=== PATIENT | female | born 1950 ===

== ENCOUNTER 2017-12-16 12:15 | Emergency (ER) | payer MEDICARE ==
[~2017-12-16] VITALS: Ht 160 cm; Wt 136.1 kg
[~2017-12-16 12:15] MED LIST: "\\\"WATER PILL\\\""; ACET325 PO; ALBU90OI INH; AMOCLA500 PO; AMOX500 PO; ASPI81CH PO; ATOR80 PO; AZIT250 PO; BECL40OI INH; BENTYL20 MG PO; BYDUREON P2 MG/0.65 SQ; CEPH500; CHOLESTEROL MED; CIPHYDOTSU OT; CIPR500 PO; CLAR500 PO; CLON.5 PO; CRUTCH3 USE; DIAZ5 PO; DICY20 PO; DOC250 PO; DOXY100 PO; FEXO180 PO; FLUC100; FLUC100 PO; FLUC150A PO; FLUT.05NI; FLUV20; FLUV40; FLUV80CR; FURO20 PO; FURO40 PO; Flurbiprofen100 MG PO; GABA600 PO; Gabapentin600 MG PO; HUMALOG INSULIN; HUMALOG MIX SUBQ; HYDACE5 PO; HYDMOR2 PO; Humalog100 UNIT/1 SC; IBUP600 PO; INS50/50I SC; INS70/30I; INSLI100I; INSLI100I SC; INSLIS75I SC; INSULANI; INSULANI SC; INSULANI SUBQ; INSULANPEN SC; INSULISPEN SC; Keflex500 MG PO; LACT10SY PO; LEVFLO500 PO; LIRA0.6P SC; LISI20 PO; LISI5 PO; LORA.5 PO; LORA1; LORA1 PO; LORA2 PO; MAGCIT300 PO; METF500; METF500 PO; METO25 PO; METPRE4DP PO; METR250 PO; Macrobid 100 M100 MG PO; Micro-K10 MEQ PO; NITR.4SL SL; NITR100CA PO; OMEP20ER; OMEP20ER PO; OMEPRAZOLE MAGN20 MG PO; OXYACE5T PO; OXYB5; OXYB5ER PO; PARO10 PO; PARO20; PARO20 PO; PARO30; PARO30 PO; PIOG15; PIOG15 PO; POTA10T PO; POTCHL20ER; POTCHL20ER PO; PRED10; PROBIOTIC; PROM25 PO; Percocet 5-3251 EACH PO; Prednisone20 MG PO; Pyridium100 MG PO; RANI150 PO; RXANTBENOT AU; RXHYDMOR2 PO; RXOXYACE PO; RXPROM25 PO; RXTRAM50 PO; SIMV5 PO; SITA25T2 PO; SOLI5 PO; SULTRIDS PO; Simvastatin40 MG PO; TOLT4 PO; TRAM50; TRAM50 PO; TRAZ50; TRAZ50 PO; Victoza SC; WALKER USE; WATER PILL; ZOLP10 PO; [UNRECOGNIZED DRUG - OTHER]; [UNRECOGNIZED DRUG - OTHER]; [UNRECOGNIZED DRUG - OTHER] PO; [UNRECOGNIZED DRUG - REMARK]
[2017-12-16 14:53] LABS: Alanine Aminotransfer (ALT/SGP 31 U/L (12-78); Albumin, Blood 3.5 g/dL (3.4-5.0); Albumin/Globulin Ratio 0.8 (0.8-1.8); Alk Phos 174 U/L (50-136); Anion Gap 8 mmol/L (6-16); Aspartate Aminotrans (AST/SGOT 38 U/L (12-37); Blood Urea Nitrogen 16 mg/dL (8-24); Bun/Creatinine Ratio 23.3 (12.0-20.0); CO2, Blood 25 mmol/L (21-32); Calcium, Blood 9.4 mg/dL (8.5-10.1); Chloride, Blood 104 mmol/L (98-108); Creatinine, Blood 0.69 mg/dL (0.40-1.00); Globulin, Blood 4.4 g/dL (2.2-4.0); Glomerular Filtration Rate >60 (60-); Glucose, Blood 236 mg/dL (70-99); Potassium, Blood 4.8 mmol/L (3.5-5.5); Sodium, Blood 137 mmol/L (136-145); Total Protein, Blood 7.9 g/dL (6.4-8.2)
[2017-12-16 15:13] LABS: BASOPHILS ABSOLUTE AUTO 0.05 K/mm3 (0.00-0.23); BASOPHILS PERCENT AUTO 1 % (0-2); EOSINOPHILS ABSOLUTE AUTO 0.17 K/mm3 (0.00-0.68); EOSINOPHILS PERCENT AUTO 3 % (0-6); Hematocrit 39.5 % (33.0-51.0); Hemoglobin 12.6 g/dL (11.5-16.0); IMMATURE GRAN ABSOLUTE AUTO 0.05 K/mm3 (0.00-0.10); IMMATURE GRAN PERCENT AUTO 1 % (0-1); LYMPHOCYTES ABSOLUTE AUTO 1.91 K/mm3 (0.84-5.20); LYMPHOCYTES PERCENT AUTO 28 % (21-46); MONOCYTES ABSOLUTE AUTO 0.49 K/mm3 (0.16-1.47); MONOCYTES PERCENT AUTO 7 % (4-13); Mean Corpuscular HGB 29.5 pg (26.0-34.0); Mean Corpuscular HGB Conc 31.9 g/dL (31.5-36.5); Mean Corpuscular Volume 93 fL (80-100); Mean Platelet Volume 9.5 fL (9.1-12.4); NEUTROPHILS ABSOLUTE AUTO 4.17 K/mm3 (1.96-9.15); NEUTROPHILS PERCENT AUTO 61 % (41-73); Platelet Count 264 K/mm3 (150-400); RDW Coefficient Variation 12.4 % (11.7-14.2); RDW Standard Deviation 42.5 fL (35.1-46.3); Red Blood Cell Count 4.27 M/mm3 (3.80-5.20); White Blood Cell Count 6.84 K/mm3 (4.00-11.30)
[2017-12-16 15:38] LABS: Source, Urine Clean Catch
[2017-12-16 15:43] LABS: Bilirubin, Urine Neg (Neg); Blood, Urine 1+ (Neg); Glucose Qualitative, Urine 2+ (Neg); Ketones, Urine Neg (Neg); Leukocyte Esterase, Urine 3+ (Neg); Nitrite, Urine Pos (Neg); Protein, Urine 1+ (Neg); Specific Gravity, Urine 1.025 (1.003-1.022); Urobilinogen, Urine NORM (Normal)
[2017-12-16 15:52] LABS: Appearance, Urine Hazy (Clear); Bacteria Many /hpf; Color, Urine Yellow (P-Yellow); Red Blood Cells, Urine 0-2 /hpf (0-2); Squamous Epithelial Cells Few /hpf (Few)
[2017-12-16] MEDS ORDERED: CEPH500 PO (15:59)
[2017-12-16] MEDS ORDERED: Zofran Odt4 MG PO (15:59)
[2017-12-16] MEDS ORDERED: Omeprazole20 M1 PO (16:03)
[2017-12-16] MEDS ORDERED: Lantus100 UNIT/1 SC (16:03)
[2017-12-16] MEDS ORDERED: CLON.5 PO (16:28)
[2017-12-16] MEDS ORDERED: GABA300 PO (16:28)
[2017-12-16] MEDS ORDERED: ALBU3IS INH (16:28)
[2017-12-16] MEDS ORDERED: OXYC1TAB11 (16:28)
== END 2017-12-16 17:24 | disposition home or self-care (01) ==
LOC: ER 12:15
PROVIDERS: Emergency Medicine
DX: N39.0 Urinary tract infection, site not specified (principal); R19.7 Diarrhea, unspecified; E11.9 Type 2 diabetes mellitus without complications; E66.01 Morbid (severe) obesity due to excess calories; Z68.43 Body mass index [BMI] 50.0-59.9, adult; Z88.5 Allergy status to narcotic agent; Z79.4 Long term (current) use of insulin; Z79.2 Long term (current) use of antibiotics
CPT/HCPCS: 36415; 80053; 81001; 83690; 85025; 99283

== ENCOUNTER 2017-12-28 13:30 | Emergency (ER) | payer MEDICARE ==
[~2017-12-28] VITALS: Ht 162.6 cm; Wt 136.1 kg
[~2017-12-28 13:30] MED LIST changes: +ALBU3IS INH; +CEPH500 PO; +GABA300 PO; +Lantus100 UNIT/1 SC; +OXYC1TAB11; +Omeprazole20 M1 PO; +Zofran Odt4 MG PO
[2017-12-28 14:37] LABS: BASOPHILS ABSOLUTE AUTO 0.04 K/mm3 (0.00-0.23); BASOPHILS PERCENT AUTO 1 % (0-2); EOSINOPHILS ABSOLUTE AUTO 0.14 K/mm3 (0.00-0.68); EOSINOPHILS PERCENT AUTO 2 % (0-6); Hemoglobin 12.5 g/dL (11.5-16.0); IMMATURE GRAN ABSOLUTE AUTO 0.05 K/mm3 (0.00-0.10); IMMATURE GRAN PERCENT AUTO 1 % (0-1); LYMPHOCYTES PERCENT AUTO 25 % (21-46); MONOCYTES ABSOLUTE AUTO 0.55 K/mm3 (0.16-1.47); MONOCYTES PERCENT AUTO 7 % (4-13); Mean Corpuscular HGB 29.3 pg (26.0-34.0); Mean Corpuscular HGB Conc 32.1 g/dL (31.5-36.5); Mean Corpuscular Volume 91 fL (80-100); Mean Platelet Volume 9.4 fL (9.1-12.4); NEUTROPHILS PERCENT AUTO 65 % (41-73); Platelet Count 289 K/mm3 (150-400); RDW Coefficient Variation 12.6 % (11.7-14.2); RDW Standard Deviation 41.3 fL (35.1-46.3); Red Blood Cell Count 4.27 M/mm3 (3.80-5.20); White Blood Cell Count 7.58 K/mm3 (4.00-11.30)
[2017-12-28 14:42] LABS: Alanine Aminotransfer (ALT/SGP 28 U/L (12-78); Albumin, Blood 3.2 g/dL (3.4-5.0); Albumin/Globulin Ratio 0.8 (0.8-1.8); Alk Phos 187 U/L (50-136); Anion Gap 10 mmol/L (6-16); Aspartate Aminotrans (AST/SGOT 18 U/L (12-37); Bilirubin, Total 0.7 mg/dL (0.1-1.0); Blood Urea Nitrogen 16 mg/dL (8-24); Bun/Creatinine Ratio 22.9 (12.0-20.0); CO2, Blood 23 mmol/L (21-32); Calcium, Blood 9.2 mg/dL (8.5-10.1); Chloride, Blood 105 mmol/L (98-108); Globulin, Blood 3.9 g/dL (2.2-4.0); Glomerular Filtration Rate >60 (60-); Glucose, Blood 162 mg/dL (70-99); Potassium, Blood 4.3 mmol/L (3.5-5.5); Sodium, Blood 138 mmol/L (136-145); Total Protein, Blood 7.1 g/dL (6.4-8.2)
[2017-12-28] MEDS ORDERED: Kristalose20 GM PO (15:30)
[2017-12-28] MEDS ORDERED: MIRALAX17 GM PO (15:30)
[2017-12-28] MEDS ORDERED: OMEPRAZOLE MAGN20 MG PO (15:31)
[2017-12-28] MEDS ORDERED: PROM25 PO (15:42)
== END 2017-12-28 16:42 | disposition home or self-care (01) ==
LOC: ER 13:30
PROVIDERS: Emergency Medicine
DX: R10.12 Left upper quadrant pain (principal); Z88.5 Allergy status to narcotic agent; Z79.4 Long term (current) use of insulin; Z79.899 Other long term (current) drug therapy; Z79.82 Long term (current) use of aspirin; E11.9 Type 2 diabetes mellitus without complications; E66.9 Obesity, unspecified
CPT/HCPCS: 36415; 74022; 80053; 83690; 85025; 96361; 96374; 99284; J2405; J7030

== ENCOUNTER 2018-02-24 17:20 | Observation (INO) | payer MEDICARE ==
[~2018-02-24] VITALS: Ht 160 cm; Wt 142.7 kg
[~2018-02-24 17:20] MED LIST changes: +Kristalose20 GM PO; +MIRALAX17 GM PO
[2018-02-24 18:47] LABS: BASOPHILS ABSOLUTE AUTO 0.05 K/mm3 (0.00-0.23); BASOPHILS PERCENT AUTO 0 % (0-2); EOSINOPHILS ABSOLUTE AUTO 0.11 K/mm3 (0.00-0.68); EOSINOPHILS PERCENT AUTO 1 % (0-6); Hematocrit 38.7 % (33.0-51.0); Hemoglobin 12.7 g/dL (11.5-16.0); IMMATURE GRAN ABSOLUTE AUTO 0.07 K/mm3 (0.00-0.10); IMMATURE GRAN PERCENT AUTO 1 % (0-1); LYMPHOCYTES ABSOLUTE AUTO 1.62 K/mm3 (0.84-5.20); LYMPHOCYTES PERCENT AUTO 13 % (21-46); MONOCYTES ABSOLUTE AUTO 0.67 K/mm3 (0.16-1.47); MONOCYTES PERCENT AUTO 5 % (4-13); Mean Corpuscular HGB 29.3 pg (26.0-34.0); Mean Corpuscular HGB Conc 32.8 g/dL (31.5-36.5); Mean Corpuscular Volume 89 fL (80-100); Mean Platelet Volume 9.3 fL (9.1-12.4); NEUTROPHILS ABSOLUTE AUTO 10.46 K/mm3 (1.96-9.15); NEUTROPHILS PERCENT AUTO 81 % (41-73); Platelet Count 291 K/mm3 (150-400); RDW Coefficient Variation 13.1 % (11.7-14.2); RDW Standard Deviation 42.7 fL (35.1-46.3); Red Blood Cell Count 4.34 M/mm3 (3.80-5.20); White Blood Cell Count 12.98 K/mm3 (4.00-11.30)
[2018-02-24] MEDS ORDERED: GABA300 PO (19:00)
[2018-02-24] MEDS ORDERED: BUME2 PO (19:02)
[2018-02-24] MEDS ORDERED: POTCHL20ER PO (19:03)
[2018-02-24 19:07] LABS: Alanine Aminotransfer (ALT/SGP 29 U/L (12-78); Albumin, Blood 3.5 g/dL (3.4-5.0); Albumin/Globulin Ratio 0.9 (0.8-1.8); Alk Phos 199 U/L (50-136); Anion Gap 7 mmol/L (6-16); Aspartate Aminotrans (AST/SGOT 18 U/L (12-37); Bilirubin, Total 0.6 mg/dL (0.1-1.0); Blood Urea Nitrogen 13 mg/dL (8-24); Bun/Creatinine Ratio 19.1 (12.0-20.0); CO2, Blood 25 mmol/L (21-32); Calcium, Blood 8.9 mg/dL (8.5-10.1); Chloride, Blood 106 mmol/L (98-108); Creatinine, Blood 0.68 mg/dL (0.40-1.00); Ethanol (Alcohol), Blood, Med <3 mg/dL; Globulin, Blood 3.8 g/dL (2.2-4.0); Glomerular Filtration Rate >60 (60-); Glucose, Blood 264 mg/dL (70-99); Salicylate <1.7 mg/dL (2.8-20.0); Sodium, Blood 138 mmol/L (136-145); Thyroxine (T4) 9.5 ug/dL (4.8-13.9); Total Protein, Blood 7.3 g/dL (6.4-8.2)
[2018-02-24 19:14] LABS: Acetaminophen, Random < 2.0 ug/mL (10.0-30.0)
[2018-02-24 20:27] LABS: Source, Urine Clean Catch
[2018-02-24 20:35] LABS: Bilirubin, Urine Neg (Neg); Blood, Urine 1+ (Neg); Glucose Qualitative, Urine 2+ (Neg); Ketones, Urine Neg (Neg); Leukocyte Esterase, Urine 3+ (Neg); Nitrite, Urine Pos (Neg); Protein, Urine 2+ (Neg); Specific Gravity, Urine 1.015 (1.003-1.022); Urobilinogen, Urine NORM (Normal)
[2018-02-24 20:40] LABS: Appearance, Urine Cloudy (Clear); Color, Urine Yellow (P-Yellow)
[2018-02-24 20:42] LABS: White Blood Cells, Urine 50-100 /hpf (0-5)
[2018-02-24 20:43] LABS: Bacteria Many /hpf; Squamous Epithelial Cells Mod /hpf (Few)
[2018-02-26 14:06] LABS: BASOPHILS ABSOLUTE AUTO 0.04 K/mm3 (0.00-0.23); BASOPHILS PERCENT AUTO 1 % (0-2); EOSINOPHILS ABSOLUTE AUTO 0.21 K/mm3 (0.00-0.68); EOSINOPHILS PERCENT AUTO 3 % (0-6); Hematocrit 37.5 % (33.0-51.0); Hemoglobin 12.2 g/dL (11.5-16.0); IMMATURE GRAN ABSOLUTE AUTO 0.06 K/mm3 (0.00-0.10); IMMATURE GRAN PERCENT AUTO 1 % (0-1); LYMPHOCYTES ABSOLUTE AUTO 1.35 K/mm3 (0.84-5.20); LYMPHOCYTES PERCENT AUTO 17 % (21-46); MONOCYTES ABSOLUTE AUTO 0.49 K/mm3 (0.16-1.47); MONOCYTES PERCENT AUTO 6 % (4-13); Mean Corpuscular HGB 29.5 pg (26.0-34.0); Mean Corpuscular HGB Conc 32.5 g/dL (31.5-36.5); Mean Corpuscular Volume 91 fL (80-100); Mean Platelet Volume 9.3 fL (9.1-12.4); NEUTROPHILS ABSOLUTE AUTO 5.98 K/mm3 (1.96-9.15); NEUTROPHILS PERCENT AUTO 74 % (41-73); Platelet Count 242 K/mm3 (150-400); RDW Coefficient Variation 12.9 % (11.7-14.2); RDW Standard Deviation 42.1 fL (35.1-46.3); Red Blood Cell Count 4.14 M/mm3 (3.80-5.20); White Blood Cell Count 8.13 K/mm3 (4.00-11.30)
[2018-02-26 14:24] LABS: Alanine Aminotransfer (ALT/SGP 32 U/L (12-78); Albumin, Blood 3.1 g/dL (3.4-5.0); Albumin/Globulin Ratio 0.8 (0.8-1.8); Alk Phos 160 U/L (50-136); Anion Gap 4 mmol/L (6-16); Aspartate Aminotrans (AST/SGOT 25 U/L (12-37); Bilirubin, Total 0.6 mg/dL (0.1-1.0); Blood Urea Nitrogen 16 mg/dL (8-24); Bun/Creatinine Ratio 23.2 (12.0-20.0); CO2, Blood 30 mmol/L (21-32); Calcium, Blood 8.8 mg/dL (8.5-10.1); Chloride, Blood 104 mmol/L (98-108); Creatinine, Blood 0.69 mg/dL (0.40-1.00); Globulin, Blood 3.8 g/dL (2.2-4.0); Glomerular Filtration Rate >60 (60-); Glucose, Blood 235 mg/dL (70-99); Potassium, Blood 4.4 mmol/L (3.5-5.5); Sodium, Blood 138 mmol/L (136-145); Total Protein, Blood 6.9 g/dL (6.4-8.2)
[2018-03-01 07:15] LABS: Dopamine, Plasma <30 pg/mL (0-48); Epinephrine, Plasma <15 pg/mL (0-62); Norepinephrine, Plasma 249 pg/mL (0-874)
== END 2018-02-28 12:05 | disposition home or self-care (01) ==
LOC: ER 17:20 → EOR 17:21 → MEDS 17:21
PROVIDERS: Emergency Medicine; Internal Medicine
DX: F41.8 Other specified anxiety disorders (principal); F41.0 Panic disorder [episodic paroxysmal anxiety]; F43.10 Post-traumatic stress disorder, unspecified; M81.0 Age-related osteoporosis without current pathological fracture; E66.01 Morbid (severe) obesity due to excess calories; G47.33 Obstructive sleep apnea (adult) (pediatric); E11.42 Type 2 diabetes mellitus with diabetic polyneuropathy; G89.29 Other chronic pain; M54.9 Dorsalgia, unspecified; I25.10 Atherosclerotic heart disease of native coronary artery without angina pectoris; I10 Essential (primary) hypertension; R60.0 Localized edema; N39.0 Urinary tract infection, site not specified; R45.851 Suicidal ideations; M17.0 Bilateral primary osteoarthritis of knee; S86.812A Strain of other muscle(s) and tendon(s) at lower leg level, left leg, initial encounter; S86.811A Strain of other muscle(s) and tendon(s) at lower leg level, right leg, initial encounter; S82.142D Displaced bicondylar fracture of left tibia, subsequent encounter for closed fracture with routine healing; Z99.89 Dependence on other enabling machines and devices; Z95.1 Presence of aortocoronary bypass graft; Z79.82 Long term (current) use of aspirin; Z79.899 Other long term (current) drug therapy; Z88.5 Allergy status to narcotic agent; Z82.49 Family history of ischemic heart disease and other diseases of the circulatory system; Z83.3 Family history of diabetes mellitus; Z79.4 Long term (current) use of insulin; Z68.43 Body mass index [BMI] 50.0-59.9, adult
CPT/HCPCS: 36415; 73562-LT; 80053; 81001; 82384; 82947; 84436; 84443; 85025; 87077; 87086; 87186; 94762; 96372; 97110; 97162; 97530; 99285; G0378; G0480; G8978; G8979; J1650; J1815; J1817

== ENCOUNTER 2018-03-07 14:05 | Inpatient (IN) | payer MEDICARE ==
[~2018-03-07] VITALS: Ht 160 cm; Wt 132.6 kg
[~2018-03-07 14:05] MED LIST changes: +BUME2 PO
[2018-03-07] MEDS ORDERED: LISI20 PO (14:31)
[2018-03-07] MEDS ORDERED: PARO20 PO (14:32)
[2018-03-07] MEDS ORDERED: PRAZ1 PO (14:33)
[2018-03-07] MEDS ORDERED: TRAZ50 PO (14:33)
[2018-03-07] MEDS ORDERED: METF500C PO (14:35)
[2018-03-07] MEDS ORDERED: INSDET100 SC (14:37)
[2018-03-07 15:03] LABS: Source, Urine Voided
[2018-03-07 15:06] LABS: BASOPHILS ABSOLUTE AUTO 0.03 K/mm3 (0.00-0.23); BASOPHILS PERCENT AUTO 0 % (0-2); EOSINOPHILS ABSOLUTE AUTO 0.18 K/mm3 (0.00-0.68); EOSINOPHILS PERCENT AUTO 2 % (0-6); Hematocrit 37.9 % (33.0-51.0); IMMATURE GRAN ABSOLUTE AUTO 0.03 K/mm3 (0.00-0.10); IMMATURE GRAN PERCENT AUTO 0 % (0-1); LYMPHOCYTES ABSOLUTE AUTO 1.86 K/mm3 (0.84-5.20); LYMPHOCYTES PERCENT AUTO 23 % (21-46); MONOCYTES ABSOLUTE AUTO 0.55 K/mm3 (0.16-1.47); MONOCYTES PERCENT AUTO 7 % (4-13); Mean Corpuscular HGB 29.5 pg (26.0-34.0); Mean Corpuscular HGB Conc 31.7 g/dL (31.5-36.5); Mean Corpuscular Volume 93 fL (80-100); Mean Platelet Volume 9.7 fL (9.1-12.4); NEUTROPHILS ABSOLUTE AUTO 5.62 K/mm3 (1.96-9.15); NEUTROPHILS PERCENT AUTO 68 % (41-73); Platelet Count 259 K/mm3 (150-400); RDW Coefficient Variation 13.2 % (11.7-14.2); RDW Standard Deviation 45.1 fL (35.1-46.3); Red Blood Cell Count 4.07 M/mm3 (3.80-5.20); White Blood Cell Count 8.27 K/mm3 (4.00-11.30)
[2018-03-07 15:10] LABS: Appearance, Urine Clear (Clear); Bilirubin, Urine Neg (Neg); Blood, Urine Neg (Neg); Color, Urine Yellow (P-Yellow); Glucose Qualitative, Urine Neg (Neg); Ketones, Urine Neg (Neg); Leukocyte Esterase, Urine 2+ (Neg); Nitrite, Urine Neg (Neg); Protein, Urine Neg (Neg); Urobilinogen, Urine NORM (Normal)
[2018-03-07 15:18] LABS: Bacteria Few /hpf; Red Blood Cells, Urine 0-2 /hpf (0-2); Squamous Epithelial Cells Few /hpf (Few)
[2018-03-07 15:36] LABS: Albumin, Blood 3.4 g/dL (3.4-5.0); Albumin/Globulin Ratio 0.9 (0.8-1.8); Bilirubin, Total 0.4 mg/dL (0.1-1.0); Bun/Creatinine Ratio 27.3 (12.0-20.0); Calcium, Blood 8.7 mg/dL (8.5-10.1); Creatinine, Blood 2.42 mg/dL (0.40-1.00); Globulin, Blood 3.7 g/dL (2.2-4.0); Potassium, Blood 6.3 mmol/L (3.5-5.5); Total Protein, Blood 7.1 g/dL (6.4-8.2)
[2018-03-07 15:55] LABS: Calcium, Ionized (POC) 1.02 mmol/L (1.10-1.46); Chloride (POC) 105 mmol/L (98-108); Creatinine (POC) 2.1 mg/dL (0.6-1.0); Glucose (ISTAT POC) 139 mg/dL (70-99); Hemoglobin (POC) 10.2 g/dL (12.0-16.0); Potassium (POC) 5.1 mmol/L (3.5-5.5); Sodium (POC) 140 mmol/L (135-148); Total CO2 (POC) 23 mmol/L (21-32)
[2018-03-07 21:34] LABS: Bun/Creatinine Ratio 31.3 (12.0-20.0); Calcium, Blood 8.9 mg/dL (8.5-10.1); Creatinine, Blood 1.98 mg/dL (0.40-1.00); Potassium, Blood 5.7 mmol/L (3.5-5.5)
[2018-03-08 03:31] LABS: BASOPHILS ABSOLUTE AUTO 0.04 K/mm3 (0.00-0.23); BASOPHILS PERCENT AUTO 1 % (0-2); EOSINOPHILS ABSOLUTE AUTO 0.19 K/mm3 (0.00-0.68); EOSINOPHILS PERCENT AUTO 2 % (0-6); Hemoglobin 12.2 g/dL (11.5-16.0); IMMATURE GRAN ABSOLUTE AUTO 0.01 K/mm3 (0.00-0.10); IMMATURE GRAN PERCENT AUTO 0 % (0-1); LYMPHOCYTES ABSOLUTE AUTO 1.81 K/mm3 (0.84-5.20); LYMPHOCYTES PERCENT AUTO 21 % (21-46); MONOCYTES ABSOLUTE AUTO 0.67 K/mm3 (0.16-1.47); MONOCYTES PERCENT AUTO 8 % (4-13); Mean Corpuscular HGB 29.6 pg (26.0-34.0); Mean Corpuscular HGB Conc 32.1 g/dL (31.5-36.5); Mean Corpuscular Volume 92 fL (80-100); Mean Platelet Volume 9.6 fL (9.1-12.4); NEUTROPHILS ABSOLUTE AUTO 5.78 K/mm3 (1.96-9.15); NEUTROPHILS PERCENT AUTO 68 % (41-73); Platelet Count 272 K/mm3 (150-400); RDW Coefficient Variation 13.4 % (11.7-14.2); RDW Standard Deviation 45.9 fL (35.1-46.3); Red Blood Cell Count 4.12 M/mm3 (3.80-5.20)
[2018-03-08 03:47] LABS: Bun/Creatinine Ratio 28.8 (12.0-20.0); Calcium, Blood 8.6 mg/dL (8.5-10.1); Creatinine, Blood 2.15 mg/dL (0.40-1.00); Potassium, Blood 5.9 mmol/L (3.5-5.5)
[2018-03-08 10:53] LABS: Bun/Creatinine Ratio 30.3 (12.0-20.0); Calcium, Blood 8.8 mg/dL (8.5-10.1); Creatinine, Blood 1.95 mg/dL (0.40-1.00); Potassium, Blood 6.2 mmol/L (3.5-5.5)
[2018-03-09 05:56] LABS: Hematocrit 37.8 % (33.0-51.0); Hemoglobin 12.1 g/dL (11.5-16.0)
[2018-03-09 06:11] LABS: Albumin, Blood 3.3 g/dL (3.4-5.0); Anion Gap 8 mmol/L (6-16); Blood Urea Nitrogen 46 mg/dL (8-24); Bun/Creatinine Ratio 31.5 (12.0-20.0); CO2, Blood 27 mmol/L (21-32); Calcium, Blood 8.8 mg/dL (8.5-10.1); Chloride, Blood 103 mmol/L (98-108); Creatinine, Blood 1.46 mg/dL (0.40-1.00); Glomerular Filtration Rate 38 (60-); Glucose, Blood 138 mg/dL (70-99); Magnesium, Blood 2.5 mg/dL (1.6-2.4); Phosphorus, Blood 4.6 mg/dL (2.5-4.9); Potassium, Blood 5.7 mmol/L (3.5-5.5); Sodium, Blood 138 mmol/L (136-145)
[2018-03-09 10:02] LABS: Uric Acid, Blood 7.3 mg/dL (2.6-6.0)
[2018-03-09 15:41] LABS: Bun/Creatinine Ratio 31.4 (12.0-20.0); Calcium, Blood 8.6 mg/dL (8.5-10.1); Creatinine, Blood 1.37 mg/dL (0.40-1.00); Potassium, Blood 5.3 mmol/L (3.5-5.5)
[2018-03-10 04:33] LABS: Hematocrit 34.5 % (33.0-51.0); Hemoglobin 11.2 g/dL (11.5-16.0)
[2018-03-10 04:51] LABS: Anion Gap 6 mmol/L (6-16); Blood Urea Nitrogen 41 mg/dL (8-24); Bun/Creatinine Ratio 32.5 (12.0-20.0); CO2, Blood 29 mmol/L (21-32); Calcium, Blood 8.4 mg/dL (8.5-10.1); Chloride, Blood 103 mmol/L (98-108); Creatinine, Blood 1.26 mg/dL (0.40-1.00); Glomerular Filtration Rate 45 (60-); Glucose, Blood 199 mg/dL (70-99); Magnesium, Blood 2.3 mg/dL (1.6-2.4); Phosphorus, Blood 4.1 mg/dL (2.5-4.9); Potassium, Blood 5.3 mmol/L (3.5-5.5); Sodium, Blood 138 mmol/L (136-145)
[2018-03-10] MEDS ORDERED: CEFD300 PO (14:34)
== END 2018-03-10 17:43 | disposition home or self-care (01) | DRG 683 ==
LOC: ER 14:05 → MEDS 14:06 → ER 17:30 → MEDS 17:30 → ENPENDDIS 03-10 14:58 → MEDS 03-10 17:43
PROVIDERS: Internal Medicine; Internal Medicine Nephrology; Physician Assistant; Student in an Organized Health Care Education/Training Program
DX: N17.9 Acute kidney failure, unspecified (principal); N39.0 Urinary tract infection, site not specified; Z68.43 Body mass index [BMI] 50.0-59.9, adult; E87.5 Hyperkalemia; I12.9 Hypertensive chronic kidney disease with stage 1 through stage 4 chronic kidney disease, or unspecified chronic kidney disease; E11.22 Type 2 diabetes mellitus with diabetic chronic kidney disease; N18.3 Chronic kidney disease, stage 3 (moderate); Z79.4 Long term (current) use of insulin; B96.4 Proteus (mirabilis) (morganii) as the cause of diseases classified elsewhere; E66.01 Morbid (severe) obesity due to excess calories; E11.40 Type 2 diabetes mellitus with diabetic neuropathy, unspecified; E78.5 Hyperlipidemia, unspecified; G47.33 Obstructive sleep apnea (adult) (pediatric); I25.10 Atherosclerotic heart disease of native coronary artery without angina pectoris
CPT/HCPCS: 36415; 73564; 76770; 80047; 80048; 80053; 80069; 81001; 82550; 82947; 83735; 84132; 84484; 84550; 85014; 85018; 85025; 86038; 87077; 87086; 87186; 93005; 93010; 93975; 94640; 94762; 96361; 96372; 96374; 97110; 97116; 97162; 97530; 99285; G0378; G8978; G8979; J1650; J1815; J1817; J7030

== ENCOUNTER 2018-06-13 17:51 | Inpatient (IN) | payer MEDICARE ==
[~2018-06-13] VITALS: Ht 160 cm; Wt 132.8 kg
[~2018-06-13 17:51] MED LIST changes: +CEFD300 PO; +INSDET100 SC; +METF500C PO; +PRAZ1 PO
[2018-06-13 19:06] LABS: BASOPHILS ABSOLUTE AUTO 0.07 K/mm3 (0.00-0.23); BASOPHILS PERCENT AUTO 1 % (0-2); EOSINOPHILS PERCENT AUTO 15 % (0-6); Hematocrit 34.8 % (33.0-51.0); Hemoglobin 11.1 g/dL (11.5-16.0); IMMATURE GRAN ABSOLUTE AUTO 0.06 K/mm3 (0.00-0.10); IMMATURE GRAN PERCENT AUTO 1 % (0-1); LYMPHOCYTES ABSOLUTE AUTO 1.43 K/mm3 (0.84-5.20); LYMPHOCYTES PERCENT AUTO 15 % (21-46); MONOCYTES ABSOLUTE AUTO 0.59 K/mm3 (0.16-1.47); MONOCYTES PERCENT AUTO 6 % (4-13); Mean Corpuscular HGB 28.3 pg (26.0-34.0); Mean Corpuscular HGB Conc 31.9 g/dL (31.5-36.5); Mean Corpuscular Volume 89 fL (80-100); NEUTROPHILS ABSOLUTE AUTO 6.23 K/mm3 (1.96-9.15); NEUTROPHILS PERCENT AUTO 63 % (41-73); Platelet Count 323 K/mm3 (150-400); RDW Coefficient Variation 13.3 % (11.7-14.2); RDW Standard Deviation 43.1 fL (35.1-46.3); Red Blood Cell Count 3.92 M/mm3 (3.80-5.20); White Blood Cell Count 9.88 K/mm3 (4.00-11.30)
[2018-06-13 19:28] LABS: Alanine Aminotransfer (ALT/SGP 18 U/L (12-78); Albumin, Blood 3.1 g/dL (3.4-5.0); Albumin/Globulin Ratio 0.8 (0.8-1.8); Alk Phos 139 U/L (50-136); Anion Gap 9 mmol/L (6-16); Aspartate Aminotrans (AST/SGOT 14 U/L (12-37); Bilirubin, Total 0.4 mg/dL (0.1-1.0); Blood Urea Nitrogen 22 mg/dL (8-24); Bun/Creatinine Ratio 24.5 (12.0-20.0); CO2, Blood 23 mmol/L (21-32); Calcium, Blood 8.9 mg/dL (8.5-10.1); Chloride, Blood 109 mmol/L (98-108); Globulin, Blood 4.1 g/dL (2.2-4.0); Glomerular Filtration Rate >60 (60-); Glucose, Blood 196 mg/dL (70-99); Potassium, Blood 4.5 mmol/L (3.5-5.5); Sodium, Blood 141 mmol/L (136-145); Total Protein, Blood 7.2 g/dL (6.4-8.2); Troponin I <0.015 ng/mL (0.000-0.040)
[2018-06-13] MEDS ORDERED: SERT50 PO (19:46)
[2018-06-14 01:13] LABS: Source, Urine Clean Catch
[2018-06-14 01:42] LABS: Bilirubin, Urine Neg (Neg); Blood, Urine 2+ (Neg); Color, Urine Yellow (P-Yellow); Glucose Qualitative, Urine Neg (Neg); Ketones, Urine Neg (Neg); Leukocyte Esterase, Urine 3+ (Neg); Nitrite, Urine Neg (Neg); Protein, Urine Neg (Neg); Specific Gravity, Urine 1.015 (1.003-1.022); Urobilinogen, Urine NORM (Normal)
[2018-06-14 02:02] LABS: Appearance, Urine Hazy (Clear)
[2018-06-14 02:20] LABS: White Blood Cells, Urine 25-50 /hpf (0-5)
[2018-06-14 02:21] LABS: Bacteria Mod /hpf; Squamous Epithelial Cells Few /hpf (Few)
[2018-06-14] MEDS ORDERED: FURO20 PO (02:28)
[2018-06-14 03:19] LABS: Hematocrit 36.3 % (33.0-51.0); Hemoglobin 11.8 g/dL (11.5-16.0); Mean Corpuscular HGB 28.2 pg (26.0-34.0); Mean Corpuscular HGB Conc 32.5 g/dL (31.5-36.5); Mean Corpuscular Volume 87 fL (80-100); Platelet Count 315 K/mm3 (150-400); RDW Coefficient Variation 13.2 % (11.7-14.2); RDW Standard Deviation 41.3 fL (35.1-46.3); Red Blood Cell Count 4.19 M/mm3 (3.80-5.20); White Blood Cell Count 10.11 K/mm3 (4.00-11.30)
[2018-06-14 03:49] LABS: Alanine Aminotransfer (ALT/SGP 16 U/L (12-78); Albumin, Blood 3.3 g/dL (3.4-5.0); Albumin/Globulin Ratio 0.7 (0.8-1.8); Alk Phos 152 U/L (50-136); Anion Gap 9 mmol/L (6-16); Aspartate Aminotrans (AST/SGOT 17 U/L (12-37); Bilirubin, Total 0.5 mg/dL (0.1-1.0); Blood Urea Nitrogen 23 mg/dL (8-24); Bun/Creatinine Ratio 28.8 (12.0-20.0); CO2, Blood 23 mmol/L (21-32); Calcium, Blood 8.7 mg/dL (8.5-10.1); Chloride, Blood 106 mmol/L (98-108); Globulin, Blood 4.5 g/dL (2.2-4.0); Glomerular Filtration Rate >60 (60-); Glucose, Blood 289 mg/dL (70-99); Sodium, Blood 138 mmol/L (136-145); Total Protein, Blood 7.8 g/dL (6.4-8.2)
[2018-06-14 03:51] LABS: CPK Creatine Kinase 63 U/L (26-193); Troponin I <0.015 ng/mL (0.000-0.040)
[2018-06-14 11:25] LABS: CPK Creatine Kinase 67 U/L (26-193); Troponin I <0.015 ng/mL (0.000-0.040)
[2018-06-14 18:31] LABS: Adenovirus Not Detected (NOT DETECT); Bordetella pertussis Not Detected (NOT DETECT); Chlamydophila pneumoniae Not Detected (NOT DETECT); Coronavirus 229E Not Detected (NOT DETECT); Coronavirus HKU1 Not Detected (NOT DETECT); Coronavirus NL63 Not Detected (NOT DETECT); Coronavirus OC43 Not Detected (NOT DETECT); Human Metapneumovirus Not Detected (NOT DETECT); Human Rhinovirus/Enterovirus Not Detected (NOT DETECT); Influenza A/2009-H1 Not Detected (NOT DETECT); Influenza A/H1 Not Detected (NOT DETECT); Influenza A/H3 Not Detected (NOT DETECT); Influenza B Not Detected (NOT DETECT); Mycoplasma pneumoniae Not Detected (NOT DETECT); Parainfluenza Virus 1 Not Detected (NOT DETECT); Parainfluenza Virus 2 Not Detected (NOT DETECT); Parainfluenza Virus 3 Not Detected (NOT DETECT); Parainfluenza Virus 4 Not Detected (NOT DETECT); Respiratory Syncytial Virus Not Detected (NOT DETECT)
[2018-06-14 20:51] LABS: Influenza A Not Detected (NOT DETECT)
[2018-06-15 05:21] LABS: BASOPHILS ABSOLUTE AUTO 0.01 K/mm3 (0.00-0.23); BASOPHILS PERCENT AUTO 0 % (0-2); EOSINOPHILS ABSOLUTE AUTO 0.04 K/mm3 (0.00-0.68); EOSINOPHILS PERCENT AUTO 0 % (0-6); Hematocrit 35.4 % (33.0-51.0); Hemoglobin 11.3 g/dL (11.5-16.0); IMMATURE GRAN ABSOLUTE AUTO 0.17 K/mm3 (0.00-0.10); IMMATURE GRAN PERCENT AUTO 1 % (0-1); LYMPHOCYTES PERCENT AUTO 11 % (21-46); MONOCYTES ABSOLUTE AUTO 1.09 K/mm3 (0.16-1.47); MONOCYTES PERCENT AUTO 9 % (4-13); Mean Corpuscular HGB 27.6 pg (26.0-34.0); Mean Corpuscular HGB Conc 31.9 g/dL (31.5-36.5); Mean Corpuscular Volume 86 fL (80-100); Mean Platelet Volume 9.3 fL (9.1-12.4); NEUTROPHILS ABSOLUTE AUTO 9.56 K/mm3 (1.96-9.15); NEUTROPHILS PERCENT AUTO 79 % (41-73); Platelet Count 385 K/mm3 (150-400); RDW Coefficient Variation 13.2 % (11.7-14.2); RDW Standard Deviation 41.5 fL (35.1-46.3); White Blood Cell Count 12.17 K/mm3 (4.00-11.30)
[2018-06-15] MEDS ORDERED: FURO40 PO (15:33)
[2018-06-15] MEDS ORDERED: ROBITUSSIN COU237 ML PO (15:38)
[2018-06-15] MEDS ORDERED: LEVFLO500 PO (15:39)
[2018-06-15] MEDS ORDERED: PRED10 PO (15:40)
== END 2018-06-15 16:27 | disposition home or self-care (01) | DRG 196 ==
LOC: ER 17:51 → PCU 17:52 → ER 23:13 → PCU 06-14 00:50 → MEDS 06-14 18:18 → PCU 06-14 18:18 → MEDS 06-15 05:09 → ENPENDDIS 06-15 14:12 → EDPENDDIS 06-15 14:12 → MEDS 06-15 16:27
PROVIDERS: Emergency Medicine; Internal Medicine; Internal Medicine Critical Care Medicine
PROC: 5A09357 Assistance with Respiratory Ventilation, Less than 24 Consecutive Hours, Continuous Positive Airway Pressure (ICD-10-PCS; principal; 2018-06-13)
DX: J82 Pulmonary eosinophilia, not elsewhere classified (principal); J18.9 Pneumonia, unspecified organism; I50.33 Acute on chronic diastolic (congestive) heart failure; Z68.43 Body mass index [BMI] 50.0-59.9, adult; E66.2 Morbid (severe) obesity with alveolar hypoventilation; I11.0 Hypertensive heart disease with heart failure; E11.65 Type 2 diabetes mellitus with hyperglycemia; T38.0X5A Adverse effect of glucocorticoids and synthetic analogues, initial encounter; E78.5 Hyperlipidemia, unspecified; I25.10 Atherosclerotic heart disease of native coronary artery without angina pectoris; Z95.1 Presence of aortocoronary bypass graft; K21.9 Gastro-esophageal reflux disease without esophagitis; I25.2 Old myocardial infarction
CPT/HCPCS: 36415; 71046; 71260; 80053; 81001; 82550; 82947; 83605; 83880; 84145; 84484; 85025; 85027; 87086; 87486; 87581; 87633; 87798; 93005; 93010; 93306; 94640; 94762; 96365; 96375; 97161; 97530; 99285-25; G8978; G8979; J0456; J0696; J1100; J1650; J1940; J1956; J2930; J7030; J7050; Q9967

== ENCOUNTER → 2019-07-05 | Outpatient (CLI) | payer MEDICARE ==
[~2019-07-05] MED LIST changes: +Loperamide2 MG PO; +PRED10 PO; +ROBITUSSIN COU237 ML PO; +SERT50 PO
== END | disposition home or self-care (01) ==
LOC: LAB EV 15:55 → LAB SHORT 15:55
DX: R30.0 Dysuria (principal)
CPT/HCPCS: 87077; 87086; 87186

== ENCOUNTER 2019-07-15 10:14 | Emergency (ER) | payer MEDICARE ==
[~2019-07-15] VITALS: Ht 154.9 cm; Wt 129.7 kg
[~2019-07-15 10:14] MED LIST changes: -Loperamide2 MG PO
[2019-07-15 10:58] LABS: BASOPHILS ABSOLUTE AUTO 0.04 K/mm3 (0.00-0.23); BASOPHILS PERCENT AUTO 1 % (0-2); EOSINOPHILS PERCENT AUTO 4 % (0-6); Hematocrit 40.8 % (33.0-51.0); Hemoglobin 13.2 g/dL (11.5-16.0); IMMATURE GRAN ABSOLUTE AUTO 0.03 K/mm3 (0.00-0.10); IMMATURE GRAN PERCENT AUTO 0 % (0-1); LYMPHOCYTES ABSOLUTE AUTO 1.65 K/mm3 (0.84-5.20); LYMPHOCYTES PERCENT AUTO 20 % (21-46); MONOCYTES ABSOLUTE AUTO 0.48 K/mm3 (0.16-1.47); MONOCYTES PERCENT AUTO 6 % (4-13); Mean Corpuscular HGB Conc 32.4 g/dL (31.5-36.5); Mean Corpuscular Volume 90 fL (80-100); Mean Platelet Volume 9.7 fL (9.1-12.4); NEUTROPHILS ABSOLUTE AUTO 5.96 K/mm3 (1.96-9.15); NEUTROPHILS PERCENT AUTO 70 % (41-73); Platelet Count 247 K/mm3 (150-400); RDW Standard Deviation 42.5 fL (35.1-46.3); Red Blood Cell Count 4.55 M/mm3 (3.80-5.20); White Blood Cell Count 8.46 K/mm3 (4.00-11.30)
[2019-07-15 11:11] LABS: Source, Urine Catheter
[2019-07-15 11:14] LABS: Bilirubin, Urine Neg (Neg); Blood, Urine Neg (Neg); Glucose Qualitative, Urine Neg (Neg); Ketones, Urine Neg (Neg); Leukocyte Esterase, Urine 1+ (Neg); Nitrite, Urine Neg (Neg); Protein, Urine Neg (Neg); Specific Gravity, Urine 1.015 (1.003-1.022); Urobilinogen, Urine NORM (Normal)
[2019-07-15 11:20] LABS: Albumin, Blood 3.5 g/dL (3.4-5.0); Albumin/Globulin Ratio 0.9 (0.8-1.8); Bilirubin, Total 0.5 mg/dL (0.1-1.0); Bun/Creatinine Ratio 22.1 (12.0-20.0); Creatinine, Blood 1.13 mg/dL (0.40-1.00); Potassium, Blood 3.5 mmol/L (3.5-5.5); Total Protein, Blood 7.5 g/dL (6.4-8.2)
[2019-07-15 11:28] LABS: Appearance, Urine Cloudy (Clear); Color, Urine Yellow (P-Yellow)
[2019-07-15 11:30] LABS: Bacteria Few /hpf; Red Blood Cells, Urine Rare /hpf (0-2); Squamous Epithelial Cells Mod /hpf (Few)
[2019-07-15 14:21] LABS: Adenovirus F 40/41 Not Detected (NOT DETECT); Astrovirus Not Detected (NOT DETECT); Campylobacter Sp Not Detected (NOT DETECT); Cryptosporidium Not Detected (NOT DETECT); Cyclospora Cayetanensis Not Detected (NOT DETECT); E. Coli O157 Not Detected (NOT DETECT); Entamoeba Histolytica Not Detected (NOT DETECT); Enteroaggregative E. coli-EAEC Not Detected (NOT DETECT); Enteropathogenic E. coli-EPEC Not Detected (NOT DETECT); Enterotoxigenic E. coli-ETEC Not Detected (NOT DETECT); Giardia Lamblia Not Detected (NOT DETECT); Norovirus GI/GII Not Detected (NOT DETECT); Plesiomonas Shigelloides Not Detected (NOT DETECT); Rotavirus A Not Detected (NOT DETECT); Salmonella Sp Not Detected (NOT DETECT); Sapovirus Not Detected (NOT DETECT); Shiga Toxin-prod E. coli-STEC Not Detected (NOT DETECT); Shigella/Enteroin E. coli-EIEC Not Detected (NOT DETECT); Vibrio Cholerae Not Detected (NOT DETECT); Vibrio Sp Not Detected (NOT DETECT); Yersinia Enterocolitica Not Detected (NOT DETECT)
== END 2019-07-15 14:49 | disposition home or self-care (01) ==
LOC: ER 10:14
PROVIDERS: Emergency Medicine
DX: R10.31 Right lower quadrant pain (principal); E11.9 Type 2 diabetes mellitus without complications; J44.9 Chronic obstructive pulmonary disease, unspecified; E66.9 Obesity, unspecified; Z88.5 Allergy status to narcotic agent; Z79.4 Long term (current) use of insulin; Z79.82 Long term (current) use of aspirin; Z79.899 Other long term (current) drug therapy
CPT/HCPCS: 0097U; 74177; 80053; 81001; 83690; 85025; 87086; 96361; 96374-59; 96375; 96376; 99284-25; J1170; J2405; J7120; P9612; Q9967

== ENCOUNTER 2019-07-18 23:22 | Emergency (ER) | payer MEDICARE ==
[~2019-07-18] VITALS: Ht 160 cm; Wt 130.6 kg
[2019-07-18 23:40] LABS: BASOPHILS ABSOLUTE AUTO 0.05 K/mm3 (0.00-0.23); BASOPHILS PERCENT AUTO 1 % (0-2); EOSINOPHILS ABSOLUTE AUTO 0.35 K/mm3 (0.00-0.68); EOSINOPHILS PERCENT AUTO 4 % (0-6); Hematocrit 39.9 % (33.0-51.0); IMMATURE GRAN ABSOLUTE AUTO 0.02 K/mm3 (0.00-0.10); IMMATURE GRAN PERCENT AUTO 0 % (0-1); LYMPHOCYTES ABSOLUTE AUTO 2.34 K/mm3 (0.84-5.20); LYMPHOCYTES PERCENT AUTO 29 % (21-46); MONOCYTES ABSOLUTE AUTO 0.58 K/mm3 (0.16-1.47); MONOCYTES PERCENT AUTO 7 % (4-13); Mean Corpuscular HGB 29.1 pg (26.0-34.0); Mean Corpuscular HGB Conc 32.6 g/dL (31.5-36.5); Mean Corpuscular Volume 90 fL (80-100); Mean Platelet Volume 9.5 fL (9.1-12.4); NEUTROPHILS ABSOLUTE AUTO 4.75 K/mm3 (1.96-9.15); NEUTROPHILS PERCENT AUTO 59 % (41-73); Platelet Count 264 K/mm3 (150-400); RDW Coefficient Variation 13.1 % (11.7-14.2); RDW Standard Deviation 42.7 fL (35.1-46.3); Red Blood Cell Count 4.46 M/mm3 (3.80-5.20); White Blood Cell Count 8.09 K/mm3 (4.00-11.30)
[2019-07-18 23:57] LABS: Albumin, Blood 3.5 g/dL (3.4-5.0); Albumin/Globulin Ratio 0.9 (0.8-1.8); Bilirubin, Total 0.5 mg/dL (0.1-1.0); Bun/Creatinine Ratio 13.2 (12.0-20.0); Calcium, Blood 8.8 mg/dL (8.5-10.1); Creatinine, Blood 1.36 mg/dL (0.40-1.00); Globulin, Blood 3.9 g/dL (2.2-4.0); Potassium, Blood 3.9 mmol/L (3.5-5.5); Total Protein, Blood 7.4 g/dL (6.4-8.2)
[2019-07-19] MEDS ORDERED: Loperamide2 MG PO (00:09)
== END 2019-07-19 01:50 | disposition home or self-care (01) ==
LOC: ER 23:22
PROVIDERS: Emergency Medicine
DX: R10.33 Periumbilical pain (principal); R10.30 Lower abdominal pain, unspecified; R19.7 Diarrhea, unspecified; Z88.5 Allergy status to narcotic agent; Z79.4 Long term (current) use of insulin; Z79.899 Other long term (current) drug therapy; Z79.82 Long term (current) use of aspirin; Z79.52 Long term (current) use of systemic steroids; E11.9 Type 2 diabetes mellitus without complications; E66.9 Obesity, unspecified; J44.9 Chronic obstructive pulmonary disease, unspecified
CPT/HCPCS: 36415; 80053; 83690; 85025; 99284

== ENCOUNTER 2019-09-27 13:09 | Emergency (ER) | payer MEDICARE ==
[~2019-09-27] VITALS: Ht 160 cm; Wt 124.3 kg
[~2019-09-27 13:09] MED LIST changes: +Loperamide2 MG PO
[2019-09-27] MEDS ORDERED: Ultram50 MG PO (14:26)
== END 2019-09-27 14:39 | disposition home or self-care (01) ==
LOC: ER 13:09
DX: R07.89 Other chest pain (principal); E11.9 Type 2 diabetes mellitus without complications; I10 Essential (primary) hypertension; K21.9 Gastro-esophageal reflux disease without esophagitis; J44.9 Chronic obstructive pulmonary disease, unspecified; Z79.899 Other long term (current) drug therapy; Z88.5 Allergy status to narcotic agent; Z79.4 Long term (current) use of insulin; W01.0XXA Fall on same level from slipping, tripping and stumbling without subsequent striking against object, initial encounter
CPT/HCPCS: 71046; 99283-25

== ENCOUNTER 2019-10-19 16:47 | Inpatient (IN) | payer MEDICARE, OTHER ==
[~2019-10-19] VITALS: Ht 157.5 cm; Wt 124.1 kg
[~2019-10-19 16:47] MED LIST changes: -GABA300 PO; -Humalog100 UNIT/1 SC; -Omeprazole20 M1 PO; -SERT50 PO; +Ultram50 MG PO
[2019-10-19 18:52] LABS: Alanine Aminotransfer (ALT/SGP 17 U/L (12-78); Albumin, Blood 2.5 g/dL (3.4-5.0); Albumin/Globulin Ratio 0.6 (0.8-1.8); Alk Phos 120 U/L (50-136); Anion Gap 8 mmol/L (6-16); Aspartate Aminotrans (AST/SGOT 20 U/L (12-37); Bilirubin, Total 0.5 mg/dL (0.1-1.0); Blood Urea Nitrogen 15 mg/dL (8-24); Bun/Creatinine Ratio 16.7 (12.0-20.0); CO2, Blood 21 mmol/L (21-32); Calcium, Blood 8.3 mg/dL (8.5-10.1); Chloride, Blood 111 mmol/L (98-108); Globulin, Blood 4.3 g/dL (2.2-4.0); Glomerular Filtration Rate >60 (60-); Glucose, Blood 152 mg/dL (70-99); Potassium, Blood 4.1 mmol/L (3.5-5.5); Sodium, Blood 140 mmol/L (136-145); Total Protein, Blood 6.8 g/dL (6.4-8.2); Troponin I 0.231 ng/mL (0.000-0.040)
[2019-10-19 19:17] LABS: Influenza A Negative (NEGATIVE); Influenza B Negative (NEGATIVE)
[2019-10-19 19:40] LABS: BASOPHILS ABSOLUTE AUTO 0.07 K/mm3 (0.00-0.23); BASOPHILS PERCENT AUTO 0 % (0-2); EOSINOPHILS ABSOLUTE AUTO 0.78 K/mm3 (0.00-0.68); EOSINOPHILS PERCENT AUTO 5 % (0-6); Hemoglobin 10.5 g/dL (11.5-16.0); IMMATURE GRAN ABSOLUTE AUTO 0.14 K/mm3 (0.00-0.10); IMMATURE GRAN PERCENT AUTO 1 % (0-1); LYMPHOCYTES ABSOLUTE AUTO 1.21 K/mm3 (0.84-5.20); LYMPHOCYTES PERCENT AUTO 8 % (21-46); MONOCYTES ABSOLUTE AUTO 0.71 K/mm3 (0.16-1.47); MONOCYTES PERCENT AUTO 4 % (4-13); Mean Corpuscular HGB 28.5 pg (26.0-34.0); Mean Corpuscular HGB Conc 29.2 g/dL (31.5-36.5); Mean Corpuscular Volume 98 fL (80-100); Mean Platelet Volume 8.8 fL (9.1-12.4); NEUTROPHILS ABSOLUTE AUTO 13.26 K/mm3 (1.96-9.15); NEUTROPHILS PERCENT AUTO 82 % (41-73); Platelet Count 374 K/mm3 (150-400); RDW Coefficient Variation 13.7 % (11.7-14.2); RDW Standard Deviation 49.7 fL (35.1-46.3); Red Blood Cell Count 3.68 M/mm3 (3.80-5.20); White Blood Cell Count 16.17 K/mm3 (4.00-11.30)
[2019-10-19] MEDS ORDERED: SERT100 PO (19:41)
[2019-10-19] MEDS ORDERED: POTA10T PO (19:41)
[2019-10-19] MEDS ORDERED: FURO20 PO (19:42)
[2019-10-19] MEDS ORDERED: Omeprazole20 M1 PO (19:43)
[2019-10-19] MEDS ORDERED: Humalog100 UNIT/1 SC (19:44)
[2019-10-19] MEDS ORDERED: INSULANPEN SC (19:45)
[2019-10-19] MEDS ORDERED: PANCREAZE PO (19:46)
[2019-10-19] MEDS ORDERED: TRULICITY1.5 MG/0.5 SC (19:46)
[2019-10-19] MEDS ORDERED: ATOR80 PO (19:47)
[2019-10-19] MEDS ORDERED: GABA300 PO ×2 (19:48)
[2019-10-19] MEDS ORDERED: METO25 PO (19:48)
[2019-10-19] MEDS ORDERED: TRAZ50 PO (19:49)
[2019-10-19] MEDS ORDERED: Aspir 8181 MG PO (19:50)
--- NOTE | 2019-10-19 21:25 | NUR ---
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 Reportedly morbidly obese and diabetic. Reported to be on 5 l NC to keep sats greater than 90%. Await admission.
[2019-10-19 23:43] LABS: Adenovirus Not Detected (NOT DETECT); Bordetella pertussis Not Detected (NOT DETECT); Chlamydophila pneumoniae Not Detected (NOT DETECT); Coronavirus 229E Not Detected (NOT DETECT); Coronavirus HKU1 Not Detected (NOT DETECT); Coronavirus NL63 Not Detected (NOT DETECT); Coronavirus OC43 Not Detected (NOT DETECT); Human Metapneumovirus Not Detected (NOT DETECT); Human Rhinovirus/Enterovirus Not Detected (NOT DETECT); Influenza A Not Detected (NOT DETECT); Influenza A/2009-H1 Not Detected (NOT DETECT); Influenza A/H1 Not Detected (NOT DETECT); Influenza A/H3 Not Detected (NOT DETECT); Influenza B Not Detected (NOT DETECT); Mycoplasma pneumoniae Not Detected (NOT DETECT); Parainfluenza Virus 1 Not Detected (NOT DETECT); Parainfluenza Virus 2 Not Detected (NOT DETECT); Parainfluenza Virus 3 Not Detected (NOT DETECT); Parainfluenza Virus 4 Not Detected (NOT DETECT); Respiratory Syncytial Virus Not Detected (NOT DETECT)
[2019-10-20 00:56] LABS: Source, Urine Clean Catch
[2019-10-20 01:01] LABS: Bilirubin, Urine Neg (Neg); Blood, Urine 1+ (Neg); Glucose Qualitative, Urine Neg (Neg); Ketones, Urine Neg (Neg); Leukocyte Esterase, Urine 3+ (Neg); Nitrite, Urine Pos (Neg); Protein, Urine 2+ (Neg); Specific Gravity, Urine 1.015 (1.003-1.022); Urobilinogen, Urine 1+ (Normal)
[2019-10-20 01:08] LABS: Appearance, Urine Hazy (Clear); Color, Urine Yellow (P-Yellow)
[2019-10-20 01:09] LABS: Amorphous Light (0-Heavy); Bacteria Mod /hpf; Mucus Light (0-Heavy); Red Blood Cells, Urine 0-2 /hpf (0-2); Squamous Epithelial Cells Few /hpf (Few); White Blood Cells, Urine 25-50 /hpf (0-5)
--- NOTE | 2019-10-20 02:07 | NUR ---
ER started second IV LT upper arm prior to PT coming to floor and not documented. Flushed Saline lock with 5 ml NS
[2019-10-20 05:01] LABS: BASOPHILS ABSOLUTE AUTO 0.04 K/mm3 (0.00-0.23); BASOPHILS PERCENT AUTO 0 % (0-2); EOSINOPHILS ABSOLUTE AUTO 0.09 K/mm3 (0.00-0.68); EOSINOPHILS PERCENT AUTO 1 % (0-6); Hematocrit 32.1 % (33.0-51.0); Hemoglobin 9.8 g/dL (11.5-16.0); IMMATURE GRAN ABSOLUTE AUTO 0.12 K/mm3 (0.00-0.10); IMMATURE GRAN PERCENT AUTO 1 % (0-1); LYMPHOCYTES ABSOLUTE AUTO 0.54 K/mm3 (0.84-5.20); LYMPHOCYTES PERCENT AUTO 4 % (21-46); MONOCYTES ABSOLUTE AUTO 0.29 K/mm3 (0.16-1.47); MONOCYTES PERCENT AUTO 2 % (4-13); Mean Corpuscular HGB 28.6 pg (26.0-34.0); Mean Corpuscular HGB Conc 30.5 g/dL (31.5-36.5); Mean Platelet Volume 9.2 fL (9.1-12.4); NEUTROPHILS ABSOLUTE AUTO 11.65 K/mm3 (1.96-9.15); NEUTROPHILS PERCENT AUTO 92 % (41-73); Platelet Count 325 K/mm3 (150-400); RDW Coefficient Variation 13.7 % (11.7-14.2); RDW Standard Deviation 47.1 fL (35.1-46.3); Red Blood Cell Count 3.43 M/mm3 (3.80-5.20); White Blood Cell Count 12.73 K/mm3 (4.00-11.30)
[2019-10-20 05:04] LABS: Mean Corpuscular Volume 94 fL (80-100)
[2019-10-20 05:56] LABS: Bun/Creatinine Ratio 17.9 (12.0-20.0); Calcium, Blood 8.2 mg/dL (8.5-10.1); Creatinine, Blood 1.06 mg/dL (0.40-1.00); Potassium, Blood 4.3 mmol/L (3.5-5.5)
--- NOTE | 2019-10-20 15:53 | NUR ---
CHANGE IN RESPIRATORY STATUS- PT REQUESTED TO GET UP TO THE BEDSIDE COMODE, PT HAD DONE THIS EARLIER IN THE SHIFT DEANDRA A LITTLE TIME FOR RECOVERY AFTER THE EVENT. ONCE PT WAS ON THE COMODE SHE BEGAN TO COUGH AND WAS HAVING DIFFICULTY CATCHING HER BREATH. CALLED RT DOC WHO CAME TO THE BEDSIDE, CALLED UNBUNDLER TO THE BEDSIDE. PT SATS 78-81 IF THEY CAME UP ANY HIGHER SHE WOULD START TO COUGH AND SATS WOULD DROP, PLACED ON A NRB AT 15L NO CHANGE, TRANSFERED PT BACK TO BED, RT ROACH SET UP NEW CPAP MASK AND PLACED PT ON CPAP. PT CURRENTLY AT 6L ON CPAP SATS 92%.
[2019-10-20 17:54] LABS: Source, Urine Catheter
[2019-10-20 17:59] LABS: Bilirubin, Urine Neg (Neg); Blood, Urine Neg (Neg); Glucose Qualitative, Urine 2+ (Neg); Ketones, Urine Neg (Neg); Leukocyte Esterase, Urine 1+ (Neg); Nitrite, Urine Neg (Neg); Protein, Urine Neg (Neg); Urobilinogen, Urine NORM (Normal)
[2019-10-20 18:04] LABS: Appearance, Urine Clear (Clear); Color, Urine Pale Yellow (P-Yellow)
[2019-10-20 18:07] LABS: Amorphous Light (0-Heavy); Bacteria Mod /hpf; Mucus Light (0-Heavy); Red Blood Cells, Urine Not Seen /hpf (0-2); Squamous Epithelial Cells Rare /hpf (Few)
--- NOTE | 2019-10-20 18:44 | NUR ---
UPDATE ASSUMED CARE FROM MEDICAL FLOOR RN SARAH. PT ON 6L NC WITH SATS ABOVE 90%. LS CRACKLES IN THE BASES. BP STABLE. HR SINUS RHYTHM TO SB. PT ALERT AND ORIENTED. PT ORIENTED TO UNIT. PER REPORT SATURATION DECREASES TO LOW 80'S WITH MINIMAL EXERTION. ROMANO PLACED PRIOR TO ARRIVAL IS PATENT AND DRAINING. PT SITTING UP EATING DINNER. WILL CONTINUE TO MONITOR AND REPORT TO ONCOMING RN. CALL LIGHT IN REACH.
--- NOTE | 2019-10-20 19:56 | NUR ---
TRANSFER NOTE- 1715- PT NEEDED TO PEE. GIVEN THE PREVIOUS EPISODE WHEN PT GOT UP TO THE BSC, A EDPAN WAS USED AND PT REMAINED ON CPAP WITH 6L BLEED IN FOR THIS, WHEN THE PT ROLLED TO THE LEFT SHE BEGAN TO COUGH, SAT HER UP HIGH ON THE BEDPAN AND SHE CONTINUED TO HAVE A SMALL SHALLOW NON PRODUCTIVE COUGH. SATS DROPPED TO 84% AND WERE NOT IMPROVING O2 BLEED IN FOR CPAP WAS TURNED UP TO 10L RT DOC WAS CALLED FOR A TREATMENT AND HE CAME TO THE BEDSIDE. PT WAS OFF OF THE BEDPAN HOB AT [address] WITH 10L BLEED IN, SATS RECOVERED TO 95-97% O2 REDUCED TO 6L. SATS MAINTAINING AT 92-94%. CALLED DR FRIEND AND REQUESTED ORDER FOR ROMANO TO PREVENT FURTHER EPISODES OF RESPIRATORY DISTRESS. ROMANO WAS PLACED JUST AFTER THE ORDER WAS OBTAINED. SPOKE TO RT DOC, PT SHOULD BE TRANSFERED TO PCU WHERE BIPAP CAN BE AVAILABLE. CALLED DR FRIEND AND RECIEVED ORDER FOR PT TRANSFER TO PCU. PT WAS TRANSFERED TO PCU 12 AND BEDSIDE REPORT WAS GIVEN TO DAY SHIFT BEEF GRADER AT AROUND 1800. PT WAS PLACED ON NC AT 6L FOR TRANSPORT AD BIOX WAS ON DURING THE TRANSPORT PT SATS MAINTAINED BETWEEN 90%-92% DURING THIS TIME. PT DINNER TRAY WAS TAKEN DOWN WITH HER SO SHE COULD TRY TO EAT. NO FURTHER QUESTIONS AT THE TIME OF TRANSFER.
--- NOTE | 2019-10-20 22:40 | NUR ---
PROVIDER CONTACTED PT WITH EPISODE OF INCREASING DYSPNEA WITH DESATURATIONS TO THE MID 80s. PT REPORTS THAT SHE "HAS STUFF IN HER LUNGS THAT SHE CAN'T GET UP". O2 INCREASED TO 9L VIA HFNC AT THIS TIME WITH O2 SATS INCREASING TO 92%. NO CHANGES TO LUNG SOUNDS, PT REPOSITIONED IN BED TO MAXIMIZE BREATHING CAPACITY. RT CALLED AND BREATHING TX GIVEN. DR RESENDIZ CONTACTED AND ORDERS RECEIVED FOR HUMABID, CEPACOL, AND SPUTUM CULTURE. WILL INPUT ORDERS AND ADMINISTER.
--- NOTE | 2019-10-20 23:06 | NUR ---
PT UPDATE PT GIVEN HUMABID AND PLACED ON HOME CPAP WITH 7L O2 BLEED IN AT THIS TIME. PT REPORTS DYSPNEA IS DISSIPATING FROM EARLIER EPISODE. O2 SATS OF 93% CURRENTLY AND PATIENT APPEARS TO BE RESTING MUCH MORE COMFORTABLY. WILL CONTINUE TO MONITOR.
[2019-10-20] MEDS ORDERED: Cinnamon500 MG PO (23:51)
[2019-10-20] MEDS ORDERED: CRANBERRY PLUS1 EAC1 PO (23:52)
[2019-10-20] MEDS ORDERED: PANCREAZE PO (23:52)
[2019-10-20] MEDS ORDERED: Loperamide2 MG PO (23:53)
[2019-10-21 04:38] LABS: Albumin, Blood 2.4 g/dL (3.4-5.0); Anion Gap 6 mmol/L (6-16); Blood Urea Nitrogen 31 mg/dL (8-24); Bun/Creatinine Ratio 27.9 (12.0-20.0); CO2, Blood 24 mmol/L (21-32); Calcium, Blood 8.5 mg/dL (8.5-10.1); Chloride, Blood 109 mmol/L (98-108); Creatinine, Blood 1.11 mg/dL (0.40-1.00); Glomerular Filtration Rate 51 (60-); Glucose, Blood 357 mg/dL (70-99); Phosphorus, Blood 2.9 mg/dL (2.5-4.9); Sodium, Blood 139 mmol/L (136-145)
--- NOTE | 2019-10-21 05:50 | NUR ---
SHIFT SUMMARY PT HAS REMAINED AOX4 THROUGHOUT SHIFT. VSS. PLEASANT AND COOPERATIVE WITH CARE.PT HAS REMAINED ON BEDREST THROUGHOUT THE NIGHT, ASSISTING WITH TURNING TOLERATED. O2 SATS HAVE REMAINED >90% ON HOME CPAP WITH 7L O2 BLEED IN. PT WITH NO FURTHER DYSPNEIC EPISODES SINCE PREVIOUS EPISODE. PT HAS RESTED THROUGHOUT REMAINDER OF THE NIGHT, WAKING EASILY FOR CARE. ROMANO REMAINS PATENT AND DRAINING TO GRAVITY. NO OTHER CHANGES NOTED FROM INITIAL ASSESSMENT.WILL CONTINUE TO MONITOR AND REPORT TO ONCOMING SHIFT RN. BED IN LOW POSITION, CALL LIGHT IN REACH. BED ALARM SET FOR SAFETY.
--- NOTE | 2019-10-21 17:31 | NUR ---
SHIFT SUMMARY PT ALERT AND ORIENTED. VS STABLE. 02 SATS HAVE REMAINED ABOVE 90% ON 9L HIGH FLOW NC. PT USED HER CPAP ON AND OFF WITH 8L BLEED IN. BP STABLE. HR NSR TO SB. PT COMPLAINED OF PAIN IN HER LEGS THAT WAS RELIEVED WITH MEDICATION ADMINISTRATION. PT REPOSITIONED NEEDED. ROMANO PATENT AND DRAINING. WILL CONTINUE TO MONITOR CLOSELY AND REPORT TO ONCOMING RN.
[2019-10-22 04:19] LABS: Albumin, Blood 2.3 g/dL (3.4-5.0); Anion Gap 6 mmol/L (6-16); Blood Urea Nitrogen 39 mg/dL (8-24); CO2, Blood 25 mmol/L (21-32); Calcium, Blood 8.4 mg/dL (8.5-10.1); Chloride, Blood 112 mmol/L (98-108); Creatinine, Blood 0.91 mg/dL (0.40-1.00); Glomerular Filtration Rate >60 (60-); Glucose, Blood 198 mg/dL (70-99); Phosphorus, Blood 2.8 mg/dL (2.5-4.9); Potassium, Blood 4.2 mmol/L (3.5-5.5); Sodium, Blood 143 mmol/L (136-145)
--- NOTE | 2019-10-22 06:33 | NUR ---
SHIFT SUMMARY PT HAS REMAINED AOX4 THROUGHOUT SHIFT. VSS. PLEASANT AND COOPERATIVE WITH CARE. PT HAS RESTED THROUGHOUT THE NIGHT, BUT REPORTS THAT SHE DID NOT SLEEP WELL DUE TO EPISODES OF COUGHING. O2 SATS HAVE REMAINED >90% ON HOME CPAP WITH 5-6L O2 BLEED IN. PT WITH ONE EPISODE OF O2 DESATURATIONS TO THE MID 80s WHILE SLEEPING, THAT INCREASED WITHIN 1 MINUTE OF WAKING RAISING HOB, AND TEMPORARILY INCREASING O2 BLEED IN TO 9L. ROMANO REMAINS PATENT AND DRAINING TO GRAVITY. NO OTHER CHANGES NOTED FROM INITIAL ASSESSMENT. WILL CONTINUE TO MONITOR AND REPORT TO ONCOMING SHIFT RN. BED IN LOW POSITION, CALL LIGHT IN REACH.
--- NOTE | 2019-10-22 15:04 | NUR ---
SHIFT SUMMARY PT A&OX4, VSS, TELE SR 1 DEGREE BBB @ 60 BPM, BIOX ON >94% 5LNC, CPAP WITH 5L BLEED AT BEDSIDE AVAILABLE FOR NAPPING/NOC. SOB W/EXERTION, DESATS WITH COUGHING, TCDB AND FLUTTER VALVE EDU & ENC Q1H. ROMANO PATENT & DRAINING YELLOW URINE, STAT LOCK ON, OFF FLOOR. ALL PO ADA DIET, DENIES N&V. DENIES CHEST PAIN. CBGS AC REQ COVERAGE. PLEASANT, COOPERATIVE AND CALLS APPROPRIATELY. WILL REPORT TO ONCOMING RN.
--- NOTE | 2019-10-23 01:39 | NUR ---
PROVIDER CONTACTED PT WITH INCREASING OXYGEN DEMAND TO MAINTAIN O2 SATS >90%. O2 BLEED IN INCREASED TO 9L AND SATS HOLDING AT 89%. PT REPORTS THAT SHE IS HAVING SOME INCREASED DYSPNEA THROUGHOUT THE EVENING AND INCREASED COUGHING THAT LEAVES HER FEELING LIKE SHE IS STRUGGLING TO CATCH HER BREATH. PT NOTED TO HAVE SHALLOW RESPIRATIONS AND POSSIBLE PERIODS OF APNEA WHILE ASLEEP. RTPORSHA, TO ROOM FOR BIPAP SETUP PER BIPAP PROTOCOL. PT PLACED ON V60 BIPAP WITH SETTINGS OF 16/10, 50% FIO2. PT APPEARS TO BE BREATHING MORE EASILY AND SATS MAINTAINING >90% ON CURRENT SETTINGS. DR VILLARREAL CONTACTED AND UPDATED ON PATIENT STATUS. PROVIDER REQUESTING ABG TO BE DONE AND ABNORMAL RESULTS TO BE MONITORED. RT CONTACTED TO DRAW ABG LAB.
[2019-10-23 02:05] LABS: PCO2 Arterial 41.8 mmHg (35-45); pH Blood Arterial 7.39 (7.35-7.45)
[2019-10-23 04:05] LABS: BASOPHILS ABSOLUTE AUTO 0.01 K/mm3 (0.00-0.23); BASOPHILS PERCENT AUTO 0 % (0-2); EOSINOPHILS PERCENT AUTO 0 % (0-6); Hematocrit 31.4 % (33.0-51.0); Hemoglobin 9.6 g/dL (11.5-16.0); IMMATURE GRAN ABSOLUTE AUTO 0.27 K/mm3 (0.00-0.10); IMMATURE GRAN PERCENT AUTO 2 % (0-1); LYMPHOCYTES ABSOLUTE AUTO 0.72 K/mm3 (0.84-5.20); LYMPHOCYTES PERCENT AUTO 5 % (21-46); MONOCYTES ABSOLUTE AUTO 0.69 K/mm3 (0.16-1.47); MONOCYTES PERCENT AUTO 5 % (4-13); Mean Corpuscular HGB 27.5 pg (26.0-34.0); Mean Corpuscular HGB Conc 30.6 g/dL (31.5-36.5); Mean Platelet Volume 9.2 fL (9.1-12.4); NEUTROPHILS ABSOLUTE AUTO 12.53 K/mm3 (1.96-9.15); NEUTROPHILS PERCENT AUTO 88 % (41-73); Platelet Count 375 K/mm3 (150-400); RDW Coefficient Variation 13.4 % (11.7-14.2); RDW Standard Deviation 44.3 fL (35.1-46.3); Red Blood Cell Count 3.49 M/mm3 (3.80-5.20); White Blood Cell Count 14.22 K/mm3 (4.00-11.30)
[2019-10-23 04:06] LABS: Mean Corpuscular Volume 90 fL (80-100)
[2019-10-23 04:30] LABS: Albumin, Blood 2.3 g/dL (3.4-5.0); Anion Gap 7 mmol/L (6-16); Blood Urea Nitrogen 33 mg/dL (8-24); Bun/Creatinine Ratio 39.6 (12.0-20.0); CO2, Blood 24 mmol/L (21-32); Calcium, Blood 8.6 mg/dL (8.5-10.1); Chloride, Blood 113 mmol/L (98-108); Creatinine, Blood 0.83 mg/dL (0.40-1.00); Glomerular Filtration Rate >60 (60-); Glucose, Blood 169 mg/dL (70-99); Phosphorus, Blood 2.7 mg/dL (2.5-4.9); Potassium, Blood 4.2 mmol/L (3.5-5.5); Sodium, Blood 144 mmol/L (136-145)
--- NOTE | 2019-10-23 07:00 | NUR ---
SHIFT SUMMARY PT HAS REMAINED AOX4 THROUGHOUT SHIFT. VSS. PLEASANT AND COOPERATIVE WITH CARE. PT REMAINS ON BEDREST THROUGHOUT THE NIGHT, ASSISTING WITH TURNS TOLERATED. PT TOLERATED V60 BIPAP WELL AND APPEARED TO HAVE DECREASED WORK OF BREATHING WITH IT IN PLACE. O2 SATS HAVE REMAINED >90% ON BIPAP WITH SETTING OF 16/10 50% FIO2. PT ENCOURAGED TO USE FLUTTER VALVE Q1 TOLERATED. THIS AM AFTER REMOVAL OF BIPAP, PT ASPIRATED ON SIP OF WATER. O2 SATS DECREASED TO MID 80s WITH RECOVERY LASTING LONGER THAN TWO MINUTES WHILE PATIENT COUGHED UP WATER THAT WAS SUCTIONED OUT OF HER MOUTH. HIGH FLOW NASAL CANNULA IN PLACE AT THIS TIME ON 7L. PT RECOVERED FROM EPISODE WITHIN 3 MINUTES AND O2 SATS INCREASED BACK UP TO >90% ON 7L VIA HFNC. PT EDUCATED ON UTILIZING CUP WITHOUT STRAW AND TAKING SLOW SIPS ESPECIALLY AFTER REMOVAL OF CPAP OR BIPAP. PT PLACED BACK ON BIPAP AFTER EPISODE AND O2 SATS QUICKLY INCREASED TO 94-95%. NO OTHER CHANGES NOTED FROM INITIAL ASSESSMENT. WILL CONTINUE TO MONITOR AND REPORT TO ONCOMING SHIFT RN. BED IN LOW POSITION, CALL LIGHT IN REACH.
--- NOTE | 2019-10-23 07:58 | NUR ---
Bedside report received from Moni Devries RN. Pt was wearing oxygen at 6 l/min at time of report, and appeared to have regular, unlabored respirations at rest. Spo2 noted to be 88-91% at the time, during conversation. bipap placed on pt at 0700 for an hour to promote rest until breakfast time.
--- NOTE | 2019-10-23 19:54 | NUR ---
SHIFT SUMMARY ASSUMED CARE OF PT AT 0700, PATIENT AWAKE AND ALERT IN BED ON 7L VIA NC, O2 SATURATION AT 92%. PATIENT MEDICATED AND TREATED PER UNIT PROTOCOL AND MD ORDER, PT DENIES PAIN. INFREQUENT EPISODES OF DYSPNEA WERE MET TO PATIENT'S SATISFACTION WITH RESP THERAPY TREATMENTS. PATIENT WAS ASSISTED BY TWO STAFF AND MINIMAL ASSISTANCE TO TRANSFER TO RECLINER JUST BEFORE BREAKFAST, IN WHICH SHE CHOSE TO STAY, WITH FREQUENT SLIGHT AND MAJOR REPOSITIONING, FOR THE REST OF THE SHIFT. PATIENT ATE WELL, WAS VISITED BY FRIEND AND CAREGIVER, AND DISPLAYED INTEREST AND MOTIVATION IN EDUCATION CONCERNING NATURAL HEALTH AND NUTRITION. PATIENT ENCOURAGED TO USE MODERN TECHNOLOGY TO BEGIN EDUCATING HERSELF. O2 SATS WERE MAINTAINED ABOVE 88% FOR THE MAJORITY OF THE SHIFT, PATIENT RESPONDING IMMEDIATELY TO MONITOR ALARM WITH DEEP BREATHING AND SELF-CALMING TECHNIQUES. CARE AND REPORT GIVEN TO ONCOMING SHIFT AT 1900, PATIENT ALERT IN HER RECLINER, CALL LIGHT W/IN REACH.
[2019-10-24 05:27] LABS: BASOPHILS ABSOLUTE AUTO 0.01 K/mm3 (0.00-0.23); BASOPHILS PERCENT AUTO 0 % (0-2); EOSINOPHILS PERCENT AUTO 0 % (0-6); Hematocrit 32.9 % (33.0-51.0); Hemoglobin 10.2 g/dL (11.5-16.0); IMMATURE GRAN ABSOLUTE AUTO 0.29 K/mm3 (0.00-0.10); IMMATURE GRAN PERCENT AUTO 2 % (0-1); LYMPHOCYTES ABSOLUTE AUTO 0.85 K/mm3 (0.84-5.20); LYMPHOCYTES PERCENT AUTO 6 % (21-46); MONOCYTES ABSOLUTE AUTO 0.71 K/mm3 (0.16-1.47); MONOCYTES PERCENT AUTO 5 % (4-13); Mean Corpuscular HGB 28.1 pg (26.0-34.0); Mean Corpuscular Volume 91 fL (80-100); Mean Platelet Volume 9.2 fL (9.1-12.4); NEUTROPHILS ABSOLUTE AUTO 13.41 K/mm3 (1.96-9.15); NEUTROPHILS PERCENT AUTO 88 % (41-73); Platelet Count 407 K/mm3 (150-400); RDW Coefficient Variation 13.4 % (11.7-14.2); RDW Standard Deviation 44.5 fL (35.1-46.3); Red Blood Cell Count 3.63 M/mm3 (3.80-5.20); White Blood Cell Count 15.27 K/mm3 (4.00-11.30)
[2019-10-24 05:40] LABS: Albumin, Blood 2.3 g/dL (3.4-5.0); Anion Gap 5 mmol/L (6-16); Blood Urea Nitrogen 31 mg/dL (8-24); Bun/Creatinine Ratio 40.4 (12.0-20.0); CO2, Blood 26 mmol/L (21-32); Calcium, Blood 8.7 mg/dL (8.5-10.1); Chloride, Blood 114 mmol/L (98-108); Creatinine, Blood 0.77 mg/dL (0.40-1.00); Glomerular Filtration Rate >60 (60-); Glucose, Blood 75 mg/dL (70-99); Potassium, Blood 4.1 mmol/L (3.5-5.5); Sodium, Blood 145 mmol/L (136-145)
--- NOTE | 2019-10-24 06:28 | NUR ---
a+o, states she slept well when wakened for am medication, bipap working well o2 above 90 for whole time on machine, states she is feeling better, no cough noted this am, call light in reach, will continue to monitor and treat until share bsr with day shift, denies pain, saline locked, took medication whole with water, cooperative with care
--- NOTE | 2019-10-24 13:42 | NUR ---
Met pt in a chair p[t. reports to be doing much better offfered prayers .
--- NOTE | 2019-10-24 19:40 | NUR ---
SHIFT SUMMARY ASSUMED CARE OF PT AT 0700, PT AWAKE LYING IN BED WEARING BIPAP, O2 SATS AT 92%. PT ATE BREAKFAST IN BED, SWITCHING TO NC AT 10L. TRANSFERRED TO RECLINER SOON AFTER, AND WAS HELPED TO SHOWER BETWEEN BREAKFAST AND LUNCH, PATIENT'S ROMANO CATH WAS DC'D AT THIS TIME. PATIENT EXHIBITED DYSPNEA AND SOB WITH EXERTION AND TRANSFERRING, BUT WAS ABLE TO MAINTAIN 02 SATURATION ABOVE 88% FOR THE MAJORITY OF THE SHIFT. PATIENT WAS MONITORED AND TREATED PER UNIT PROTOCOL AND MD ORDER, ASKING FOR PAIN MED FOR HEADACHE ONE TIME, REPORTING FULL RELIEF WITH PRN TYLENOL. CARE AND REPORT GIVEN TO ONCOMING ANN-MARIE PENNY AT 1900, PATIENT ALERT IN RECLINER RECEIVING RT BREATHING TREATMENT.
[2019-10-25 03:55] LABS: BASOPHILS ABSOLUTE AUTO 0.02 K/mm3 (0.00-0.23); BASOPHILS PERCENT AUTO 0 % (0-2); EOSINOPHILS PERCENT AUTO 0 % (0-6); Hematocrit 32.5 % (33.0-51.0); Hemoglobin 10.1 g/dL (11.5-16.0); IMMATURE GRAN ABSOLUTE AUTO 0.26 K/mm3 (0.00-0.10); IMMATURE GRAN PERCENT AUTO 2 % (0-1); LYMPHOCYTES PERCENT AUTO 3 % (21-46); MONOCYTES ABSOLUTE AUTO 0.43 K/mm3 (0.16-1.47); MONOCYTES PERCENT AUTO 3 % (4-13); Mean Corpuscular HGB 28.4 pg (26.0-34.0); Mean Corpuscular HGB Conc 31.1 g/dL (31.5-36.5); Mean Corpuscular Volume 91 fL (80-100); Mean Platelet Volume 9.2 fL (9.1-12.4); NEUTROPHILS ABSOLUTE AUTO 12.22 K/mm3 (1.96-9.15); NEUTROPHILS PERCENT AUTO 92 % (41-73); Platelet Count 368 K/mm3 (150-400); RDW Coefficient Variation 13.6 % (11.7-14.2); RDW Standard Deviation 45.6 fL (35.1-46.3); Red Blood Cell Count 3.56 M/mm3 (3.80-5.20); White Blood Cell Count 13.33 K/mm3 (4.00-11.30)
[2019-10-25 04:11] LABS: Anion Gap 8 mmol/L (6-16); Blood Urea Nitrogen 32 mg/dL (8-24); Bun/Creatinine Ratio 37.1 (12.0-20.0); CO2, Blood 25 mmol/L (21-32); Calcium, Blood 8.3 mg/dL (8.5-10.1); Chloride, Blood 112 mmol/L (98-108); Creatinine, Blood 0.86 mg/dL (0.40-1.00); Glomerular Filtration Rate >60 (60-); Glucose, Blood 114 mg/dL (70-99); Potassium, Blood 4.1 mmol/L (3.5-5.5); Sodium, Blood 145 mmol/L (136-145)
--- NOTE | 2019-10-25 07:26 | NUR ---
a+o able to make needs known, bipap utilized during majority of shift, able to remove for medication and using bsc, call light in reach, bsr shared with pt and returning day shift, no alarms sounded during night on oximiter
--- NOTE | 2019-10-25 07:38 | NUR ---
The pt is requesting a breathing treatment; Respiratory therapist Saniya Muñiz contacted. states she is on her way.
--- NOTE | 2019-10-25 09:23 | NUR ---
The pt states that the breathing treatment did not really help this morning. She is stating that she is not feeling well and after using the BSC the CLINICAL RN MANAGER reports that the pt was very short of breath, and spo2 dropped significantly and was unable to increase the spo2 until the pt was put on the V-60 Bipap, which she is wearing at this time. Settings are 18/14, 35% fiO2, respiratory rate of 22, and spo2 is now 92% and she states that it is helping to be on the bipap. She is sitting up in the recliner chair. LUng sounds are without crackles and wheezing.
[2019-10-25 09:52] LABS: PCO2 Arterial 39.1 mmHg (35-45); PO2 Arterial 72.2 mmHg (80-100); pH Blood Arterial 7.39 (7.35-7.45)
--- NOTE | 2019-10-25 11:56 | NUR ---
Pt. is lying in bed and have breathing machine on pt reports doing much better , offered prayers.
--- NOTE | 2019-10-25 13:31 | NUR ---
The patient has remained on the bipap for most of the morning. Powerglide was placed as phlebotomists were unsuccessful at drawing blood for stat troponin, and also for access during CT with contrast. Pt has had CT scan at this time, as is off the bipap for a swallow evaluation with Zahira Reina. She appears to be tolerating breaks from the bipap for brief periods, such as eating.
--- NOTE | 2019-10-25 18:20 | NUR ---
C/O of difficulty breathing while wearing the bipap, settings at 18/14 and FiO2 35%. Spo2 86%, and pt states difficulty breathing. FiO2 was increased to 40%, and RT Cricket called, he states he will give the pt her prn breathing treatment. Spo2 improved to 93%. The pt was assisted to have her linens and attends changed as she has been incontinent of urine from coughing. She states that she has not had any productive cough. States that after a meal, but NOT after swallowing, she has discomfort in her epigastric and upper back area. Denies noticing any difficulty swallowing. No coughing with swallowing liquid or food. HOB remains elevated in order to promote ventilation.
--- NOTE | 2019-10-26 07:13 | NUR ---
a+o, no alarms for 02 level while on bipap but did have some for heart rate which remained bradycardic, call light in reach, bsr shared with pt and day staff, lift sheet under pt to help in positioning, declined to get up during noc shift, 2 ivs and on picc line
--- NOTE | 2019-10-26 18:54 | NUR ---
SHIFT NOTE PT HAS REMAINED ON BIPAP T/O THE DAY, HAS TOLERATED O2 VIA NASAL CANNULA LONG ENOUGH TO EAT APPROX 30% OF HER TRAY FOR EACH MEAL. PT DID HAVE AN EPISODE OF HYPOGLYCEMIA THIS AM WHICH RESPONDED WELL WITH 4oz OF JUICE, DECISION WAS MADE TO HOLD MORNING AND AFTERNOON HUMALOG R/T LOW BLOOD SUGAR, EVENING DOSE WAS ADMINSITERED. PT IS ALERT AND ORIENT ABLE TO ANSWER QUESTIONS APPROPRIATELY. PT ROLLS ON AND OFF OF BED ACRPENTER W/O DIFF
--- NOTE | 2019-10-26 19:45 | NUR ---
REPORT REC'D FROM DAY SHIFT RN. PT HAS BEEN TO PCU A NUMBER OF TIMES OVER THE YEARS. HERE FOR BILAT PNA. CURRENTLY ON BIPAP. DISCUSSED PLAN FOR THE NIGHT WITH PT. SHE PREFERS TO USE BEDPAN SHE HAD GOTTEN VERY SOB WHEN UP TO BSC. INCONTINENT OF URINE IN ADDITION. ASSESSMENT NOTED. PT A&O, PLEASANT AND COOPERATIVE. O2 IS SET FOR 9L HIGH FLOW NC. CALL LIGHT IN REACH. BELONGINGS IN REACH.
[2019-10-27 04:26] LABS: BASOPHILS ABSOLUTE AUTO 0.02 K/mm3 (0.00-0.23); BASOPHILS PERCENT AUTO 0 % (0-2); EOSINOPHILS PERCENT AUTO 0 % (0-6); Hematocrit 32.6 % (33.0-51.0); Hemoglobin 10.2 g/dL (11.5-16.0); IMMATURE GRAN ABSOLUTE AUTO 0.24 K/mm3 (0.00-0.10); IMMATURE GRAN PERCENT AUTO 2 % (0-1); LYMPHOCYTES ABSOLUTE AUTO 0.51 K/mm3 (0.84-5.20); LYMPHOCYTES PERCENT AUTO 5 % (21-46); MONOCYTES ABSOLUTE AUTO 0.43 K/mm3 (0.16-1.47); MONOCYTES PERCENT AUTO 4 % (4-13); Mean Corpuscular HGB 28.4 pg (26.0-34.0); Mean Corpuscular HGB Conc 31.3 g/dL (31.5-36.5); Mean Corpuscular Volume 91 fL (80-100); Mean Platelet Volume 9.2 fL (9.1-12.4); NEUTROPHILS ABSOLUTE AUTO 10.09 K/mm3 (1.96-9.15); NEUTROPHILS PERCENT AUTO 89 % (41-73); Platelet Count 366 K/mm3 (150-400); RDW Coefficient Variation 13.9 % (11.7-14.2); RDW Standard Deviation 46.5 fL (35.1-46.3); Red Blood Cell Count 3.59 M/mm3 (3.80-5.20); White Blood Cell Count 11.29 K/mm3 (4.00-11.30)
[2019-10-27 04:45] LABS: Alanine Aminotransfer (ALT/SGP 69 U/L (12-78); Albumin, Blood 2.2 g/dL (3.4-5.0); Albumin/Globulin Ratio 0.6 (0.8-1.8); Alk Phos 116 U/L (50-136); Anion Gap 4 mmol/L (6-16); Aspartate Aminotrans (AST/SGOT 32 U/L (12-37); Bilirubin, Total 0.7 mg/dL (0.1-1.0); Blood Urea Nitrogen 34 mg/dL (8-24); Bun/Creatinine Ratio 41.2 (12.0-20.0); CO2, Blood 30 mmol/L (21-32); Calcium, Blood 8.1 mg/dL (8.5-10.1); Chloride, Blood 108 mmol/L (98-108); Creatinine, Blood 0.83 mg/dL (0.40-1.00); Globulin, Blood 3.6 g/dL (2.2-4.0); Glomerular Filtration Rate >60 (60-); Glucose, Blood 150 mg/dL (70-99); Magnesium, Blood 2.5 mg/dL (1.6-2.4); Potassium, Blood 4.4 mmol/L (3.5-5.5); Sodium, Blood 142 mmol/L (136-145); Total Protein, Blood 5.8 g/dL (6.4-8.2)
[2019-10-27 05:06] LABS: PCO2 Arterial 45.8 mmHg (35-45); PO2 Arterial 67.6 mmHg (80-100); pH Blood Arterial 7.43 (7.35-7.45)
--- NOTE | 2019-10-27 07:39 | NUR ---
SHFT SUMMARY PT LYING IN BED, BIPAP IN PLACE. AM MEDS GIVEN. NO SIG CHANGES THIS SHIFT. BEDSIDE REPORT GIVEN TO JIGNA JACOBSEN. CALL LIGHT IN REACH. NADN AT THIS TIME.
--- NOTE | 2019-10-27 18:51 | NUR ---
SHIFT NOTE PT WAS OFF OF BIPAP CONTINUOUSLY FOR APPROX 3 HOURS THIS EVENING, PT WAS ALSO UP TO CHAIR WHILE OFF OF BIPAP. PT WAS ON AND OFF OF BSC WITHOUT DIFF, NO EXACERBATION OF SOB WHILE UP TO BSC. PT REPORTS GOOD IMPROVEMENT OF SOB AND WORK OF BREATHING TODAY. PT HAS BEEN ABLE TO TOLERATE EATING FOOD TRAYS TODAY, PT WAS NOT ABLE TO EAT ENTIRE MEAL YESTERDAY SHE WAS TOO SOB TO EAT WHILE OFF OF BIPAP.
--- NOTE | 2019-10-27 22:45 | NUR ---
1944 PT ASSISTED BACK TO BED AFTER BECOMING VERY SOB TRANSFERRING FROM CHAIR TO BSC WHILE WEARING O2 AT 9L/M PER NASAL CANNULA; RESPIRATORY THERAPY AT SIDE WITH BIPAP REAPPLIED WITH SATS AT 90%; PT CALM; FAMILY AT SIDE AND SUPPORTIVE.
[2019-10-28 04:01] LABS: BASOPHILS ABSOLUTE AUTO 0.01 K/mm3 (0.00-0.23); BASOPHILS PERCENT AUTO 0 % (0-2); EOSINOPHILS ABSOLUTE AUTO 0.01 K/mm3 (0.00-0.68); EOSINOPHILS PERCENT AUTO 0 % (0-6); Hematocrit 33.1 % (33.0-51.0); Hemoglobin 10.4 g/dL (11.5-16.0); IMMATURE GRAN PERCENT AUTO 2 % (0-1); LYMPHOCYTES ABSOLUTE AUTO 0.76 K/mm3 (0.84-5.20); LYMPHOCYTES PERCENT AUTO 7 % (21-46); MONOCYTES ABSOLUTE AUTO 0.65 K/mm3 (0.16-1.47); MONOCYTES PERCENT AUTO 6 % (4-13); Mean Corpuscular HGB 28.5 pg (26.0-34.0); Mean Corpuscular HGB Conc 31.4 g/dL (31.5-36.5); Mean Corpuscular Volume 91 fL (80-100); NEUTROPHILS ABSOLUTE AUTO 9.88 K/mm3 (1.96-9.15); NEUTROPHILS PERCENT AUTO 86 % (41-73); Platelet Count 357 K/mm3 (150-400); RDW Coefficient Variation 14.5 % (11.7-14.2); RDW Standard Deviation 46.6 fL (35.1-46.3); Red Blood Cell Count 3.65 M/mm3 (3.80-5.20); White Blood Cell Count 11.51 K/mm3 (4.00-11.30)
[2019-10-28 05:31] LABS: Albumin, Blood 2.2 g/dL (3.4-5.0); Anion Gap 5 mmol/L (6-16); Blood Urea Nitrogen 34 mg/dL (8-24); Bun/Creatinine Ratio 43.9 (12.0-20.0); CO2, Blood 31 mmol/L (21-32); Calcium, Blood 8.4 mg/dL (8.5-10.1); Chloride, Blood 107 mmol/L (98-108); Creatinine, Blood 0.77 mg/dL (0.40-1.00); Glomerular Filtration Rate >60 (60-); Glucose, Blood 121 mg/dL (70-99); Magnesium, Blood 2.6 mg/dL (1.6-2.4); Phosphorus, Blood 2.9 mg/dL (2.5-4.9); Potassium, Blood 4.4 mmol/L (3.5-5.5); Sodium, Blood 143 mmol/L (136-145)
--- NOTE | 2019-10-28 06:28 | NUR ---
SHIFT SUMMARY: 69 Y/O MORBID OBESE FEMALE RESTED COMFORTABLY ALL SHIFT WHILE WEARING BIPAP; DENIES PAIN OR NAUSEA; PT HAD ONE EPISODE OF DYSPNEA AFTER TRANSFERRING FROM CHAIR TO BSC TO BED WHICH RESOLVED WITH REST; ALERT AND ORIENTED X 4; FAMILY AT SIDE AND SUPPORTIVE; BED LOW POSITION WITH CALL LIGHT AT SIDE.
--- NOTE | 2019-10-28 18:55 | NUR ---
SHIFT NOTE PT HAS BEEN OFF OF BIPAP SINCE 0730 THIS AM, AND HAS NOT RETURNED TO BIPAP USE. PT HAS BEEN UP TO RECLINER T/O MOST OF THE DAY AND IS TOLERATING IT WELL. FAMILY IS UPDATED ON PT'S STATUS. PT HAS TOLERATED MEALS WELL TODAY EATING ENTIRE TRAYS TODAY. PT A/O X4, ANSWERING QUESTIONS APPROPRIATELY
--- NOTE | 2019-10-29 02:07 | NUR ---
10/28/19 1945 PT RESTING UP CHAIR WATCHING TV WHILE WEARING O2 AT 7L/M PER NASAL CANNULA, DENIES RESPIRATORY DISTRESS; ABLE TO TAKE PILLS WITHOUT ISSUE (2 PILLS AT TIME) THIS EVENING. 2100 ASSISTED BACK TO BED FROM CHAIR; PT ABLE TO STAND, PIVOT WHILE BEARING WEIGHT ON LEGS TO BSC AND THEN INTO BED; PT EXPERIENCED DYSPNEA WITH THIS SLIGHT ACTIVITY WITH O2 SATS DECREASING FROM 91% to 80% LESS THAN 10 SECONDS AND THEN RECOVERING BACK UP 91% AFTER APPROXIMATELY 2 MINUTES. 2300 PTS SPOUSE AND SON AT SIDE AND SUPPORTIVE. 10/29/19 0005 RESTING COMFORTABLY IN BED WHILE WEARING BIPAP.
[2019-10-29 04:34] LABS: BASOPHILS ABSOLUTE AUTO 0.02 K/mm3 (0.00-0.23); BASOPHILS PERCENT AUTO 0 % (0-2); EOSINOPHILS PERCENT AUTO 0 % (0-6); Hematocrit 34.3 % (33.0-51.0); Hemoglobin 10.6 g/dL (11.5-16.0); IMMATURE GRAN ABSOLUTE AUTO 0.25 K/mm3 (0.00-0.10); IMMATURE GRAN PERCENT AUTO 2 % (0-1); LYMPHOCYTES ABSOLUTE AUTO 0.83 K/mm3 (0.84-5.20); LYMPHOCYTES PERCENT AUTO 6 % (21-46); MONOCYTES ABSOLUTE AUTO 0.46 K/mm3 (0.16-1.47); MONOCYTES PERCENT AUTO 3 % (4-13); Mean Corpuscular HGB 27.8 pg (26.0-34.0); Mean Corpuscular HGB Conc 30.9 g/dL (31.5-36.5); Mean Corpuscular Volume 90 fL (80-100); NEUTROPHILS ABSOLUTE AUTO 12.54 K/mm3 (1.96-9.15); NEUTROPHILS PERCENT AUTO 89 % (41-73); Platelet Count 406 K/mm3 (150-400); RDW Coefficient Variation 15.4 % (11.7-14.2); RDW Standard Deviation 47.4 fL (35.1-46.3); Red Blood Cell Count 3.81 M/mm3 (3.80-5.20)
[2019-10-29 05:24] LABS: Alanine Aminotransfer (ALT/SGP 56 U/L (12-78); Albumin, Blood 2.5 g/dL (3.4-5.0); Albumin/Globulin Ratio 0.7 (0.8-1.8); Alk Phos 120 U/L (50-136); Anion Gap 5 mmol/L (6-16); Aspartate Aminotrans (AST/SGOT 20 U/L (12-37); Bilirubin, Total 0.9 mg/dL (0.1-1.0); Blood Urea Nitrogen 36 mg/dL (8-24); Bun/Creatinine Ratio 38.8 (12.0-20.0); CO2, Blood 33 mmol/L (21-32); Calcium, Blood 8.6 mg/dL (8.5-10.1); Chloride, Blood 105 mmol/L (98-108); Creatinine, Blood 0.93 mg/dL (0.40-1.00); Globulin, Blood 3.7 g/dL (2.2-4.0); Glomerular Filtration Rate >60 (60-); Glucose, Blood 65 mg/dL (70-99); Potassium, Blood 4.7 mmol/L (3.5-5.5); Sodium, Blood 143 mmol/L (136-145); Total Protein, Blood 6.2 g/dL (6.4-8.2)
--- NOTE | 2019-10-29 07:27 | NUR ---
ASSUMED CARE: PT RETURNED FROM IMAGIN. 6L NC IN PLACE. DENIES NEEDS OR CONCERNS AT THIS TIME.
--- NOTE | 2019-10-29 19:39 | NUR ---
SHIFT SUMMARY: PT UP IN CHAIR AT THIS TIME. AMBULATES WELL WITH ONE ASSIST BUT NEEDS ENCOURAGEMENT. PLAN IS FOR SLEEP STUDY TONIGHT TO DETERMINE O2 NEEDS AND BIPAP VS CPAP. DC TO SNF IN NEXT FEW DAYS. DENIES NEEDS OR CONCERNS.
--- NOTE | 2019-10-30 06:42 | NUR ---
SHIFT SUMMARY PATIENT PLEASENT AND COOPERATIVE THROUGHOUT THE NIGHT. PATIENT HAD SLEEP STUDY DONE THROUGHOUT THE NIGHT. PATIENT APPEARED TO SLEEP WELL LAST NIGHT WITH NO COMPLAINTS OF PAIN. PATIENT APPEARED TO BE ABLE TO MOVE SELF ABOUT IN THE BED. PATIENT CURRENTLY APPEARS TO BE ASLEEP, CALL LIGHT WITHIN REACH. WILL CONTINUE TO MONITOR PATIENT AND REPORT TO ONCOMING RN.
[2019-10-30 06:46] LABS: BASOPHILS ABSOLUTE AUTO 0.01 K/mm3 (0.00-0.23); BASOPHILS PERCENT AUTO 0 % (0-2); EOSINOPHILS ABSOLUTE AUTO 0.01 K/mm3 (0.00-0.68); EOSINOPHILS PERCENT AUTO 0 % (0-6); Hematocrit 33.4 % (33.0-51.0); Hemoglobin 10.6 g/dL (11.5-16.0); IMMATURE GRAN PERCENT AUTO 1 % (0-1); LYMPHOCYTES ABSOLUTE AUTO 0.94 K/mm3 (0.84-5.20); LYMPHOCYTES PERCENT AUTO 7 % (21-46); MONOCYTES PERCENT AUTO 5 % (4-13); Mean Corpuscular HGB 28.2 pg (26.0-34.0); Mean Corpuscular HGB Conc 31.7 g/dL (31.5-36.5); Mean Corpuscular Volume 89 fL (80-100); Mean Platelet Volume 9.4 fL (9.1-12.4); NEUTROPHILS ABSOLUTE AUTO 12.21 K/mm3 (1.96-9.15); NEUTROPHILS PERCENT AUTO 87 % (41-73); Platelet Count 387 K/mm3 (150-400); RDW Coefficient Variation 13.9 % (11.7-14.2); RDW Standard Deviation 44.3 fL (35.1-46.3); Red Blood Cell Count 3.76 M/mm3 (3.80-5.20); White Blood Cell Count 14.07 K/mm3 (4.00-11.30)
[2019-10-30 07:00] LABS: Alanine Aminotransfer (ALT/SGP 43 U/L (12-78); Albumin, Blood 2.3 g/dL (3.4-5.0); Albumin/Globulin Ratio 0.7 (0.8-1.8); Alk Phos 115 U/L (50-136); Anion Gap 4 mmol/L (6-16); Aspartate Aminotrans (AST/SGOT 12 U/L (12-37); Bilirubin, Total 0.6 mg/dL (0.1-1.0); Blood Urea Nitrogen 39 mg/dL (8-24); CO2, Blood 33 mmol/L (21-32); Calcium, Blood 8.5 mg/dL (8.5-10.1); Chloride, Blood 104 mmol/L (98-108); Creatinine, Blood 0.95 mg/dL (0.40-1.00); Globulin, Blood 3.4 g/dL (2.2-4.0); Glomerular Filtration Rate >60 (60-); Glucose, Blood 139 mg/dL (70-99); Magnesium, Blood 2.5 mg/dL (1.6-2.4); Phosphorus, Blood 3.6 mg/dL (2.5-4.9); Potassium, Blood 4.6 mmol/L (3.5-5.5); Sodium, Blood 141 mmol/L (136-145); Total Protein, Blood 5.7 g/dL (6.4-8.2)
--- NOTE | 2019-10-30 13:25 | NUR ---
Pt. is sitting in a chair relaxed , she reports doing much better , offered some prayes.
--- NOTE | 2019-10-30 19:51 | NUR ---
SHIFT SUMMARY PT A&OX4. CALM AND COOPERATIVE WITH CARE. PT UP IN CHAIR FOR MAJORITY OF DAY, UP WITH 1 PERSON ASSIST, NEEDS ENCOURAGEMENT. PT DENIES PAIN AND NAUSEA T/O SHIFT. SOB WITH EXERTION, DESATS WITH ACTIVITY BUT RECOVERS QUICKLY. SPO2 >90% ON 4L O2 VIA NC AT REST. PT USING FLUTTER VALVE T/O SHIFT. PT RECEIVING IV ANTIBIOTICS AND IV STEROIDS. VSS. NO OTHER ACUTE CHANGES NOTED. REPORT GIVEN TO ONCOMING RN.
[2019-10-31 04:23] LABS: BASOPHILS ABSOLUTE AUTO 0.02 K/mm3 (0.00-0.23); BASOPHILS PERCENT AUTO 0 % (0-2); EOSINOPHILS PERCENT AUTO 0 % (0-6); Hematocrit 34.4 % (33.0-51.0); Hemoglobin 10.8 g/dL (11.5-16.0); IMMATURE GRAN ABSOLUTE AUTO 0.22 K/mm3 (0.00-0.10); IMMATURE GRAN PERCENT AUTO 2 % (0-1); LYMPHOCYTES ABSOLUTE AUTO 0.84 K/mm3 (0.84-5.20); LYMPHOCYTES PERCENT AUTO 6 % (21-46); MONOCYTES ABSOLUTE AUTO 0.46 K/mm3 (0.16-1.47); MONOCYTES PERCENT AUTO 3 % (4-13); Mean Corpuscular HGB 27.7 pg (26.0-34.0); Mean Corpuscular HGB Conc 31.4 g/dL (31.5-36.5); Mean Corpuscular Volume 88 fL (80-100); Mean Platelet Volume 9.4 fL (9.1-12.4); NEUTROPHILS ABSOLUTE AUTO 12.86 K/mm3 (1.96-9.15); NEUTROPHILS PERCENT AUTO 89 % (41-73); Platelet Count 381 K/mm3 (150-400); RDW Coefficient Variation 14.2 % (11.7-14.2); RDW Standard Deviation 45.2 fL (35.1-46.3)
[2019-10-31 04:40] LABS: Bun/Creatinine Ratio 41.6 (12.0-20.0); Calcium, Blood 8.5 mg/dL (8.5-10.1); Creatinine, Blood 0.99 mg/dL (0.40-1.00); Potassium, Blood 4.8 mmol/L (3.5-5.5)
--- NOTE | 2019-10-31 06:23 | NUR ---
SHIFT SUMMARY PT A&O X4. VSS. MONITOR SHOWS SB-SR, HR 50's-60's. SPO2 > 90% ON 4L NC. PT WEARING CPAP WHILE SLEEPING. NO EVENTS/CHANGES OVERNIGHT. WILL CONTINUE TO MONITOR AND PROVIDE CARE UNTIL REPORT OFF TO DAY SHIFT RN.
--- NOTE | 2019-10-31 18:54 | NUR ---
SHIFT SUMMARY PT A&Ox4. CALM AND COOPERATIVE WITH CARE. NEEDING ENCOURAGMENT AT TIMES WITH MOBILITY. PT 1 PERSON ASSIST WITH GB AND WALER. PT UP IN CHAIR FOR MEALS. PT SOB WITH EXERTION, DESATURATES TO LOW 80'S WITH ACTIVITY, INCREASED O2 NEED FOR ACTIVITY, RECOUPERATES QUICKLY. TITRATED FROM 4L O2 VIA NC TO 2L O2 NC, 93-94. DENIES PAIN AND NAUSEA. PT USING FLUTTER VALUE. PT RECEIVING IV STEROIDS AND ANTIBIOTICS. VSS. NO OTHER ACUTE CHANGES NOTED DURING SHIFT.REPORT GIVEN TO ONCOMING RN.
[2019-11-01 04:21] LABS: BASOPHILS ABSOLUTE AUTO 0.02 K/mm3 (0.00-0.23); BASOPHILS PERCENT AUTO 0 % (0-2); EOSINOPHILS PERCENT AUTO 0 % (0-6); Hematocrit 34.7 % (33.0-51.0); IMMATURE GRAN ABSOLUTE AUTO 0.22 K/mm3 (0.00-0.10); IMMATURE GRAN PERCENT AUTO 2 % (0-1); LYMPHOCYTES ABSOLUTE AUTO 0.84 K/mm3 (0.84-5.20); LYMPHOCYTES PERCENT AUTO 7 % (21-46); MONOCYTES ABSOLUTE AUTO 0.59 K/mm3 (0.16-1.47); MONOCYTES PERCENT AUTO 5 % (4-13); Mean Corpuscular HGB 28.1 pg (26.0-34.0); Mean Corpuscular HGB Conc 31.7 g/dL (31.5-36.5); Mean Corpuscular Volume 89 fL (80-100); Mean Platelet Volume 9.1 fL (9.1-12.4); NEUTROPHILS ABSOLUTE AUTO 11.32 K/mm3 (1.96-9.15); NEUTROPHILS PERCENT AUTO 87 % (41-73); Platelet Count 367 K/mm3 (150-400); RDW Coefficient Variation 14.2 % (11.7-14.2); Red Blood Cell Count 3.92 M/mm3 (3.80-5.20); White Blood Cell Count 12.99 K/mm3 (4.00-11.30)
[2019-11-01 04:38] LABS: Bun/Creatinine Ratio 46.1 (12.0-20.0); Calcium, Blood 8.6 mg/dL (8.5-10.1); Creatinine, Blood 1.02 mg/dL (0.40-1.00); Potassium, Blood 4.5 mmol/L (3.5-5.5)
--- NOTE | 2019-11-01 05:46 | NUR ---
PT GONE TO IMAGING FOR X-RAY AT THIS TIME.
--- NOTE | 2019-11-01 06:13 | NUR ---
SHIFT SUMMARY PT A&O X4. VSS. PT TOLERATING 2L NC WELL, SWITCHED TO CPAP FOR SLEEP W/ SPO2 > 92%. MONITOR SHOWS SB-SR, HR 40's-60's. PT SBA OOB, REQUESTING BEDPAN FOR URINATION, BUT ENCOURAGED TO GET OOB TO COMMODE W/ AGREEANCE. NO EVENTS OVERNIGHT. WILL CONTINUE TO MONITOR AND PROVIDE CARE UNTIL REPORT OFF TO DAY SHIFT RN.
--- NOTE | 2019-11-01 07:40 | NUR ---
pt sitting up in recliner chair watching tv. a/ox3, pleasant and cooperative with care, follows commands well, denies pain, or productive cough, lungs are dim t/o, resp even and unlabored, no cough noted, hrr, tele in place running sb per monitor, see strip, no edema noted, ppp+2, cap refill <3sec, vs stable, afebrile, iv sites are clear and patent, power glide to geno and pic to lfa, btx4, abd large soft nontender, voids without diff, skin c/w/d, maew, lawrence, call light in reach.
--- NOTE | 2019-11-01 12:39 | NUR ---
PT WILL BE MOVING TO MEDICAL FLOOR, REPORT WAS GIVEN TO KEYLA JACOBSEN, WILL TRANSFER PT VIA WHEELCHAIR WITH BELL STAFF IN ATTENDENCE WITH ALL HER BELONGINGS.
--- NOTE | 2019-11-01 13:21 | NUR ---
Pt. is sitting in a chair , she reports doing well offered prayers and encouraged her.
--- NOTE | 2019-11-01 14:49 | NUR ---
TRANSFER NOTE TRANSFER FROM [facility], REPORT TAKEN FROM GRACIE BOWMAN RN. PT A&O X4, NO COMPLIANTS OF SHORTNESS OF BREATH. ORIENTED TO ROOM. PT BELONGINGS BROUGHT WITH PT.
[2019-11-01] MEDS ORDERED: Acetaminophen325 M1 PO (17:24)
[2019-11-01] MEDS ORDERED: BISA10S PR (17:25)
[2019-11-01] MEDS ORDERED: ALBU2.5V5 INH (17:25)
[2019-11-01] MEDS ORDERED: FURO40 PO (17:26)
[2019-11-01] MEDS ORDERED: ENOX40I SC (17:26)
[2019-11-01] MEDS ORDERED: FLUC200 PO (17:26)
--- NOTE | 2019-11-01 17:26 | NUR ---
TRANSFER NOTE PT KARIME, A&O X4, REPORT GIVEN TO JOSHUA JACOBSEN. PT IS A MEDICAL TRANSPORT. PT BEING TRANSPORTED WITH POWERGILDE IN PLACE.
[2019-11-01] MEDS ORDERED: GUAI600T33 PO (17:27)
[2019-11-01] MEDS ORDERED: Humalog100 UNIT/1 SC (17:28)
[2019-11-01] MEDS ORDERED: ZOSYN IV (17:31)
[2019-11-01] MEDS ORDERED: Vsl#3 Capsule1 EACH PO (17:31)
[2019-11-01] MEDS ORDERED: SENOKOT17.2 MG PO (17:33)
[2019-11-01] MEDS ORDERED: SERT100 PO (17:33)
[2019-11-01] MEDS ORDERED: Prednisone10 MG PO (17:35)
== END 2019-11-01 17:57 | DRG 871 ==
LOC: ER 16:47 → PCU 20:39 → MEDS 20:39 → PCU 10-20 18:15 → MEDS 11-01 13:08
PROVIDERS: Family Medicine; Hospitalist; Internal Medicine Critical Care Medicine; Internal Medicine Endocrinology, Diabetes & Metabolism; Internal Medicine Gastroenterology; Nurse Practitioner Acute Care; Physician Assistant; ADMIT Internal Medicine
PROC: 5A09557 Assistance with Respiratory Ventilation, Greater than 96 Consecutive Hours, Continuous Positive Airway Pressure (ICD-10-PCS; principal; 2019-10-19)
DX: A41.9 Sepsis, unspecified organism (principal); J18.9 Pneumonia, unspecified organism; J96.01 Acute respiratory failure with hypoxia; J44.1 Chronic obstructive pulmonary disease with (acute) exacerbation; J44.0 Chronic obstructive pulmonary disease with (acute) lower respiratory infection; I50.32 Chronic diastolic (congestive) heart failure; I13.0 Hypertensive heart and chronic kidney disease with heart failure and stage 1 through stage 4 chronic kidney disease, or unspecified chronic kidney disease; Z99.81 Dependence on supplemental oxygen; K21.9 Gastro-esophageal reflux disease without esophagitis; G47.33 Obstructive sleep apnea (adult) (pediatric); I25.10 Atherosclerotic heart disease of native coronary artery without angina pectoris; I25.2 Old myocardial infarction; E66.9 Obesity, unspecified; E78.5 Hyperlipidemia, unspecified; E11.22 Type 2 diabetes mellitus with diabetic chronic kidney disease; N18.3 Chronic kidney disease, stage 3 (moderate); G56.00 Carpal tunnel syndrome, unspecified upper limb; F32.9 Major depressive disorder, single episode, unspecified; F41.1 Generalized anxiety disorder; E11.42 Type 2 diabetes mellitus with diabetic polyneuropathy; E66.01 Morbid (severe) obesity due to excess calories; E11.9 Type 2 diabetes mellitus without complications
CPT/HCPCS: 0099U; 36415; 36600; 71045; 71046; 71260; 80048; 80053; 80069; 81001; 82803; 82947; 83605; 83735; 83880; 84100; 84145; 84484; 85025; 87040; 87070; 87077; 87086; 87102; 87186; 87205; 87804; 92526; 92610; 93005; 93010; 94010; 94640; 94644; 94660; 94664; 94668; 94760; 94762; 96365; 96367; 97110; 97161; 97530; 98960; 99285-25; A9270; C1751; C8929; J0456; J0696; J1644; J1650; J1815; J1940; J2543; J2930; J7030; J7050; Q9957; Q9967

== ENCOUNTER 2019-11-21 23:25 | Inpatient (IN) | payer MEDICARE, OTHER ==
[~2019-11-21] VITALS: Ht 152.4 cm; Wt 123.1 kg
[~2019-11-21 23:25] MED LIST changes: +ALBU2.5V5 INH; +Acetaminophen325 M1 PO; +Aspir 8181 MG PO; +BISA10S PR; +CRANBERRY PLUS1 EAC1 PO; +Cinnamon500 MG PO; +ENOX40I SC; +FLUC200 PO; +GABA300 PO; +GUAI600T33 PO; +Humalog100 UNIT/1 SC; +Omeprazole20 M1 PO; +PANCREAZE PO; +Prednisone10 MG PO; +SENOKOT17.2 MG PO; +SERT100 PO; +TRULICITY1.5 MG/0.5 SC; +Vsl#3 Capsule1 EACH PO; +ZOSYN IV
[2019-11-21 23:44] LABS: PCO2 Arterial 40.4 mmHg (35-45); pH Blood Arterial 7.45 (7.35-7.45)
[2019-11-22] MEDS ORDERED: Aspir 8181 MG PO (00:23)
[2019-11-22 00:33] LABS: BASOPHILS ABSOLUTE AUTO 0.02 K/mm3 (0.00-0.23); BASOPHILS PERCENT AUTO 0 % (0-2); EOSINOPHILS ABSOLUTE AUTO 0.07 K/mm3 (0.00-0.68); EOSINOPHILS PERCENT AUTO 1 % (0-6); Hematocrit 32.3 % (33.0-51.0); Hemoglobin 9.9 g/dL (11.5-16.0); IMMATURE GRAN ABSOLUTE AUTO 0.06 K/mm3 (0.00-0.10); IMMATURE GRAN PERCENT AUTO 1 % (0-1); LYMPHOCYTES ABSOLUTE AUTO 0.78 K/mm3 (0.84-5.20); LYMPHOCYTES PERCENT AUTO 12 % (21-46); MONOCYTES PERCENT AUTO 12 % (4-13); Mean Corpuscular HGB 28.4 pg (26.0-34.0); Mean Corpuscular HGB Conc 30.7 g/dL (31.5-36.5); Mean Corpuscular Volume 93 fL (80-100); Mean Platelet Volume 9.5 fL (9.1-12.4); NEUTROPHILS ABSOLUTE AUTO 4.76 K/mm3 (1.96-9.15); NEUTROPHILS PERCENT AUTO 73 % (41-73); Platelet Count 258 K/mm3 (150-400); RDW Coefficient Variation 16.3 % (11.7-14.2); RDW Standard Deviation 55.6 fL (35.1-46.3); Red Blood Cell Count 3.48 M/mm3 (3.80-5.20); White Blood Cell Count 6.49 K/mm3 (4.00-11.30)
[2019-11-22 00:53] LABS: Albumin, Blood 2.6 g/dL (3.4-5.0); Albumin/Globulin Ratio 0.7 (0.8-1.8); Bilirubin, Total 1.1 mg/dL (0.1-1.0); Bun/Creatinine Ratio 17.1 (12.0-20.0); Calcium, Blood 8.3 mg/dL (8.5-10.1); Creatinine, Blood 1.29 mg/dL (0.40-1.00); Globulin, Blood 3.6 g/dL (2.2-4.0); Potassium, Blood 4.6 mmol/L (3.5-5.5); Total Protein, Blood 6.2 g/dL (6.4-8.2); Troponin I 0.021 ng/mL (0.000-0.040)
[2019-11-22 01:18] LABS: Source, Urine Clean Catch
[2019-11-22 01:21] LABS: Bilirubin, Urine Neg (Neg); Blood, Urine 2+ (Neg); Glucose Qualitative, Urine Neg (Neg); Ketones, Urine Neg (Neg); Leukocyte Esterase, Urine 2+ (Neg); Nitrite, Urine Neg (Neg); Protein, Urine 2+ (Neg); Urobilinogen, Urine NORM (Normal)
[2019-11-22 01:23] LABS: Color, Urine Yellow (P-Yellow)
[2019-11-22 01:24] LABS: Appearance, Urine Clear (Clear)
[2019-11-22 01:29] LABS: Amorphous Light (0-Heavy); Bacteria Few /hpf; Red Blood Cells, Urine 0-2 /hpf (0-2); Squamous Epithelial Cells Mod /hpf (Few)
--- NOTE | 2019-11-22 05:49 | NUR ---
SHIFT SUMMARY PT ARRIVED FROM ER AND TRANSFERED W/ SLIDER SHEET; PT LETHARGIC; ON BIPAP W/ CPAP SETTINGS; FIO2 TITRATED DOWN TO 55% PER RT; O2 SATS >94; TEMP ROMANO IN PLACE DRAINING CLOUDY YELLOW URINE; TYLENOL SUPPOSITORY GIVEN FOR FEVER 102.1 PER EMAR; PT WAS UNABLE TO WAKE ENOUGH TO TAKE PO MEDS; CALL LIGHT IN REACH; BED IN LOWEST POSITION; WILL CONTINUE TO MONITOR CLOSELY UNTIL HAND OFF TO DAY SHIFT RN
[2019-11-22 06:13] LABS: Adenovirus Not Detected (NOT DETECT); Bordetella pertussis Not Detected (NOT DETECT); Chlamydophila pneumoniae Not Detected (NOT DETECT); Coronavirus 229E Not Detected (NOT DETECT); Coronavirus HKU1 Not Detected (NOT DETECT); Coronavirus NL63 Not Detected (NOT DETECT); Coronavirus OC43 Not Detected (NOT DETECT); Human Metapneumovirus Not Detected (NOT DETECT); Human Rhinovirus/Enterovirus Not Detected (NOT DETECT); Influenza A Not Detected (NOT DETECT); Influenza A/2009-H1 Not Detected (NOT DETECT); Influenza A/H1 Not Detected (NOT DETECT); Influenza A/H3 Not Detected (NOT DETECT); Influenza B Not Detected (NOT DETECT); Mycoplasma pneumoniae Not Detected (NOT DETECT); Parainfluenza Virus 1 Not Detected (NOT DETECT); Parainfluenza Virus 2 Not Detected (NOT DETECT); Parainfluenza Virus 3 Not Detected (NOT DETECT); Parainfluenza Virus 4 Not Detected (NOT DETECT); Respiratory Syncytial Virus Not Detected (NOT DETECT)
--- NOTE | 2019-11-22 07:30 | NUR ---
ASSUMED CARE: PT RESTING QUIETLY IN BED AT THIS TIME. BIPAP IN PLACE SETTINGS ON CPAP 16 WITH 55% FIO2. PT IS SOMNOLENT AND ONLY MOANS AND GROANS WITH ACTIVITY AT THIS TIME.
[2019-11-22 09:11] LABS: Bun/Creatinine Ratio 18.9 (12.0-20.0); Creatinine, Blood 1.48 mg/dL (0.40-1.00); Potassium, Blood 4.1 mmol/L (3.5-5.5)
--- NOTE | 2019-11-22 10:10 | NUR ---
DR FRIEND CAME TO SEE PT. AWARE OF SOMNOLENCE BUT UPON HIS ARRIVAL, PT WAS VERY AWAKE AND ORIENTED. DR AWARE THAT SOME MEDS ORDERED ARE MEDS WE DO NOT CARRY HERE. WILL CALL [facility] TO SEE IF SOMEONE CAN BRING. PT REQUESTED BREAK FROM CPAP. TOLERATED BREAK FOR MEDS. WANTED TO MAKE A PHONE CALL, NC AT 3L. AFTER ABOUT 10 MINUTES SHE STARTED TO COUGH AND WAS DYSPNEIC WHEN SPEAKING. BIPAP REPLACED. DID NOT GIVE AM LANTUS DOSE DUE TO BLOOD SUGAR OF 98 AND WAS UNABLE TO TOLERATE BEING OFF BIPAP FOR SNACK. SAT 94% ON CPAP 16 WITH 45% FIO2 AT THIS TIME.
--- NOTE | 2019-11-22 10:44 | NUR ---
CALL TO [facility], [facility] REGARDING PT'S HOME MEDS OF CRANBERRY, CINNAMON, AND PANCREAZE. NURSE AT FACILITY SAYS THEY DO NOT HAVE ANYONE THAT COULD BRING MEDS. CALL TO OUR PHARMACY TO FIND OUT FORMULARIES AVAILABLE FOR PANCREAZE. CALL TO DR FRIEND. NO NEW ORDERS AT THIS TIME. STATES HE WILL LOOK INTO IT FURTHER.
--- NOTE | 2019-11-22 12:09 | NUR ---
PT TOLERATED BREAK FOR 10 MINUTES. TOOK A FEW BITES OF LUNCH THEN BEGAN TO DESATURATE. CPAP REPLACED. COUGHING ENSUED. SATS UP TO LOW 90S AT THIS TIME.
--- NOTE | 2019-11-22 18:11 | NUR ---
SHIFT SUMMARY: PT CONTINUES TO ONLY TOLERATE SHORT BREAKS FROM CPAP. REMAINS ON 16 WITH 35% FIO2. FAMILY CAME BY TO CHECK IN THIS SHIFT AND WERE GIVEN UPDATE. TEMP OF 101.5 NOTED. ONLY SHEET ON AND FAN IN PLACE AT THIS TIME.
--- NOTE | 2019-11-23 06:12 | NUR ---
SHIFT SUMMARY PT A&O; LETHARGIC AT TIMES; HOWEVER VERY ALERT THIS AM; PT ON BIPAP/ CPAP SETTINGS; TITRATED PER RT; O2 SATS >90 W/ FIO2 35%; TITRATED FOR POSITION AND LINEN CHANGE; PT TOLERATED PO MEDS ON NC FOR 2-5 MINUTES; WHEN BIPAP MASK PLACED FIO2 INCREASED FOR RECOVERY; PT HAD BM THIS AM; ATTENDS IN PLACE; PT HAD TEMP OF >102 START OF SHIFT; TYLENOL ADMINISTERED PER EMAR; COOL WASHCLOTH ON FACE AND FAN ON PT; CURRENT TEMP 98.8; PT STATES MOUTH VERY DRY FROM MASK AND APPRECIATED PO FLUIDS W/ AM MED; CALL LIGHT IN REACH; BED IN LOWEST POSITION; WILL CONTINUE TO MONITOR CLOSELY UNTIL HAND OFF TO DAY SHIFT RN.
--- NOTE | 2019-11-23 07:50 | NUR ---
ASSUMED CARE OF PT. RESTING IN BED COMFORTABLY AT THIS TIME, IN NO ACUTE DISTRESS. CALL LIGHT AND POSSESSIONS IN REACH, BED DOWN, SIDERAILS IN PLACE. WILL CONTINUE TO MONITOR.
--- NOTE | 2019-11-23 11:27 | NUR ---
PT HAS HAD 3 DIARRHEA STOOL THIS AM THAT COVERED THE LINENS. CALL TO DR ADRIAN WITH ORDERS FOR GI PANEL. RECTAL TUBE PLACED. DR ADRIAN ALSO AWARE THAT PT HAD POSITIVE MRSA IN URINE. PLAN TO CHANGE ABX
[2019-11-23 12:44] LABS: Adenovirus F 40/41 Not Detected (NOT DETECT); Astrovirus Not Detected (NOT DETECT); Campylobacter Sp Not Detected (NOT DETECT); Cryptosporidium Not Detected (NOT DETECT); Cyclospora Cayetanensis Not Detected (NOT DETECT); E. Coli O157 Not Detected (NOT DETECT); Entamoeba Histolytica Not Detected (NOT DETECT); Enteroaggregative E. coli-EAEC Not Detected (NOT DETECT); Enteropathogenic E. coli-EPEC Not Detected (NOT DETECT); Enterotoxigenic E. coli-ETEC Not Detected (NOT DETECT); Giardia Lamblia Not Detected (NOT DETECT); Norovirus GI/GII Not Detected (NOT DETECT); Plesiomonas Shigelloides Not Detected (NOT DETECT); Rotavirus A Not Detected (NOT DETECT); Salmonella Sp Not Detected (NOT DETECT); Sapovirus Not Detected (NOT DETECT); Shiga Toxin-prod E. coli-STEC Not Detected (NOT DETECT); Shigella/Enteroin E. coli-EIEC Not Detected (NOT DETECT); Vibrio Cholerae Not Detected (NOT DETECT); Vibrio Sp Not Detected (NOT DETECT); Yersinia Enterocolitica Not Detected (NOT DETECT)
--- NOTE | 2019-11-23 19:38 | NUR ---
LATE ENTRY- PT RESTING COMFORTABLY IN NO ACUTE DISTRESS. DENIES ANY PAIN OR NEEDS AT THIS TIME, CALL LIGHT AND POSSESSIONS IN REACH, BED IN LOW POSITION.
--- NOTE | 2019-11-24 02:29 | NUR ---
PT A&O; FAMILY AT BEDSIDE APPROXIMATELY 2029; UPDATED ON PT CONDITION; PT C/O HEADACHE AND MEDICATED PER EMAR; AFEBRILE; FIO2 AT 30%; PT CURRENTLY SLEEPING; CALL LIGHT IN REACH; BED IN LOWEST POSITION
[2019-11-24 03:52] LABS: BASOPHILS PERCENT AUTO 0 % (0-2); EOSINOPHILS PERCENT AUTO 0 % (0-6); Hematocrit 27.2 % (33.0-51.0); Hemoglobin 8.1 g/dL (11.5-16.0); IMMATURE GRAN ABSOLUTE AUTO 0.04 K/mm3 (0.00-0.10); IMMATURE GRAN PERCENT AUTO 1 % (0-1); LYMPHOCYTES ABSOLUTE AUTO 0.26 K/mm3 (0.84-5.20); LYMPHOCYTES PERCENT AUTO 5 % (21-46); MONOCYTES ABSOLUTE AUTO 0.36 K/mm3 (0.16-1.47); MONOCYTES PERCENT AUTO 7 % (4-13); Mean Corpuscular HGB 27.5 pg (26.0-34.0); Mean Corpuscular HGB Conc 29.8 g/dL (31.5-36.5); Mean Corpuscular Volume 92 fL (80-100); Mean Platelet Volume 9.6 fL (9.1-12.4); NEUTROPHILS ABSOLUTE AUTO 4.76 K/mm3 (1.96-9.15); NEUTROPHILS PERCENT AUTO 88 % (41-73); Platelet Count 350 K/mm3 (150-400); RDW Coefficient Variation 15.6 % (11.7-14.2); RDW Standard Deviation 53.1 fL (35.1-46.3); Red Blood Cell Count 2.95 M/mm3 (3.80-5.20); White Blood Cell Count 5.42 K/mm3 (4.00-11.30)
[2019-11-24 04:10] LABS: Bun/Creatinine Ratio 31.6 (12.0-20.0); Calcium, Blood 8.3 mg/dL (8.5-10.1); Creatinine, Blood 1.33 mg/dL (0.40-1.00); Potassium, Blood 4.1 mmol/L (3.5-5.5)
--- NOTE | 2019-11-24 07:45 | NUR ---
ASSUMED CARE OF PT. RESTING IN BED COMFORTABLY AT THIS TIME, IN NO ACUTE DISTRESS. CALL LIGHT AND POSSESSIONS IN REACH, WILL CONTINUE TO MONITOR.
--- NOTE | 2019-11-24 12:00 | NUR ---
DR. ADRIAN CALLED REGARDING PT'S CONTINUED ELEVATED GLUCOSE READINGS. ORDERS RECEIVED.
--- NOTE | 2019-11-24 18:28 | NUR ---
PT SITTING UP IN BED COMFORTABLY, IN NO ACUTE DISTRESS. TOLERATING O2 PER NASAL CANNULA WELL, 02 SATS 90-94%. ENCOURAGED PT TO USE HOME CPAP AT BEDTIME. DENIES PAIN, OR ANY NEEDS AT THIS TIME. CALL LIGHT AND POSSESSIONS IN REACH, TALKING ON THE PHONE WITH FAMILY AT THIS TIME, REPOSITIONED FOR COMFORT THROUGHOUT THE SHIFT.
[2019-11-25 04:05] LABS: BASOPHILS PERCENT AUTO 0 % (0-2); EOSINOPHILS ABSOLUTE AUTO 0.01 K/mm3 (0.00-0.68); EOSINOPHILS PERCENT AUTO 0 % (0-6); Hematocrit 27.3 % (33.0-51.0); Hemoglobin 8.5 g/dL (11.5-16.0); IMMATURE GRAN ABSOLUTE AUTO 0.07 K/mm3 (0.00-0.10); IMMATURE GRAN PERCENT AUTO 1 % (0-1); LYMPHOCYTES ABSOLUTE AUTO 0.61 K/mm3 (0.84-5.20); LYMPHOCYTES PERCENT AUTO 7 % (21-46); MONOCYTES ABSOLUTE AUTO 0.82 K/mm3 (0.16-1.47); MONOCYTES PERCENT AUTO 10 % (4-13); Mean Corpuscular HGB 28.5 pg (26.0-34.0); Mean Corpuscular HGB Conc 31.1 g/dL (31.5-36.5); Mean Corpuscular Volume 92 fL (80-100); Mean Platelet Volume 9.9 fL (9.1-12.4); NEUTROPHILS ABSOLUTE AUTO 6.78 K/mm3 (1.96-9.15); NEUTROPHILS PERCENT AUTO 82 % (41-73); Platelet Count 376 K/mm3 (150-400); RDW Coefficient Variation 15.6 % (11.7-14.2); RDW Standard Deviation 52.1 fL (35.1-46.3); Red Blood Cell Count 2.98 M/mm3 (3.80-5.20); White Blood Cell Count 8.29 K/mm3 (4.00-11.30)
[2019-11-25 04:26] LABS: Bun/Creatinine Ratio 38.2 (12.0-20.0); Calcium, Blood 8.5 mg/dL (8.5-10.1); Creatinine, Blood 1.1 mg/dL (0.40-1.00); Potassium, Blood 4.2 mmol/L (3.5-5.5)
--- NOTE | 2019-11-25 04:41 | NUR ---
PATIENT HAS SLEPT WITH HER CPAP ALL NIGHT WITH 6L O2 BLEED IN. SHE SPENT A TOTAL OF 45 MINS OFF CPAP, DURING THIS TIME SHE HAD 6 L NC O2. HER SATURATIONS ON CPAP WERE 96% AND ON NC 88-92%. SHE WAS TURNED EVER 2 HOURS WITH THE ASSISTANCE OF THE OVERHEAD LIFE AND 2 PEOPLE. HER PULSE MAINTAINED ABOVE 46BPM, AND AVERAGED IN THE 60'S. NO ACUTE CHANGES THIS SHIFT.
[2019-11-25 13:44] LABS: Vancomycin, Trough 16.3 ug/mL (5.0-10.0)
--- NOTE | 2019-11-25 17:46 | NUR ---
EVENING NOTE PT ALERT AND ORIENTED. SR. VSS. PT UP IN CHAIR AT BEDSIDE. PT TOLERATED USING THE CEILING LIFT TO TRANSFER. PT DESATS WQITH TURNING INT OT HE 70'S. SHE RECOVERS QUICKLY. CPAP 7L BLEED INTERMITTANT THROUGH THE DAY. 7-10L HIGH FLOW N/C. FLOW DEPENDENT ON ACTIVITY. DRY, HACKING COUGH. DENIED PAIN OR DISCOMFORT. CONTINUE POT.
[2019-11-25 21:13] LABS: PCO2 Arterial 48.7 mmHg (35-45); PO2 Arterial 86.2 mmHg (80-100); pH Blood Arterial 7.41 (7.35-7.45)
--- NOTE | 2019-11-25 22:12 | NUR ---
RESPIRATORY DISTRESS EVENT Upon initial assessment, pt slouched in recliner with high flow NC at LPM in moderate respiratory distress and RR at 35 and oxygen saturations at 68%. Immediately, CPAP at bedside placed on PT with 15L bleed in and pt assisted to tripod position. Pt with accessory muscle use, labored breathing, grunting. Pt with harsh, non productive cough. Oxygen saturations improve to 72% on CPAP, RR remains 30-35. RT called and arrive at bedside with breathing tx. Pt oxygen saturations improve to 88%. Lungs with crackles in bases, wheezing in L middle lobe, and diminished throughout. Pt desaturating on CPAP at 15L bleed-in to 80% o2 and BIPAP placed at 100% Fio2. O2 improving to 90-95% and Fio2 decreased to 80% Fio2. Provider, VICTOR M Byrd called and updated and at bedside for evaluation. CXR ordered and obtained; xanex ordered and given per orders, one time 40mg IV lasix ordered and given per orders, Tesslon ordered and given per orders, Morphine 2 mg IV ordered and given per orders. Pt relaxing and able to breathe easier after administration of medications. ABG and BNP ordered and obtained. Family arrives to visit pt at approx 2100; This RN updated pt's family on change in respiratory status.
--- NOTE | 2019-11-25 22:30 | NUR ---
BIPAP taken off for pt to take PO medications (approx 15 seconds); pt desaturates to 70% with out BIPAP. BIPAP replaced and oxygen saturations improved.
--- NOTE | 2019-11-25 23:10 | NUR ---
REPORT FROM PCU REPORT RECEIVED FROM ANN-MARIE MAJANO. SHE STATES PT WAS FOUND TO HAVE DIFFICULTY BREATHING WHILE SITTING UP IN RECLINER, STARTED ON BIPAP @ 100%FIO2, CHANGED TO 50% FIO2, LUNGS CRACKLES IN BASES AND WHEEZES. ALLERGIES, FULL CODE, DISEASE HX, DIET, AND MEDICATIONS DISCUSSED. RN STATES PT IS IN NSR, MRSA IN URINE, LASIX AND XANAX GIVEN, BMP ELEVATED, DX LLL PNEUMONIA & EXAC COPD.
[2019-11-25 23:29] LABS: Bun/Creatinine Ratio 38.7 (12.0-20.0); Calcium, Blood 8.7 mg/dL (8.5-10.1); Creatinine, Blood 1.06 mg/dL (0.40-1.00); Magnesium, Blood 2.2 mg/dL (1.6-2.4); Phosphorus, Blood 2.4 mg/dL (2.5-4.9)
--- NOTE | 2019-11-25 23:40 | NUR ---
PT TO ICU 4 PT TRANSFERRED FROM PCU TO ICU RM 4 VIA RECLINER. PT ON BIPAP AND MULTIPLE STAFF MEMBERS PRESENT. PT TRANSFERED TO BED WITH CEILING LIFT AND ASSIST X6. PT POSITIONED IN BED FOR COMFORT, ORIENTED TO ICU RM 4, VS OBTAINED, ASSESSMENT COMPLETED, ID BAND TO RT WRIST, TEMP ROMANO TO DD, NS @ TKO AND ZOSYN STARTED VIA RT FA POWERGLIDE. BED LOW, TABLE & CALL LIGHT IN REACH. WILL CONTINUE TO MONITOR PT THIS SHIFT. PT INFORMED DR GALLEGOS WILL BE HERE TO EVALUATE HER AND WILL NOTIFY PT OF ANY CHANGES/NEW ORDERS.
--- NOTE | 2019-11-25 23:49 | NUR ---
TRANSFER TO ICU 4 Orders recieved for pt tranfer to ICU. Pt with minimal improvement since BIPAP placement. Report given to Rochelle, RN and Drake RN who assume care in ICU. Pt transported with BIPAP, all belongings with pt at time of transfer. Pt transferred with RT, three RN and one PCT.
[2019-11-26 03:36] LABS: BASOPHILS ABSOLUTE AUTO 0.03 K/mm3 (0.00-0.23); BASOPHILS PERCENT AUTO 0 % (0-2); EOSINOPHILS ABSOLUTE AUTO 0.03 K/mm3 (0.00-0.68); EOSINOPHILS PERCENT AUTO 0 % (0-6); Hemoglobin 9.5 g/dL (11.5-16.0); IMMATURE GRAN ABSOLUTE AUTO 0.16 K/mm3 (0.00-0.10); IMMATURE GRAN PERCENT AUTO 2 % (0-1); LYMPHOCYTES ABSOLUTE AUTO 1.06 K/mm3 (0.84-5.20); LYMPHOCYTES PERCENT AUTO 11 % (21-46); MONOCYTES ABSOLUTE AUTO 0.92 K/mm3 (0.16-1.47); MONOCYTES PERCENT AUTO 10 % (4-13); Mean Corpuscular HGB 27.9 pg (26.0-34.0); Mean Corpuscular HGB Conc 30.6 g/dL (31.5-36.5); Mean Corpuscular Volume 91 fL (80-100); Mean Platelet Volume 9.5 fL (9.1-12.4); NEUTROPHILS ABSOLUTE AUTO 7.15 K/mm3 (1.96-9.15); NEUTROPHILS PERCENT AUTO 77 % (41-73); Platelet Count 423 K/mm3 (150-400); RDW Coefficient Variation 15.7 % (11.7-14.2); RDW Standard Deviation 52.4 fL (35.1-46.3); White Blood Cell Count 9.35 K/mm3 (4.00-11.30)
[2019-11-26 03:51] LABS: Bun/Creatinine Ratio 41.3 (12.0-20.0); Calcium, Blood 8.9 mg/dL (8.5-10.1); Creatinine, Blood 1.09 mg/dL (0.40-1.00); Potassium, Blood 3.9 mmol/L (3.5-5.5)
[2019-11-26 05:11] LABS: PCO2 Arterial 52.5 mmHg (35-45); PO2 Arterial 84.1 mmHg (80-100); pH Blood Arterial 7.41 (7.35-7.45)
--- NOTE | 2019-11-26 06:00 | NUR ---
SHIFT SUMMARY PT TRANSFERED FROM PCU R/T RESPIRATORY DISTRESS. PT TO ICU RM4 VIA RECLINER WITH RNs AND RT. PT TO BED VIA CEILING LIST WITH ASSIST X6. PT POSITIONED IN BED FOR COMFORT. PT REMAINS A&O X3, DENIES PAIN, SOB WITH ACTIVITY. PT ON BIPAP; SETTINGS / & FIO2 50% THEN DECREASED TO 40% THIS AM. HEART RATE 50-60s, REGULAR. LUNGS DIMINISHED THROUGHOUT, FREQ. NON-PRODUCTIVE COUGH AT TIMES, DESATS WHEN BIPAP MASK REMOVED. BOWEL SOUNDS PRESENT, BRUISES TO ABDOMEN, ABDOMEN OBESE & NON-TENDER. SKIN REMAINS WNL EXCEPT ABDOMEN. ROMANO CONTINUES TO DRAIN TO CLEAR YELLOW URINE WITH GOOD OUTPUT FROM LASIX. PT REORIENTED TO RM4, BED LOW, TABLE & CALL LIGHT IN REACH. WILL CONTINUE TO MONITOR PT THIS SHIFT.
--- NOTE | 2019-11-26 07:15 | NUR ---
AM ASSESSMENT: REC'D BEDSIDE REPORT FROM LIA/ANN-MARIE BATRES AND AM NOW ASSUMING CARE OF THIS PT. PT AWAKENS TO VERBAL STIMUI. ORIENTED TO PERSON/PLACE/SITUATION. ABLE TO FOLLOW COMMANDS/ANSWER QUESTIONS APPROPRIATELY. PT DENIES ANY PAIN. WARM BLANKETS GIVEN FOR COMFORT. PT NEEDS ASSIST WITH TURNS IN THE BED. PUPILS PERRLA-3MM, SLUGGISH. LUNGS ARE OVERALL DIMINISHED, HOWEVER, VERY DIMINISHED IN THE LLL WITH LITTLE AIR MOVEMENT HEARD. SATS >90% ON BIPAP /FI02-40%. HR REGULAR SB/SR 50-60'S RANGE. POWERGLIDE IN THE RT FA WITH NS @ TKO. VERY FAINT PERIPHERAL PULSES IN LE'S. ABD LARGE/ROUND/NON-TENDER TO PALPATION. BT'S ACTIVE X4. LBM NOTED 11/24. PT REMAINS NPO R/T NEED FOR CONTINUOUS BIPAP AT THIS POINT. CBG'S Q6H-[id number] DM. ROMANO TEMP PROBE DRAINING TO GRAVITY. PT AFEBRILE AT THIS TIME.
--- NOTE | 2019-11-26 08:50 | NUR ---
SHORT BREAK OFF BIPAP: PT TAKEN OFF BIPAP AND PLACED ON 6L 02 VIA N/C. PT ABLE TO MAINTAIN SATS FOR APPROX 5 MINUTES, DURING ORAL CARE AND WASHING FACE, HOWEVER, ONCE PT HAD SPASMOTIC COUGHING EPISODE SATS IMMEDIATELY DECREASED TO 76% RANGE. PT PLACED BACK ON BIPAP AND TOOK SEVERAL MINUTES FOR O2 SATS TO RETURN TO >90%.
--- NOTE | 2019-11-26 18:43 | NUR ---
SHIFT SUMMARY: PT SAT UP IN THE CHAIR T/O SHIFT AND TOLERATED WELL. PT PLACED ON 6L 02 VIA N/C SINCE COMING OFF BIPAP EARLIER THIS SHIFT. PT HAS DONE WELL ON THE 6L, EXCEPT EXTENDED CONVERSATION/COUGHING EPISODES PT WILL CONTINUE TO DESAT TO 76-86% RANGE. PT ALERT AND ORIENTED AND ABLE TO USE CALL LIGHT APPROPRIATELY. LUNGS REMAIN DIMINISHED IN THE BILATERAL BASES, HOWEVER, MORE AIRFLOW HEARD SINCE PT HAS BEEN OOB. PT TO CONTINUE TO WEAR BIPAP AT NIGHT, SHE HAS SLEEP APNEA AND WEARS CPAP AT HOME. HR REMAINS SR 60-70'S RANGE. ROMANO CATH DRAINING TO GRAVITY WITH GOOD DIURESIS AFTER LASIX IV.
--- NOTE | 2019-11-26 20:00 | NUR ---
ASSUMED CARE: ASSUMED CARE AT 1900, RECEIVED REPORT FROM NICK JACOBSEN. PT ALERT AND ORIENTEDX4. PT ON 6L OF O2 VIA NC, SPO2 ABOVE 92%. PT IN SINUS SHARLENE WITH HR RANGING BETWEEN 55-60 BPM. PT DENIES ANY SOB/PAIN AT THIS TIME. PT ROMANO PATNET AND DRAINING CLEAR YELLOW URINE. TKO RUNNING @ 10MLS/HR INTO POWERGLIDE ON RFA. WILL CONTINUE TO MONITOR PT T/O SHIFT.
--- NOTE | 2019-11-26 23:13 | NUR ---
UPDATE: 2100: PT PLACED BACK INTO BED USING LIFT. WHILE TRANSERFING PT FROM CHAIR TO BED, PT O2 STATURATION DECREASED INTO THE LOW 80'S. PT PLACED ON BIPAP WITH BIPAP @ 22/18/40%. HOWEVER, SPO2 DID NOT IMPROVE, PT C/O BEING SOB. BIPAP FiO2 SLOWLY INCREASED TO 65%, RT NOTIFIED, WILL TIRTATE DOWN SPO2 IMPROVES. 2200: FIO2 DECREASED TO 50%, PT DENIES ANY SOB, SPO2 ABOVE 94%. FAMILY AT BEDSIDE AND UPDATED ON PT CONDITION.
[2019-11-27 03:33] LABS: Bicarbonate Venous 33.6 mmol/L (24.0-30.0); PCO2 Venous 47.9 mmHg (38-42); PO2 Venous 153 mmHg (38-42); pH Blood Venous 7.47 (7.34-7.37)
[2019-11-27 03:47] LABS: BASOPHILS ABSOLUTE AUTO 0.02 K/mm3 (0.00-0.23); BASOPHILS PERCENT AUTO 0 % (0-2); EOSINOPHILS ABSOLUTE AUTO 0.09 K/mm3 (0.00-0.68); EOSINOPHILS PERCENT AUTO 1 % (0-6); Hematocrit 29.6 % (33.0-51.0); Hemoglobin 9.1 g/dL (11.5-16.0); IMMATURE GRAN ABSOLUTE AUTO 0.35 K/mm3 (0.00-0.10); IMMATURE GRAN PERCENT AUTO 4 % (0-1); LYMPHOCYTES ABSOLUTE AUTO 1.33 K/mm3 (0.84-5.20); LYMPHOCYTES PERCENT AUTO 14 % (21-46); MONOCYTES ABSOLUTE AUTO 0.75 K/mm3 (0.16-1.47); MONOCYTES PERCENT AUTO 8 % (4-13); Mean Corpuscular HGB 27.9 pg (26.0-34.0); Mean Corpuscular HGB Conc 30.7 g/dL (31.5-36.5); Mean Corpuscular Volume 91 fL (80-100); Mean Platelet Volume 9.5 fL (9.1-12.4); NEUTROPHILS PERCENT AUTO 74 % (41-73); Platelet Count 457 K/mm3 (150-400); RDW Coefficient Variation 15.7 % (11.7-14.2); RDW Standard Deviation 52.4 fL (35.1-46.3); Red Blood Cell Count 3.26 M/mm3 (3.80-5.20); White Blood Cell Count 9.64 K/mm3 (4.00-11.30)
[2019-11-27 04:08] LABS: Bun/Creatinine Ratio 41.8 (12.0-20.0); Calcium, Blood 8.6 mg/dL (8.5-10.1); Creatinine, Blood 1.1 mg/dL (0.40-1.00); Magnesium, Blood 2.2 mg/dL (1.6-2.4); Phosphorus, Blood 3.5 mg/dL (2.5-4.9); Potassium, Blood 3.9 mmol/L (3.5-5.5)
--- NOTE | 2019-11-27 05:50 | NUR ---
SHIFT SUMMARY: PT HAS BEEN WEARING BIPAP FOR THE MAJORITY OF THE SHIFT WITH SETTINGS @ 22/18, FiO2 DECREASED TO 35%. WHEN PT BEGINS TO COUGH, HER SPO2 DECREASES AND FiO2 IS INCREASED. PT HAS TAKEN PRN COUGHING MEDS PER EMAR, PT STATES THEY SEEM TO HELP. PT CONTINUES TO BE IN NSR WITH HR BETWEEN 50-60 BPM. PT DENIES PAIN/SOB AT THIS TIME. PT HAS REMAINED AFEBRILE. PT WAS ABLE TO TAKE SHORT BREAKS OFF BIPAP, BY PLACING 6L OF O2 VIA NC. ROMANO PATENT AND DRAINING CLEAR YELLOW URINE. PT IS CURRENTLY SITTING IN RECLINER. WILL CONTINUE TO MONITOR PT UNTIL REPORT IS GIVEN TO ONCOMING SHIFT.
--- NOTE | 2019-11-27 07:30 | NUR ---
ASSUMED CARE PT. ALERT AND ORIENTED THIS AM. ON BIPAP OVERNIGHT, SWITCHED TO 6LNC THIS AM. PT. HAS OCCASIONAL NON PRODUCTIVE COUGH. NO SOB, DENIES CHEST PAIN/ PRESSURE. PT. VSS THIS AM. UP IN BEDSIDE CHAIR VIA LIFT FOR BREAKFAST. PT. ABLE TO ASSIST WITH SHIFTING WEIGHT IN CHAIR. PT. HAS ROMANO IN PLACE DRAINING TO GRAVITY. NS TKO. CALL LIGHT IN REACH.
--- NOTE | 2019-11-27 09:46 | NUR ---
DR. EATON AT BEDSIDE BIPAP CHANGED TO CPAP 18, 45%. PLANS FOR STATUS CHANGE TO PCU.
--- NOTE | 2019-11-27 14:16 | NUR ---
Pt. sitting up in a chair resting, she reports doing wll offered prayer and anointed pt.
[2019-11-27 15:01] LABS: Vancomycin, Trough 19.7 ug/mL (5.0-10.0)
--- NOTE | 2019-11-27 21:45 | NUR ---
PLACED ON CPAP PER PT REQUEST, STATED SHE WAS READY TO GO TO BED. SAFETY MEASURES IN PLACE. WILL CONTINUE TO MONITOR.
[2019-11-28 03:13] LABS: BASOPHILS ABSOLUTE AUTO 0.03 K/mm3 (0.00-0.23); BASOPHILS PERCENT AUTO 0 % (0-2); EOSINOPHILS ABSOLUTE AUTO 0.13 K/mm3 (0.00-0.68); EOSINOPHILS PERCENT AUTO 1 % (0-6); Hematocrit 29.6 % (33.0-51.0); Hemoglobin 9.1 g/dL (11.5-16.0); IMMATURE GRAN ABSOLUTE AUTO 0.57 K/mm3 (0.00-0.10); IMMATURE GRAN PERCENT AUTO 6 % (0-1); LYMPHOCYTES ABSOLUTE AUTO 1.54 K/mm3 (0.84-5.20); LYMPHOCYTES PERCENT AUTO 15 % (21-46); MONOCYTES ABSOLUTE AUTO 0.78 K/mm3 (0.16-1.47); MONOCYTES PERCENT AUTO 8 % (4-13); Mean Corpuscular HGB 28.3 pg (26.0-34.0); Mean Corpuscular HGB Conc 30.7 g/dL (31.5-36.5); Mean Corpuscular Volume 92 fL (80-100); Mean Platelet Volume 9.4 fL (9.1-12.4); NEUTROPHILS ABSOLUTE AUTO 6.92 K/mm3 (1.96-9.15); NEUTROPHILS PERCENT AUTO 70 % (41-73); Platelet Count 439 K/mm3 (150-400); RDW Coefficient Variation 15.7 % (11.7-14.2); RDW Standard Deviation 52.2 fL (35.1-46.3); Red Blood Cell Count 3.22 M/mm3 (3.80-5.20); White Blood Cell Count 9.97 K/mm3 (4.00-11.30)
[2019-11-28 03:14] LABS: Base Excess Venous 11.6 mmol/L; PCO2 Venous 52.6 mmHg (38-42); PO2 Venous 153 mmHg (38-42); pH Blood Venous 7.44 (7.34-7.37)
[2019-11-28 03:27] LABS: Calcium, Blood 8.7 mg/dL (8.5-10.1); Potassium, Blood 3.6 mmol/L (3.5-5.5)
[2019-11-28 03:37] LABS: BAND PERCENT MAN 2 % (0-8); BASOPHILS PERCENT MAN 0 % (0-2); EOSINOPHILS ABSOLUTE MAN 0.29 K/mm3 (0.00-0.68); EOSINOPHILS PERCENT MAN 3 % (0-6); LYMPHOCYTES ABSOLUTE MAN 1.39 K/mm3 (0.84-5.20); LYMPHOCYTES PERCENT MAN 14 % (21-46); METAMYELOCYTE ABSOLUTE MAN 0.09 K/mm3 (0.00-0.00); METAMYELOCYTE PERCENT MAN 1 % (0-0); MONOCYTES ABSOLUTE MAN 0.39 K/mm3 (0.16-1.47); MONOCYTES PERCENT MAN 4 % (4-13); MYELOCYTE ABSOLUTE MAN 0.19 K/mm3 (0.00-0.00); MYELOCYTE PERCENT MAN 2 % (0-0); NEUTROPHILS ABSOLUTE MAN 7.47 K/mm3 (1.96-9.15); PROMYELOCYTE ABSOLUTE MAN 0.09 K/mm3 (0.00-0.00); PROMYELOCYTE PERCENT MAN 1 % (0-0); SEG NEUTROPHILS PERCENT MAN 73 % (41-73); TOTAL CELLS COUNTED 100
--- NOTE | 2019-11-28 06:17 | NUR ---
SHIFT SUMMARY HAD A GOOD VISIT WITH HER SOUSE AND ADULT SON. HAS RESTED WELL THIS SHIFT. WAS MEDICATED X1 FOR C/O HEEL PAIN, TOLERATED WELL. WAS REDUCED TO 35% FIO2 VIA CPAP. DENIES PAIN, DISCOMFORT, OR FURTHER NEEDS AT THIS TIME. SAFETY MEASURES IN PLACE. WILL GIVE HAND OFF TO ONCOMING SHIFT USING SBAR DURING BEDSIDE REPORT.
--- NOTE | 2019-11-28 07:20 | NUR ---
START OF SHIFT NOTE: RECEIVED REPORT FROM ANN-MARIE SHEN, ASSUMED CARE, PATIENT IS ON BIPAP, D/T PATIENT'S FACIAL SHAPE BIPAP DOES NOT HAVE A SEALED FIT AND ALARMS OCCASIONALLY, SETTINGS ARE 12/5/FiO2 35 %, PATIENT IS ALERT AND ORIENTED, AFEBRILE, DENIES PAIN, LUNG SOUNDS ARE DIMINISHED, PATIENT IS SINUS BRADYCARDIC WITH HR IN 50'S, SBP'S IN LOW 100'S, BOWEL TONES PRESENT, ROMANO CATHETER IN PLACE DRAINING CLEAR YELLOW URINE, PEDAL PULSES PALPABLE, CALL LIGHT IN REACH, WILL CONTINUE TO MONITOR.
--- NOTE | 2019-11-28 10:05 | NUR ---
DR. FREEDMAN IN TO SEE PATIENT, NO NEW ORDERS RECEIVED.
--- NOTE | 2019-11-28 10:19 | NUR ---
OT IN TO WORK WITH PATIENT, UP TO CHAIR, PATIENT OS SATURATION DOWN TO 70'S, PATIENT IS COUGHING, NEEDS TO BE BACK ON BIPAP.
--- NOTE | 2019-11-28 10:29 | NUR ---
OT GOT PATIENT UP TO CHAIR, HAD SOME BRIEF DESTURATION INTO 70'S, BUT NOW BACK INTO MID 90'S, WATCHING TV, RESTING COMFORTABILY, CALL LIGHT IN REACH, WILL CONTINUE TO MONITOR.
--- NOTE | 2019-11-28 11:20 | NUR ---
DR. EATON IN TO SEE PATIENT, NO NEW ORDERS RECEIVED.
--- NOTE | 2019-11-28 13:12 | NUR ---
REPORT CALLED TO PCU JOEL HEARN RN, PATIENT WILL BE TRANSFERRED VIA RECLINER/WHEELCHAIR TO ROOM PCU 1.
--- NOTE | 2019-11-28 13:45 | NUR ---
ARRIVES TO PCU: PT ARIVES IN RECLINER TO PCU 1 AT THIS TIME. NO ACUTE DISTRESS NOTED PT BREATHING APPEARS TO BE EVEN AND UNLABORED. NO C/O PAIN AT THIS TIME. PT STATES SHE IS COMFORTABLE. CALL LIGHT PROVIDED AND LOCKS PLACED ON THE CHAIR. WILL CONTINUE TO MONITOR AND ASSESS FURTHER.
--- NOTE | 2019-11-28 14:10 | NUR ---
Pt. is ritika much better sitting up in a chair and playing awithn her syed phone
--- NOTE | 2019-11-28 18:42 | NUR ---
SHIFT SUMMARY: NO ACUTE CHANGES NOTED SINCE PT ARIVED TO THE UNIT. PT HAS REMAINED IN HER RECLINER AND DENIES ANY PAIN OR DISCOMFORT. PT O2 SATS REMAIN >92% ON 7L O2 VIA NC. VSS. CALL LIGHT WITHING REACH.
--- NOTE | 2019-11-28 22:57 | NUR ---
ASSUMED CARE OF PT AT 1900, PATIENT AWAKE AND ALERT IN BEDSIDE CHAIR, ABSENT OF SIGNS OF DISTRESS. PATIENT WAS AIDED IN TRANSFER BY TWO STAFF BACK TO BED AT HER REQUEST, SKIN CLEANED AND DRIED AT THIS TIME. ASSESSMENT OCCURRED WHILE PATIENT LYING IN BED. LUNGS MOSTLY CLEAR, NO WHEEZES, SLIGHTLY COARSE AND DIMINISHED IN BASES BILATERALLY. O2 SATURATION 92% ON 4l VIA NC, NO DYSPNEA NOTED. WILL TREAT PER MD ORDER AND UNIT PROTOCOL, AND CONTINUE TO MONITOR
--- NOTE | 2019-11-28 23:02 | NUR ---
PATIENT ON BIPAP. PATIENT MOVED TO BREATHING THROUGH HER BIPAP AT AROUND 2230, SETTINGS ARE 22/18 WITH 40% O2. NO ISSUES
--- NOTE | 2019-11-29 05:12 | NUR ---
SHIFT SUMMARY AT AROUND 0505 PATIENT C/O COUGHING AND ASKED FOR A BREATHING TREATMENT. OTHERWISE NO CHANGES DURING THIS SHIFT; PATIENT WAS WITHOUT BREATHING DISTRESS THROUGHOUT, AND TOLERATED ROUTINE REPOSITIONING WELL AND WITH APPRECIATION. PATIENT REMAINED WITH BIPAP AT SETTINGS NOTED, AND HER O2 SATURATION REMAINED ABOVE 90% FOR REMAINDER OF SHIFT. WILL CONTINUE TO MONITOR AND PROVIDE CARE UNTIL PASSING CARE AND REPORT TO ONCOMING SHIFT AT 0700. BED IS LOCKED AND LOW, CALL LIGHT W/IN REACH.
--- NOTE | 2019-11-29 10:06 | NUR ---
PT LAYING IN BED AWAKE A/OX3, PLEASANT AND COOPERATIVE WITH CARE, FOLLOWS COMMANDS WELL, DENIES PAIN, LUNGS ARE CLEAR IN UPPER LOPEZ, DIM IN BASES, RESP EVEN AND UNLABORED, NO COUGH NOTED, TELE IN PLACE RUNNING SR PER MONITOR, SEE STRIP, TRACE EDEMA NOTED TO B/L LE, PPP+1, CAP REFILL <3SEC, VS STABLE, AFEBRILE, IV SITE IS POWER GLIDE TO RFA, SITE IS CLEAR AND PATENT, INFUSING NS TKO, BTX4, ABD LARGE SOFT NONTENDER, VOIDS VIA ROMANO CATH DRAINING CLEAR YELLOW URINE, SKIN C/W/D, ZACKARY, MEAGAN, CALL LIGHT IN REACH.
--- NOTE | 2019-11-29 12:26 | NUR ---
pt up to chair, with PT. denies any complaints. call light in reach.
--- NOTE | 2019-11-29 13:55 | NUR ---
Pt. doing well her therapist is attending to her needs
--- NOTE | 2019-11-29 18:52 | NUR ---
pt had an uneventful day, is back in bed, no complaints or needs, is very compliant with fluid restriction. call light in reach.
--- NOTE | 2019-11-29 19:35 | NUR ---
ASSUMED CARE ASSUMED CARE OF PT AT 1900, PATIENT AWAKE AND ALERT LYING IN BED IN NO APPARENT DISTRESS. PT DENIES PAIN, DENIES SOB, O2 SATURATION AT 90% WITH 4L FLOWING VIA NC. ALL VSS AND WNL, LUNG SOUNDS CLEAR AND DIMINISHED IN LOWER LOBES. PATIENT PLEASANTLY CONVERSIVE. PATIENT LOOKING FORWARD TO A SCHEDULED SLEEP STUDY PER RT THIS NIGHT. WILL CONTINUE TO MONITOR
--- NOTE | 2019-11-29 22:15 | NUR ---
SLEEP STUDY BEGINNING, MANAGED BY [facility] THERAPY. PATIENT IS AWARE THAT SHE WILL NOT BE DISTURBED WHILE STUDY IS GOING ON, NO VITALS TAKEN AT MIDNIGHT.
--- NOTE | 2019-11-30 06:39 | NUR ---
SHIFT SUMMARY NO NEW CHANGES FROM PREVIOUS NOTE AND ASSESSMENT. PATIENT REMAINED MOSTLY UNDISTURBED DURING SLEEP STUDY PER [facility] THERAPIST'S INSTRUCTIONS. VITAL SIGNS AROUND 0600 WERE ALL WNL WERE THOSE AT SHIFT'S BEGINNING, EXCEPTING A RESP RATE OF 22 OR GREATER. WILL CONTINUE TO MONITOR AND WILL PASS CARE AND REPORT TO ONCOMING SHIFT AT 0700. PATIENT SLEEPING IN BED WITH HER OWN CPAP IN PLACE, BED IS LOCKED AND LOW, CALL LIGHT W/IN REACH.
--- NOTE | 2019-11-30 08:00 | NUR ---
PT LAYING IN BED AWAKE A/OX3, PLEASANT AND COOPERATIVE WITH CARE, FOLLOWS COMMANDS WELL, DENIES COMPLAINTS, STATES SHE SLEPT WELL. LUNGS ARE CLEAR DIM IN BASES, RESP EVEN AND UNLABORE, NO COUGH NOTED, HRR, TELE IN PLACE RUNNING SR PER MONITOR, SEE STRIP, NO EDEMA NOTED, PPP+1, CAP REFILL <3SEC, VS LOW IN THE 80'S, CALL TO DR. POLANCO. WILL HOLD LASIX AND METOPROLOL FOR NOW. PT IS NOT SYMPTOMATIC, IV IS POWER GLIDE TO RFA SITE IS CLEAR AND PATENT, BTX4, ABD LARGE SOFT NONTENDER, VOIDS VIA ROMANO, SKIN C/W/D, ZACKARY, MEAGAN, CALL LIGHT IN REACH.
[2019-11-30 10:01] LABS: Hematocrit 32.4 % (33.0-51.0); Hemoglobin 9.9 g/dL (11.5-16.0); Mean Corpuscular HGB 28.2 pg (26.0-34.0); Mean Corpuscular HGB Conc 30.6 g/dL (31.5-36.5); Mean Corpuscular Volume 92 fL (80-100); Mean Platelet Volume 9.3 fL (9.1-12.4); Platelet Count 463 K/mm3 (150-400); RDW Coefficient Variation 15.9 % (11.7-14.2); RDW Standard Deviation 53.7 fL (35.1-46.3); Red Blood Cell Count 3.51 M/mm3 (3.80-5.20); White Blood Cell Count 8.82 K/mm3 (4.00-11.30)
[2019-11-30 10:16] LABS: Albumin, Blood 2.4 g/dL (3.4-5.0); Anion Gap 7 mmol/L (6-16); Blood Urea Nitrogen 43 mg/dL (8-24); CO2, Blood 33 mmol/L (21-32); Calcium, Blood 8.9 mg/dL (8.5-10.1); Chloride, Blood 100 mmol/L (98-108); Glomerular Filtration Rate 58 (60-); Glucose, Blood 212 mg/dL (70-99); Phosphorus, Blood 3.3 mg/dL (2.5-4.9); Potassium, Blood 3.6 mmol/L (3.5-5.5); Sodium, Blood 140 mmol/L (136-145)
[2019-11-30 11:05] LABS: BAND PERCENT MAN 3 % (0-8); BASOPHILS PERCENT MAN 0 % (0-2); EOSINOPHILS PERCENT MAN 0 % (0-6); LYMPHOCYTES ABSOLUTE MAN 1.41 K/mm3 (0.84-5.20); LYMPHOCYTES PERCENT MAN 16 % (21-46); METAMYELOCYTE ABSOLUTE MAN 0.17 K/mm3 (0.00-0.00); METAMYELOCYTE PERCENT MAN 2 % (0-0); MONOCYTES ABSOLUTE MAN 0.26 K/mm3 (0.16-1.47); MONOCYTES PERCENT MAN 3 % (4-13); MYELOCYTE ABSOLUTE MAN 0.08 K/mm3 (0.00-0.00); MYELOCYTE PERCENT MAN 1 % (0-0); NEUTROPHILS ABSOLUTE MAN 6.87 K/mm3 (1.96-9.15); SEG NEUTROPHILS PERCENT MAN 75 % (41-73); TOTAL CELLS COUNTED 100
--- NOTE | 2019-11-30 14:00 | NUR ---
PT GOT UP TO CHAIR WITH OT. DOING WELL NO COMPLAINTS. CALL LIGHT IN REACH.
--- NOTE | 2019-11-30 18:42 | NUR ---
B/P HAVE BEEN GOOD AFTER FIRST ONE THIS AM, DR. POLANCO STOPPED THE METOPROLOL AND LASIX. OTHERWISE AN UNEVENTFUL DAY. IS STILL IN CHAIR, FAMILY IN ROOM VISITING. CALL LIGHT IN REACH.
[2019-12-01 04:23] LABS: Hematocrit 31.5 % (33.0-51.0); Hemoglobin 9.7 g/dL (11.5-16.0); Mean Corpuscular HGB Conc 30.8 g/dL (31.5-36.5); Mean Corpuscular Volume 91 fL (80-100); Mean Platelet Volume 9.4 fL (9.1-12.4); Platelet Count 483 K/mm3 (150-400); RDW Coefficient Variation 15.8 % (11.7-14.2); Red Blood Cell Count 3.46 M/mm3 (3.80-5.20); White Blood Cell Count 11.22 K/mm3 (4.00-11.30)
[2019-12-01 04:38] LABS: Albumin, Blood 2.5 g/dL (3.4-5.0); Anion Gap 5 mmol/L (6-16); Blood Urea Nitrogen 42 mg/dL (8-24); Bun/Creatinine Ratio 39.3 (12.0-20.0); CO2, Blood 34 mmol/L (21-32); Calcium, Blood 9.1 mg/dL (8.5-10.1); Chloride, Blood 103 mmol/L (98-108); Creatinine, Blood 1.07 mg/dL (0.40-1.00); Glomerular Filtration Rate 54 (60-); Glucose, Blood 78 mg/dL (70-99); Magnesium, Blood 2.4 mg/dL (1.6-2.4); Phosphorus, Blood 3.8 mg/dL (2.5-4.9); Potassium, Blood 3.9 mmol/L (3.5-5.5); Sodium, Blood 142 mmol/L (136-145)
[2019-12-01 04:41] LABS: BAND PERCENT MAN 3 % (0-8); BASOPHILS PERCENT MAN 0 % (0-2); EOSINOPHILS PERCENT MAN 0 % (0-6); LYMPHOCYTES ABSOLUTE MAN 1.79 K/mm3 (0.84-5.20); LYMPHOCYTES PERCENT MAN 16 % (21-46); METAMYELOCYTE ABSOLUTE MAN 0.33 K/mm3 (0.00-0.00); METAMYELOCYTE PERCENT MAN 3 % (0-0); MONOCYTES ABSOLUTE MAN 0.67 K/mm3 (0.16-1.47); MONOCYTES PERCENT MAN 6 % (4-13); MYELOCYTE ABSOLUTE MAN 0.44 K/mm3 (0.00-0.00); MYELOCYTE PERCENT MAN 4 % (0-0); NEUTROPHILS ABSOLUTE MAN 7.96 K/mm3 (1.96-9.15); SEG NEUTROPHILS PERCENT MAN 68 % (41-73); TOTAL CELLS COUNTED 100
--- NOTE | 2019-12-01 05:06 | NUR ---
SHIFT SUMMARY PT SLEEPING INN ROOM COMFORTABLY AT THIS TIME. NO ACUTE CHANGES IN STATUS OVERNIGHT. PT SLEPT WELL AND WORE CPAP T/O NIGHT. DENIED NEEDS. DENIED ANY CP. PT HAD ONE EPISODE OF DYSPNEA W/ EXERTION MOVING FROM CHAIR TO BED. PT RECOVERED WELL. RESP EVEN UNLABORED AT THIS TIME ON CPAP W/ SATS >92%. DENIES OTHER NEEDS AT THIS TIME. ROMANO CATH REMAINS IN PLACE D/T PT REQUEST TO LEAVE IN UNTIL MORNING. CALL LIGHT IS IN REACH. WILL GIVE BEDSIDE REPORT TO ONCOMIING ANN-MARIE.
--- NOTE | 2019-12-01 09:31 | NUR ---
ROSALINA Quiles/Kurt BY ENRIQUE RUEDA
--- NOTE | 2019-12-01 17:27 | NUR ---
shift note PT HAS REMAINED ON 6L O2 T/O SHIFT. PT WITH GOOD OXYGENATION T/O SHIFT BUT SPO2 NOTED TO DROP WHEN PT TALKS FOR EXTENDED TIME, COUGHS, OR AMBULATES. PT TALKING IN FULL SENTENCES W/O DIFF. SKIN PWD AND INTACT. PT IS IN GOOD SPIRITS. VSS T/O SHIFT NO HYPOTNESION NOTED, BP MEDS WERE HELP FOR THE HYPOTENSION EXPERIENCED LAST NOC, WHICH BP HAS SEEMED TO HAVE RECOVERED FROM LAST NIGHTS EPISODE OF HYPOTENSION. PT HAS BEEN UP TO BEDSIDE CHAIR T/O MOST OF DAY.
--- NOTE | 2019-12-02 05:06 | NUR ---
SHIFT SUMMARY PT SLEEPING IN ROOM COMFORTABLY AT THSI TIME. NO ACUTE CHANGES IN STATUS T/O NIGHT. PT SLEPT WELL, DENIED ANY CP. PT DID HAVE SOME DYSPNEA W/ EXERTION UPON MOVING FROM CHAIR TO BED. PT HAD BM DURING NIGHT AND ATTENDS AND LINEN WERE CHANGED. RESP EVEN UNLABORED ON CPAP W/ SATS >95%. DENIES OTHER NEEDS. CALL LIGHT IN REACH. WILL GIVE REPORT ON TO ONCOMING RN, PT REQUESTS NO BEDSIDE REPORT BUT TO LET HER SLEEP.
--- NOTE | 2019-12-02 18:03 | NUR ---
SHIFT SUMMARY PT ALERT AND ORIENTED. VS STABLE. O2 SATS HAVE REMAINED ABOVE 90% ON 4L NC. PT TITRATED FROM 6L AT BEGINNING OF SHIFT TO 4L THIS EVENING. HR NSR. PT DENIES ANY PAIN. PT HAVING OCCAISIONAL STRESS INCONTINENCE. PT ABLE TO AMBULATE TO BSC AND CHAIR IN ROOM NEEDED WITH 1 ASSIST AND WALKER. PLAN FOR PT TO DISCHARGE TO SNF TOMORROW PER DR. POLANCO. WILL CONTINUE TO MONITOR CLOSELY AND REPORT TO ONCOMING RN. CALL LIGHT IN REACH.
[2019-12-03 03:58] LABS: BASOPHILS ABSOLUTE AUTO 0.05 K/mm3 (0.00-0.23); BASOPHILS PERCENT AUTO 1 % (0-2); EOSINOPHILS ABSOLUTE AUTO 0.24 K/mm3 (0.00-0.68); EOSINOPHILS PERCENT AUTO 2 % (0-6); Hematocrit 31.3 % (33.0-51.0); Hemoglobin 9.5 g/dL (11.5-16.0); IMMATURE GRAN ABSOLUTE AUTO 0.65 K/mm3 (0.00-0.10); IMMATURE GRAN PERCENT AUTO 6 % (0-1); LYMPHOCYTES ABSOLUTE AUTO 1.39 K/mm3 (0.84-5.20); LYMPHOCYTES PERCENT AUTO 14 % (21-46); MONOCYTES ABSOLUTE AUTO 0.83 K/mm3 (0.16-1.47); MONOCYTES PERCENT AUTO 8 % (4-13); Mean Corpuscular HGB 28.2 pg (26.0-34.0); Mean Corpuscular HGB Conc 30.4 g/dL (31.5-36.5); Mean Corpuscular Volume 93 fL (80-100); Mean Platelet Volume 9.5 fL (9.1-12.4); NEUTROPHILS ABSOLUTE AUTO 7.08 K/mm3 (1.96-9.15); NEUTROPHILS PERCENT AUTO 69 % (41-73); Platelet Count 380 K/mm3 (150-400); RDW Coefficient Variation 16.1 % (11.7-14.2); Red Blood Cell Count 3.37 M/mm3 (3.80-5.20); White Blood Cell Count 10.24 K/mm3 (4.00-11.30)
[2019-12-03 04:18] LABS: Albumin, Blood 2.5 g/dL (3.4-5.0); Anion Gap 5 mmol/L (6-16); Blood Urea Nitrogen 32 mg/dL (8-24); Bun/Creatinine Ratio 33.4 (12.0-20.0); CO2, Blood 31 mmol/L (21-32); Calcium, Blood 8.8 mg/dL (8.5-10.1); Chloride, Blood 106 mmol/L (98-108); Creatinine, Blood 0.96 mg/dL (0.40-1.00); Glomerular Filtration Rate >60 (60-); Glucose, Blood 158 mg/dL (70-99); Phosphorus, Blood 3.6 mg/dL (2.5-4.9); Potassium, Blood 4.5 mmol/L (3.5-5.5); Sodium, Blood 142 mmol/L (136-145)
[2019-12-03 04:20] LABS: BAND PERCENT MAN 1 % (0-8); BASOPHILS PERCENT MAN 0 % (0-2); EOSINOPHILS PERCENT MAN 0 % (0-6); LYMPHOCYTES ABSOLUTE MAN 1.43 K/mm3 (0.84-5.20); LYMPHOCYTES PERCENT MAN 14 % (21-46); MONOCYTES ABSOLUTE MAN 1.02 K/mm3 (0.16-1.47); MONOCYTES PERCENT MAN 10 % (4-13); MYELOCYTE PERCENT MAN 3 % (0-0); NEUTROPHILS ABSOLUTE MAN 7.37 K/mm3 (1.96-9.15); PROMYELOCYTE PERCENT MAN 1 % (0-0); SEG NEUTROPHILS PERCENT MAN 71 % (41-73); TOTAL CELLS COUNTED 100
--- NOTE | 2019-12-03 06:00 | NUR ---
SHIFT SUMMARY. OOB TO BSC X 2 AND VOIDING 200ML . EXCORIATED MAGI ANAL AREA. EXTREME WEAKNESS AND VERY UNSTEADY GAIT USING WALKER. ASSISTS IN SOME CARE. ENC TO DO MORE FOR SELF. HS SNACK AND TOLERATED WELL. SR. SLEEPING VERY WELL ON CPAP 4L BLEED IN AND NC 4L WNL SAT . HELD LOPRESSOR. W/ LOWER BP BLOOD SUGAR WNL . SKIN W/ UNGT MAGI ANAL AREA CONSTANTLY WHEN NEEDED
--- NOTE | 2019-12-03 12:12 | NUR ---
UPDATE PT ALERT AND ORIENTED. VS STABLE. O2 SATS REMAIN ABOVE 90% ON 4L NC. LS CRACKLES IN THE BASES. HR NSR. BP STABLE. DR. CELAYA IN THE ROOM THIS AM. DR. TATUM IN AND PLANS TO KEEP PATIENT FOR A COUPLE MORE DAYS. CHEST XRAY COMPLETED. NEW ORDERS FOR IV LASIX. PT TO BE TRANSFERRED UP TO MEDICAL FLOOR. REPORT GIVEN TO ARTURO JACOBSEN. PT TO BE TAKEN UP BY BED.
--- NOTE | 2019-12-03 19:27 | NUR ---
SHIFT SUMMARY ANDREW ARRIVED FROM PCU THIS AFTERNOON. DENIES PAIN. VERY SOB ON EXERTION, DESATS TO UPPER 60S/LOW 70S WITH WALKING TO BR. DR CELAYA INFORMED OF THE EXERTIONAL HYPOXIA. ON 3L OXYGEN AT REST WITH SATS IN LOW 90S. TELE SHOWING NSR IN 60S. 2L FLUID RESTRICTION IN PLACE. CBGS WNL, BUT RECEIVED SCHEDULED INSULIN. INCONTINENT OF URINE/CONTINENT, HEAVEY WETTER. TOOK MEDS PRESCRIBED. CALL LIGHT IN REACH, TM
--- NOTE | 2019-12-04 05:04 | NUR ---
SHIFT SUMMARY- PT. A&O, PLEASANT AND COOPERATIVE WITH CARE. APPEARED TO BE SLEEPING COMFORTABLY T/O THE NIGHT WITH CPAP AND CONT PULSE OX IN PLACE, NO APPARENT DISTRESS NOTED. NO ACUTE CHANGES TO CONDITION. CALL LIGHT WITHIN REACH AND SIDE RAILS UP X2. WILL CONT TO MONITOR.
[2019-12-04 05:38] LABS: BASOPHILS ABSOLUTE AUTO 0.02 K/mm3 (0.00-0.23); BASOPHILS PERCENT AUTO 0 % (0-2); EOSINOPHILS ABSOLUTE AUTO 0.28 K/mm3 (0.00-0.68); EOSINOPHILS PERCENT AUTO 3 % (0-6); Hematocrit 31.1 % (33.0-51.0); Hemoglobin 9.5 g/dL (11.5-16.0); IMMATURE GRAN ABSOLUTE AUTO 0.43 K/mm3 (0.00-0.10); IMMATURE GRAN PERCENT AUTO 4 % (0-1); LYMPHOCYTES ABSOLUTE AUTO 1.49 K/mm3 (0.84-5.20); LYMPHOCYTES PERCENT AUTO 15 % (21-46); MONOCYTES ABSOLUTE AUTO 0.83 K/mm3 (0.16-1.47); MONOCYTES PERCENT AUTO 8 % (4-13); Mean Corpuscular HGB 28.3 pg (26.0-34.0); Mean Corpuscular HGB Conc 30.5 g/dL (31.5-36.5); Mean Corpuscular Volume 93 fL (80-100); NEUTROPHILS ABSOLUTE AUTO 6.88 K/mm3 (1.96-9.15); NEUTROPHILS PERCENT AUTO 69 % (41-73); Platelet Count 330 K/mm3 (150-400); RDW Coefficient Variation 16.3 % (11.7-14.2); RDW Standard Deviation 54.9 fL (35.1-46.3); Red Blood Cell Count 3.36 M/mm3 (3.80-5.20); White Blood Cell Count 9.93 K/mm3 (4.00-11.30)
[2019-12-04 05:56] LABS: Bun/Creatinine Ratio 29.6 (12.0-20.0); Calcium, Blood 8.7 mg/dL (8.5-10.1); Creatinine, Blood 1.15 mg/dL (0.40-1.00); Potassium, Blood 4.4 mmol/L (3.5-5.5)
--- NOTE | 2019-12-04 12:59 | NUR ---
Pt. is in bed resting and she is doing much better offered prayers
--- NOTE | 2019-12-04 16:52 | NUR ---
SHIFT SUMMARY- PT A/OX4, 1 ASSIST UP TO BSC. LS DIMINISHED WITH SLIGHT CRACKLES, IV LASIX X1 GIVEN. PT ON 2L N/C, SOB WITH EXERTION AND DESATS. CPAP AT HS AND PRN. PT SLEEPING ON AND OFF T/O THE DAY, PT REPORTS SHE IS UNSURE OF WHY SHE IS SO SLEEPY TODAY BUT HAS BEEN WEARING HER CPAP. PT DOES AWAKE TO VERBAKL STIMULI AND ANSWERS APROPRIATELY. TELE NSR AT 82. TRACE BLE EDEMA NOTED. POSS D/C TOP [facility]. TOMORROW. NO OTHER ACUTE CHANGES THIS SHIFT.
--- NOTE | 2019-12-05 06:22 | NUR ---
SHIFT SUMMARY- PT. HAD RESTFUL NIGHT. NO ACUTE CHANGES TO CONDITION. SLEPT COMFORTABLY DURING THE NIGHT WITH CPAP ON. NO APPARENT DISTRESS NOTED. PT. CONTS TO DESAT TO THE 80'S WHEN UP OOB. ON 2L NC WHEN AWAKE. DENIED ANY PAIN OR DISCOMFORT T/O THE SHIFT. PT. ANTICIPATING D/C TO SNF TODAY. CALL LIGHT WITHIN REACH AND SIDE RAILS UP X2. WILL CONT TO MONITOR.
[2019-12-05 09:26] LABS: Bun/Creatinine Ratio 27.1 (12.0-20.0); Calcium, Blood 8.9 mg/dL (8.5-10.1); Creatinine, Blood 1.07 mg/dL (0.40-1.00); Magnesium, Blood 2.4 mg/dL (1.6-2.4); Potassium, Blood 4.6 mmol/L (3.5-5.5)
--- NOTE | 2019-12-05 13:33 | NUR ---
Pt. is doing well pastoral visit taken care of.
[2019-12-05] MEDS ORDERED: Duoneb 2.5-0.5 M3 ML INH (14:02)
--- NOTE | 2019-12-05 16:18 | NUR ---
REPORT CALLED TO GARRETT AT [facility]. PT AWAITING TRANSPORT. PT CALLED AND NOTIFIED FAMILY MEMBERS.
--- NOTE | 2019-12-05 17:00 | NUR ---
PT DC'D TO [facility]IA [facility] AT 1700.
== END 2019-12-05 16:58 | DRG 871 ==
LOC: ER 23:25 → ICUE 11-22 02:38 → MEDS 11-22 02:38 → PCU 11-22 02:38 → ICUE 11-25 23:23 → PCU 11-28 13:39 → MEDS 12-03 12:29
PROVIDERS: Emergency Medicine; Internal Medicine Critical Care Medicine; Internal Medicine Gastroenterology; Internal Medicine Pulmonary Disease; Nurse Practitioner Acute Care; Student in an Organized Health Care Education/Training Program; ADMIT Internal Medicine
PROC: 5A09357 Assistance with Respiratory Ventilation, Less than 24 Consecutive Hours, Continuous Positive Airway Pressure (ICD-10-PCS; principal; 2019-11-22)
DX: A41.9 Sepsis, unspecified organism (principal); J96.21 Acute and chronic respiratory failure with hypoxia; J96.22 Acute and chronic respiratory failure with hypercapnia; J18.9 Pneumonia, unspecified organism; Z68.43 Body mass index [BMI] 50.0-59.9, adult; E87.3 Alkalosis; E66.2 Morbid (severe) obesity with alveolar hypoventilation; I50.32 Chronic diastolic (congestive) heart failure; F41.1 Generalized anxiety disorder; K21.9 Gastro-esophageal reflux disease without esophagitis; M19.90 Unspecified osteoarthritis, unspecified site; M81.0 Age-related osteoporosis without current pathological fracture; I27.20 Pulmonary hypertension, unspecified; Z95.1 Presence of aortocoronary bypass graft; N18.3 Chronic kidney disease, stage 3 (moderate); I12.9 Hypertensive chronic kidney disease with stage 1 through stage 4 chronic kidney disease, or unspecified chronic kidney disease; E11.42 Type 2 diabetes mellitus with diabetic polyneuropathy; I25.10 Atherosclerotic heart disease of native coronary artery without angina pectoris; I25.2 Old myocardial infarction; F41.8 Other specified anxiety disorders; Z79.4 Long term (current) use of insulin; R65.20 Severe sepsis without septic shock; Z22.322 Carrier or suspected carrier of Methicillin resistant Staphylococcus aureus
CPT/HCPCS: 0097U; 0099U; 36415; 36600; 51702; 71045; 80048; 80053; 80069; 80202; 81001; 82803; 82947; 83605; 83735; 83880; 84100; 84484; 85025; 87040; 87070; 87077; 87086; 87147; 87186; 87205; 93005; 93010; 94640; 94660; 94762; 96365; 96375; 97110; 97162; 97166; 97530; 97535; 99285-25; A9270; C1751; J1650; J1815; J1940; J1956; J2270; J2543; J2920; J3370; J7050; J7060

== ENCOUNTER → 2020-08-28 | Outpatient (CLI) | payer MEDICARE ==
[~2020-08-28] MED LIST changes: +Duoneb 2.5-0.5 M3 ML INH
== END | disposition home or self-care (01) ==
LOC: LAB SHORT 16:30 → LAB EV 16:30
DX: R82.90 Unspecified abnormal findings in urine (principal)
CPT/HCPCS: 87077; 87086; 87186

== ENCOUNTER 2021-06-27 22:19 | Emergency (ER) | payer MEDICARE ==
[~2021-06-27] VITALS: Ht 160 cm; Wt 131.1 kg
[~2021-06-27 22:19] MED LIST changes: -Omeprazole20 M1 PO
[2021-06-27 23:10] LABS: BASOPHILS ABSOLUTE AUTO 0.03 K/mm3 (0.00-0.23); BASOPHILS PERCENT AUTO 0 % (0-2); EOSINOPHILS ABSOLUTE AUTO 0.21 K/mm3 (0.00-0.68); EOSINOPHILS PERCENT AUTO 2 % (0-6); Hematocrit 38.1 % (33.0-51.0); Hemoglobin 12.1 g/dL (11.5-16.0); IMMATURE GRAN ABSOLUTE AUTO 0.03 K/mm3 (0.00-0.10); IMMATURE GRAN PERCENT AUTO 0 % (0-1); LYMPHOCYTES ABSOLUTE AUTO 1.35 K/mm3 (0.84-5.20); LYMPHOCYTES PERCENT AUTO 15 % (21-46); MONOCYTES ABSOLUTE AUTO 0.67 K/mm3 (0.16-1.47); MONOCYTES PERCENT AUTO 8 % (4-13); Mean Corpuscular HGB 27.9 pg (26.0-34.0); Mean Corpuscular HGB Conc 31.8 g/dL (31.5-36.5); Mean Corpuscular Volume 88 fL (80-100); Mean Platelet Volume 9.6 fL (9.1-12.4); NEUTROPHILS PERCENT AUTO 74 % (41-73); Platelet Count 229 K/mm3 (150-400); RDW Coefficient Variation 14.1 % (11.7-14.2); RDW Standard Deviation 45.4 fL (35.1-46.3); Red Blood Cell Count 4.34 M/mm3 (3.80-5.20); White Blood Cell Count 8.79 K/mm3 (4.00-11.30)
[2021-06-27 23:32] LABS: Alanine Aminotransfer (ALT/SGP 21 U/L (12-78); Albumin, Blood 3.3 g/dL (3.4-5.0); Albumin/Globulin Ratio 0.9 (0.8-1.8); Alk Phos 112 U/L (50-136); Anion Gap 7 mmol/L (6-16); Aspartate Aminotrans (AST/SGOT 14 U/L (12-37); Bilirubin, Total 0.6 mg/dL (0.1-1.0); Blood Urea Nitrogen 24 mg/dL (8-24); Bun/Creatinine Ratio 17.6 (12.0-20.0); CO2, Blood 26 mmol/L (21-32); Calcium, Blood 7.8 mg/dL (8.5-10.1); Chloride, Blood 107 mmol/L (98-108); Creatinine, Blood 1.36 mg/dL (0.40-1.00); Globulin, Blood 3.6 g/dL (2.2-4.0); Glomerular Filtration Rate 38 (60-); Glucose, Blood 155 mg/dL (70-99); Potassium, Blood 3.9 mmol/L (3.5-5.5); Sodium, Blood 140 mmol/L (136-145); Total Protein, Blood 6.9 g/dL (6.4-8.2); Troponin I <0.015 ng/mL (0.000-0.040)
== END 2021-06-28 08:21 | disposition home or self-care (01) ==
LOC: ER 22:19
PROVIDERS: Emergency Medicine
DX: U07.1 COVID-19 (principal); E11.9 Type 2 diabetes mellitus without complications; E66.9 Obesity, unspecified; J44.9 Chronic obstructive pulmonary disease, unspecified; Z88.5 Allergy status to narcotic agent; Z79.82 Long term (current) use of aspirin; Z79.4 Long term (current) use of insulin; Z79.899 Other long term (current) drug therapy
CPT/HCPCS: 71046; 80053; 84484; 85025; 93005; 93010; 99284-25

== ENCOUNTER 2021-07-08 21:31 | Emergency (ER) | payer MEDICARE ==
[~2021-07-08] VITALS: Ht 160 cm; Wt 127.0 kg
== END 2021-07-08 21:59 | disposition home or self-care (01) ==
LOC: ER 21:31
DX: U07.1 COVID-19 (principal); E11.9 Type 2 diabetes mellitus without complications; J44.9 Chronic obstructive pulmonary disease, unspecified; E66.9 Obesity, unspecified; Z68.42 Body mass index [BMI] 45.0-49.9, adult; Z88.5 Allergy status to narcotic agent; Z79.899 Other long term (current) drug therapy; Z79.4 Long term (current) use of insulin; Z79.82 Long term (current) use of aspirin; Z95.1 Presence of aortocoronary bypass graft
CPT/HCPCS: 99282

== ENCOUNTER 2021-07-10 17:22 | Inpatient (IN) | payer MEDICARE ==
[~2021-07-10] VITALS: Ht 160 cm; Wt 130.6 kg
[2021-07-10 18:34] LABS: BASOPHILS ABSOLUTE AUTO 0.03 K/mm3 (0.00-0.23); BASOPHILS PERCENT AUTO 0 % (0-2); EOSINOPHILS ABSOLUTE AUTO 0.27 K/mm3 (0.00-0.68); EOSINOPHILS PERCENT AUTO 3 % (0-6); Hematocrit 35.1 % (33.0-51.0); IMMATURE GRAN ABSOLUTE AUTO 0.04 K/mm3 (0.00-0.10); IMMATURE GRAN PERCENT AUTO 1 % (0-1); LYMPHOCYTES ABSOLUTE AUTO 0.69 K/mm3 (0.84-5.20); LYMPHOCYTES PERCENT AUTO 9 % (21-46); MONOCYTES ABSOLUTE AUTO 0.51 K/mm3 (0.16-1.47); MONOCYTES PERCENT AUTO 6 % (4-13); Mean Corpuscular HGB Conc 31.3 g/dL (31.5-36.5); Mean Corpuscular Volume 89 fL (80-100); Mean Platelet Volume 9.5 fL (9.1-12.4); NEUTROPHILS ABSOLUTE AUTO 6.48 K/mm3 (1.96-9.15); NEUTROPHILS PERCENT AUTO 81 % (41-73); Platelet Count 252 K/mm3 (150-400); RDW Coefficient Variation 14.2 % (11.7-14.2); RDW Standard Deviation 46.4 fL (35.1-46.3); Red Blood Cell Count 3.93 M/mm3 (3.80-5.20); White Blood Cell Count 8.02 K/mm3 (4.00-11.30)
[2021-07-10 18:46] LABS: Alanine Aminotransfer (ALT/SGP 16 U/L (12-78); Albumin, Blood 2.8 g/dL (3.4-5.0); Albumin/Globulin Ratio 0.7 (0.8-1.8); Alk Phos 87 U/L (50-136); Anion Gap 5 mmol/L (6-16); Aspartate Aminotrans (AST/SGOT 19 U/L (12-37); Bilirubin, Total 0.6 mg/dL (0.1-1.0); Blood Urea Nitrogen 20 mg/dL (8-24); Bun/Creatinine Ratio 15.5 (12.0-20.0); CO2, Blood 26 mmol/L (21-32); Calcium, Blood 8.2 mg/dL (8.5-10.1); Chloride, Blood 111 mmol/L (98-108); Creatinine, Blood 1.29 mg/dL (0.40-1.00); Globulin, Blood 3.9 g/dL (2.2-4.0); Glomerular Filtration Rate 41 (60-); Glucose, Blood 179 mg/dL (70-99); Potassium, Blood 4.5 mmol/L (3.5-5.5); Sodium, Blood 142 mmol/L (136-145); Total Protein, Blood 6.7 g/dL (6.4-8.2)
[2021-07-10] MEDS ORDERED: NEURONTIN300 MG PO (19:06)
[2021-07-10] MEDS ORDERED: HUMALOG100 UNIT/1 SC (19:06)
[2021-07-10] MEDS ORDERED: INSULANI SC (19:06)
[2021-07-10] MEDS ORDERED: KLONOPIN0.5 M3 PO (19:08)
[2021-07-10] MEDS ORDERED: SERT100 PO (19:08)
[2021-07-10] MEDS ORDERED: KLOR-CON 1010 ME3 PO (19:08)
[2021-07-10] MEDS ORDERED: BUMETANIDE2 M4 PO (19:08)
[2021-07-10] MEDS ORDERED: METOPROLOL TART25 MG PO (19:09)
[2021-07-10] MEDS ORDERED: SERT25 PO (19:09)
[2021-07-10] MEDS ORDERED: TRAZ50 PO (19:09)
[2021-07-10] MEDS ORDERED: OMEP20ER PO (19:09)
--- NOTE | 2021-07-11 01:26 | NUR ---
ASSUMED CARE. PATIENT WAS ADMITTED SHORTLY AFTER MIDNIGHT. AOX3, COOPERATIVE. INCREASE IN SOB AT HOME, COVID POSITIVE. DENIES PAIN. STATES IT FEELS LIKE A BAND AROUND HER CHEST. ON 2 LITERS OF O2. COUGH PRODUCTIVE WITH GREENISH THICK SPUTUM, COUGH IS VERY HARSH AND CAUSES BRONCHIAL SPASMS. DISCUSSED PRONING, SHE IS NOT SURE SHE CAN, ENCOURAGED IT. ROMANO CATH PATENT DRAINING CLEAR YELLOW. USES HOME CPAP BUT DID NOT BRING ONE IN. CALLED RT HE WILL LOOK TO SEE IF THEY HAVE ONE. CONTINUOUS BIOX UNAVAILABLE AT THIS TIME. WILL CONTINUE TO MONITOR. CALL LIGHT IN REACH.
[2021-07-11 04:37] LABS: BASOPHILS ABSOLUTE AUTO 0.02 K/mm3 (0.00-0.23); BASOPHILS PERCENT AUTO 0 % (0-2); EOSINOPHILS ABSOLUTE AUTO 0.01 K/mm3 (0.00-0.68); EOSINOPHILS PERCENT AUTO 0 % (0-6); Hemoglobin 11.4 g/dL (11.5-16.0); IMMATURE GRAN ABSOLUTE AUTO 0.06 K/mm3 (0.00-0.10); IMMATURE GRAN PERCENT AUTO 1 % (0-1); LYMPHOCYTES ABSOLUTE AUTO 0.81 K/mm3 (0.84-5.20); LYMPHOCYTES PERCENT AUTO 10 % (21-46); MONOCYTES ABSOLUTE AUTO 0.53 K/mm3 (0.16-1.47); MONOCYTES PERCENT AUTO 6 % (4-13); Mean Corpuscular HGB 27.9 pg (26.0-34.0); Mean Corpuscular HGB Conc 31.7 g/dL (31.5-36.5); Mean Corpuscular Volume 88 fL (80-100); Mean Platelet Volume 9.5 fL (9.1-12.4); NEUTROPHILS ABSOLUTE AUTO 6.89 K/mm3 (1.96-9.15); NEUTROPHILS PERCENT AUTO 83 % (41-73); Platelet Count 270 K/mm3 (150-400); RDW Coefficient Variation 14.2 % (11.7-14.2); RDW Standard Deviation 45.7 fL (35.1-46.3); Red Blood Cell Count 4.09 M/mm3 (3.80-5.20); White Blood Cell Count 8.32 K/mm3 (4.00-11.30)
[2021-07-11 05:01] LABS: Albumin, Blood 2.8 g/dL (3.4-5.0); Albumin/Globulin Ratio 0.6 (0.8-1.8); Bilirubin, Total 0.8 mg/dL (0.1-1.0); Bun/Creatinine Ratio 18.5 (12.0-20.0); Calcium, Blood 8.1 mg/dL (8.5-10.1); Creatinine, Blood 1.19 mg/dL (0.40-1.00); Globulin, Blood 4.5 g/dL (2.2-4.0); Potassium, Blood 4.3 mmol/L (3.5-5.5); Total Protein, Blood 7.3 g/dL (6.4-8.2)
--- NOTE | 2021-07-11 06:27 | NUR ---
SHIFT SUMMARY: AOX3, ADMITTED LAST NIGHT FOR COVID-19 WITH WORSENING SYMPTOMS. DIAGNOSED ON THE , HAS HAD BOTH MODERNA VACCINATIONS BACK IN JANUARY. DYPNEA WITH MOVEMENT. BASE LINE IS 2-3 LITERS AT HOME. SHE IS CURRENTLY 2L OXIMIZER AND HOLDING WELL WITH HER SATS. SHE DID HAVE INCREASE IN COUGHING SPELLS T/O THE NIGHT. GAVE HER DOSE OF COUGH SYRUP WHICH IMPROVED HER COUGH, BUT SHE IS STILL AWAKE. NO PAIN, DOES FEEL OCCATIONALLY SHE HAS A BAND AROUND HER CHEST. COUGH IS PRODUCTIVE WITH GREEN THICK SPUTUM. NEEDS TO HAVE FAMILY BRING IN HOME CPAP, AND STILL AWAITING CONTINUOUS PULSE OX. DID NOT SLEEP LAST NIGHT, WILL NEED NAP TODAY. CALL LIGHT IS IN REACH, BED ALARM IS ON.
--- NOTE | 2021-07-11 15:47 | NUR ---
SHIFT SUMMARY PT AAOX4, ABLE TO MAKE NEEDS KNOWN, PLEASANT AND COOPERATIVE TO CARE. NO C/O PAIN OR ANY DISCOMFORT THIS SHIFT. PT REQUIRES 2P MAX ASSIST W/ BED MOBILITY AND WITH TRANSFERS. NO C/O CP, SOB, OR N&V. PT REMAINS ON 2LPM O2. SATS >92%. NO ACUTE CHANGES NOTED TO PT THIS SHIFT. BED AT LOWEST POSITION. CALL LIGHT WITHIN REACH.
--- NOTE | 2021-07-12 04:23 | NUR ---
SHIFT SUMMARY AOX4. VSS. TELE NSR c 1ST DEGREE HB @60. TELE MONITOR INFORMED THIS NURSE PT WAS SINUS SHARLENE FOR A FEW MIN @49, INFORMED CHARGE NURSE. DENIES PAIN, N/V. REPORTS "DRY COUGHING SPELLS," MEDICATED 2X c GUAIFENESIN. LUNGS DIM c CRACKLES IN BASES. SPO2 94-98% ON 3L O2 VIA NC. WEARS CPAP @HS c 3L BLEED IN. HAS +2 EDEMA BLE & GENERALIZED EDEMA T/O BODY. CALL LIGHT IN REACH & ABLE TO MAKE NEEDS KNOWN.
[2021-07-12 05:00] LABS: BASOPHILS ABSOLUTE AUTO 0.02 K/mm3 (0.00-0.23); BASOPHILS PERCENT AUTO 0 % (0-2); EOSINOPHILS PERCENT AUTO 0 % (0-6); Hematocrit 34.4 % (33.0-51.0); Hemoglobin 11.1 g/dL (11.5-16.0); IMMATURE GRAN ABSOLUTE AUTO 0.05 K/mm3 (0.00-0.10); IMMATURE GRAN PERCENT AUTO 1 % (0-1); LYMPHOCYTES ABSOLUTE AUTO 0.62 K/mm3 (0.84-5.20); LYMPHOCYTES PERCENT AUTO 6 % (21-46); MONOCYTES PERCENT AUTO 5 % (4-13); Mean Corpuscular HGB 28.2 pg (26.0-34.0); Mean Corpuscular HGB Conc 32.3 g/dL (31.5-36.5); Mean Corpuscular Volume 87 fL (80-100); Mean Platelet Volume 9.7 fL (9.1-12.4); NEUTROPHILS ABSOLUTE AUTO 9.15 K/mm3 (1.96-9.15); NEUTROPHILS PERCENT AUTO 89 % (41-73); Platelet Count 296 K/mm3 (150-400); RDW Coefficient Variation 13.7 % (11.7-14.2); RDW Standard Deviation 43.8 fL (35.1-46.3); Red Blood Cell Count 3.94 M/mm3 (3.80-5.20); White Blood Cell Count 10.34 K/mm3 (4.00-11.30)
[2021-07-12 05:26] LABS: Bun/Creatinine Ratio 24.8 (12.0-20.0); Calcium, Blood 8.6 mg/dL (8.5-10.1); Creatinine, Blood 1.21 mg/dL (0.40-1.00); Potassium, Blood 4.5 mmol/L (3.5-5.5)
--- NOTE | 2021-07-12 19:01 | NUR ---
PT ALERT AND ORIENTED, ABLE TO EXPRESS ANY NEEDS. NO SOB NOTED . CBGS HIGH, MEDICATED PER EMAR. CALL LIGHT WITHIN REACH.
[2021-07-13 05:03] LABS: BASOPHILS ABSOLUTE AUTO 0.01 K/mm3 (0.00-0.23); BASOPHILS PERCENT AUTO 0 % (0-2); EOSINOPHILS PERCENT AUTO 0 % (0-6); Hemoglobin 11.9 g/dL (11.5-16.0); IMMATURE GRAN ABSOLUTE AUTO 0.12 K/mm3 (0.00-0.10); IMMATURE GRAN PERCENT AUTO 1 % (0-1); LYMPHOCYTES PERCENT AUTO 8 % (21-46); MONOCYTES ABSOLUTE AUTO 0.55 K/mm3 (0.16-1.47); MONOCYTES PERCENT AUTO 6 % (4-13); Mean Corpuscular HGB 28.1 pg (26.0-34.0); Mean Corpuscular HGB Conc 33.1 g/dL (31.5-36.5); Mean Corpuscular Volume 85 fL (80-100); NEUTROPHILS ABSOLUTE AUTO 7.71 K/mm3 (1.96-9.15); NEUTROPHILS PERCENT AUTO 85 % (41-73); Platelet Count 314 K/mm3 (150-400); RDW Coefficient Variation 13.3 % (11.7-14.2); RDW Standard Deviation 41.3 fL (35.1-46.3); Red Blood Cell Count 4.24 M/mm3 (3.80-5.20); White Blood Cell Count 9.09 K/mm3 (4.00-11.30)
[2021-07-13 05:22] LABS: Bun/Creatinine Ratio 33.6 (12.0-20.0); Calcium, Blood 8.8 mg/dL (8.5-10.1); Creatinine, Blood 1.25 mg/dL (0.40-1.00); Potassium, Blood 4.7 mmol/L (3.5-5.5)
--- NOTE | 2021-07-13 05:28 | NUR ---
SHIFT SUMMARY AOX4. VSS. TELE SB c 1ST DEGREE AV HB @49. HELD HS METOPROLOL R/T HR SHARLENE. REPORTED PAIN FROM SITTING IN CHAIR TOO LONG, MEDICATED c TYLENOL 1X. DENIES N/V. REPORTS OCC PRODUCTIVE COUGH, MEDICATED c GUIFENESEN COUGH SYRUP 1X. SPO2 >90% ON 3L O2, WEARS CPAP @HS c 3L O2 BLEED IN. LUNGS DIM c CRACKLES IN BASES. HS CBG @407, GAVE 50U SEMGLEE & 6U HUMULIN Christina ROMANO PATENT & DRAINING. TRACE EDEMA TO BLE. CALL LIGHT IN REACH. WCTM.
[2021-07-13 13:25] LABS: Glucose, Blood 514 mg/dL (70-99)
[2021-07-13 18:51] LABS: Glucose, Blood 451 mg/dL (70-99)
--- NOTE | 2021-07-14 04:47 | NUR ---
SHIFT SUMMARY NO ACUTE CHANGES. AOX4. VSS. SPO2 >90% ON 3L O2 & CPAP c 3L O2 BLEED IN. PT DENIES PAIN, N/V OR SOB. LS DIM c FINE CRACKLES IN BASES. ROMANO PATENT & DRAINING CLEAR YELLOW URINE. HS CBG @365, COVERAGE PER ORDERS. CALL LIGHT IN REACH, ABLE TO MAKE NEEDS KNOWN.
[2021-07-14 05:07] LABS: BASOPHILS ABSOLUTE AUTO 0.01 K/mm3 (0.00-0.23); BASOPHILS PERCENT AUTO 0 % (0-2); EOSINOPHILS ABSOLUTE AUTO 0.01 K/mm3 (0.00-0.68); EOSINOPHILS PERCENT AUTO 0 % (0-6); Hematocrit 35.2 % (33.0-51.0); Hemoglobin 11.4 g/dL (11.5-16.0); IMMATURE GRAN ABSOLUTE AUTO 0.08 K/mm3 (0.00-0.10); IMMATURE GRAN PERCENT AUTO 1 % (0-1); LYMPHOCYTES ABSOLUTE AUTO 0.75 K/mm3 (0.84-5.20); LYMPHOCYTES PERCENT AUTO 8 % (21-46); MONOCYTES ABSOLUTE AUTO 0.52 K/mm3 (0.16-1.47); MONOCYTES PERCENT AUTO 6 % (4-13); Mean Corpuscular HGB 27.6 pg (26.0-34.0); Mean Corpuscular HGB Conc 32.4 g/dL (31.5-36.5); Mean Corpuscular Volume 85 fL (80-100); Mean Platelet Volume 9.5 fL (9.1-12.4); NEUTROPHILS ABSOLUTE AUTO 7.51 K/mm3 (1.96-9.15); NEUTROPHILS PERCENT AUTO 85 % (41-73); Platelet Count 346 K/mm3 (150-400); RDW Coefficient Variation 13.2 % (11.7-14.2); RDW Standard Deviation 41.3 fL (35.1-46.3); Red Blood Cell Count 4.13 M/mm3 (3.80-5.20); White Blood Cell Count 8.88 K/mm3 (4.00-11.30)
[2021-07-14 05:39] LABS: Bun/Creatinine Ratio 37.1 (12.0-20.0); Calcium, Blood 9.6 mg/dL (8.5-10.1); Creatinine, Blood 1.51 mg/dL (0.40-1.00); Potassium, Blood 4.8 mmol/L (3.5-5.5)
--- NOTE | 2021-07-14 08:28 | NUR ---
Late Entry Copied From [facility] EMR ADMIT: 07/10/21 DISCHARGE: TBD DX: [id number] PNEUMONIA CC: [facility] Physician: Dr. Patterson UPDATE FROM WEEKEND NOTES AND CHART REVIEW: PER DR. BELLA FREEDMAN, PT. FEELING SOMEWHAT BETTER ON SECOND DAY OF HOSPITALIZATION. POOR GLYCEMIC CONTROL AT THIS TIME, AGGRAVATED BY STEROIDS. NO ANTICIPATED DISCHARGE DATE AT THIS TIME. PT. HAS A STRONG FAMILY SUPPORT SYSTEM. ANTICIPATED DISCHARGE NEEDS HH, POTENTIALLY O2, AND XARELTO/ELIQUIS SAMPLES. WILL CONTINUE TO MONITOR PATIENT'S PROGRESS. PT. LIVES WITH HER AND HAS A FAMILY MEMBER WHO PROVIDES SUPPORT CAREGIVER 3 TIMES A WEEK.
--- NOTE | 2021-07-14 11:14 | NUR ---
HOME O2 EVAL ROOM AIR RESTIN-90% ROOM AIR STANDING STILL - 90% WALKING TO BATHROOM - 83% STRUGGLING TO CATCH BREATH IT TOOK 2L NASAL CANNULA TO GET HER BACK UP TO 98% AND NEEDED TO STAY ON 02 FOR ATLEAST 10 MINUTES TO RECOVER AFTER WALKING. PT STATES SHE NORMALLY DOES NOT GET UP FROM HER WHEELCHAIR AT HOME AND THAT SHE HAS A WALKER, BUT NEVER USES IT. SHE USES 2L AT NIGHT TO KEEP HER O2 LEVELS UP AND STATES THAT SHE COULD USE IT DURING THE DAY WELL IF NEEDED.
--- NOTE | 2021-07-14 14:37 | NUR ---
Pt.is in bed , Covid Pt. prayed for the pt in silence from out side the room
[2021-07-14] MEDS ORDERED: ELIQUIS2.5 MG PO (17:11)
[2021-07-14] MEDS ORDERED: INSULANPEN SC (17:15)
[2021-07-14] MEDS ORDERED: MONT10T PO (17:23)
[2021-07-14] MEDS ORDERED: Prednisone10 MG PO (17:27)
[2021-07-14] MEDS ORDERED: GUAI600T33 PO (17:45)
[2021-07-14] MEDS ORDERED: AZIT250 PO (17:45)
[2021-07-14] MEDS ORDERED: ZINC220 PO (17:47)
[2021-07-14] MEDS ORDERED: ERGO400 PO (17:47)
--- NOTE | 2021-07-14 18:31 | NUR ---
PATIENT D/C'D TO HOME WITH FAMILY. RX MEDICATIONS FAXED TO [facility]. DC INSTRUCTIONS AND EDUCATION DISCUSSED WITH PATIENT AND COPY PROVIDED. PATIENT DENIES ANY FURTHER QUESTIONS OR CONCERNS. IV'S AND ROMANO PULLED PRIOR TO DC. PATIENT TO MAKE FOLLOW UP APPOINTMENTS.
== END 2021-07-14 18:29 | disposition home health service (06) | DRG 177 ==
LOC: ER 17:22 → MEDS 19:56 → ERHOLD 19:56 → MEDS 22:47
PROVIDERS: Family Medicine; Internal Medicine; Student in an Organized Health Care Education/Training Program; ADMIT Internal Medicine
PROC: 8E0ZXY6 Isolation (ICD-10-PCS; principal; 2021-07-10)
PROC: 3E0333Z Introduction of Anti-inflammatory into Peripheral Vein, Percutaneous Approach (ICD-10-PCS; 2021-07-10)
DX: U07.1 COVID-19 (principal); J12.82 Pneumonia due to coronavirus disease 2019; J96.21 Acute and chronic respiratory failure with hypoxia; I50.31 Acute diastolic (congestive) heart failure; J44.0 Chronic obstructive pulmonary disease with (acute) lower respiratory infection; Z68.43 Body mass index [BMI] 50.0-59.9, adult; I13.0 Hypertensive heart and chronic kidney disease with heart failure and stage 1 through stage 4 chronic kidney disease, or unspecified chronic kidney disease; E66.01 Morbid (severe) obesity due to excess calories; K21.9 Gastro-esophageal reflux disease without esophagitis; G47.33 Obstructive sleep apnea (adult) (pediatric); E11.51 Type 2 diabetes mellitus with diabetic peripheral angiopathy without gangrene; I25.10 Atherosclerotic heart disease of native coronary artery without angina pectoris; I87.2 Venous insufficiency (chronic) (peripheral); R32 Unspecified urinary incontinence; E11.22 Type 2 diabetes mellitus with diabetic chronic kidney disease; N18.30 Chronic kidney disease, stage 3 unspecified; E11.65 Type 2 diabetes mellitus with hyperglycemia; T38.0X5A Adverse effect of glucocorticoids and synthetic analogues, initial encounter; M81.0 Age-related osteoporosis without current pathological fracture; Z90.49 Acquired absence of other specified parts of digestive tract; Z95.1 Presence of aortocoronary bypass graft; Z98.42 Cataract extraction status, left eye; Z88.5 Allergy status to narcotic agent; Z88.6 Allergy status to analgesic agent; Z99.81 Dependence on supplemental oxygen; Z98.41 Cataract extraction status, right eye; I25.2 Old myocardial infarction; Z79.899 Other long term (current) drug therapy; Z79.4 Long term (current) use of insulin; Z79.82 Long term (current) use of aspirin
CPT/HCPCS: 36415; 51702; 71045; 71260; 80048; 80053; 82947; 83880; 84145; 85025; 85379; 93005; 93010; 94640; 94762; 96374; 96375; 99285-25; A9270; J0456; J1100; J1650; J1815; J1940; J2930; J7050; Q9967

== ENCOUNTER → 2021-08-14 | Outpatient (CLI) | payer MEDICARE ==
[~2021-08-14] MED LIST changes: +BUMETANIDE2 M4 PO; +ELIQUIS2.5 MG PO; +ERGO400 PO; +HUMALOG100 UNIT/1 SC; +KLONOPIN0.5 M3 PO; +KLOR-CON 1010 ME3 PO; +METOPROLOL TART25 MG PO; +MONT10T PO; +NEURONTIN300 MG PO; +SERT25 PO; +Ventolin5 MG/1 ML INH; +ZINC220 PO
[2021-08-14 16:45] LABS: BASOPHILS ABSOLUTE AUTO 0.03 K/mm3 (0.00-0.23); BASOPHILS PERCENT AUTO 1 % (0-2); EOSINOPHILS ABSOLUTE AUTO 0.18 K/mm3 (0.00-0.68); EOSINOPHILS PERCENT AUTO 4 % (0-6); Hematocrit 37.1 % (33.0-51.0); IMMATURE GRAN ABSOLUTE AUTO 0.03 K/mm3 (0.00-0.10); IMMATURE GRAN PERCENT AUTO 1 % (0-1); LYMPHOCYTES ABSOLUTE AUTO 1.34 K/mm3 (0.84-5.20); LYMPHOCYTES PERCENT AUTO 26 % (21-46); MONOCYTES ABSOLUTE AUTO 0.52 K/mm3 (0.16-1.47); MONOCYTES PERCENT AUTO 10 % (4-13); Mean Corpuscular HGB 28.4 pg (26.0-34.0); Mean Corpuscular HGB Conc 32.3 g/dL (31.5-36.5); Mean Corpuscular Volume 88 fL (80-100); Mean Platelet Volume 9.4 fL (9.1-12.4); NEUTROPHILS ABSOLUTE AUTO 3.02 K/mm3 (1.96-9.15); NEUTROPHILS PERCENT AUTO 59 % (41-73); Platelet Count 221 K/mm3 (150-400); RDW Coefficient Variation 15.8 % (11.7-14.2); RDW Standard Deviation 49.1 fL (35.1-46.3); Red Blood Cell Count 4.23 M/mm3 (3.80-5.20); White Blood Cell Count 5.12 K/mm3 (4.00-11.30)
[2021-08-14 16:58] LABS: Alanine Aminotransfer (ALT/SGP 23 U/L (12-78); Albumin, Blood 3.2 g/dL (3.4-5.0); Albumin/Globulin Ratio 0.9 (0.8-1.8); Alk Phos 100 U/L (40-126); Anion Gap 10 mmol/L (6-16); Aspartate Aminotrans (AST/SGOT 14 U/L (12-37); Bilirubin, Total 0.6 mg/dL (0.1-1.0); Blood Urea Nitrogen 19 mg/dL (8-24); Bun/Creatinine Ratio 14.5 (12.0-20.0); CO2, Blood 30 mmol/L (21-32); Calcium, Blood 9.4 mg/dL (8.5-10.1); Chloride, Blood 107 mmol/L (98-108); Creatinine, Blood 1.31 mg/dL (0.40-1.00); Globulin, Blood 3.7 g/dL (2.2-4.0); Glomerular Filtration Rate 40 (60-); Glucose, Blood 125 mg/dL (70-99); Potassium, Blood 3.9 mmol/L (3.5-5.5); Sodium, Blood 147 mmol/L (136-145); Total Protein, Blood 6.9 g/dL (6.4-8.2); Troponin I <0.017 ng/mL (0.000-0.040)
== END | disposition home or self-care (01) ==
LOC: LAB SHORT 16:39
PROVIDERS: Physician Assistant Surgical
DX: R06.00 Dyspnea, unspecified (principal)
CPT/HCPCS: 80053; 83880; 84484; 85025

== ENCOUNTER 2021-08-19 14:55 | Emergency (ER) | payer MEDICARE ==
[~2021-08-19] VITALS: Ht 160 cm; Wt 124.7 kg
[~2021-08-19 14:55] MED LIST changes: -Ventolin5 MG/1 ML INH
[2021-08-19] MEDS ORDERED: Ventolin5 MG/1 ML INH (15:33)
[2021-08-22] MEDS ORDERED: BENZ100A PO (06:00)
== END 2021-08-19 16:22 | disposition home or self-care (01) ==
LOC: ER 14:55
DX: U07.1 COVID-19 (principal); E11.9 Type 2 diabetes mellitus without complications; J44.9 Chronic obstructive pulmonary disease, unspecified; E66.9 Obesity, unspecified; Z68.42 Body mass index [BMI] 45.0-49.9, adult; Z79.899 Other long term (current) drug therapy; Z79.82 Long term (current) use of aspirin; Z79.4 Long term (current) use of insulin; Z79.01 Long term (current) use of anticoagulants
CPT/HCPCS: 99283

== ENCOUNTER → 2021-08-25 | Outpatient (CLI) | payer MEDICARE ==
[~2021-08-25] MED LIST changes: +BENZ100A PO; +Ventolin5 MG/1 ML INH
[2021-08-25 16:42] LABS: BASOPHILS ABSOLUTE AUTO 0.02 K/mm3 (0.00-0.23); BASOPHILS PERCENT AUTO 0 % (0-2); EOSINOPHILS ABSOLUTE AUTO 0.01 K/mm3 (0.00-0.68); EOSINOPHILS PERCENT AUTO 0 % (0-6); Hematocrit 30.7 % (33.0-51.0); Hemoglobin 9.9 g/dL (11.5-16.0); IMMATURE GRAN ABSOLUTE AUTO 0.14 K/mm3 (0.00-0.10); IMMATURE GRAN PERCENT AUTO 1 % (0-1); LYMPHOCYTES ABSOLUTE AUTO 0.58 K/mm3 (0.84-5.20); LYMPHOCYTES PERCENT AUTO 6 % (21-46); MONOCYTES ABSOLUTE AUTO 0.32 K/mm3 (0.16-1.47); MONOCYTES PERCENT AUTO 3 % (4-13); Mean Corpuscular HGB 28.6 pg (26.0-34.0); Mean Corpuscular HGB Conc 32.2 g/dL (31.5-36.5); Mean Corpuscular Volume 89 fL (80-100); Mean Platelet Volume 9.5 fL (9.1-12.4); NEUTROPHILS ABSOLUTE AUTO 9.54 K/mm3 (1.96-9.15); NEUTROPHILS PERCENT AUTO 90 % (41-73); Platelet Count 421 K/mm3 (150-400); RDW Coefficient Variation 15.5 % (11.7-14.2); RDW Standard Deviation 50.6 fL (35.1-46.3); Red Blood Cell Count 3.46 M/mm3 (3.80-5.20); White Blood Cell Count 10.61 K/mm3 (4.00-11.30)
[2021-08-25 17:01] LABS: Albumin, Blood 2.2 g/dL (3.4-5.0); Albumin/Globulin Ratio 0.6 (0.8-1.8); Bilirubin, Total 0.7 mg/dL (0.1-1.0); Bun/Creatinine Ratio 32.4 (12.0-20.0); Calcium, Blood 7.9 mg/dL (8.5-10.1); Creatinine, Blood 1.39 mg/dL (0.40-1.00); Globulin, Blood 3.9 g/dL (2.2-4.0); Potassium, Blood 4.5 mmol/L (3.5-5.5); Total Protein, Blood 6.1 g/dL (6.4-8.2)
== END | disposition home or self-care (01) ==
LOC: LAB SHORT 15:12
PROVIDERS: Internal Medicine
DX: U07.1 COVID-19 (principal)
CPT/HCPCS: 80053; 85025

== ENCOUNTER → 2021-09-07 | Outpatient (CLI) | payer MEDICARE ==
[~2021-09-07] MED LIST changes: +CEPHALEXIN500 M1 PO; +METOPROLOL TART50 M2 PO
[2021-09-07 17:03] LABS: BASOPHILS ABSOLUTE AUTO 0.02 K/mm3 (0.00-0.23); BASOPHILS PERCENT AUTO 0 % (0-2); EOSINOPHILS PERCENT AUTO 0 % (0-6); Hematocrit 38.1 % (33.0-51.0); Hemoglobin 12.1 g/dL (11.5-16.0); IMMATURE GRAN ABSOLUTE AUTO 0.02 K/mm3 (0.00-0.10); IMMATURE GRAN PERCENT AUTO 0 % (0-1); LYMPHOCYTES ABSOLUTE AUTO 0.81 K/mm3 (0.84-5.20); LYMPHOCYTES PERCENT AUTO 10 % (21-46); MONOCYTES ABSOLUTE AUTO 0.34 K/mm3 (0.16-1.47); MONOCYTES PERCENT AUTO 4 % (4-13); Mean Corpuscular HGB 28.1 pg (26.0-34.0); Mean Corpuscular HGB Conc 31.8 g/dL (31.5-36.5); Mean Corpuscular Volume 89 fL (80-100); Mean Platelet Volume 10.7 fL (9.1-12.4); NEUTROPHILS ABSOLUTE AUTO 6.69 K/mm3 (1.96-9.15); NEUTROPHILS PERCENT AUTO 85 % (41-73); Platelet Count 237 K/mm3 (150-400); RDW Coefficient Variation 14.8 % (11.7-14.2); RDW Standard Deviation 48.2 fL (35.1-46.3); White Blood Cell Count 7.88 K/mm3 (4.00-11.30)
[2021-09-07 17:15] LABS: Albumin, Blood 3.2 g/dL (3.4-5.0); Albumin/Globulin Ratio 0.8 (0.8-1.8); Bilirubin, Total 0.5 mg/dL (0.1-1.0); Bun/Creatinine Ratio 25.5 (12.0-20.0); Calcium, Blood 8.7 mg/dL (8.5-10.1); Creatinine, Blood 1.02 mg/dL (0.40-1.00); Potassium, Blood 4.8 mmol/L (3.5-5.5); Total Protein, Blood 7.2 g/dL (6.4-8.2)
== END | disposition home or self-care (01) ==
LOC: EDSTATUS 10:37 → LAB RH 15:57
PROVIDERS: Internal Medicine
DX: U07.1 COVID-19 (principal)
CPT/HCPCS: 80053; 85025

== ENCOUNTER 2021-10-31 11:47 | Inpatient (IN) | payer MEDICARE ==
[~2021-10-31] VITALS: Ht 160 cm; Wt 122.3 kg
[~2021-10-31 11:47] MED LIST changes: -METOPROLOL TART50 M2 PO
[2021-10-31] MEDS ORDERED: NITR.4SL SL (12:15)
[2021-10-31] MEDS ORDERED: BENZ100A PO (12:15)
[2021-10-31 12:19] LABS: BASOPHILS ABSOLUTE AUTO 0.04 K/mm3 (0.00-0.23); BASOPHILS PERCENT AUTO 0 % (0-2); EOSINOPHILS ABSOLUTE AUTO 0.39 K/mm3 (0.00-0.68); EOSINOPHILS PERCENT AUTO 4 % (0-6); Hematocrit 33.9 % (33.0-51.0); Hemoglobin 10.5 g/dL (11.5-16.0); IMMATURE GRAN ABSOLUTE AUTO 0.04 K/mm3 (0.00-0.10); IMMATURE GRAN PERCENT AUTO 0 % (0-1); LYMPHOCYTES ABSOLUTE AUTO 1.34 K/mm3 (0.84-5.20); LYMPHOCYTES PERCENT AUTO 14 % (21-46); MONOCYTES ABSOLUTE AUTO 0.54 K/mm3 (0.16-1.47); MONOCYTES PERCENT AUTO 6 % (4-13); Mean Corpuscular HGB 27.6 pg (26.0-34.0); Mean Corpuscular Volume 89 fL (80-100); NEUTROPHILS ABSOLUTE AUTO 7.43 K/mm3 (1.96-9.15); NEUTROPHILS PERCENT AUTO 76 % (41-73); Platelet Count 284 K/mm3 (150-400); RDW Coefficient Variation 14.8 % (11.7-14.2); RDW Standard Deviation 48.2 fL (35.1-46.3); White Blood Cell Count 9.78 K/mm3 (4.00-11.30)
[2021-10-31 12:50] LABS: Albumin, Blood 2.5 g/dL (3.4-5.0); Albumin/Globulin Ratio 0.8 (0.8-1.8); Bilirubin, Total 0.7 mg/dL (0.1-1.0); Bun/Creatinine Ratio 24.2 (12.0-20.0); Calcium, Blood 8.3 mg/dL (8.5-10.1); Creatinine, Blood 1.53 mg/dL (0.40-1.00); Globulin, Blood 3.1 g/dL (2.2-4.0); Potassium, Blood 4.1 mmol/L (3.5-5.5); Total Protein, Blood 5.6 g/dL (6.4-8.2); Troponin I 0.076 ng/mL (0.000-0.040)
[2021-10-31 13:33] LABS: Influenza A, PCR NEGATIVE (NEGATIVE); Influenza B, PCR NEGATIVE (NEGATIVE); Resp Syncytial Virus, PCR NEGATIVE (NEGATIVE); SARS-Cov-2 (COVID-19) PCR, MMC NEGATIVE (NEGATIVE)
--- NOTE | 2021-11-01 05:49 | NUR ---
SHIFT SUMMARY PATIENT ARRIVED TO ROOM 356 VIA STRETCHER AT 2008. SHE IS ALERT AND ORIENTED WITH GENERALIZED WEAKNESS, REPORTS USING A WALKER OR WHEELCHAIR AT BASELINE. SHE GETS SHORT OF BREATH UPON EXERTION. RT INCREASED HER O2 TO 4 LITERS VIA NC DUE TO HER NOT HAVING HER HOME CPAP LAST NIGHT. NO ACUTE ISSUES NOTED. BED IN LOWEST POSITION WITH WHEELS LOCKED. CALL LIGHT WITHIN REACH. REPORT GIVEN TO ONCOMING RN.
[2021-11-01 05:51] LABS: Bun/Creatinine Ratio 27.7 (12.0-20.0); Calcium, Blood 8.1 mg/dL (8.5-10.1); Creatinine, Blood 1.19 mg/dL (0.40-1.00); Potassium, Blood 3.9 mmol/L (3.5-5.5)
--- NOTE | 2021-11-01 16:23 | NUR ---
SHIFT SUMMARY PT AWAKE DURING SHIFT REPORT, UNABLE TO SLEEP AFTER ADMISSION D/T NOT HAVING HOME CPAP. ABLE TO EAT BREAKFAST AND THEN TAKEN FOR CXR. SON LATER BROUGHT IN CPAP. DR FRIEND HERE TO SEE PT, ORDERS PLACED TO USE CPAP AND RT TO SET UP. ECHO DONE IN . PT INCONTINENT OF BOWEL AND BLADDER. MULTIPLE BM'S TODAY. PT REPORTS NOT BEING ABLE TO GET UP AND AMBULATE FOR PAST [address] FRIEND, PT BEING TX'D FOR PNM. ADMITTED FOR CHF; LASIX GIVEN PER EMAR. LUNG'S CTA. NO C/O PAIN. PLEASANT AND CO-OP WITH CARE. ABLE TO MAKE NEEDS KNOWN. CALL LT IN REACH.
[2021-11-02 05:36] LABS: Bun/Creatinine Ratio 28.7 (12.0-20.0); Calcium, Blood 8.5 mg/dL (8.5-10.1); Creatinine, Blood 1.22 mg/dL (0.40-1.00); Potassium, Blood 4.2 mmol/L (3.5-5.5)
--- NOTE | 2021-11-02 05:41 | NUR ---
SHIFT SUMMARY PATIENT ALERT AND ORIENTED. MEDICATED PER EMAR FOR COUGH. HAD NO COMPLAINTS OF PAIN OR SHORTNESS OF BREATH. NO ACUTE ISSUES NOTED OVERNIGHT. CALL LIGHT WITHIN REACH. REPORT GIVEN TO ONCOMING RN.
--- NOTE | 2021-11-02 16:01 | NUR ---
I went to visit Ketty in her [facility] room 356 this morning. She was alert and pleasant. She states that she lives in a single story swelling with her family that includes her Spouse, DA, KIT, two neices, and a nephew. They help with her ADLS. She states her is currently also an [facility] inpatient in room 330. She has had home health services before and prefers [facility]. Pt no longer drives and depends on her family members to help transport and hop picker prescriptions. Patient has a walker and a wheelchair for her daily use, she also uses oxygen and CPAP. She has [facility] as her preference for SNF recommendation.
--- NOTE | 2021-11-02 17:38 | NUR ---
SHIFT SUMMARY NO ACUTE CHANGES THIS SHIFT. PT HAS BEENIN BED ALL DAY. STILL ON 2 L OF 02. SHE WAS ABLE TO HAVE HER SON VISIT TODAY AND SHOWS SOME ANXIETY OVER THE HOSPITALIZATION OF HER . SHE DID REQUEST COUGH MEDICINE ONCE TODAY FOR A HARSH DRY COUGH. WILL CONTINUE TO MONITOR.
--- NOTE | 2021-11-03 04:16 | NUR ---
SUMMARY PT HAD NO NEW ISSUES NOTED. PT SLEPT WELL W/ CPAP. PT CURRENTLY SLEEPING IN NO DISTRESS. CALL LIGHT IN REACH.
[2021-11-03 04:53] LABS: BASOPHILS ABSOLUTE AUTO 0.03 K/mm3 (0.00-0.23); BASOPHILS PERCENT AUTO 0 % (0-2); EOSINOPHILS ABSOLUTE AUTO 0.43 K/mm3 (0.00-0.68); EOSINOPHILS PERCENT AUTO 6 % (0-6); Hematocrit 29.3 % (33.0-51.0); Hemoglobin 9.3 g/dL (11.5-16.0); IMMATURE GRAN ABSOLUTE AUTO 0.03 K/mm3 (0.00-0.10); IMMATURE GRAN PERCENT AUTO 0 % (0-1); LYMPHOCYTES ABSOLUTE AUTO 1.05 K/mm3 (0.84-5.20); LYMPHOCYTES PERCENT AUTO 15 % (21-46); MONOCYTES PERCENT AUTO 7 % (4-13); Mean Corpuscular HGB 27.5 pg (26.0-34.0); Mean Corpuscular HGB Conc 31.7 g/dL (31.5-36.5); Mean Corpuscular Volume 87 fL (80-100); Mean Platelet Volume 8.9 fL (9.1-12.4); NEUTROPHILS ABSOLUTE AUTO 4.77 K/mm3 (1.96-9.15); NEUTROPHILS PERCENT AUTO 70 % (41-73); Platelet Count 305 K/mm3 (150-400); RDW Coefficient Variation 14.9 % (11.7-14.2); RDW Standard Deviation 47.7 fL (35.1-46.3); Red Blood Cell Count 3.38 M/mm3 (3.80-5.20); White Blood Cell Count 6.81 K/mm3 (4.00-11.30)
[2021-11-03 05:57] LABS: Albumin, Blood 2.5 g/dL (3.4-5.0); Albumin/Globulin Ratio 0.8 (0.8-1.8); Bilirubin, Total 0.4 mg/dL (0.1-1.0); Bun/Creatinine Ratio 26.3 (12.0-20.0); Creatinine, Blood 1.37 mg/dL (0.40-1.00); Globulin, Blood 3.3 g/dL (2.2-4.0); Potassium, Blood 4.6 mmol/L (3.5-5.5); Total Protein, Blood 5.8 g/dL (6.4-8.2)
--- NOTE | 2021-11-03 18:41 | NUR ---
SHIFT SUMMARY PATIENT AAOX4. SITTING UP IN CHAIR AT BEDSIDE AFTER PT ASSISTED AND EATING DINNER WITH . O2 AT 2L BNC AND SATING 95%. NO C/O SOB, N/V, PAIN OR DISCOMFORT VOICED. HER BLOOD SUGAR WAS 95 AND I WAS GOING TO HOLD BUT SHE STATES THAT SHE TAKES AT HOME STILL BECAUSE SUGAR WILL INCREAS AT BEDTIME. ALLOWED HER TO EAT 1ST THEN ADMINISTER DOSE. 1 SMALL BM ON TODAY. VSS. NAD NOTED. WILL CONTINUE TO MONITOR IN CARE
--- NOTE | 2021-11-04 05:31 | NUR ---
SHIFT SUMMARY ASSUMED CARE AT 1900. PT REMAINS ON SUPPLEMENTAL OXYGEN, 2L O2 VIA NC BUT CURRENTLY ON CPAP WITH 2L O2 SINCE SHE WENT BACK TO SLEEP. REMAINS ON CONTINUOUS PULSE OXIMETRY, SATURATIONS IN THE 95-98%. PT WITH A NON-PRODUCTIVE COUGH, MEDICATED PER EMAR. IV LEFT HAND, SITE BENIGN. CBG 169MG/DL. VITAL SIGNS STABLE. BED REMAINS IN LOW POSITION WITH THE CALL LIGHT WITHIN EASY REACH. WILL CONTINUE TO MONITOR.
[2021-11-04 06:06] LABS: BASOPHILS ABSOLUTE AUTO 0.05 K/mm3 (0.00-0.23); BASOPHILS PERCENT AUTO 1 % (0-2); EOSINOPHILS ABSOLUTE AUTO 0.52 K/mm3 (0.00-0.68); EOSINOPHILS PERCENT AUTO 6 % (0-6); Hematocrit 30.8 % (33.0-51.0); Hemoglobin 9.6 g/dL (11.5-16.0); IMMATURE GRAN ABSOLUTE AUTO 0.06 K/mm3 (0.00-0.10); IMMATURE GRAN PERCENT AUTO 1 % (0-1); LYMPHOCYTES ABSOLUTE AUTO 1.29 K/mm3 (0.84-5.20); LYMPHOCYTES PERCENT AUTO 16 % (21-46); MONOCYTES ABSOLUTE AUTO 0.56 K/mm3 (0.16-1.47); MONOCYTES PERCENT AUTO 7 % (4-13); Mean Corpuscular HGB Conc 31.2 g/dL (31.5-36.5); Mean Corpuscular Volume 87 fL (80-100); Mean Platelet Volume 9.4 fL (9.1-12.4); NEUTROPHILS ABSOLUTE AUTO 5.67 K/mm3 (1.96-9.15); NEUTROPHILS PERCENT AUTO 70 % (41-73); Platelet Count 324 K/mm3 (150-400); RDW Coefficient Variation 14.8 % (11.7-14.2); RDW Standard Deviation 47.2 fL (35.1-46.3); Red Blood Cell Count 3.55 M/mm3 (3.80-5.20); White Blood Cell Count 8.15 K/mm3 (4.00-11.30)
[2021-11-04 07:56] LABS: Albumin, Blood 2.5 g/dL (3.4-5.0); Albumin/Globulin Ratio 0.6 (0.8-1.8); Bilirubin, Total 0.4 mg/dL (0.1-1.0); Bun/Creatinine Ratio 33.1 (12.0-20.0); Calcium, Blood 9.1 mg/dL (8.5-10.1); Creatinine, Blood 1.21 mg/dL (0.40-1.00); Globulin, Blood 3.9 g/dL (2.2-4.0); Total Protein, Blood 6.4 g/dL (6.4-8.2)
--- NOTE | 2021-11-04 13:14 | NUR ---
Per chart review with Dr. Patterson, patient is appropriate for discharge with home health services through [facility]. I have contacted Summer with [facility] to initiate home health services for the patient. I have contacted her son to let him know she is discharging. He will not be able to pick her up until after 8pm due to work. Patient's nurse and Dr. Patterson are both aware of this. I have also scheduled a hospital follow-up appointment with Trung Claire on Wednesday, November 10, 2021 @ 420PM. Patient is aware of this and states she will be able to attend the appointment. Instructed to call and reschedule if she needs to. Patient denies barriers to discharge and feels safe to discharge home.
[2021-11-04] MEDS ORDERED: METOPROLOL TART50 M2 PO (15:12)
[2021-11-04] MEDS ORDERED: CEPH500 PO (15:15)
--- NOTE | 2021-11-04 18:11 | NUR ---
SHIFT SUMMARY PATIENT AAOX4. SITTING UP AT BEDSIDE ABOUT TO EAT DINNER NOW. LAST BLOOD SUGAR WAS [address] WAS AT BEDSIDE. INSTRUCTED TO GIVE JUICE AND WILL RECHECK. PATIENT WAS ASYMPTOMACTIC. NO C/O PAIN, SOB, N/V, OR DISCOMFORT VOICED. VSS. NAD NOTED. NO SCHEDULED INSULIN WAS GIVEN AND EVENING MEDS WERE ADMINISTERED. AWAITING SON TO ARRIVE AND TAKE HOME FOR DISCHARGE. DISCUSSED HOME MEDS AND DIET FOR HOME. WILL CONTINUE TO MONITOR IN CARE.
--- NOTE | 2021-11-04 20:43 | NUR ---
SHIFT SUMMARY PT RECEIVED AAOX4 ,RESTING COMFORTABLY ON BED.PT IS AWAITING FOR SON TO PICK HER UP. VS REVIEWED.MEDS GIVEN PER EMAR. PT WAS EDUCATED OF HER NIGHT MEDS. PT IS LEAVING VIA WEELCHAIR WITH ALL BELONGINGS . NO SIGN OF DISTRESS NOTED.
== END 2021-11-04 12:00 | disposition home or self-care (01) | DRG 193 ==
LOC: ER 11:47 → MEDS 15:34 → ERHOLD 15:34 → MEDS 20:09
PROVIDERS: Emergency Medicine; Family Medicine; ADMIT Internal Medicine Endocrinology, Diabetes & Metabolism
DX: J15.9 Unspecified bacterial pneumonia (principal); J96.21 Acute and chronic respiratory failure with hypoxia; I50.33 Acute on chronic diastolic (congestive) heart failure; Z68.42 Body mass index [BMI] 45.0-49.9, adult; J44.0 Chronic obstructive pulmonary disease with (acute) lower respiratory infection; I24.8 Other forms of acute ischemic heart disease; I13.0 Hypertensive heart and chronic kidney disease with heart failure and stage 1 through stage 4 chronic kidney disease, or unspecified chronic kidney disease; Z66 Do not resuscitate; M81.0 Age-related osteoporosis without current pathological fracture; Z20.822 Contact with and (suspected) exposure to COVID-19; E66.01 Morbid (severe) obesity due to excess calories; J44.9 Chronic obstructive pulmonary disease, unspecified; N18.30 Chronic kidney disease, stage 3 unspecified; E11.22 Type 2 diabetes mellitus with diabetic chronic kidney disease; K21.9 Gastro-esophageal reflux disease without esophagitis; G47.33 Obstructive sleep apnea (adult) (pediatric); Z86.16 Personal history of COVID-19; Z95.1 Presence of aortocoronary bypass graft; Z90.49 Acquired absence of other specified parts of digestive tract; Z98.41 Cataract extraction status, right eye; Z98.42 Cataract extraction status, left eye; Z98.890 Other specified postprocedural states; Z98.891 History of uterine scar from previous surgery; Z79.4 Long term (current) use of insulin; Z79.899 Other long term (current) drug therapy
CPT/HCPCS: 0241U; 36415; 71045; 71046; 80048; 80053; 82947; 83605; 83880; 84145; 84484; 85025; 87040; 93005; 93010; 93306; 94640; 94760; 94762; 96365; 96367; 96375; 96376; 97110; 97110-CQ; 97162; 97530-CQ; 99285-25; A9270; J0456; J0696; J1650; J1815; J7050

== ENCOUNTER 2022-01-17 20:05 | Emergency (ER) | payer MEDICARE ==
[~2022-01-17] VITALS: Ht 160 cm; Wt 118.4 kg
[~2022-01-17 20:05] MED LIST changes: +METOPROLOL TART50 M2 PO
[2022-01-17] MEDS ORDERED: Robaxin750 MG PO (22:31)
[2022-01-17] MEDS ORDERED: METSALMENC TOP (22:33)
== END 2022-01-17 23:50 | disposition home or self-care (01) ==
LOC: ER 20:05
DX: S39.012A Strain of muscle, fascia and tendon of lower back, initial encounter (principal); S50.312A Abrasion of left elbow, initial encounter; S80.02XA Contusion of left knee, initial encounter; Z79.82 Long term (current) use of aspirin; Z79.899 Other long term (current) drug therapy; W05.2XXA Fall from non-moving motorized mobility scooter, initial encounter
CPT/HCPCS: 36415; 74177; 99284-25; A9270; Q9967

== ENCOUNTER 2022-01-30 11:28 | Inpatient (IN) | payer MEDICARE ==
[~2022-01-30] VITALS: Ht 160 cm; Wt 118.9 kg
[~2022-01-30 11:28] MED LIST changes: +METSALMENC TOP; +Robaxin750 MG PO
[2022-01-30 11:58] LABS: BASOPHILS ABSOLUTE AUTO 0.03 K/mm3 (0.00-0.23); BASOPHILS PERCENT AUTO 0 % (0-2); EOSINOPHILS ABSOLUTE AUTO 0.26 K/mm3 (0.00-0.68); EOSINOPHILS PERCENT AUTO 3 % (0-6); Hematocrit 33.5 % (33.0-51.0); Hemoglobin 10.8 g/dL (11.5-16.0); IMMATURE GRAN ABSOLUTE AUTO 0.04 K/mm3 (0.00-0.10); IMMATURE GRAN PERCENT AUTO 0 % (0-1); LYMPHOCYTES ABSOLUTE AUTO 0.75 K/mm3 (0.84-5.20); LYMPHOCYTES PERCENT AUTO 8 % (21-46); MONOCYTES ABSOLUTE AUTO 0.69 K/mm3 (0.16-1.47); MONOCYTES PERCENT AUTO 7 % (4-13); Mean Corpuscular HGB 27.3 pg (26.0-34.0); Mean Corpuscular HGB Conc 32.2 g/dL (31.5-36.5); Mean Corpuscular Volume 85 fL (80-100); NEUTROPHILS ABSOLUTE AUTO 7.66 K/mm3 (1.96-9.15); NEUTROPHILS PERCENT AUTO 81 % (41-73); Platelet Count 226 K/mm3 (150-400); RDW Coefficient Variation 15.4 % (11.7-14.2); RDW Standard Deviation 47.7 fL (35.1-46.3); Red Blood Cell Count 3.95 M/mm3 (3.80-5.20); White Blood Cell Count 9.43 K/mm3 (4.00-11.30)
[2022-01-30 12:36] LABS: Albumin, Blood 2.6 g/dL (3.4-5.0); Albumin/Globulin Ratio 0.7 (0.8-1.8); Bilirubin, Total 0.8 mg/dL (0.1-1.0); Bun/Creatinine Ratio 20.2 (12.0-20.0); Calcium, Blood 8.4 mg/dL (8.5-10.1); Creatinine, Blood 1.24 mg/dL (0.40-1.00); Globulin, Blood 3.7 g/dL (2.2-4.0); Potassium, Blood 4.2 mmol/L (3.5-5.5); Total Protein, Blood 6.3 g/dL (6.4-8.2)
[2022-01-30 13:58] LABS: Influenza A, PCR NEGATIVE (NEGATIVE); Influenza B, PCR NEGATIVE (NEGATIVE); Resp Syncytial Virus, PCR NEGATIVE (NEGATIVE); SARS-Cov-2 (COVID-19) PCR, MMC NEGATIVE (NEGATIVE)
--- NOTE | 2022-01-30 18:33 | NUR ---
SHIFT SUMMARY PT WAS BROUGHT TO THE FLOOR [place] 1530. CURRENTLY WAITING ON A MRSA SWAB TO COME BACK TO DETERMINE WHETHER SHE NEEDS TO BE PLACED IN ISO. CURRENTLY SATTING 93% ON 2L. WILL NEED TO BE IN CPAP FOR MANAGER DATABASE. WILL CONTINUE TO MONITOR.
--- NOTE | 2022-01-31 03:17 | NUR ---
SHIFT SUMMARY 71 YR F ADMITTED ON 01/30/22 FOR PNEUMONIA. FULL CODE. PT IS SOB AT BASELINE AND IS NOW ON 2 L O2 BY NC. SHE IS ON CONTINUOUS PULSE OX AND DESATS W/ EXERTION. SHE HAD A COUPLE OF LARGE URINE INCONTINENT EPISODES, BUT OTHERWISE WILL USE A BEDPAN. HX OF COPD, COVID, MRSA, AND DIABETES. NO ACTIVE INFECTIONS AT THIS TIME.
[2022-01-31 05:07] LABS: BASOPHILS PERCENT AUTO 0 % (0-2); EOSINOPHILS PERCENT AUTO 0 % (0-6); Hematocrit 33.8 % (33.0-51.0); Hemoglobin 10.6 g/dL (11.5-16.0); IMMATURE GRAN ABSOLUTE AUTO 0.03 K/mm3 (0.00-0.10); IMMATURE GRAN PERCENT AUTO 0 % (0-1); LYMPHOCYTES ABSOLUTE AUTO 0.39 K/mm3 (0.84-5.20); LYMPHOCYTES PERCENT AUTO 6 % (21-46); MONOCYTES ABSOLUTE AUTO 0.33 K/mm3 (0.16-1.47); MONOCYTES PERCENT AUTO 5 % (4-13); Mean Corpuscular HGB Conc 31.4 g/dL (31.5-36.5); Mean Corpuscular Volume 86 fL (80-100); NEUTROPHILS ABSOLUTE AUTO 6.18 K/mm3 (1.96-9.15); NEUTROPHILS PERCENT AUTO 89 % (41-73); Platelet Count 219 K/mm3 (150-400); RDW Coefficient Variation 15.3 % (11.7-14.2); RDW Standard Deviation 48.5 fL (35.1-46.3); Red Blood Cell Count 3.93 M/mm3 (3.80-5.20); White Blood Cell Count 6.93 K/mm3 (4.00-11.30)
[2022-01-31 05:42] LABS: Albumin, Blood 2.7 g/dL (3.4-5.0); Anion Gap 9 mmol/L (6-16); Blood Urea Nitrogen 33 mg/dL (8-24); Bun/Creatinine Ratio 25.8 (12.0-20.0); CO2, Blood 25 mmol/L (21-32); Calcium, Blood 8.3 mg/dL (8.5-10.1); Chloride, Blood 101 mmol/L (98-108); Creatinine, Blood 1.28 mg/dL (0.40-1.00); Glomerular Filtration Rate 41 (60-); Glucose, Blood 523 mg/dL (70-99); Magnesium, Blood 2.3 mg/dL (1.6-2.4); Phosphorus, Blood 3.2 mg/dL (2.5-4.9); Potassium, Blood 4.1 mmol/L (3.5-5.5); Sodium, Blood 135 mmol/L (136-145)
--- NOTE | 2022-01-31 07:57 | NUR ---
RN recvd handoff of patient care from ANN-MARIE Lee Patient was in bed alert and awake and did not appear to be in any distress
--- NOTE | 2022-01-31 15:08 | NUR ---
Patient was alert and orient, she was in good spirits today. She worked with PT and sat in the chair afterwards. She continued to wear oxygen as she is usually SOB at baseline. She also used a CPAP at night time due to sleep apnea. Patient appetite was fair and her glucose levels were checked AC/HS. Patient continued on antibiotics and the plan will be to possibly discharge tomorrow.
[2022-01-31 16:17] LABS: Source, Urine Straight Cath
[2022-01-31 16:23] LABS: Appearance, Urine Clear (Clear); Bilirubin, Urine Neg (Neg); Blood, Urine Neg (Neg); Color, Urine Yellow (P-Yellow); Glucose Qualitative, Urine 4+ (Neg); Ketones, Urine Neg (Neg); Leukocyte Esterase, Urine Neg (Neg); Nitrite, Urine Neg (Neg); Protein, Urine Neg (Neg); Specific Gravity, Urine 1.015 (1.003-1.022); Urobilinogen, Urine NORM (Normal)
[2022-01-31 20:40] LABS: Glucose, Blood 594 mg/dL (70-99)
[2022-01-31 22:57] LABS: Glucose, Blood 625 mg/dL (70-99)
[2022-02-01 03:13] LABS: BASOPHILS ABSOLUTE AUTO 0.01 K/mm3 (0.00-0.23); BASOPHILS PERCENT AUTO 0 % (0-2); EOSINOPHILS PERCENT AUTO 0 % (0-6); Hematocrit 32.7 % (33.0-51.0); Hemoglobin 10.5 g/dL (11.5-16.0); IMMATURE GRAN ABSOLUTE AUTO 0.07 K/mm3 (0.00-0.10); IMMATURE GRAN PERCENT AUTO 1 % (0-1); LYMPHOCYTES ABSOLUTE AUTO 0.57 K/mm3 (0.84-5.20); LYMPHOCYTES PERCENT AUTO 4 % (21-46); MONOCYTES ABSOLUTE AUTO 0.96 K/mm3 (0.16-1.47); MONOCYTES PERCENT AUTO 7 % (4-13); Mean Corpuscular HGB 27.1 pg (26.0-34.0); Mean Corpuscular HGB Conc 32.1 g/dL (31.5-36.5); Mean Corpuscular Volume 84 fL (80-100); Mean Platelet Volume 9.8 fL (9.1-12.4); NEUTROPHILS ABSOLUTE AUTO 11.34 K/mm3 (1.96-9.15); NEUTROPHILS PERCENT AUTO 88 % (41-73); Platelet Count 274 K/mm3 (150-400); RDW Coefficient Variation 15.1 % (11.7-14.2); Red Blood Cell Count 3.88 M/mm3 (3.80-5.20); White Blood Cell Count 12.95 K/mm3 (4.00-11.30)
[2022-02-01 03:28] LABS: Albumin, Blood 2.8 g/dL (3.4-5.0); Anion Gap 10 mmol/L (6-16); Blood Urea Nitrogen 40 mg/dL (8-24); Bun/Creatinine Ratio 31.5 (12.0-20.0); CO2, Blood 26 mmol/L (21-32); Calcium, Blood 8.6 mg/dL (8.5-10.1); Chloride, Blood 98 mmol/L (98-108); Creatinine, Blood 1.27 mg/dL (0.40-1.00); Glomerular Filtration Rate 41 (60-); Glucose, Blood 481 mg/dL (70-99); Magnesium, Blood 2.1 mg/dL (1.6-2.4); Potassium, Blood 4.1 mmol/L (3.5-5.5); Sodium, Blood 134 mmol/L (136-145)
--- NOTE | 2022-02-01 05:45 | NUR ---
SHIFT SUMMARY 71 YR F ADMITTED ON 01/30/22 FOR PNEUMONIA. FULL CODE. PT IS ON 2L 02 BUT IS HAVING SOB W/ EXERTION. SHE HAS BEEN UP TO THE BATHROOM SEVERAL TIMES THIS SHIFT AND DESATS AND IS EXHAUSTED WHEN SHE GETS BACK TO BED. BLOOD SUGARS HAVE BEEN IN THE HIG 400'S-LOW 600'S FOR THE PAST 24 HOURS. HOSPITALIST WAS CONSULTED AND PT WAS GIVE AN EXTRA 15 UNITS OF GLARGINE WELL THE ADDITIONAL DOSE AND HER SLIDINF SCALE HUMALOG. LANTIS ORDER WAS CHANGED FROM 40 TO 50 UNITS BID. MOST RECENT BLOOD GLUCOSE RESULT WAS 481. PT IS NERVOUS AND ANXIOUS SHE STATES HER BLOOD SUGARS NEVER RUN THAT HIGH.
--- NOTE | 2022-02-01 18:18 | NUR ---
Patient was alert and orient, she spent time in bed and did sit into the chair this morning. Her family did come and visit. Patient had a shower, and was continent of bowel and bladder. Her blood glucose levels were checked at meal time and she recvd sliding scale coverage accordingly. Patient was compliant with taking medications and had no complaints of pain. She did recv prn Tessalon pearls for cough. She was very pleasant and in good spirits. The plan is for her to discharge tomorrow.
--- NOTE | 2022-02-02 04:23 | NUR ---
SHIFT SUMMARY AOX3. VSS. DENIES PAIN, N/V OR DYSPNEA. WORE CPAP T/O NIGHT, HAD DIFFICULTY MAINTAINING SPO2 >90%, ROUGHLY 70-84% SPO2, HAD RT CHECK HOME CPAP & THEY REPORTED HER MASK WASNT FITTING PROPERLY, SPO2 >90% ON 2L c CPAP SINCE CHANGING TO NEW MASK. HS CBG @307, PROVIDED INSULIN COVERAGE. CALL LIGHT IN REACH. WILL MONITOR.
[2022-02-02 05:04] LABS: BASOPHILS ABSOLUTE AUTO 0.02 K/mm3 (0.00-0.23); BASOPHILS PERCENT AUTO 0 % (0-2); EOSINOPHILS ABSOLUTE AUTO 0.14 K/mm3 (0.00-0.68); EOSINOPHILS PERCENT AUTO 1 % (0-6); Hematocrit 33.2 % (33.0-51.0); Hemoglobin 10.6 g/dL (11.5-16.0); IMMATURE GRAN ABSOLUTE AUTO 0.08 K/mm3 (0.00-0.10); IMMATURE GRAN PERCENT AUTO 1 % (0-1); LYMPHOCYTES PERCENT AUTO 11 % (21-46); MONOCYTES ABSOLUTE AUTO 1.03 K/mm3 (0.16-1.47); MONOCYTES PERCENT AUTO 9 % (4-13); Mean Corpuscular HGB 26.6 pg (26.0-34.0); Mean Corpuscular HGB Conc 31.9 g/dL (31.5-36.5); Mean Corpuscular Volume 83 fL (80-100); Mean Platelet Volume 9.3 fL (9.1-12.4); NEUTROPHILS ABSOLUTE AUTO 8.82 K/mm3 (1.96-9.15); NEUTROPHILS PERCENT AUTO 78 % (41-73); Platelet Count 275 K/mm3 (150-400); RDW Coefficient Variation 15.3 % (11.7-14.2); RDW Standard Deviation 46.7 fL (35.1-46.3); Red Blood Cell Count 3.98 M/mm3 (3.80-5.20); White Blood Cell Count 11.29 K/mm3 (4.00-11.30)
[2022-02-02 05:28] LABS: Albumin, Blood 2.7 g/dL (3.4-5.0); Anion Gap 6 mmol/L (6-16); Blood Urea Nitrogen 40 mg/dL (8-24); Bun/Creatinine Ratio 29.9 (12.0-20.0); CO2, Blood 32 mmol/L (21-32); Calcium, Blood 8.9 mg/dL (8.5-10.1); Chloride, Blood 100 mmol/L (98-108); Creatinine, Blood 1.34 mg/dL (0.40-1.00); Glomerular Filtration Rate 39 (60-); Glucose, Blood 175 mg/dL (70-99); Magnesium, Blood 1.9 mg/dL (1.6-2.4); Phosphorus, Blood 2.6 mg/dL (2.5-4.9); Potassium, Blood 3.7 mmol/L (3.5-5.5); Sodium, Blood 138 mmol/L (136-145)
[2022-02-02 13:32] LABS: PCO2 Arterial 48.4 mmHg (35-45); PO2 Arterial 141 mmHg (80-100); pH Blood Arterial 7.41 (7.35-7.45)
[2022-02-02 14:01] LABS: Albumin, Blood 2.5 g/dL (3.4-5.0); Albumin/Globulin Ratio 0.7 (0.8-1.8); Bilirubin, Total 0.7 mg/dL (0.1-1.0); Bun/Creatinine Ratio 27.6 (12.0-20.0); Calcium, Blood 8.7 mg/dL (8.5-10.1); Creatinine, Blood 1.52 mg/dL (0.40-1.00); Globulin, Blood 3.8 g/dL (2.2-4.0); Magnesium, Blood 2.2 mg/dL (1.6-2.4); Potassium, Blood 4.4 mmol/L (3.5-5.5); Total Protein, Blood 6.3 g/dL (6.4-8.2)
--- NOTE | 2022-02-02 14:57 | NUR ---
Patient was alert but not completely oriented. Patient was still asleep this morning and appeared to look extremely tired and fatigued. She was not awake to eat her breakfast and so it was held in the pantry. Patient did awake and sat up in bed to eat her breakfast. She was also given her insulin and medications. Patient is usally up in the chair accounting associate waiting for breaksfast. She usually uses the bathroom and then sit in the chair. Today she was extremely wet, incontinent of urine and did not use the call light that she was wet. Provider came to see her and wanted to watch her closely before possibly discharging today. After breakfast, patient went back to sleep with the CPAP in hand. Her 02 sats could not get above 82% for PT to work with her so RT was called to switch from nasal canula to HIFLO nasal canula. She could not sit at the edge of the bed without appearing very tired and sleepy. Patient was assited to BSC and then back to bed. Patient 02sats continued to stay around 83-86%. Provider did order 1view CXR, ABG, and EKG stat. SHe was transferred to [facility]
--- NOTE | 2022-02-02 15:04 | NUR ---
RN called and talked to ANN-MARIE Blackburn to give a brief report on patient and reason for her transfer. RN also talked to patient's daughter Kalee to give an update.
[2022-02-02 19:02] LABS: Source, Urine Foley catheter
[2022-02-02 19:09] LABS: Bilirubin, Urine Neg (Neg); Blood, Urine Neg (Neg); Glucose Qualitative, Urine Neg (Neg); Ketones, Urine Neg (Neg); Leukocyte Esterase, Urine Neg (Neg); Nitrite, Urine Neg (Neg); Protein, Urine 1+ (Neg); Specific Gravity, Urine 1.015 (1.003-1.022); Urobilinogen, Urine NORM (Normal)
[2022-02-02 19:19] LABS: Appearance, Urine Clear (Clear); Color, Urine Pale Yellow (P-Yellow)
[2022-02-03 04:21] LABS: BASOPHILS ABSOLUTE AUTO 0.01 K/mm3 (0.00-0.23); BASOPHILS PERCENT AUTO 0 % (0-2); EOSINOPHILS ABSOLUTE AUTO 0.06 K/mm3 (0.00-0.68); EOSINOPHILS PERCENT AUTO 1 % (0-6); Hematocrit 29.6 % (33.0-51.0); Hemoglobin 9.4 g/dL (11.5-16.0); IMMATURE GRAN ABSOLUTE AUTO 0.09 K/mm3 (0.00-0.10); IMMATURE GRAN PERCENT AUTO 1 % (0-1); LYMPHOCYTES PERCENT AUTO 9 % (21-46); MONOCYTES ABSOLUTE AUTO 0.64 K/mm3 (0.16-1.47); MONOCYTES PERCENT AUTO 8 % (4-13); Mean Corpuscular HGB 26.8 pg (26.0-34.0); Mean Corpuscular HGB Conc 31.8 g/dL (31.5-36.5); Mean Corpuscular Volume 84 fL (80-100); Mean Platelet Volume 9.5 fL (9.1-12.4); NEUTROPHILS ABSOLUTE AUTO 6.59 K/mm3 (1.96-9.15); NEUTROPHILS PERCENT AUTO 82 % (41-73); Platelet Count 245 K/mm3 (150-400); RDW Coefficient Variation 15.4 % (11.7-14.2); RDW Standard Deviation 47.1 fL (35.1-46.3); Red Blood Cell Count 3.51 M/mm3 (3.80-5.20); White Blood Cell Count 8.09 K/mm3 (4.00-11.30)
[2022-02-03 04:47] LABS: Albumin, Blood 2.4 g/dL (3.4-5.0); Anion Gap 6 mmol/L (6-16); Blood Urea Nitrogen 50 mg/dL (8-24); Bun/Creatinine Ratio 35.5 (12.0-20.0); CO2, Blood 32 mmol/L (21-32); Calcium, Blood 8.5 mg/dL (8.5-10.1); Chloride, Blood 100 mmol/L (98-108); Creatinine, Blood 1.41 mg/dL (0.40-1.00); Glomerular Filtration Rate 37 (60-); Glucose, Blood 295 mg/dL (70-99); Magnesium, Blood 2.2 mg/dL (1.6-2.4); Phosphorus, Blood 3.7 mg/dL (2.5-4.9); Potassium, Blood 3.9 mmol/L (3.5-5.5); Sodium, Blood 138 mmol/L (136-145)
--- NOTE | 2022-02-03 05:33 | NUR ---
SHIFT SUMMARY PT ALERT AND ORIENTED X 4 AT BEGINNING OF SHIFT. CONFUSED ON DATE AT TIMES. PT WORE CPAP DURING SHIFT WITH BLEED IN OF 7 L. OXYGEN SATURATION MAINTAINED ABOVE 92%. PT ABLE TO TAKE BREAKS FROM CPAP AT TIMES FOR FOOD/DRINK AND WEAR HIGH FLOW NC AT 10 L AND MAINTAIN OXYGEN SATURATION ABOVE 92%. PT ABLE TO TURN SELF IN BED NEEDED. ROMANO TO GRAVITY DRAIN. PT REPORTS PAIN IN LEGS FROM NEUROPATHY. PHYSICIAN NOTIFIED AND TYLENOL ORDERED, SEE EMAR. BP SOFT, MAP REMAINED 65 AND ABOVE. HR STABLE. BRADYCARDIC IN 50'S WHILE SLEEPING. 2100 METOPROLOL HELD. WILL CONT TO MONITOR UNTIL REPORT GIVEN TO WENDY JACOBSEN.
--- NOTE | 2022-02-03 11:47 | NUR ---
Patient is sitting on a chair and alert. Because therapeutic alignment is already established. Patient tells me about her medical issues, her 's medical issues and her family unit complications. She talks about her personal struggles. I listen empathicllay, and provide gentle clinical counselor and prayer. Patient responds well and shows signs of being encouraged to continue moving toward health and reconciliation.
[2022-02-03] MEDS ORDERED: ELIQUIS5 M2 PO (13:37)
[2022-02-03] MEDS ORDERED: DEXA2 PO (13:39)
[2022-02-03] MEDS ORDERED: ANTIFUNGAL POWD71 GM TOP (13:42)
[2022-02-03] MEDS ORDERED: AMOCLA875 PO (13:44)
[2022-02-03] MEDS ORDERED: TRULICITY1.5 MG/0.1 SC (13:47)
--- NOTE | 2022-02-03 17:18 | NUR ---
PT TO DISCHARGE TO HOME, NO AVAILABLE RIDE TIL 8P, SON TO SERVICE UNIT OPERATOR OIL WELL THE PT. PT ALERT AND ORIENTED X3, ABLE TO MAKE NEEDS KNOWN, COOPERATIVE WITH CARES. VITALS HRR SB/SR 50-60'S BP SYSTOLIC 90-100'S LOPRESSOR ON HOLD PER DR NATH AND MORNING DOSE OF BUMEX. PT COMPLAINT WITH THE USE OF IS WILL HAVE COUGHING SPITS AND WILL DESAT TO 85'S O2 SUPPLEMENT RANGING 2-6L, PT SATS ABOVE 94% ON 2L AT REST REQUIRES ATLEAST 6L WITH EXERTION. SBA FOR TRANSFERS VIA GAIT BELT AND A WALKER. PT TO GO HOME WITH HOME HEALTH. PRESCRIPTION SENT TO [facility] [place]. PT WITH NO COMPLAINTS AT THIS TIME IN BED RESTING WITH CALL LIGHTS IN REACH WILL MONITOR UNTIL END OF SHIFT
--- NOTE | 2022-02-03 22:37 | NUR ---
PT DISCHARGE PT PROVIDED WITH DISCHARGE INSTRUCTIONS PER PHYSICIAN WITH SON AT BEDSIDE. PT INFORMED OF MEDICATION CHANGES, NEW MEDICATIONS, LAST TIME MEDICATIONS WERE GIVEN AND PLAN FOR FOLLOW UP APT. PT EDUCATED ON IMPORTANCE OF ATTENDING FOLLOW UP APT TOMORROW. PT PLANS TO CALL FAMILY TO ASSIST IN RIDE TO APT. PT STATED UNDERSTANDING OF ALL DISHCARGE INSTRUCTIONS. THIS RN ASSISTED PT OUT TO [employer] VEHICLE BY WHEELCHAIR WITH ALL BELONGINGS AND OXYGEN AT 4 L VIA NC. PT CONNECTED TO [employer] O2 TANK ONCE TO PRIVATE VEHICLE WITH SON. DRAW FURNACE TENDER VERIFIED TANK WORKING AT THIS TIME AND EDUCATED PT ON TYPE OF O2 TANK. PT LEFT WITH SON TO HOME. PLAN FOR FOLLOW UP APT WITH PCP IN AM.
== END 2022-02-03 21:49 | disposition home or self-care (01) | DRG 193 ==
LOC: ER 11:28 → MEDS 15:02 → PCU 02-02 14:11
PROVIDERS: Emergency Medicine; ADMIT Family Medicine
DX: J18.9 Pneumonia, unspecified organism (principal); J96.21 Acute and chronic respiratory failure with hypoxia; J96.22 Acute and chronic respiratory failure with hypercapnia; R04.2 Hemoptysis; I50.32 Chronic diastolic (congestive) heart failure; I13.0 Hypertensive heart and chronic kidney disease with heart failure and stage 1 through stage 4 chronic kidney disease, or unspecified chronic kidney disease; J44.0 Chronic obstructive pulmonary disease with (acute) lower respiratory infection; Z68.41 Body mass index [BMI] 40.0-44.9, adult; E66.2 Morbid (severe) obesity with alveolar hypoventilation; J44.1 Chronic obstructive pulmonary disease with (acute) exacerbation; N17.9 Acute kidney failure, unspecified; M81.0 Age-related osteoporosis without current pathological fracture; K21.9 Gastro-esophageal reflux disease without esophagitis; Z20.822 Contact with and (suspected) exposure to COVID-19; J18.0 Bronchopneumonia, unspecified organism; D63.1 Anemia in chronic kidney disease; E11.65 Type 2 diabetes mellitus with hyperglycemia; E11.42 Type 2 diabetes mellitus with diabetic polyneuropathy; F32.A Depression, unspecified; F41.9 Anxiety disorder, unspecified; I25.10 Atherosclerotic heart disease of native coronary artery without angina pectoris; E11.22 Type 2 diabetes mellitus with diabetic chronic kidney disease; N18.30 Chronic kidney disease, stage 3 unspecified; I25.2 Old myocardial infarction; Z95.1 Presence of aortocoronary bypass graft; Z90.49 Acquired absence of other specified parts of digestive tract; Z98.890 Other specified postprocedural states; Z90.6 Acquired absence of other parts of urinary tract; Z98.42 Cataract extraction status, left eye; Z98.41 Cataract extraction status, right eye; Z99.3 Dependence on wheelchair; Z86.16 Personal history of COVID-19; Z99.81 Dependence on supplemental oxygen; Z79.82 Long term (current) use of aspirin; Z79.4 Long term (current) use of insulin; Z79.899 Other long term (current) drug therapy
CPT/HCPCS: 0241U; 36415; 36600; 71045; 80053; 80069; 81003; 82803; 82947; 83036; 83735; 83880; 84145; 84484; 85025; 87070; 87205; 93005; 93010; 94640; 94660; 94664; 94762; 96365; 96375; 97110; 97116; 97162; 97530; 99285-25; A9270; C8929; J0456; J0696; J1815; J2930; J7050; Q9957

== ENCOUNTER 2022-02-26 12:05 | Emergency (ER) | payer MEDICARE ==
[~2022-02-26] VITALS: Ht 160 cm; Wt 113.4 kg
[~2022-02-26 12:05] MED LIST changes: +AMOCLA875 PO; +ANTIFUNGAL POWD71 GM TOP; +DEXA2 PO; +ELIQUIS5 M2 PO; +TRULICITY1.5 MG/0.1 SC
[2022-02-26 12:25] LABS: Source, Urine Clean Catch
[2022-02-26 12:42] LABS: Appearance, Urine Clear (Clear); Bilirubin, Urine Neg (Neg); Blood, Urine Neg (Neg); Color, Urine Yellow (P-Yellow); Glucose Qualitative, Urine Neg (Neg); Ketones, Urine Neg (Neg); Leukocyte Esterase, Urine 1+ (Neg); Nitrite, Urine Neg (Neg); Protein, Urine Neg (Neg); Specific Gravity, Urine 1.005 (1.003-1.022); Urobilinogen, Urine NORM (Normal)
[2022-02-26 12:55] LABS: Bacteria Few /hpf; Red Blood Cells, Urine 0-2 /hpf (0-2); Squamous Epithelial Cells Few /hpf (Few)
[2022-02-26 12:56] LABS: Yeast/Fungi Urine Mod /hpf
[2022-02-26 13:34] LABS: BASOPHILS ABSOLUTE AUTO 0.03 K/mm3 (0.00-0.23); BASOPHILS PERCENT AUTO 0 % (0-2); EOSINOPHILS ABSOLUTE AUTO 0.36 K/mm3 (0.00-0.68); EOSINOPHILS PERCENT AUTO 5 % (0-6); Hematocrit 43.4 % (33.0-51.0); Hemoglobin 13.6 g/dL (11.5-16.0); IMMATURE GRAN ABSOLUTE AUTO 0.04 K/mm3 (0.00-0.10); IMMATURE GRAN PERCENT AUTO 1 % (0-1); LYMPHOCYTES ABSOLUTE AUTO 1.45 K/mm3 (0.84-5.20); LYMPHOCYTES PERCENT AUTO 21 % (21-46); MONOCYTES ABSOLUTE AUTO 0.51 K/mm3 (0.16-1.47); MONOCYTES PERCENT AUTO 7 % (4-13); Mean Corpuscular HGB 26.8 pg (26.0-34.0); Mean Corpuscular HGB Conc 31.3 g/dL (31.5-36.5); Mean Corpuscular Volume 85 fL (80-100); Mean Platelet Volume 9.6 fL (9.1-12.4); NEUTROPHILS ABSOLUTE AUTO 4.69 K/mm3 (1.96-9.15); NEUTROPHILS PERCENT AUTO 66 % (41-73); Platelet Count 243 K/mm3 (150-400); RDW Coefficient Variation 15.8 % (11.7-14.2); RDW Standard Deviation 49.4 fL (35.1-46.3); Red Blood Cell Count 5.08 M/mm3 (3.80-5.20); White Blood Cell Count 7.08 K/mm3 (4.00-11.30)
[2022-02-26 13:49] LABS: Albumin, Blood 3.6 g/dL (3.4-5.0); Albumin/Globulin Ratio 0.9 (0.8-1.8); Bilirubin, Total 0.5 mg/dL (0.1-1.0); Bun/Creatinine Ratio 17.2 (12.0-20.0); Creatinine, Blood 1.22 mg/dL (0.40-1.00); Potassium, Blood 3.9 mmol/L (3.5-5.5); Total Protein, Blood 7.6 g/dL (6.4-8.2)
[2022-02-26] MEDS ORDERED: DICY20 PO (17:47)
== END 2022-02-26 18:00 | disposition home or self-care (01) ==
LOC: ER 12:05
PROVIDERS: Physician Assistant
DX: R10.31 Right lower quadrant pain (principal); R10.32 Left lower quadrant pain; I12.9 Hypertensive chronic kidney disease with stage 1 through stage 4 chronic kidney disease, or unspecified chronic kidney disease; E11.22 Type 2 diabetes mellitus with diabetic chronic kidney disease; N18.30 Chronic kidney disease, stage 3 unspecified; J44.9 Chronic obstructive pulmonary disease, unspecified; I25.10 Atherosclerotic heart disease of native coronary artery without angina pectoris; I25.2 Old myocardial infarction; K21.9 Gastro-esophageal reflux disease without esophagitis; Z79.4 Long term (current) use of insulin; Z79.82 Long term (current) use of aspirin; Z79.899 Other long term (current) drug therapy
CPT/HCPCS: 36415; 71046; 74176; 80053; 81001; 82947; 83690; 85025; 87077; 87086; 87186; 96372; 99284-25; J0500; J2405; J7030

== ENCOUNTER → 2022-07-19 | Outpatient (CLI) | payer MEDICARE ==
[2022-07-19 12:41] LABS: Source, Urine Clean Catch
[2022-07-19 12:44] LABS: Appearance, Urine Cloudy (Clear); Bilirubin, Urine Neg (Neg); Blood, Urine Neg (Neg); Color, Urine Yellow (P-Yellow); Glucose Qualitative, Urine Neg (Normal); Ketones, Urine Neg (Neg); Leukocyte Esterase, Urine 2+ (Neg); Nitrite, Urine Neg (Neg); Protein, Urine Neg (Neg); Urobilinogen, Urine NORM (Normal)
[2022-07-19 12:49] LABS: Red Blood Cells, Urine Not Seen /hpf (0-2); Squamous Epithelial Cells Many /hpf (Few); White Blood Cells, Urine 50-100 /hpf (0-5)
[2022-07-19 12:50] LABS: Bacteria Few /hpf
== END | disposition home or self-care (01) ==
LOC: LAB SHORT 12:39 → LAB 12:39
PROVIDERS: Internal Medicine Endocrinology, Diabetes & Metabolism
DX: R30.9 Painful micturition, unspecified (principal)
CPT/HCPCS: 81001; 87077; 87086; 87186

== ENCOUNTER → 2022-12-06 | Outpatient (CLI) | payer MEDICARE | END | disposition home or self-care (01) | LOC: LAB SHORT 17:45 → LAB 17:45 | DX: N39.0 Urinary tract infection, site not specified (principal) | CPT/HCPCS: 87077; 87086; 87186 ==

== ENCOUNTER → 2023-05-27 | Outpatient (CLI) | payer MEDICARE, OTHER ==
[~2023-05-27] MED LIST changes: +ALBU8HFA2 INH; -BUMETANIDE2 M4 PO; +Bumetanide2 MG PO; +DOCU100 PO; +DUO-NEB NEB; +IRON18 MG PO; -KLONOPIN0.5 M3 PO; +Methocarbamol500 MG PO; +ONDA4ODT MM; +OZEMPIC0.25 MG/0.; +OZEMPIC1 MG/0.72 SC; +SIME80CH PO; +ZINC50 M3 PO
== END | disposition home or self-care (01) ==
LOC: LAB 17:03 → LAB SHORT 17:03
DX: N39.0 Urinary tract infection, site not specified (principal)
CPT/HCPCS: 87077; 87086; 87186

== ENCOUNTER 2023-10-23 17:24 | Emergency (ER) | payer MEDICARE ==
[~2023-10-23] VITALS: Ht 162.6 cm; Wt 100.7 kg
[2023-10-23 18:06] LABS: BASOPHILS ABSOLUTE AUTO 0.03 K/mm3 (0.00-0.23); BASOPHILS PERCENT AUTO 1 % (0-2); EOSINOPHILS ABSOLUTE AUTO 0.06 K/mm3 (0.00-0.68); EOSINOPHILS PERCENT AUTO 1 % (0-6); Hematocrit 36.7 % (33.0-51.0); Hemoglobin 11.6 g/dL (11.5-16.0); IMMATURE GRAN ABSOLUTE AUTO 0.03 K/mm3 (0.00-0.10); IMMATURE GRAN PERCENT AUTO 1 % (0-1); LYMPHOCYTES ABSOLUTE AUTO 1.14 K/mm3 (0.84-5.20); LYMPHOCYTES PERCENT AUTO 17 % (21-46); MONOCYTES ABSOLUTE AUTO 0.33 K/mm3 (0.16-1.47); MONOCYTES PERCENT AUTO 5 % (4-13); Mean Corpuscular HGB 28.4 pg (26.0-34.0); Mean Corpuscular HGB Conc 31.6 g/dL (31.5-36.5); Mean Corpuscular Volume 90 fL (80-100); Mean Platelet Volume 9.4 fL (9.1-12.4); NEUTROPHILS ABSOLUTE AUTO 5.07 K/mm3 (1.96-9.15); NEUTROPHILS PERCENT AUTO 76 % (41-73); Platelet Count 204 K/mm3 (150-400); RDW Coefficient Variation 14.4 % (11.7-14.2); RDW Standard Deviation 46.1 fL (35.1-46.3); Red Blood Cell Count 4.09 M/mm3 (3.80-5.20); White Blood Cell Count 6.66 K/mm3 (4.00-11.30)
[2023-10-23 18:24] LABS: Albumin, Blood 3.5 g/dL (3.4-5.0); Albumin/Globulin Ratio 1.1 (0.8-1.8); Bilirubin, Total 0.7 mg/dL (0.1-1.0); Bun/Creatinine Ratio 17.1 (12.0-20.0); Calcium, Blood 9.4 mg/dL (8.5-10.1); Creatinine, Blood 0.88 mg/dL (0.40-1.00); Globulin, Blood 3.3 g/dL (2.2-4.0); Magnesium, Blood 2.3 mg/dL (1.6-2.4); Potassium, Blood 4.2 mmol/L (3.5-5.5); Total Protein, Blood 6.8 g/dL (6.4-8.2)
[2023-10-23 18:52] LABS: Influenza A, PCR NEGATIVE (NEGATIVE); Influenza B, PCR NEGATIVE (NEGATIVE); Resp Syncytial Virus, PCR NEGATIVE (NEGATIVE); SARS-Cov-2 (COVID-19) PCR, MMC NEGATIVE (NEGATIVE)
[2023-10-23 19:30] VITALS: BP 141/56
== END 2023-10-23 19:32 | disposition home or self-care (01) ==
LOC: ER 17:24
PROVIDERS: Emergency Medicine
DX: J06.9 Acute upper respiratory infection, unspecified (principal); B97.89 Other viral agents as the cause of diseases classified elsewhere; I12.9 Hypertensive chronic kidney disease with stage 1 through stage 4 chronic kidney disease, or unspecified chronic kidney disease; E11.22 Type 2 diabetes mellitus with diabetic chronic kidney disease; N18.30 Chronic kidney disease, stage 3 unspecified; I25.10 Atherosclerotic heart disease of native coronary artery without angina pectoris; I25.2 Old myocardial infarction; J84.9 Interstitial pulmonary disease, unspecified; Z91.148 Patient's other noncompliance with medication regimen for other reason; Z11.52 Encounter for screening for COVID-19; Z88.8 Allergy status to other drugs, medicaments and biological substances; Z79.82 Long term (current) use of aspirin; Z79.4 Long term (current) use of insulin; Z79.51 Long term (current) use of inhaled steroids; Z79.899 Other long term (current) drug therapy
CPT/HCPCS: 0241U; 71045; 80053; 83735; 83880; 84145; 84484; 85025; 93005; 93010; 99285-25

== ENCOUNTER 2023-11-05 14:51 | Emergency (ER) | payer MEDICARE ==
[~2023-11-05] VITALS: Ht 160 cm; Wt 97.5 kg
[2023-11-05 15:23] VITALS: BP 181/85
[2023-11-05 15:59] LABS: BASOPHILS ABSOLUTE AUTO 0.03 K/mm3 (0.00-0.23); BASOPHILS PERCENT AUTO 1 % (0-2); EOSINOPHILS ABSOLUTE AUTO 0.09 K/mm3 (0.00-0.68); EOSINOPHILS PERCENT AUTO 2 % (0-6); Hematocrit 41.2 % (33.0-51.0); Hemoglobin 13.5 g/dL (11.5-16.0); IMMATURE GRAN ABSOLUTE AUTO 0.02 K/mm3 (0.00-0.10); IMMATURE GRAN PERCENT AUTO 0 % (0-1); LYMPHOCYTES PERCENT AUTO 16 % (21-46); MONOCYTES PERCENT AUTO 7 % (4-13); Mean Corpuscular HGB 28.8 pg (26.0-34.0); Mean Corpuscular HGB Conc 32.8 g/dL (31.5-36.5); Mean Corpuscular Volume 88 fL (80-100); Mean Platelet Volume 9.6 fL (9.1-12.4); NEUTROPHILS ABSOLUTE AUTO 4.63 K/mm3 (1.96-9.15); NEUTROPHILS PERCENT AUTO 75 % (41-73); Platelet Count 199 K/mm3 (150-400); RDW Coefficient Variation 14.2 % (11.7-14.2); RDW Standard Deviation 45.1 fL (35.1-46.3); Red Blood Cell Count 4.69 M/mm3 (3.80-5.20); White Blood Cell Count 6.17 K/mm3 (4.00-11.30)
[2023-11-05 16:23] LABS: Albumin, Blood 3.8 g/dL (3.4-5.0); Albumin/Globulin Ratio 1.1 (0.8-1.8); Bilirubin, Total 0.7 mg/dL (0.1-1.0); Bun/Creatinine Ratio 17.2 (12.0-20.0); Calcium, Blood 9.5 mg/dL (8.5-10.1); Creatinine, Blood 0.82 mg/dL (0.40-1.00); Globulin, Blood 3.4 g/dL (2.2-4.0); Potassium, Blood 3.9 mmol/L (3.5-5.5); Total Protein, Blood 7.2 g/dL (6.4-8.2)
[2023-11-05 18:00] LABS: Source, Urine Clean Catch
[2023-11-05 18:02] LABS: Appearance, Urine Cloudy (Clear); Bilirubin, Urine Neg (Neg); Blood, Urine 1+ (Neg); Color, Urine Yellow (P-Yellow); Glucose Qualitative, Urine Neg (Neg); Ketones, Urine 2+ (Neg); Leukocyte Esterase, Urine 3+ (Neg); Nitrite, Urine Neg (Neg); Protein, Urine 1+ (Neg); Specific Gravity, Urine 1.015 (1.003-1.022); Urobilinogen, Urine NORM (Normal); pH, Urine 6.5 (5.0-8.0)
[2023-11-05 18:09] LABS: Bacteria Many /hpf; Squamous Epithelial Cells Few /hpf (Few); White Blood Cells, Urine TNTC /hpf (0-5)
[2023-11-05] MEDS ORDERED: CEPH500 PO (18:30)
[2023-11-06] MEDS ORDERED: Percocet 5-3251 EACH PO (13:11)
== END 2023-11-05 19:19 | disposition home or self-care (01) ==
LOC: ER 14:51
PROVIDERS: Student in an Organized Health Care Education/Training Program
DX: A08.4 Viral intestinal infection, unspecified (principal); N39.0 Urinary tract infection, site not specified; E11.22 Type 2 diabetes mellitus with diabetic chronic kidney disease; I12.9 Hypertensive chronic kidney disease with stage 1 through stage 4 chronic kidney disease, or unspecified chronic kidney disease; N18.30 Chronic kidney disease, stage 3 unspecified; G47.33 Obstructive sleep apnea (adult) (pediatric); J44.9 Chronic obstructive pulmonary disease, unspecified; I25.10 Atherosclerotic heart disease of native coronary artery without angina pectoris; I25.2 Old myocardial infarction; K21.9 Gastro-esophageal reflux disease without esophagitis; J84.9 Interstitial pulmonary disease, unspecified; Z88.8 Allergy status to other drugs, medicaments and biological substances; Z79.899 Other long term (current) drug therapy; Z79.4 Long term (current) use of insulin; Z79.82 Long term (current) use of aspirin; Z95.1 Presence of aortocoronary bypass graft
CPT/HCPCS: 80053; 81001; 83690; 85025; 87077; 87086; 87186; 93005; 93010; 96361; 96374; 99284-25; A9270; J2405; J7030

== ENCOUNTER 2023-11-06 03:51 | Emergency (ER) | payer MEDICARE ==
[~2023-11-06] VITALS: Ht 160 cm; Wt 96.6 kg
[2023-11-06 03:56] VITALS: BP 127/87
[2023-11-06] MEDS ORDERED: Percocet 5-3251 EACH PO (13:11)
== END 2023-11-06 06:48 | disposition home or self-care (01) ==
LOC: ER 03:51
DX: F41.9 Anxiety disorder, unspecified (principal); N64.4 Mastodynia; N39.0 Urinary tract infection, site not specified; J44.9 Chronic obstructive pulmonary disease, unspecified; M81.0 Age-related osteoporosis without current pathological fracture; E66.9 Obesity, unspecified; Z68.35 Body mass index [BMI] 35.0-35.9, adult; Z79.4 Long term (current) use of insulin; Z79.82 Long term (current) use of aspirin; Z79.899 Other long term (current) drug therapy; Z88.8 Allergy status to other drugs, medicaments and biological substances; E11.22 Type 2 diabetes mellitus with diabetic chronic kidney disease; N18.30 Chronic kidney disease, stage 3 unspecified; I25.10 Atherosclerotic heart disease of native coronary artery without angina pectoris; I25.2 Old myocardial infarction; I12.9 Hypertensive chronic kidney disease with stage 1 through stage 4 chronic kidney disease, or unspecified chronic kidney disease; K21.9 Gastro-esophageal reflux disease without esophagitis; Z95.1 Presence of aortocoronary bypass graft
CPT/HCPCS: 71260; 80053; 82947; 85025; 85651; 86140; 96372; 99284-25; A9270; J1885; Q9967

== ENCOUNTER 2023-11-06 08:19 | Emergency (ER) | payer MEDICARE ==
[~2023-11-06] VITALS: Ht 160 cm; Wt 97.1 kg
[2023-11-06 09:24] LABS: BASOPHILS ABSOLUTE AUTO 0.04 K/mm3 (0.00-0.23); BASOPHILS PERCENT AUTO 1 % (0-2); EOSINOPHILS ABSOLUTE AUTO 0.05 K/mm3 (0.00-0.68); EOSINOPHILS PERCENT AUTO 1 % (0-6); Hematocrit 40.4 % (33.0-51.0); Hemoglobin 13.1 g/dL (11.5-16.0); IMMATURE GRAN ABSOLUTE AUTO 0.03 K/mm3 (0.00-0.10); IMMATURE GRAN PERCENT AUTO 0 % (0-1); LYMPHOCYTES PERCENT AUTO 10 % (21-46); MONOCYTES ABSOLUTE AUTO 0.55 K/mm3 (0.16-1.47); MONOCYTES PERCENT AUTO 7 % (4-13); Mean Corpuscular HGB 28.2 pg (26.0-34.0); Mean Corpuscular HGB Conc 32.4 g/dL (31.5-36.5); Mean Corpuscular Volume 87 fL (80-100); Mean Platelet Volume 9.6 fL (9.1-12.4); NEUTROPHILS PERCENT AUTO 82 % (41-73); Platelet Count 196 K/mm3 (150-400); RDW Coefficient Variation 14.2 % (11.7-14.2); RDW Standard Deviation 44.9 fL (35.1-46.3); Red Blood Cell Count 4.64 M/mm3 (3.80-5.20); White Blood Cell Count 8.27 K/mm3 (4.00-11.30)
[2023-11-06 09:51] LABS: Alanine Aminotransfer (ALT/SGP 16 U/L (12-78); Albumin, Blood 3.9 g/dL (3.4-5.0); Albumin/Globulin Ratio 1.2 (0.8-1.8); Alk Phos 84 U/L (50-136); Anion Gap 9 mmol/L (6-16); Aspartate Aminotrans (AST/SGOT 15 U/L (12-37); Bilirubin, Total 0.8 mg/dL (0.1-1.0); Blood Urea Nitrogen 14 mg/dL (8-24); Bun/Creatinine Ratio 16.4 (12.0-20.0); C-REACTIVE PROTEIN, EXT RANGE <0.290 mg/dL (0.000-0.300); CO2, Blood 21 mmol/L (21-32); Calcium, Blood 9.2 mg/dL (8.5-10.1); Chloride, Blood 112 mmol/L (98-108); Creatinine, Blood 0.86 mg/dL (0.40-1.00); Globulin, Blood 3.2 g/dL (2.2-4.0); Glomerular Filtration Rate 70 (60-); Glucose, Blood 175 mg/dL (70-99); Potassium, Blood 3.8 mmol/L (3.5-5.5); Sodium, Blood 142 mmol/L (136-145); Total Protein, Blood 7.1 g/dL (6.4-8.2)
[2023-11-06] MEDS ORDERED: Percocet 5-3251 EACH PO (13:11)
[2023-11-06 13:45] VITALS: BP 121/66
== END 2023-11-06 13:57 | disposition home or self-care (01) ==
LOC: ER 08:19
PROVIDERS: Student in an Organized Health Care Education/Training Program
DX: N64.4 Mastodynia (principal); J44.9 Chronic obstructive pulmonary disease, unspecified; E11.22 Type 2 diabetes mellitus with diabetic chronic kidney disease; N18.30 Chronic kidney disease, stage 3 unspecified; I25.10 Atherosclerotic heart disease of native coronary artery without angina pectoris; I25.2 Old myocardial infarction; I12.9 Hypertensive chronic kidney disease with stage 1 through stage 4 chronic kidney disease, or unspecified chronic kidney disease; K21.9 Gastro-esophageal reflux disease without esophagitis; Z95.1 Presence of aortocoronary bypass graft
CPT/HCPCS: 71260; 80053; 82947; 85025; 85651; 86140; 99284-25; A9270; Q9967

== ENCOUNTER 2023-11-09 06:34 | Emergency (ER) | payer MEDICARE ==
[~2023-11-09] VITALS: Ht 160 cm; Wt 97.5 kg
[2023-11-09 08:16] LABS: BASOPHILS ABSOLUTE AUTO 0.02 K/mm3 (0.00-0.23); BASOPHILS PERCENT AUTO 0 % (0-2); EOSINOPHILS ABSOLUTE AUTO 0.06 K/mm3 (0.00-0.68); EOSINOPHILS PERCENT AUTO 1 % (0-6); Hematocrit 38.1 % (33.0-51.0); Hemoglobin 12.6 g/dL (11.5-16.0); IMMATURE GRAN ABSOLUTE AUTO 0.03 K/mm3 (0.00-0.10); IMMATURE GRAN PERCENT AUTO 1 % (0-1); LYMPHOCYTES ABSOLUTE AUTO 1.17 K/mm3 (0.84-5.20); LYMPHOCYTES PERCENT AUTO 20 % (21-46); MONOCYTES ABSOLUTE AUTO 0.42 K/mm3 (0.16-1.47); MONOCYTES PERCENT AUTO 7 % (4-13); Mean Corpuscular HGB 28.6 pg (26.0-34.0); Mean Corpuscular HGB Conc 33.1 g/dL (31.5-36.5); Mean Corpuscular Volume 86 fL (80-100); Mean Platelet Volume 9.9 fL (9.1-12.4); NEUTROPHILS ABSOLUTE AUTO 4.16 K/mm3 (1.96-9.15); NEUTROPHILS PERCENT AUTO 71 % (41-73); Platelet Count 195 K/mm3 (150-400); RDW Coefficient Variation 13.9 % (11.7-14.2); RDW Standard Deviation 43.9 fL (35.1-46.3); Red Blood Cell Count 4.41 M/mm3 (3.80-5.20); White Blood Cell Count 5.86 K/mm3 (4.00-11.30)
[2023-11-09 08:42] LABS: Albumin, Blood 3.4 g/dL (3.4-5.0); Albumin/Globulin Ratio 1.1 (0.8-1.8); Bilirubin, Total 0.6 mg/dL (0.1-1.0); Bun/Creatinine Ratio 14.3 (12.0-20.0); Creatinine, Blood 0.7 mg/dL (0.40-1.00); Potassium, Blood 3.7 mmol/L (3.5-5.5); Total Protein, Blood 6.4 g/dL (6.4-8.2)
[2023-11-09 09:30] VITALS: BP 163/99
[2023-11-09 11:29] LABS: Source, Urine Voided
[2023-11-09 11:39] LABS: Bilirubin, Urine Neg (Neg); Blood, Urine Neg (Neg); Color, Urine Yellow (P-Yellow); Glucose Qualitative, Urine Neg (Neg); Ketones, Urine 3+ (Neg); Leukocyte Esterase, Urine 1+ (Neg); Nitrite, Urine Pos (Neg); Protein, Urine Neg (Neg); Urobilinogen, Urine NORM (Normal)
[2023-11-09 12:20] LABS: Appearance, Urine Hazy (Clear)
[2023-11-09 12:21] LABS: Bacteria Many /hpf; Squamous Epithelial Cells Mod /hpf (Few)
[2023-11-09 12:26] LABS: Transitional Epithelial Cells Rare /hpf (0-Rare)
[2023-11-09] MEDS ORDERED: LIDO700A20 TOP (12:58)
[2023-11-09] MEDS ORDERED: CEFUROXIME SOD1.5 GM PO (12:58)
== END 2023-11-09 13:23 | disposition home or self-care (01) ==
LOC: ER 06:34
PROVIDERS: Physician Assistant
DX: J18.9 Pneumonia, unspecified organism (principal); N39.0 Urinary tract infection, site not specified; F41.9 Anxiety disorder, unspecified; Z91.148 Patient's other noncompliance with medication regimen for other reason; I13.0 Hypertensive heart and chronic kidney disease with heart failure and stage 1 through stage 4 chronic kidney disease, or unspecified chronic kidney disease; I50.9 Heart failure, unspecified; E11.22 Type 2 diabetes mellitus with diabetic chronic kidney disease; N18.30 Chronic kidney disease, stage 3 unspecified; J84.9 Interstitial pulmonary disease, unspecified; I25.2 Old myocardial infarction; K21.9 Gastro-esophageal reflux disease without esophagitis; G47.33 Obstructive sleep apnea (adult) (pediatric); Z99.89 Dependence on other enabling machines and devices; J44.9 Chronic obstructive pulmonary disease, unspecified; M81.0 Age-related osteoporosis without current pathological fracture; I25.10 Atherosclerotic heart disease of native coronary artery without angina pectoris; Z95.1 Presence of aortocoronary bypass graft; Z79.82 Long term (current) use of aspirin; Z79.4 Long term (current) use of insulin; Z79.899 Other long term (current) drug therapy; Z88.8 Allergy status to other drugs, medicaments and biological substances
CPT/HCPCS: 71045; 80053; 81001; 83880; 84484; 85025; 93005; 93010; 99285-25; A9270

== ENCOUNTER 2024-01-03 16:22 | Emergency (ER) | payer MEDICARE ==
[~2024-01-03] VITALS: Ht 160 cm; Wt 96.6 kg
[~2024-01-03 16:22] MED LIST changes: +CEFUROXIME SOD1.5 GM PO; +LIDO700A20 TOP
[2024-01-03 17:22] LABS: BASOPHILS ABSOLUTE AUTO 0.04 K/mm3 (0.00-0.23); BASOPHILS PERCENT AUTO 1 % (0-2); EOSINOPHILS ABSOLUTE AUTO 0.32 K/mm3 (0.00-0.68); EOSINOPHILS PERCENT AUTO 6 % (0-6); Hematocrit 36.3 % (33.0-51.0); Hemoglobin 11.5 g/dL (11.5-16.0); IMMATURE GRAN ABSOLUTE AUTO 0.03 K/mm3 (0.00-0.10); IMMATURE GRAN PERCENT AUTO 1 % (0-1); LYMPHOCYTES ABSOLUTE AUTO 0.95 K/mm3 (0.84-5.20); LYMPHOCYTES PERCENT AUTO 17 % (21-46); MONOCYTES ABSOLUTE AUTO 0.38 K/mm3 (0.16-1.47); MONOCYTES PERCENT AUTO 7 % (4-13); Mean Corpuscular HGB 28.7 pg (26.0-34.0); Mean Corpuscular HGB Conc 31.7 g/dL (31.5-36.5); Mean Corpuscular Volume 91 fL (80-100); Mean Platelet Volume 9.7 fL (9.1-12.4); NEUTROPHILS ABSOLUTE AUTO 3.97 K/mm3 (1.96-9.15); NEUTROPHILS PERCENT AUTO 70 % (41-73); Platelet Count 225 K/mm3 (150-400); RDW Coefficient Variation 13.7 % (11.7-14.2); RDW Standard Deviation 45.7 fL (35.1-46.3); Red Blood Cell Count 4.01 M/mm3 (3.80-5.20); White Blood Cell Count 5.69 K/mm3 (4.00-11.30)
[2024-01-03 17:44] LABS: Albumin/Globulin Ratio 0.8 (0.8-1.8); Bilirubin, Total 0.6 mg/dL (0.1-1.0); Bun/Creatinine Ratio 20.1 (12.0-20.0); Calcium, Blood 8.7 mg/dL (8.5-10.1); Creatinine, Blood 0.95 mg/dL (0.40-1.00); Globulin, Blood 3.9 g/dL (2.2-4.0); Potassium, Blood 4.3 mmol/L (3.5-5.5); Total Protein, Blood 6.9 g/dL (6.4-8.2)
[2024-01-03 18:42] VITALS: BP 152/92
[2024-01-03] MEDS ORDERED: Cyclobenzaprine HCl 10 MG Tab PO ONE (19:15)
[2024-01-03] MEDS ORDERED: Lidocaine 4% 1 Patch TOP ONE (19:15)
[2024-01-03] MEDS ORDERED: Acetaminophen 500 MG Tab PO ONE (19:15)
[2024-01-03] MEDS ORDERED: Ketorolac Tromethamine 15mg Vial IV ONE (19:15)
== END 2024-01-03 19:47 | disposition home or self-care (01) ==
LOC: ER 16:22
PROVIDERS: Student in an Organized Health Care Education/Training Program
DX: M54.50 Low back pain, unspecified (principal); G89.29 Other chronic pain; E66.9 Obesity, unspecified; Z68.37 Body mass index [BMI] 37.0-37.9, adult; E11.9 Type 2 diabetes mellitus without complications; J44.9 Chronic obstructive pulmonary disease, unspecified; Z91.81 History of falling; Z88.8 Allergy status to other drugs, medicaments and biological substances; Z79.82 Long term (current) use of aspirin; Z79.4 Long term (current) use of insulin; Z79.51 Long term (current) use of inhaled steroids; Z79.899 Other long term (current) drug therapy
CPT/HCPCS: 71046; 72131; 80053; 85025; 93005; 93010; 96374; 99284-25; A9270; J1885

== ENCOUNTER → 2024-01-04 | Outpatient (CLI) | payer MEDICARE | END | disposition home or self-care (01) | LOC: LAB SHORT 16:13 → LAB 16:13 | DX: N39.0 Urinary tract infection, site not specified (principal) | CPT/HCPCS: 87086 ==

== ENCOUNTER → 2024-05-02 | Outpatient (CLI) | payer MEDICARE | END | disposition home or self-care (01) | LOC: LAB 15:07 → LAB SHORT 15:07 | DX: N39.0 Urinary tract infection, site not specified (principal) | CPT/HCPCS: 87077; 87086; 87186 ==

== ENCOUNTER 2024-06-14 13:35 | Emergency (ER) | payer MEDICARE ==
[~2024-06-14] VITALS: Ht 160 cm; Wt 98.4 kg
[2024-06-14] MEDS ORDERED: BENZONATATE100 MG PO (14:12)
[2024-06-14] MEDS ORDERED: OZEMPIC1 MG/0.72 SC (14:12)
[2024-06-14] MEDS ORDERED: ANASTROZOLE1 M7 PO (14:13)
[2024-06-14 14:14] LABS: BASOPHILS ABSOLUTE AUTO 0.02 K/mm3 (0.00-0.23); BASOPHILS PERCENT AUTO 0 % (0-2); EOSINOPHILS PERCENT AUTO 2 % (0-6); Hematocrit 39.5 % (33.0-51.0); Hemoglobin 12.9 g/dL (11.5-16.0); IMMATURE GRAN ABSOLUTE AUTO 0.01 K/mm3 (0.00-0.10); IMMATURE GRAN PERCENT AUTO 0 % (0-1); LYMPHOCYTES ABSOLUTE AUTO 0.97 K/mm3 (0.84-5.20); LYMPHOCYTES PERCENT AUTO 21 % (21-46); MONOCYTES ABSOLUTE AUTO 0.25 K/mm3 (0.16-1.47); MONOCYTES PERCENT AUTO 6 % (4-13); Mean Corpuscular HGB 30.4 pg (26.0-34.0); Mean Corpuscular HGB Conc 32.7 g/dL (31.5-36.5); Mean Corpuscular Volume 93 fL (80-100); NEUTROPHILS ABSOLUTE AUTO 3.19 K/mm3 (1.96-9.15); NEUTROPHILS PERCENT AUTO 70 % (41-73); Platelet Count 167 K/mm3 (150-400); RDW Coefficient Variation 13.1 % (11.7-14.2); RDW Standard Deviation 44.3 fL (35.1-46.3); Red Blood Cell Count 4.25 M/mm3 (3.80-5.20); White Blood Cell Count 4.54 K/mm3 (4.00-11.30)
[2024-06-14 14:35] LABS: Albumin, Blood 3.4 g/dL (3.4-5.0); Albumin/Globulin Ratio 1.1 (0.8-1.8); Bilirubin, Total 0.8 mg/dL (0.1-1.0); Bun/Creatinine Ratio 18.2 (12.0-20.0); Calcium, Blood 9.1 mg/dL (8.5-10.1); Creatinine, Blood 0.88 mg/dL (0.40-1.00); Globulin, Blood 3.1 g/dL (2.2-4.0); Potassium, Blood 4.1 mmol/L (3.5-5.5); Total Protein, Blood 6.5 g/dL (6.4-8.2)
[2024-06-14] MEDS ORDERED: Albuterol 2.5 MG/3 ML VIAL INH ONE (15:00)
[2024-06-14] MEDS ORDERED: NS 1,000 ML IV SCH (15:00)
[2024-06-14 16:26] LABS: Influenza A, PCR NEGATIVE (NEGATIVE); Influenza B, PCR NEGATIVE (NEGATIVE); Resp Syncytial Virus, PCR NEGATIVE (NEGATIVE); SARS-Cov-2 (COVID-19) PCR, MMC NEGATIVE (NEGATIVE)
[2024-06-14] MEDS ORDERED: ONDA4ODT MM (17:26)
[2024-06-14 18:18] LABS: Source, Urine Clean Catch
[2024-06-14 18:24] LABS: Appearance, Urine Hazy (Clear); Bilirubin, Urine Neg (Neg); Blood, Urine 2+ (Neg); Color, Urine Yellow (P-Yellow); Glucose Qualitative, Urine Neg (Neg); Ketones, Urine 1+ (Neg); Leukocyte Esterase, Urine 3+ (Neg); Nitrite, Urine Neg (Neg); Protein, Urine 2+ (Neg); Specific Gravity, Urine 1.015 (1.003-1.022); Urobilinogen, Urine NORM (Normal)
[2024-06-14 18:34] LABS: Amorphous Light (0-Heavy); Bacteria Many /hpf; Mucus Light (0-Heavy); Red Blood Cells, Urine 0-2 /hpf (0-2); Squamous Epithelial Cells Rare /hpf (Few); Transitional Epithelial Cells Rare /hpf (0-Rare); Triple Phosphate Crystals Mod /hpf; White Blood Cells, Urine 25-50 /hpf (0-5)
[2024-06-14] MEDS ORDERED: CEFU500T30 PO (18:53)
[2024-06-14] MEDS ORDERED: CefTRIAXone Sodium 1,000 MG in NS 50 ML IV ONE (18:55)
[2024-06-14] MEDS ORDERED: Cefuroxime Axetil 250 MG Tab PO ONE (19:05)
[2024-06-14 19:34] VITALS: BP 132/75
== END 2024-06-14 19:33 | disposition home or self-care (01) ==
LOC: ER 13:35
PROVIDERS: Emergency Medicine; Student in an Organized Health Care Education/Training Program
DX: R11.2 Nausea with vomiting, unspecified (principal); R19.7 Diarrhea, unspecified; N39.0 Urinary tract infection, site not specified; R05.9 Cough, unspecified; Z88.8 Allergy status to other drugs, medicaments and biological substances; Z79.899 Other long term (current) drug therapy; Z79.82 Long term (current) use of aspirin; Z79.4 Long term (current) use of insulin; E11.22 Type 2 diabetes mellitus with diabetic chronic kidney disease; N18.30 Chronic kidney disease, stage 3 unspecified; J44.9 Chronic obstructive pulmonary disease, unspecified; G47.33 Obstructive sleep apnea (adult) (pediatric); I25.10 Atherosclerotic heart disease of native coronary artery without angina pectoris; K21.9 Gastro-esophageal reflux disease without esophagitis; I13.0 Hypertensive heart and chronic kidney disease with heart failure and stage 1 through stage 4 chronic kidney disease, or unspecified chronic kidney disease; I50.9 Heart failure, unspecified; Z85.3 Personal history of malignant neoplasm of breast
CPT/HCPCS: 0241U; 71046; 80053; 81001; 83690; 83735; 85025; 87077; 87086; 87186; 93005; 93010; 94640; 94664; 96360; 96361; 99285-25; A9270; J7030

== ENCOUNTER → 2024-07-25 | Outpatient (CLI) | payer MEDICARE ==
[~2024-07-25] MED LIST changes: +ANASTROZOLE1 M7 PO; +BENZONATATE100 MG PO; +CEFU500T30 PO
== END ==
LOC: LAB 14:35 → LAB SHORT 14:35
DX: N39.0 Urinary tract infection, site not specified (principal)
CPT/HCPCS: 87077; 87086; 87186

== ENCOUNTER 2024-09-05 08:40 | Observation (INO) | payer MEDICARE, MEDICAID ==
[~2024-09-05] VITALS: Ht 160 cm; Wt 98.5 kg
[~2024-09-05 08:40] MED LIST changes: -KLOR-CON 1010 ME3 PO; +OZEMPIC2 MG/0.75 SC
[2024-09-05 09:19] LABS: BASOPHILS ABSOLUTE AUTO 0.02 K/mm3 (0.00-0.23); BASOPHILS PERCENT AUTO 0 % (0-2); EOSINOPHILS ABSOLUTE AUTO 0.06 K/mm3 (0.00-0.68); EOSINOPHILS PERCENT AUTO 1 % (0-6); Hematocrit 34.8 % (33.0-51.0); Hemoglobin 11.4 g/dL (11.5-16.0); IMMATURE GRAN ABSOLUTE AUTO 0.01 K/mm3 (0.00-0.10); IMMATURE GRAN PERCENT AUTO 0 % (0-1); LYMPHOCYTES ABSOLUTE AUTO 0.46 K/mm3 (0.84-5.20); LYMPHOCYTES PERCENT AUTO 7 % (21-46); MONOCYTES ABSOLUTE AUTO 0.45 K/mm3 (0.16-1.47); MONOCYTES PERCENT AUTO 7 % (4-13); Mean Corpuscular HGB 29.8 pg (26.0-34.0); Mean Corpuscular HGB Conc 32.8 g/dL (31.5-36.5); Mean Corpuscular Volume 91 fL (80-100); Mean Platelet Volume 8.9 fL (9.1-12.4); NEUTROPHILS ABSOLUTE AUTO 5.77 K/mm3 (1.96-9.15); NEUTROPHILS PERCENT AUTO 85 % (41-73); Platelet Count 159 K/mm3 (150-400); RDW Coefficient Variation 12.8 % (11.7-14.2); RDW Standard Deviation 42.2 fL (35.1-46.3); Red Blood Cell Count 3.82 M/mm3 (3.80-5.20); White Blood Cell Count 6.77 K/mm3 (4.00-11.30)
[2024-09-05] MEDS ORDERED: ESCI10 PO (09:39)
[2024-09-05 09:44] LABS: Albumin, Blood 3.3 g/dL (3.4-5.0); Bilirubin, Total 0.7 mg/dL (0.1-1.0); Bun/Creatinine Ratio 17.5 (12.0-20.0); Calcium, Blood 8.5 mg/dL (8.5-10.1); Creatinine, Blood 0.92 mg/dL (0.40-1.00); Globulin, Blood 3.2 g/dL (2.2-4.0); Potassium, Blood 4.3 mmol/L (3.5-5.5); Total Protein, Blood 6.5 g/dL (6.4-8.2)
[2024-09-05] MEDS ORDERED: Aspirin 325 MG Tab PO ONE (11:30)
[2024-09-05] MEDS ORDERED: FLU VACC TS2024-25(6MOS UP)/PF 45 MCG/0.5 ML SYRINGE IM SCH (11:40)
[2024-09-05] MEDS ORDERED: FentaNYL Citrate 50 MCG/ML 2 ML Injection IV PRN (11:40)
[2024-09-05] MEDS ORDERED: Nitroglycerin 0.4 MG SUBL SL PRN (11:40)
[2024-09-05] MEDS ORDERED: Acetaminophen 325 MG TABLET PO PRN (11:40)
[2024-09-05 12:03] LABS: Very Low Density Lipoprot Chol 26 mg/dL (6-32)
[2024-09-05 12:04] LABS: CHOL/HDL RATIO 2.8; Cholesterol 114 mg/dL (50-200); HDL Cholesterol 40 mg/dL (>39); LDL/HDL RATIO 1.2; Low Density Lipoprotein Chol 48 mg/dL (0-110); Triglycerides 131 mg/dL (30-160)
[2024-09-05] MEDS ORDERED: OxyCODONE 5 mg/Acetamin 325 mg TABLET PO PRN (13:25)
[2024-09-05] MEDS ORDERED: Gabapentin 300 MG Cap PO SCH (14:00)
[2024-09-05 14:35] VITALS: BP 144/80
[2024-09-05] MEDS ORDERED: Clonazepam0.5 MG PO (14:42)
[2024-09-05] MEDS ORDERED: BASAGLAR K100 UNIT/3 SC (14:44)
[2024-09-05] MEDS ORDERED: LINZESS72 MCG PO (14:44)
[2024-09-05] MEDS ORDERED: EZETIMIBE10 M1 PO (14:44)
[2024-09-05] MEDS ORDERED: Desyrel150 MG PO (14:45)
[2024-09-05] MEDS ORDERED: Insulin Regular 100 UNIT/ML 10ML Vial SC SCH (16:30)
[2024-09-05] MEDS ORDERED: Potassium Chloride 10 Meq Tablet SA PO SCH (17:00)
[2024-09-05 17:05] VITALS: BP 159/70
--- NOTE | 2024-09-05 17:58 | NUR ---
SHIFT SUMMARY PT A&OX4, VSS, AMB TO THE BSC W/ ASSIST, TOLERATING PO, VOIDING, AND DENIED PAIN. PT HAD PART ONE OF STRESS TEST COMPLETED THIS SHIFT. PT DENIED CHEST PAIN AND OR PRESSURE T/O SHIFT. NO OTHER ACUTE CHANGES. CALL LIGHT WITHIN REACH AND PT ABLE TO MAKE NEEDS KNOWN.
[2024-09-05] MEDS ORDERED: Bumetanide 1 MG Tab PO SCH (18:00)
[2024-09-05 19:36] VITALS: BP 149/53
[2024-09-05] MEDS ORDERED: Atorvastatin 40 MG Tab PO SCH (21:00)
[2024-09-05] MEDS ORDERED: Docusate Sodium 100 MG Cap PO SCH (21:00)
[2024-09-05] MEDS ORDERED: TraZODone HCl 100 MG Tab PO SCH (21:00)
[2024-09-05] MEDS ORDERED: Montelukast Sodium 10 MG Tab PO SCH (21:00)
[2024-09-06 03:50] VITALS: BP 115/52
[2024-09-06 05:33] LABS: BASOPHILS ABSOLUTE AUTO 0.02 K/mm3 (0.00-0.23); BASOPHILS PERCENT AUTO 0 % (0-2); EOSINOPHILS ABSOLUTE AUTO 0.05 K/mm3 (0.00-0.68); EOSINOPHILS PERCENT AUTO 1 % (0-6); Hematocrit 31.8 % (33.0-51.0); Hemoglobin 10.4 g/dL (11.5-16.0); IMMATURE GRAN ABSOLUTE AUTO 0.01 K/mm3 (0.00-0.10); IMMATURE GRAN PERCENT AUTO 0 % (0-1); LYMPHOCYTES PERCENT AUTO 15 % (21-46); MONOCYTES ABSOLUTE AUTO 0.47 K/mm3 (0.16-1.47); MONOCYTES PERCENT AUTO 8 % (4-13); Mean Corpuscular HGB 29.9 pg (26.0-34.0); Mean Corpuscular HGB Conc 32.7 g/dL (31.5-36.5); Mean Corpuscular Volume 91 fL (80-100); Mean Platelet Volume 9.3 fL (9.1-12.4); NEUTROPHILS ABSOLUTE AUTO 4.77 K/mm3 (1.96-9.15); NEUTROPHILS PERCENT AUTO 77 % (41-73); Platelet Count 170 K/mm3 (150-400); RDW Coefficient Variation 12.9 % (11.7-14.2); RDW Standard Deviation 42.7 fL (35.1-46.3); Red Blood Cell Count 3.48 M/mm3 (3.80-5.20); White Blood Cell Count 6.22 K/mm3 (4.00-11.30)
[2024-09-06 05:50] LABS: Bun/Creatinine Ratio 16.7 (12.0-20.0); Calcium, Blood 8.1 mg/dL (8.5-10.1); Creatinine, Blood 1.14 mg/dL (0.40-1.00); Potassium, Blood 3.7 mmol/L (3.5-5.5)
[2024-09-06] MEDS ORDERED: Omeprazole 20 MG CapCR PO SCH (06:00)
[2024-09-06 07:20] VITALS: BP 114/47
[2024-09-06 07:23] VITALS: BP 151/77
[2024-09-06] MEDS ORDERED: Aspirin 81 MG TabEC PO SCH (09:00)
[2024-09-06] MEDS ORDERED: Enoxaparin 40 MG/0.4 ML SYR SC SCH (09:00)
[2024-09-06] MEDS ORDERED: Citalopram Hydrobromide 20 MG Tab PO SCH (09:00)
[2024-09-06] MEDS ORDERED: AmLODIPine Besylate 5 MG Tab PO SCH (09:00)
[2024-09-06] MEDS ORDERED: Anastrozole 1 MG TAB PO SCH (09:00)
[2024-09-06] MEDS ORDERED: Regadenoson 0.4 MG/5 ML SYRINGE ONE (13:36)
[2024-09-06] MEDS ORDERED: Caffeine Citrated 60 MG/3 ML Vial ONE (13:37)
[2024-09-06] MEDS ORDERED: Ondansetron HCl 2 MG / ML 2ML Vial IV PRN (14:00)
[2024-09-06 15:33] VITALS: BP 121/56
--- NOTE | 2024-09-06 16:04 | NUR ---
PT RESTING QUIETLY IN BED, PT HAD THE SECOND PART OF HER STRESS TEST TODAY, PT WITH SEVERAL EPISODES OF DIARRHEA AND NAUSEA, BOTH PRIOR TO AND AFTER THE STRESS TEST, PT REMAINS ON 2L OXYGEN, PT GETTING SOB WHEN UP TO THE COMMODE AND REQUESTED THE O2, ROOM AIR IS BASELINE, NO COMPLAINTS
[2024-09-06] MEDS ORDERED: ESTRADIOL42.5 GM VAG (18:35)
--- NOTE | 2024-09-06 19:26 | NUR ---
THIS RN RECIEVED REPORT FROM BRYAN AT 1621, THIS RN TO TAKE OVER CARE. PT A/O AND ABLE TO EXPRESS NEEDS. NO ACUTE EVENTS SINCE TAKING OVER IN CARE AND FOR THE REMAINDER OF SHIFT. PT INFORMED THAT MD HAS DISCHARGE ORDERS READY, PT EXPRESSED THAT SHE WAS NO READY TO BE DISCHARGED YET, POSTAL SERVICE CLERK NOTIFIED.
[2024-09-06 20:27] VITALS: BP 128/55
[2024-09-07 03:40] VITALS: BP 136/55
[2024-09-07 07:22] VITALS: BP 106/36
--- NOTE | 2024-09-07 09:00 | NUR ---
pt laying in bed with eyes closed, wakes easily, a/ox4, pleasant and cooperative with care, follows commands well, denies pain at this time, lungs are clear in upper euceda, dim in bases, on 2 liters 02 sats 100%, removed for now, she is only on the 2 liters for areli instead of cpap, no cough noted, hrr, tele in place running sr per monitor, see strip, no edema noted, ppp+1, cap reifill <3 sec, vs stable, afebrile, piv is clear and patent, btx4, abd flat soft nontender, briefs in place for incont, skin c/w/d, maew, one person assist, lawrence, call light in reach.
[2024-09-07] MEDS ORDERED: Loperamide HCl 2 MG Cap PO PRN (11:25)
[2024-09-07] MEDS ORDERED: NS 1,000 ML IV SCH (11:25)
[2024-09-07 15:43] VITALS: BP 121/39
--- NOTE | 2024-09-07 17:37 | NUR ---
1300: RN ASSUMED CARE OF PT FROM ANN-MARIE DEL REAL. ANDREW DENIES CHEST PAIN AT THIS TIME. SHE IS IN BED, UNDER THE COVERS, AND STATES THAT SHE WANTS TO REST. ROOM AIR, ON CONTUINUOUS PULSE OX READING 96%. PER REPORT, ANDREW WEARS CPAP AT NIGHT BUT IN HOSPITAL WEARS 2LPM O2 QHS. A&O X4, PLEASANT. PT DENIES ANY DIARRHEA THIS SHIFT. RN WILL CONTINUE TO MONITOR.
[2024-09-07 19:24] VITALS: BP 104/44
[2024-09-07] MEDS ORDERED: Insulin Glargine-Yfgn 100 Unit/mL 3 ML SYR SC SCH (21:00)
[2024-09-08 02:23] VITALS: BP 98/40
--- NOTE | 2024-09-08 04:13 | NUR ---
PT IS A [place]Y 74 YO FULL CODE WOMAN WHO WAS ADMITTED FOR CP ON 09/05/24. PT IS A 1 ASSIST WITH FWW TO BATHROOM OR BSC WITH 1 PERSON. PATIENT HAS SOME WEAKNESS IN LEGS AND NOT ALWAYS STEADY ON FEET.PT IS CONTINENT/INCONTINENT, SHE WEARS A PULL UP AND SOMETIMES HAS ACCIDENTS THAT SHE DOESNT NOTICE OR CALL ABOUT. PT WAS INSTRUCTED TO USE CALL LIGHT WHEN SHE NEEDS TO USE THE RESTROOM FOR SAFETY. PT DENIES CP AND IS ON A TELE WITH SR IN THE 70'S AND 1ST*AVB, PACS.PT IS ON O2 MONITOR AND CURRENTLY STATING AT 96% ON RA W/A HIST OF COPD. PT WEARS CPAP MASK AT NIGHT WHILE SLEEPING.
[2024-09-08 04:37] LABS: BASOPHILS ABSOLUTE AUTO 0.02 K/mm3 (0.00-0.23); BASOPHILS PERCENT AUTO 0 % (0-2); EOSINOPHILS PERCENT AUTO 4 % (0-6); Hematocrit 28.3 % (33.0-51.0); Hemoglobin 9.4 g/dL (11.5-16.0); IMMATURE GRAN ABSOLUTE AUTO 0.01 K/mm3 (0.00-0.10); IMMATURE GRAN PERCENT AUTO 0 % (0-1); LYMPHOCYTES ABSOLUTE AUTO 1.03 K/mm3 (0.84-5.20); LYMPHOCYTES PERCENT AUTO 23 % (21-46); MONOCYTES ABSOLUTE AUTO 0.53 K/mm3 (0.16-1.47); MONOCYTES PERCENT AUTO 12 % (4-13); Mean Corpuscular HGB 29.7 pg (26.0-34.0); Mean Corpuscular HGB Conc 33.2 g/dL (31.5-36.5); Mean Corpuscular Volume 90 fL (80-100); NEUTROPHILS ABSOLUTE AUTO 2.75 K/mm3 (1.96-9.15); NEUTROPHILS PERCENT AUTO 61 % (41-73); Platelet Count 129 K/mm3 (150-400); RDW Coefficient Variation 12.4 % (11.7-14.2); Red Blood Cell Count 3.16 M/mm3 (3.80-5.20); White Blood Cell Count 4.54 K/mm3 (4.00-11.30)
[2024-09-08 05:01] LABS: Bun/Creatinine Ratio 18.2 (12.0-20.0); Calcium, Blood 7.7 mg/dL (8.5-10.1); Creatinine, Blood 1.21 mg/dL (0.40-1.00); Potassium, Blood 3.7 mmol/L (3.5-5.5)
[2024-09-08 07:15] VITALS: BP 146/70
--- NOTE | 2024-09-08 07:34 | NUR ---
NURSE NOTE PT DID NOT HAVE ANY EPISODES OF DIARRHEA T/O THE ORTHOPEDIC RADIOLOGIC TECHNOLOGIST. PT SHARED WITH THIS RN THAT SHE IS HOME ALONE FOR MOST OF THE DAY. HER WORKS AT [employer] AND DOES NOT HELP WITH HER CARE. PT ENDORSED INCREASED WEAKNESS. PT MAY NOT BE ABLE TO MEET HER CARE NEEDS AT HOME. PT ALSO DISCLOSED THAT HER SON (WHO ASSISTS WITH CARE AND FAMILY BUSINESS) WAS JUST DX WITH STAGE 4 CANCER. THIS RN REVIEWED WITH AND AGREES WITH ORIENTEE/STEM TEACHER ASSESSMENTS AND SHIFT SUMMARY.
[2024-09-08] MEDS ORDERED: AMLO5 PO (12:03)
[2024-09-08] MEDS ORDERED: Acetaminophen650 M1 PO (12:09)
[2024-09-08 15:07] VITALS: BP 113/46
--- NOTE | 2024-09-08 16:53 | NUR ---
DISCHARGE NOTE MS NICOLE WAS DISCHARGED HOME WITH HER NEPHEW VIA WHEELCHAIR AT 1655HRS. SHE HAS SLEPT A LOT TODAY USING HER CPAP. SHE TOLD ME THAT SHE DID NOT SLEEP MUCH LAST NIGHT. SHE SAID SHE FEELS MUCH BETTER AFTER A REST. SHE SAID SHE MANAGES AT HOME, MOPS THE FLOORS FROM HER WHEELCHAIR. I ASKED HER IF SHE FEELS COMFORTABLE BEING DISCHARGED HOME AND SHE SAID SHE DOES. SHE VERABLISED UNDERSTANDING OF WRITTEN AND VERBAL DISCHARGE INSTRUCTIONS. SHE DID C/O SOME BACK DISCOMFORT TODAY, GIVEN TYLENOL WHICH HELPED. PIV AND TELEMETRY REMOVED. PT HAS NO NEW QUESTIONS OR CONCERNS AT TIME OF DISCHARGE.
[2024-09-09] MEDS ORDERED: LOPE2C PO (14:22)
== END 2024-09-08 16:53 | disposition home or self-care (01) ==
LOC: ER 08:40 → MEDS 08:41
PROVIDERS: Student in an Organized Health Care Education/Training Program; ADMIT Family Medicine
DX: I25.118 Atherosclerotic heart disease of native coronary artery with other forms of angina pectoris (principal); R51.9 Headache, unspecified; I10 Essential (primary) hypertension; G47.33 Obstructive sleep apnea (adult) (pediatric); E66.9 Obesity, unspecified; E86.0 Dehydration; Z79.4 Long term (current) use of insulin; Z79.899 Other long term (current) drug therapy; Z88.8 Allergy status to other drugs, medicaments and biological substances; Z99.89 Dependence on other enabling machines and devices
CPT/HCPCS: 36415; 71046; 78452; 80048; 80053; 80061; 82947; 84484; 85025; 93005; 93010; 93017; 94762; 96372; 96374; 96376; 99285-25; A9270; A9500; G0378; J0706; J1650; J1815; J2405; J2785; J7030

== ENCOUNTER 2024-09-09 12:38 | Emergency (ER) | payer MEDICARE, MEDICAID ==
[~2024-09-09] VITALS: Ht 160 cm; Wt 96.6 kg
[~2024-09-09 12:38] MED LIST changes: +AMLO5 PO; +Acetaminophen650 M1 PO; +BASAGLAR K100 UNIT/3 SC; +Clonazepam0.5 MG PO; +Desyrel150 MG PO; +ESCI10 PO; +ESTRADIOL42.5 GM VAG; +EZETIMIBE10 M1 PO; +LINZESS72 MCG PO
[2024-09-09] MEDS ORDERED: Loperamide HCl 2 MG Cap PO ONE (13:35)
[2024-09-09] MEDS ORDERED: Lactated Ringer's 1,000 ML IV ONE (13:35)
[2024-09-09] MEDS ORDERED: LOPE2C PO (14:22)
[2024-09-09 14:37] LABS: Bun/Creatinine Ratio 21.7 (12.0-20.0); Calcium, Blood 8.7 mg/dL (8.5-10.1); Creatinine, Blood 0.97 mg/dL (0.40-1.00); Potassium, Blood 4.1 mmol/L (3.5-5.5)
[2024-09-09 15:30] VITALS: BP 126/59
== END 2024-09-09 17:56 | disposition home or self-care (01) ==
LOC: ER 12:38
PROVIDERS: Emergency Medicine
DX: R19.7 Diarrhea, unspecified (principal); E86.0 Dehydration; R53.1 Weakness
CPT/HCPCS: 80048; 96360; 99284-25; A9270; J7120

== ENCOUNTER → 2024-09-12 | Outpatient (CLI) | payer MEDICARE ==
[~2024-09-12] MED LIST changes: +LOPE2C PO
== END ==
LOC: LAB 16:23 → LAB SHORT 16:23
DX: N39.0 Urinary tract infection, site not specified (principal)
CPT/HCPCS: 87077; 87086; 87186

== ENCOUNTER 2024-10-26 14:36 | Observation (INO) | payer MEDICARE, OTHER ==
[~2024-10-26] VITALS: Ht 160 cm; Wt 97.5 kg
[2024-10-26 15:25] LABS: Source, Urine Clean Catch
[2024-10-26 15:28] LABS: Bilirubin, Urine Neg (Neg); Blood, Urine Neg (Neg); Glucose Qualitative, Urine Neg (Neg); Ketones, Urine Neg (Neg); Leukocyte Esterase, Urine 3+ (Neg); Nitrite, Urine Neg (Neg); Protein, Urine Neg (Neg); Urobilinogen, Urine NORM (Normal)
[2024-10-26 15:54] LABS: U Amphetamine Screen Not Detected; U Barbituate Screen Not Detected; U Benzodiazapine Screen Not Detected; U Buprenorphine Screen Not Detected; U Cannabinoids Screen Not Detected; U Cocaine Screen Not Detected; U Methadone Screen Not Detected; U Methamphetamine Screen Not Detected; U Opiates Screen Not Detected; U Oxycodone Screen Not Detected; U Phencyclidine Screen Not Detected
[2024-10-26 15:56] LABS: Appearance, Urine Hazy (Clear); Color, Urine Pale Yellow (P-Yellow)
[2024-10-26 15:57] LABS: Bacteria Many /hpf; Red Blood Cells, Urine 0-2 /hpf (0-2); White Blood Cells, Urine 25-50 /hpf (0-5)
[2024-10-26 15:58] LABS: Squamous Epithelial Cells Few /hpf (Few); Transitional Epithelial Cells Rare /hpf (0-Rare)
[2024-10-26 16:16] LABS: BASOPHILS ABSOLUTE AUTO 0.02 K/mm3 (0.00-0.23); BASOPHILS PERCENT AUTO 0 % (0-2); EOSINOPHILS ABSOLUTE AUTO 0.08 K/mm3 (0.00-0.68); EOSINOPHILS PERCENT AUTO 2 % (0-6); Hematocrit 37.1 % (33.0-51.0); Hemoglobin 12.2 g/dL (11.5-16.0); IMMATURE GRAN ABSOLUTE AUTO 0.02 K/mm3 (0.00-0.10); IMMATURE GRAN PERCENT AUTO 0 % (0-1); LYMPHOCYTES ABSOLUTE AUTO 0.94 K/mm3 (0.84-5.20); LYMPHOCYTES PERCENT AUTO 17 % (21-46); MONOCYTES ABSOLUTE AUTO 0.36 K/mm3 (0.16-1.47); MONOCYTES PERCENT AUTO 7 % (4-13); Mean Corpuscular HGB 29.7 pg (26.0-34.0); Mean Corpuscular HGB Conc 32.9 g/dL (31.5-36.5); Mean Corpuscular Volume 90 fL (80-100); Mean Platelet Volume 8.8 fL (9.1-12.4); NEUTROPHILS ABSOLUTE AUTO 4.02 K/mm3 (1.96-9.15); NEUTROPHILS PERCENT AUTO 74 % (41-73); Platelet Count 197 K/mm3 (150-400); RDW Coefficient Variation 13.1 % (11.7-14.2); RDW Standard Deviation 43.5 fL (35.1-46.3); Red Blood Cell Count 4.11 M/mm3 (3.80-5.20); White Blood Cell Count 5.44 K/mm3 (4.00-11.30)
[2024-10-26 16:42] LABS: Acetaminophen, Random <2.0 ug/mL (10.0-30.0); Alanine Aminotransfer (ALT/SGP 41 U/L (12-78); Albumin, Blood 3.6 g/dL (3.4-5.0); Alk Phos 89 U/L (50-136); Anion Gap 10 mmol/L (3-11); Aspartate Aminotrans (AST/SGOT 27 U/L (12-37); Bilirubin, Total 0.8 mg/dL (0.1-1.0); Blood Urea Nitrogen 31 mg/dL (8-24); Bun/Creatinine Ratio 30.7 (12.0-20.0); CO2, Blood 28 mmol/L (21-32); Calcium, Blood 9.5 mg/dL (8.5-10.1); Chloride, Blood 106 mmol/L (98-108); Creatinine, Blood 1.01 mg/dL (0.40-1.00); Ethanol (Alcohol), Blood, Med <3 mg/dL; Globulin, Blood 3.5 g/dL (2.2-4.0); Glomerular Filtration Rate 58 (60-); Glucose, Blood 236 mg/dL (70-99); Potassium, Blood 3.8 mmol/L (3.5-5.5); Salicylate <1.7 mg/dL (2.8-20.0); Sodium, Blood 140 mmol/L (136-145); Total Protein, Blood 7.1 g/dL (6.4-8.2)
[2024-10-26] MEDS ORDERED: Trimethoprim/Sulfamethoxazole DS Tab PO ONE ×2 (18:40→20:55)
[2024-10-26 19:43] LABS: Influenza A, PCR NEGATIVE (NEGATIVE); Influenza B, PCR NEGATIVE (NEGATIVE); Resp Syncytial Virus, PCR NEGATIVE (NEGATIVE); SARS-Cov-2 (COVID-19) PCR, MMC NEGATIVE (NEGATIVE)
[2024-10-26] MEDS ORDERED: CLON.5 PO (22:10)
[2024-10-26] MEDS ORDERED: BASAGLAR K100 UNIT/1 SC (22:13)
[2024-10-26] MEDS ORDERED: OZEMPIC2 MG/0.75 SC (22:20)
[2024-10-26] MEDS ORDERED: Atorvastatin 10 MG Tab PO ONE (22:30)
[2024-10-26] MEDS ORDERED: ClonazePAM 0.5 MG Tab PO SCH (22:35)
[2024-10-26] MEDS ORDERED: Montelukast Sodium 10 MG Tab PO ONE (22:35)
[2024-10-26] MEDS ORDERED: Citalopram Hydrobromide 20 MG Tab PO ONE ×2 (22:35→23:05)
[2024-10-26] MEDS ORDERED: Atorvastatin 40 MG Tab PO ONE (23:05)
[2024-10-26] MEDS ORDERED: TraZODone HCl 50 MG Tab PO ONE (23:10)
[2024-10-26] MEDS ORDERED: Acetaminophen 325 MG TABLET PO ONE (23:50)
[2024-10-27] MEDS ORDERED: Trimethoprim/Sulfamethoxazole DS Tab PO SCH (09:00)
[2024-10-27 12:06] VITALS: BP 116/81
[2024-10-27] MEDS ORDERED: Bismuth Subsalicylate 240 ML BTL PO PRN (14:50)
[2024-10-27] MEDS ORDERED: TraZODone HCl 100 MG Tab PO SCH (21:00)
[2024-10-27] MEDS ORDERED: Gabapentin 300 MG Cap PO SCH (21:00)
[2024-10-27] MEDS ORDERED: Montelukast Sodium 10 MG Tab PO SCH (21:00)
[2024-10-27] MEDS ORDERED: Insulin Human Lispro 100 Units/ML 3ML Syringe SC SCH (21:00)
[2024-10-27] MEDS ORDERED: Atorvastatin 10 MG Tab PO SCH (21:00)
[2024-10-28] MEDS ORDERED: Aspirin 81 MG TabEC PO SCH (09:00)
[2024-10-28] MEDS ORDERED: Anastrozole 1 MG TAB PO SCH (09:00)
[2024-10-28] MEDS ORDERED: FLUoxetine HCL 20 MG CAP PO SCH (09:00)
[2024-10-28] MEDS ORDERED: Bumetanide 1 MG Tab PO SCH (09:00)
[2024-10-28] MEDS ORDERED: Insulin Glargine-Yfgn 100 Unit/mL 3 ML SYR SC SCH (09:00)
== END 2024-10-28 09:14 ==
LOC: ER 14:36 → EOR 14:37
PROVIDERS: Physician Assistant; ADMIT Student in an Organized Health Care Education/Training Program
DX: F33.2 Major depressive disorder, recurrent severe without psychotic features (principal); R45.851 Suicidal ideations; N39.0 Urinary tract infection, site not specified; I11.0 Hypertensive heart disease with heart failure; I50.9 Heart failure, unspecified; E11.9 Type 2 diabetes mellitus without complications; J44.9 Chronic obstructive pulmonary disease, unspecified; G47.33 Obstructive sleep apnea (adult) (pediatric); Z88.8 Allergy status to other drugs, medicaments and biological substances; Z79.82 Long term (current) use of aspirin; Z79.4 Long term (current) use of insulin; Z79.899 Other long term (current) drug therapy
CPT/HCPCS: 0241U; 71046; 80053; 80320; 81001; 82947; 85025; 87077; 87086; 87186; 93005; 93010; 94660; 99285-25; A9270; G0378; G0480; J1815

== ENCOUNTER → 2024-12-06 | Outpatient (CLI) | payer MEDICARE ==
[~2024-12-06] MED LIST changes: +BASAGLAR K100 UNIT/1 SC
== END ==
LOC: LAB 17:06 → LAB SHORT 17:06
DX: R30.0 Dysuria (principal)
CPT/HCPCS: 87077; 87086; 87186

== ENCOUNTER 2025-01-14 18:09 | Inpatient (IN) | payer MEDICARE ==
[~2025-01-14] VITALS: Ht 157.5 cm; Wt 100.8 kg
[2025-01-14 18:38] LABS: Calcium, Ionized (POC) 1.02 mmol/L (1.10-1.46); Chloride (POC) 110 mmol/L (98-108); Creatinine (POC) 1.4 mg/dL (0.6-1.0); Glucose (ISTAT POC) 250 mg/dL (70-99); Hemoglobin (POC) 9.5 g/dL (12.0-16.0); Potassium (POC) 4.8 mmol/L (3.5-5.5); Sodium (POC) 141 mmol/L (135-148); Total CO2 (POC) 21 mmol/L (21-32)
[2025-01-14 18:42] LABS: BASOPHILS ABSOLUTE AUTO 0.01 K/mm3 (0.00-0.23); BASOPHILS PERCENT AUTO 0 % (0-2); EOSINOPHILS ABSOLUTE AUTO 0.01 K/mm3 (0.00-0.68); EOSINOPHILS PERCENT AUTO 0 % (0-6); Hematocrit 35.1 % (33.0-51.0); Hemoglobin 11.3 g/dL (11.5-16.0); IMMATURE GRAN ABSOLUTE AUTO 0.05 K/mm3 (0.00-0.10); IMMATURE GRAN PERCENT AUTO 1 % (0-1); LYMPHOCYTES ABSOLUTE AUTO 0.46 K/mm3 (0.84-5.20); LYMPHOCYTES PERCENT AUTO 7 % (21-46); MONOCYTES ABSOLUTE AUTO 0.59 K/mm3 (0.16-1.47); MONOCYTES PERCENT AUTO 9 % (4-13); Mean Corpuscular HGB 30.4 pg (26.0-34.0); Mean Corpuscular HGB Conc 32.2 g/dL (31.5-36.5); Mean Corpuscular Volume 94 fL (80-100); Mean Platelet Volume 9.4 fL (9.1-12.4); NEUTROPHILS ABSOLUTE AUTO 5.36 K/mm3 (1.96-9.15); NEUTROPHILS PERCENT AUTO 83 % (41-73); Platelet Count 126 K/mm3 (150-400); RDW Coefficient Variation 13.4 % (11.7-14.2); RDW Standard Deviation 46.3 fL (35.1-46.3); Red Blood Cell Count 3.72 M/mm3 (3.80-5.20); White Blood Cell Count 6.48 K/mm3 (4.00-11.30)
[2025-01-14 18:45] LABS: Base Excess Venous -5.6 mmol/L; Bicarbonate Venous 18.9 mmol/L (24.0-30.0); PCO2 Venous 48.1 mmHg (38-42); pH Blood Venous 7.26 (7.34-7.37)
[2025-01-14] MEDS ORDERED: Rocuronium Bromide 10 MG/ML 5ML Injection IV ONE (18:53)
[2025-01-14] MEDS ORDERED: Midazolam HCl 1MG / ML 2ML Vial IM ONE (18:53)
[2025-01-14] MEDS ORDERED: Etomidate 2MG / ML 10ML Vial IV ONE (18:53)
[2025-01-14] MEDS ORDERED: CefTRIAXone Sodium 1,000 MG in NS 100 ML IV ONE (19:10)
[2025-01-14] MEDS ORDERED: Azithromycin 500 MG in NS 250 ML IV ONE (19:10)
[2025-01-14] MEDS ORDERED: DiphenhydrAMINE HCl 50 MG/ML 1ML Vial IV ONE (19:10)
[2025-01-14 19:18] LABS: Albumin, Blood 2.9 g/dL (3.4-5.0); Albumin/Globulin Ratio 0.8 (0.8-1.8); Bilirubin, Total 1.1 mg/dL (0.1-1.0); Bun/Creatinine Ratio 27.3 (12.0-20.0); Calcium, Blood 7.7 mg/dL (8.5-10.1); Creatinine, Blood 1.32 mg/dL (0.40-1.00); Globulin, Blood 3.5 g/dL (2.2-4.0); Potassium, Blood 5.1 mmol/L (3.5-5.5); Total Protein, Blood 6.4 g/dL (6.4-8.2)
[2025-01-14] MEDS ORDERED: Albuterol 2.5 MG/3 ML VIAL INH SCH (19:20)
[2025-01-14] MEDS ORDERED: MethylPREDNISolone Sod Succ 125 MG Vial IV ONE (19:20)
[2025-01-14] MEDS ORDERED: Ipratropium Bromide INH 0.02% 0.5 mg/2.5ML Vial INH SCH (19:20)
[2025-01-14 19:23] LABS: Acetaminophen, Random <2.0 ug/mL (10.0-30.0); Ethanol (Alcohol), Blood, Med <3 mg/dL; Salicylate <1.7 mg/dL (2.8-20.0)
[2025-01-14] MEDS ORDERED: Lactated Ringer's 1,000 ML IV ONE (19:45)
[2025-01-14 20:01] LABS: Source, Urine Clean Catch
[2025-01-14 20:03] LABS: Appearance, Urine Hazy (Clear); Bilirubin, Urine Neg (Neg); Blood, Urine 3+ (Neg); Color, Urine Yellow (P-Yellow); Glucose Qualitative, Urine Neg (Neg); Ketones, Urine 2+ (Neg); Leukocyte Esterase, Urine 1+ (Neg); Nitrite, Urine Neg (Neg); Protein, Urine 3+ (Neg); Urobilinogen, Urine 1+ (Normal)
[2025-01-14 20:08] LABS: Influenza A, PCR NEGATIVE (NEGATIVE); Influenza B, PCR NEGATIVE (NEGATIVE); Resp Syncytial Virus, PCR NEGATIVE (NEGATIVE)
[2025-01-14 20:12] LABS: Amorphous Mod (0-Heavy); Bacteria Many /hpf; Red Blood Cells, Urine 0-2 /hpf (0-2); Squamous Epithelial Cells Few /hpf (Few)
[2025-01-14 20:32] LABS: U Amphetamine Screen Not Detected; U Barbituate Screen Not Detected; U Benzodiazapine Screen Not Detected; U Buprenorphine Screen Not Detected; U Cannabinoids Screen Not Detected; U Cocaine Screen Not Detected; U Methadone Screen Not Detected; U Methamphetamine Screen Not Detected; U Opiates Screen Not Detected; U Oxycodone Screen Not Detected; U Phencyclidine Screen Not Detected
[2025-01-14 20:36] LABS: SARS-Cov-2 (COVID-19) PCR, MMC POSITIVE (NEGATIVE)
[2025-01-14] MEDS ORDERED: Acetaminophen 650 MG Supp PR ONE (20:40)
[2025-01-14] MEDS ORDERED: Metoclopramide HCl 5MG / ML 2ML Vial IV PRN (22:10)
[2025-01-14] MEDS ORDERED: Magnesium Hydroxide Conc 10 ML UDC PO PRN (22:10)
[2025-01-14 22:18] LABS: C-REACTIVE PROTEIN, EXT RANGE 11.8 mg/dL (0.000-0.300)
[2025-01-14 22:48] LABS: pH Blood Arterial 7.35 (7.35-7.45)
[2025-01-14] MEDS ORDERED: Ipratropium/Albuterol SulF 2.5-0.5MG/3 ML Amp INH SCH (22:50)
[2025-01-14] MEDS ORDERED: Lactated Ringer's 1,000 ML IV SCH (22:50)
[2025-01-14] MEDS ORDERED: Albuterol 2.5 MG/3 ML VIAL INH PRN (22:50)
[2025-01-14] MEDS ORDERED: Insulin Human Lispro 100 Units/ML 3ML Syringe SC SCH (23:00)
[2025-01-14 23:05] LABS: Anti-Xa UFH, PHA Monitoring <0.10 IU/mL
[2025-01-14 23:12] LABS: Thyroid Stimulating Hormone 0.494 uIU/mL (0.360-4.800)
[2025-01-14 23:23] LABS: International Normalized Ratio 1.02; Prothrombin Time Results 10.9 Sec (9.7-11.5)
[2025-01-15] VITALS (50 sets, daily range): BP systolic 97–178; BP diastolic 34–93
[2025-01-15] MEDS ORDERED: Insulin Regular 100 UNIT/ML 10ML Vial SC SCH
[2025-01-15] MEDS ORDERED: LORazepam 2 MG/ML 1ML Injection IV PRN (00:05)
[2025-01-15] MEDS ORDERED: Remdesivir (EUA) 200 MG in NS 250 ML IV ONE (00:20)
[2025-01-15 00:21] LABS: Magnesium, Blood 2.6 mg/dL (1.6-2.4)
[2025-01-15] MEDS ORDERED: CefTRIAXone Sodium 1,000 MG in NS 100 ML IV ONE (00:25)
[2025-01-15] MEDS ORDERED: Magnesium Sulf 2 GM/Water 50ML 50 ML IV ONE (00:30)
[2025-01-15] MEDS ORDERED: Dose Adjust by Pharmacy XX STA ×3 (00:42→14:39)
[2025-01-15] MEDS ORDERED: Heparin Sodium 5000 Units/ML 1ML MDV IV ONE (00:45)
[2025-01-15] MEDS ORDERED: Heparin Sodium,Porcine/0.5 NS 500 ML IV SCH (00:45)
[2025-01-15] MEDS ORDERED: NS 1,000 ML IV SCH (01:00)
--- NOTE | 2025-01-15 01:28 | NUR ---
ARRIVAL TO ICU PT ARRIVED TO ICU 13 AT 0000 VIA ED BED AND TRANSFERED OVER TO ICU BED VIA SLIDE SHEET. SHE IS BEING ADMITTED FOR COVID PNUMONIA AND UTI. BROUGHT OVER WITH BIPAP SETTINGS 18/8, FIO2 50%, Vt 550-650, RR LOW 30'S. SHE IS ANSWERING QUESTIONS APPROPRIATLY WITH SHORT ANSWERS, SLEEPING WHEN NOT STIMULATED. CORE TEMP READING FEBRILE 102. AFIB NOTED WITH RATE 60'S. SBP 100-110, MAP 65-75. ROMANO IN PLACE AND DRAINING TO GRAVITY. NEW IV PLACED AND IO PULLED FROM RLE. FINISHING LR BOLUS, HEPARIN GTT STARTED. SEE ADMISSION ASSESSMENT FOR FULL ASSESSMENT.
[2025-01-15 03:21] LABS: Hematocrit 28.4 % (33.0-51.0); Hemoglobin 9.2 g/dL (11.5-16.0); Mean Corpuscular HGB 30.2 pg (26.0-34.0); Mean Corpuscular HGB Conc 32.4 g/dL (31.5-36.5); Mean Corpuscular Volume 93 fL (80-100); Mean Platelet Volume 9.4 fL (9.1-12.4); Platelet Count 118 K/mm3 (150-400); RDW Coefficient Variation 13.4 % (11.7-14.2); RDW Standard Deviation 45.9 fL (35.1-46.3); Red Blood Cell Count 3.05 M/mm3 (3.80-5.20); White Blood Cell Count 5.19 K/mm3 (4.00-11.30)
[2025-01-15 03:32] LABS: Base Excess Venous -4.8 mmol/L; Bicarbonate Venous 20.9 mmol/L (24.0-30.0); PCO2 Venous 35.6 mmHg (38-42); pH Blood Venous 7.37 (7.34-7.37)
[2025-01-15 03:41] LABS: BAND PERCENT MAN 21 % (0-8); BASOPHILS PERCENT MAN 0 % (0-2); EOSINOPHILS PERCENT MAN 0 % (0-6); LYMPHOCYTES ABSOLUTE MAN 0.25 K/mm3 (0.84-5.20); LYMPHOCYTES PERCENT MAN 5 % (21-46); MONOCYTES ABSOLUTE MAN 0.15 K/mm3 (0.16-1.47); MONOCYTES PERCENT MAN 3 % (4-13); NEUTROPHILS ABSOLUTE MAN 4.77 K/mm3 (1.96-9.15); SEG NEUTROPHILS PERCENT MAN 71 % (41-73); TOTAL CELLS COUNTED 100
[2025-01-15 03:42] LABS: Albumin, Blood 2.6 g/dL (3.4-5.0); Albumin/Globulin Ratio 0.8 (0.8-1.8); Bilirubin, Total 0.5 mg/dL (0.1-1.0); Bun/Creatinine Ratio 30.4 (12.0-20.0); Calcium, Blood 7.1 mg/dL (8.5-10.1); Creatinine, Blood 1.25 mg/dL (0.40-1.00); Globulin, Blood 3.3 g/dL (2.2-4.0); Total Protein, Blood 5.9 g/dL (6.4-8.2)
--- NOTE | 2025-01-15 07:24 | NUR ---
END OF SHIFT SUMMARY NO ACUTE NEGATIVE EVENTS SINCE LAST NOTE. SHE IS STARTING TO BECOME MORE ORIENTED AND COMMUNICATING IN FULL SENTENCES; SHE IS USING CALL LIGHT APPROPRIATLY. TEMP NOW 99.3. BIPAP SETTINGS 18/8, FIO2 50%, RR HIGH 20'S TO LOW 30'S; DRY HACKING COUGH NOTED. HR 60-70'S; AFIB TO SINUS RHYTHM NOTED. ONE LARGE SOFT BM AT SHIFT CHANGE. ROMANO IN PLACE AND DRAINING TO GRAVITY. HEPARIN INFUSING AT 15UNITS/KG/HR. NS INFUSING AT 115ML/HR. REPORT GIVEN TO AM RN.
[2025-01-15] MEDS ORDERED: Insulin Human Lispro 100 Units/ML 3ML Syringe SC SCH (07:30)
[2025-01-15] MEDS ORDERED: Doxycycline Hyclate 100 MG in Dextrose 5% 250 ML IV SCH (09:00)
[2025-01-15] MEDS ORDERED: MethylPREDNISolone Sod Succ 125 MG Vial IV SCH ×2 (09:00)
[2025-01-15] MEDS ORDERED: Lactobacil 2-S.Thermo-Bifido 1 1 Cap PO SCH (09:00)
[2025-01-15] MEDS ORDERED: Insulin Glargine-Yfgn 100 Unit/mL 3 ML SYR SC SCH ×2 (09:00)
[2025-01-15] MEDS ORDERED: Sennosides 8.6 MG Tab PO SCH (09:00)
--- NOTE | 2025-01-15 11:52 | NUR ---
THIS RN ASSUMED CARE OF PT AT 0700. PT WAS ALERT AND ORIENTED X2, WAS CONFUSED ABOUT THE SITUATION AND DATE TODAY. PT HEART RATE WAS 50-70s, BLOOD PRESSURE 157/61 MAP OF 88, PT DENIES CHEST PAIN. PT IS ON BIPAP SOUNDS COURSE/DIMINISHED, ON 08/07 HAD TO TITRATE FIO2 TO 80% DUE TO PT DESATTING. DR. VILLARREAL WAS NOTIFIED AND SAW PT BEDSIDE, PT CLINICALLY DOES NOT LOOK WELL, PROVIDER SAID TO D/C FLUIDS, ECHO WAS COMPLETED THIS AM. DR. SIMS WAS CONSULTED AND SAW PT BEDSIDE, C-DIFF TEST WAS COLLECTED BY THIS RN AND SENT TO LAB. PT HGB DROPPED FROM 11.3 TO 9.2, AND TROPONIN SLIGHTLY ELEVATED FROM 1423 TO 1443, PROVIDER HAS BEEN NOTIFIED, NO NEW ORDERS PLACED AT THIS TIME. PT HAS ROMANO CATHETER DRAINING TO GRAVITY. PT HAS HAD 2 LOOSE STOOLS SINCE THIS RN HAS BEEN ON SHIFT. NO OTHER INTERVENTIONS AT THIS TIME. PLAN OF CARE CONTINUED.
[2025-01-15 13:58] LABS: Hematocrit 31.2 % (33.0-51.0); Hemoglobin 10.2 g/dL (11.5-16.0)
--- NOTE | 2025-01-15 14:21 | NUR ---
"Spiritual Care | pt. | Nurse request Pt. is in islation and on a bipap when I visit her room. Pt. verbalized a request for Father Alfonzotus. After confirming that he only visits for an end of life visit, the Pt. again sincerely requested. Took Pt. by the hand and prayed for her. Pt. verbalized gratitude for the spiritual care visit. Action to be taken: Since Pt. is in isolation, I will ask the Eucharistic team if they beleive it would be appropriate for Father Juice to visit. This aircraft load controller will remain available to the Pt. regardless."
[2025-01-15 14:49] LABS: C DIFFICILE DNA NEGATIVE (Negative)
[2025-01-15] MEDS ORDERED: FentaNYL Citrate 50 MCG/ML 2 ML Injection ONE (15:54)
[2025-01-15] MEDS ORDERED: propofoL 100 ML IV PRN (15:55)
[2025-01-15] MEDS ORDERED: Hydrogen Peroxide 1.5 % Solution MT SCH (16:00)
[2025-01-15] MEDS ORDERED: FentaNYL Citrate 50 MCG/ML 2 ML Injection IV ONE (16:35)
[2025-01-15 17:13] LABS: Base Excess Venous -4.5 mmol/L; Bicarbonate Venous 20.7 mmol/L (24.0-30.0); PCO2 Venous 46.4 mmHg (38-42); pH Blood Venous 7.29 (7.34-7.37)
--- NOTE | 2025-01-15 17:37 | NUR ---
PT SUMMARY PT WENT INTO RESPIRATORY DISTRESS AROUND 1530, PT WAS COMPLAINING OF SHORTNESS OF BREATH, BREATHING IN THE UPPER 30s FOR RESPIRATORY RATE. DR. SIMS WAS AT BEDSIDE AND REVIEWED PT CHEST XRAY AND WANTED TO INTUBATE. PT GOT 4MG VERSED, 30MG ETOMIDATE, AND 100 DANG, PT GOT AN ETT TUBE 7.5, 26 AT THE LIPS AT 1548. DR. SIMS WANTED A CENTRAL LINE PLACED, PT GOT 25MCG OF FENTYL AT 1602 FOR CENTRAL LINE PLACEMENT. STAT CHEST XRAY WAS OBTAINED AND DR. SIMS REVIEWED HIMSELF, PROVIDER SAID OG TUBE, ETT AND CENTRAL LINE WAS ALL IN CORRECT POSITION. PT IS BEING SEDATED ON PROPOFOL, STARTED ON 15 MCH/KG/MIN. PT STILL ON HEPARIN, WAS PAUSED FOR ONE HOUR AND RESTARTED AT 1545 AT 12 UNITS/KG/HR. PT ALSO HAVING RUNS OF SVT, HEART RATE IN THE 160s, EKG WAS OBTAINED AND SHOWED SUPRAVENTRICULAR TACHYCARDIA. DR. SIMS WAS NOTIFIED, PROVIDER SAID IF PT SUSTAINS FOR 30 MINUTES, WILL START PT ON AMNIO DRIP. VENTILATOR SETTINGS ARE 28/375/10/75%. NO OTHER INTERVENTIONS AT THIS TIME. PLAN OF CARE CONTINUED.
[2025-01-15] MEDS ORDERED: Remdesivir (EUA) 100 MG in NS 250 ML IV SCH (18:00)
[2025-01-15] MEDS ORDERED: Cetylpyridinium Chloride 1 EA MISC MT SCH (20:00)
[2025-01-15] MEDS ORDERED: CefTRIAXone Sodium 2,000 MG in NS 100 ML IV SCH (21:00)
[2025-01-15] MEDS ORDERED: Insulin Glargine-Yfgn 100 Unit/mL 3 ML SYR SC ONE (21:40)
--- NOTE | 2025-01-15 22:35 | NUR ---
ASSUMED CARE AT 1900 PT LAYING IN BED INTUBATED AND SEDATED. PT SEDATED WITH PORPOFOLINFUSING AT 20MCG/KG/MIN; RASS 0; ABLE TO FOLLOW DIRECTIONS AND ANSWER Y/N QUESTIONS; PT AND SON HERE TO VISIT FOR A SHORT TIME AND PT RECOGNIZED FAMILY. VENT SETTINGS AC/VC 28/350/10/70%; SMALL AMOUNT OF SECREATIONS FROM ETT. AFEBRILE. HR 70'S. SBP 120'S, MAP 60-75. OG CLAMPED; DEPTH >75CM. ROMANO IN PLACE AND DRAINING TO GRAVITY. HEPARIN INFUSING AT 12UNITS/KG/HR. SEE SHIFT ASSESSMENT FOR FULL ASSESSMENT.
[2025-01-15] MEDS ORDERED: Clarify Drug Order XX ONE (23:15)
[2025-01-16] VITALS (88 sets, daily range): BP systolic 103–149; BP diastolic 33–97
[2025-01-16] MEDS ORDERED: Insulin Regular 100 UNIT/ML 10ML Vial SC SCH
[2025-01-16 04:15] LABS: BASOPHILS PERCENT AUTO 0 % (0-2); EOSINOPHILS PERCENT AUTO 0 % (0-6); Hematocrit 29.9 % (33.0-51.0); Hemoglobin 9.8 g/dL (11.5-16.0); IMMATURE GRAN ABSOLUTE AUTO 0.05 K/mm3 (0.00-0.10); IMMATURE GRAN PERCENT AUTO 1 % (0-1); LYMPHOCYTES ABSOLUTE AUTO 0.78 K/mm3 (0.84-5.20); LYMPHOCYTES PERCENT AUTO 8 % (21-46); MONOCYTES ABSOLUTE AUTO 0.55 K/mm3 (0.16-1.47); MONOCYTES PERCENT AUTO 6 % (4-13); Mean Corpuscular HGB 29.9 pg (26.0-34.0); Mean Corpuscular HGB Conc 32.8 g/dL (31.5-36.5); Mean Corpuscular Volume 91 fL (80-100); Mean Platelet Volume 9.5 fL (9.1-12.4); NEUTROPHILS ABSOLUTE AUTO 8.17 K/mm3 (1.96-9.15); NEUTROPHILS PERCENT AUTO 86 % (41-73); Platelet Count 172 K/mm3 (150-400); RDW Coefficient Variation 13.2 % (11.7-14.2); RDW Standard Deviation 44.3 fL (35.1-46.3); Red Blood Cell Count 3.28 M/mm3 (3.80-5.20); White Blood Cell Count 9.55 K/mm3 (4.00-11.30)
[2025-01-16 04:59] LABS: Albumin, Blood 2.6 g/dL (3.4-5.0); Albumin/Globulin Ratio 0.7 (0.8-1.8); Bilirubin, Total 0.6 mg/dL (0.1-1.0); Bun/Creatinine Ratio 35.3 (12.0-20.0); Calcium, Blood 7.5 mg/dL (8.5-10.1); Creatinine, Blood 1.02 mg/dL (0.40-1.00); Globulin, Blood 3.7 g/dL (2.2-4.0); Magnesium, Blood 3.4 mg/dL (1.6-2.4); Phosphorus, Blood 1.6 mg/dL (2.5-4.9); Potassium, Blood 3.7 mmol/L (3.5-5.5); Total Protein, Blood 6.3 g/dL (6.4-8.2)
[2025-01-16] MEDS ORDERED: Dose Adjust by Pharmacy XX STA ×2 (05:13→13:20)
[2025-01-16] MEDS ORDERED: Dexamethasone Sod Phos 10 MG/ML 1ML VIAL IV SCH (06:00)
--- NOTE | 2025-01-16 06:52 | NUR ---
END OF SHIFT SUMMARY NO ACUTE EVENTS OVERNIGHT. PT IS SEDATED WITH PROPOFOL INFUSING AT 40MCG/KG/MIN FOR VENT COMPLIENCE; RASS -2. VENT SETTINGS AC/VC 28/350/10/65%. AFEBRILE. HR 60-80'S, VARIES FROM NSR TO AFIB. SBP 100-130'S; LEVOPHED INFUSING AT 3MCG/MIN TO MAINTAIN MAP >65. ONE LIQUID STOOL THIS SHIFT; OG CLAMPED. ROMANO IN PLACE AND DRAINING TO GRAVITY. HEPARIN INFUSING AT 11UNITS/KG/HR. RIJ DRESSING CHANGED D/T LEAKING. WILL REPORT TO AM RN WHEN AVAILABLE.
[2025-01-16] MEDS ORDERED: Potassium Phos/Sodium Phos 250 MG PACK PO ONE (09:20)
[2025-01-16 10:03] LABS: Base Excess Venous -2.3 mmol/L; Bicarbonate Venous 22.4 mmol/L (24.0-30.0); PCO2 Venous 43.3 mmHg (38-42); pH Blood Venous 7.34 (7.34-7.37)
[2025-01-16] MEDS ORDERED: Docusate Sodium Liquid 100 MG UDC PT PRN (12:05)
[2025-01-16] MEDS ORDERED: Bisacodyl 10 MG Supp PR PRN (12:05)
[2025-01-16] MEDS ORDERED: Vancomycin HCL 2,000 MG in NS 500 ML IV SCH (18:00)
--- NOTE | 2025-01-16 18:13 | NUR ---
SUMMARY PT INTUBATED AND SEDATED WITH PROPOFOL. PT WILL OPEN EYE'S, RFID SPECIALIST HANDS, AND MOVES FEET ON COMMAND. NO SEDATION VACATION PER DR. SIMS. PT GETS AGITATED WITH REPOSITIONING BUT WILL SETTLE WHEN LEFT ALONE. TUBE FEEDS STARTED TODAY AND TOLERATING. LEVOPHED AT 2MCG/MIN, ATTEMPTED TO TITRATE OFF BUT MAP DROPPED BELOW 65. HEPARIN GTT PER PHARMACY. FAMILY IN TO SEE PT BRIEFLY AND UPDATED. NO SIGN OF DISTRESS.
[2025-01-16] MEDS ORDERED: Protein Supplement 30 ML UD PT SCH (21:00)
[2025-01-16] MEDS ORDERED: Insulin Glargine-Yfgn 100 Unit/mL 3 ML SYR SC SCH (21:00)
[2025-01-17] VITALS (43 sets, daily range): BP systolic 109–138; BP diastolic 44–68
[2025-01-17 03:30] LABS: BASOPHILS PERCENT AUTO 0 % (0-2); EOSINOPHILS PERCENT AUTO 0 % (0-6); Hematocrit 26.8 % (33.0-51.0); Hemoglobin 8.7 g/dL (11.5-16.0); IMMATURE GRAN ABSOLUTE AUTO 0.09 K/mm3 (0.00-0.10); IMMATURE GRAN PERCENT AUTO 1 % (0-1); LYMPHOCYTES ABSOLUTE AUTO 0.52 K/mm3 (0.84-5.20); LYMPHOCYTES PERCENT AUTO 7 % (21-46); MONOCYTES ABSOLUTE AUTO 0.39 K/mm3 (0.16-1.47); MONOCYTES PERCENT AUTO 5 % (4-13); Mean Corpuscular HGB 29.9 pg (26.0-34.0); Mean Corpuscular HGB Conc 32.5 g/dL (31.5-36.5); Mean Corpuscular Volume 92 fL (80-100); Mean Platelet Volume 9.5 fL (9.1-12.4); NEUTROPHILS ABSOLUTE AUTO 6.17 K/mm3 (1.96-9.15); NEUTROPHILS PERCENT AUTO 86 % (41-73); Platelet Count 155 K/mm3 (150-400); RDW Coefficient Variation 13.3 % (11.7-14.2); RDW Standard Deviation 45.1 fL (35.1-46.3); Red Blood Cell Count 2.91 M/mm3 (3.80-5.20); White Blood Cell Count 7.17 K/mm3 (4.00-11.30)
[2025-01-17 03:49] LABS: Albumin, Blood 2.3 g/dL (3.4-5.0); Albumin/Globulin Ratio 0.7 (0.8-1.8); Bilirubin, Total 0.5 mg/dL (0.1-1.0); Bun/Creatinine Ratio 34.4 (12.0-20.0); Calcium, Blood 7.2 mg/dL (8.5-10.1); Creatinine, Blood 0.87 mg/dL (0.40-1.00); Globulin, Blood 3.1 g/dL (2.2-4.0); Magnesium, Blood 2.9 mg/dL (1.6-2.4); Phosphorus, Blood 1.2 mg/dL (2.5-4.9); Potassium, Blood 3.7 mmol/L (3.5-5.5); Total Protein, Blood 5.4 g/dL (6.4-8.2)
[2025-01-17] MEDS ORDERED: Clarify Drug Order XX ONE (04:25)
[2025-01-17] MEDS ORDERED: fentaNYL citrate 1,000 MCG in NS 80 ML IV SCH (08:20)
[2025-01-17] MEDS ORDERED: Pantoprazole Sodium 40 MG Injection IV SCH (08:30)
[2025-01-17] MEDS ORDERED: Potassium Phosphate Dibasic 15 MM in Dextrose 5% 250 ML IV STA (09:23)
--- NOTE | 2025-01-17 09:42 | NUR ---
THIS RN ASSUMED CARE OF PT AT 0700. PT IS INTUBATED AND SEDATED ON PROPOFOL AND FENT PER DR. SIMS. PT FOLLOWS COMMANDS, WHEN AWAKE WILL REALLY GO FOR THE TUBE. PT HEART RATE IS IN THE 60s, BLOOD PRESSURE STABLE AT 114/49 MAP OF 66, LEVO IS ON 1MCG. PT SOUNDS CLEAR/DIMINISHED VENTILATOR IS 20/400/10/50%. PT IS ON HEPARIN FOR NEW ONSET A-FIB, PT HAS ROMANO CATHETER DRAINING TO GRAVITY. DR. SIMS SAW PT AT BEDSIDE TODAY, SAID TO KEEP PT INTUBATED TODAY AND LET REST. NO OTHER INTERVENTIONS AT THIS TIME. PLAN OF CARE CONTINUED.
--- NOTE | 2025-01-17 17:40 | NUR ---
PT SUMMARY PT IS STILL INTUBATED AND SEDATED. DR. SIMS WANTED PT TO REST ON VENTILATOR TODAY, SEDATION WAS CHANGED, ADDED FENTYL DRIP TO LOWER THE PROPOFOL. NO OTHER ACUTE EVENTS TO REPORT THROUGHOUT THE DAY. PT STILL WAKES UP AND COUGHS AGGRESSIVELY, BUT RASS IS -1. NO OTHER INTERVENTIONS AT THIS TIME. PLAN OF CARE CONTINUED.
[2025-01-17] MEDS ORDERED: Vancomycin HCL 1,250 MG in NS 250 ML IV SCH (18:00)
--- NOTE | 2025-01-17 20:00 | NUR ---
ASSUMED CARE OF PT AT 1900. REPORT RECEIVED AT [facility]. PT PRESENTS IN BED. INTUBATED. MAINTAINS SATURATIONS > 90 PERCENT. PT SOMEWHAT RESTLESS WITH PROPOFOL AT 25 MCG'S/KG/MIN. LEVOPHED REMAINS ON STANDBY. HEPAIN DRIP CONTINUES. NO S/S BLEED. WILL REVIEW CHART AND PLAN OF CARE FOR THIS PT.
[2025-01-17] MEDS ORDERED: Insulin Glargine-Yfgn 100 Unit/mL 3 ML SYR SC SCH (21:00)
[2025-01-17] MEDS ORDERED: Furosemide 10 MG / ML 2ML Vial IV ONE (21:55)
[2025-01-18] VITALS (57 sets, daily range): BP systolic 94–130; BP diastolic 38–93
--- NOTE | 2025-01-18 | NUR ---
ORDER RECEVIED FROM DR SIMS FOR CHEST XRAY, AND FOR 20 MG LASIX. THIS HAS BEEN GIVEN. PT HAS GOOD URINARY OUTPUT WITH LASIX. HAVE INCREASED PROPOFOL UP TO 35 MCG'S. PT BECOMES VERY ANXIOUS WITH ORAL CARE AND OTHER STIMULI. CONTINUES ON FENTANYL DRIP AT 50 MCG'S/HOUR.
[2025-01-18 04:03] LABS: BASOPHILS PERCENT AUTO 0 % (0-2); EOSINOPHILS ABSOLUTE AUTO 0.03 K/mm3 (0.00-0.68); EOSINOPHILS PERCENT AUTO 1 % (0-6); Hematocrit 24.4 % (33.0-51.0); IMMATURE GRAN ABSOLUTE AUTO 0.13 K/mm3 (0.00-0.10); IMMATURE GRAN PERCENT AUTO 3 % (0-1); LYMPHOCYTES ABSOLUTE AUTO 0.77 K/mm3 (0.84-5.20); LYMPHOCYTES PERCENT AUTO 15 % (21-46); MONOCYTES ABSOLUTE AUTO 0.29 K/mm3 (0.16-1.47); MONOCYTES PERCENT AUTO 6 % (4-13); Mean Corpuscular HGB 30.2 pg (26.0-34.0); Mean Corpuscular HGB Conc 32.8 g/dL (31.5-36.5); Mean Corpuscular Volume 92 fL (80-100); Mean Platelet Volume 9.3 fL (9.1-12.4); NEUTROPHILS ABSOLUTE AUTO 3.98 K/mm3 (1.96-9.15); NEUTROPHILS PERCENT AUTO 77 % (41-73); NRBC ABSOLUTE 0.02 K/mm3 (0.00-0.02); NRBC Auto 0.4 /100 WBC (0.0-0.2); Platelet Count 135 K/mm3 (150-400); RDW Coefficient Variation 13.4 % (11.7-14.2); RDW Standard Deviation 44.4 fL (35.1-46.3); Red Blood Cell Count 2.65 M/mm3 (3.80-5.20)
[2025-01-18 04:23] LABS: Albumin, Blood 2.2 g/dL (3.4-5.0); Albumin/Globulin Ratio 0.7 (0.8-1.8); Bilirubin, Total 0.4 mg/dL (0.1-1.0); Bun/Creatinine Ratio 35.8 (12.0-20.0); Calcium, Blood 7.2 mg/dL (8.5-10.1); Creatinine, Blood 0.87 mg/dL (0.40-1.00); Potassium, Blood 3.7 mmol/L (3.5-5.5); Total Protein, Blood 5.2 g/dL (6.4-8.2)
[2025-01-18] MEDS ORDERED: Dose Adjust by Pharmacy XX STA (06:11)
--- NOTE | 2025-01-18 06:31 | NUR ---
PT HAS REMAINED OFF LEVOPHED THROUGHOUT THE NIGHT. HAS MAINTAINED WITH MAP > 65. PT HAS HAD DROP IN HEART RATE WHEN PROPOFOL WAS INCREASED TO 35 MCG'S/KG/MIN. HAVE BROUGHT DRIP BACK TO 30 MCG'S/KG/MIN. HEART RATE REMAINS 55-65. HAVE SUCTIONED PT PER ETT WITH RETURN OF LIGHT PARMAR COLORED SECRETIONS. PT HAS TOLERATED Q 2 HOUR TURNS IN BED FAIR TO GOOD. FULL BEDBATH WITH LINEN CHANGE DONE THIS NIGHT. WILL CONTINUE TO MONITOR PT, AND WILL REPORT OFF TO ONCOMING RN.
[2025-01-18 12:43] LABS: Hematocrit 25.7 % (33.0-51.0); Hemoglobin 8.4 g/dL (11.5-16.0); Mean Platelet Volume 9.6 fL (9.1-12.4); Platelet Count 146 K/mm3 (150-400)
--- NOTE | 2025-01-18 18:40 | NUR ---
SUMMARY PT INTUBATED AND SEDATED WITH PROPOFOL AND FENTANYL. TITRATED FENTANYL DOWN FOR RASS SEE FLOWSHEET. PT GETS AGITATED AND STARTS COUGHING WITH REPOSTIONING AND ANY CARE BUT WILL SETTLE WHEN LEFT ALONE. NOW WILL OPEN EYE'S TO VOICE. CAN TOWER HOIST OPERATOR HANDS. TOLERATING TUBE FEEDS. REMAINS ON HEPARIN GTT. NO ACUTE CHANGES THIS SHIFT.
--- NOTE | 2025-01-18 20:00 | NUR ---
ASSUMED CARE OF PT AT 1900. REPORT RECEIVED. PT PRESENTS IN BED. INTUBATED. AC/PC 20, 18/10 WITH 45 PERCENT FIO2. NO S/S DISTRESS TO NOTE. FENTANYL AT 25 MCG'S/HOUR. PROPOFOL AT 35 MCG'S. WILL REVIEW CHART AND PLAN OF CARE FOR THIS PT.
[2025-01-19] VITALS (30 sets, daily range): BP systolic 104–131; BP diastolic 32–69
[2025-01-19 03:56] LABS: Hematocrit 24.7 % (33.0-51.0); Mean Corpuscular HGB 30.2 pg (26.0-34.0); Mean Corpuscular HGB Conc 32.4 g/dL (31.5-36.5); Mean Corpuscular Volume 93 fL (80-100); Mean Platelet Volume 9.3 fL (9.1-12.4); NRBC ABSOLUTE 0.03 K/mm3 (0.00-0.02); NRBC Auto 0.5 /100 WBC (0.0-0.2); Platelet Count 155 K/mm3 (150-400); RDW Coefficient Variation 13.3 % (11.7-14.2); RDW Standard Deviation 45.2 fL (35.1-46.3); Red Blood Cell Count 2.65 M/mm3 (3.80-5.20); White Blood Cell Count 5.94 K/mm3 (4.00-11.30)
[2025-01-19 04:17] LABS: Albumin, Blood 2.2 g/dL (3.4-5.0); Albumin/Globulin Ratio 0.8 (0.8-1.8); Bilirubin, Total 0.5 mg/dL (0.1-1.0); Bun/Creatinine Ratio 43.2 (12.0-20.0); Calcium, Blood 7.3 mg/dL (8.5-10.1); Creatinine, Blood 0.76 mg/dL (0.40-1.00); Globulin, Blood 2.9 g/dL (2.2-4.0); Magnesium, Blood 2.4 mg/dL (1.6-2.4); Potassium, Blood 3.8 mmol/L (3.5-5.5); Total Protein, Blood 5.1 g/dL (6.4-8.2)
[2025-01-19 04:35] LABS: BAND PERCENT MAN 5 % (0-8); BASOPHILS PERCENT MAN 0 % (0-2); EOSINOPHILS ABSOLUTE MAN 0.11 K/mm3 (0.00-0.68); EOSINOPHILS PERCENT MAN 2 % (0-6); LYMPHOCYTES % ATYPICAL MANUAL 1 % (0-0); LYMPHOCYTES ABSOLUTE MAN 0.95 K/mm3 (0.84-5.20); LYMPHOCYTES PERCENT MAN 15 % (21-46); METAMYELOCYTE ABSOLUTE MAN 0.05 K/mm3 (0.00-0.00); METAMYELOCYTE PERCENT MAN 1 % (0-0); MONOCYTES ABSOLUTE MAN 0.17 K/mm3 (0.16-1.47); MONOCYTES PERCENT MAN 3 % (4-13); MYELOCYTE ABSOLUTE MAN 0.11 K/mm3 (0.00-0.00); MYELOCYTE PERCENT MAN 2 % (0-0); NEUTROPHILS ABSOLUTE MAN 4.51 K/mm3 (1.96-9.15); SEG NEUTROPHILS PERCENT MAN 71 % (41-73); TOTAL CELLS COUNTED 100
--- NOTE | 2025-01-19 06:46 | NUR ---
PT HAS COMPLETION OF BED BATH THIS NIGHT. FULL LINEN CHANGE DONE. PT CONTINUES ON PROPOFOL AT 45 MCG'S/KG/MIN. FENTANYL HAS BEEN INCREASED BACK TO 50 MCG'S/HOUR SECONDARY TO PT HAVING ISSUES WITH STACKING RESPIRATIONS. THIS HAS HELPED. RESPIRATORY HAS CHANGED VENT TO AC/VC PLUS. PT TOLERATING THIS WELL. HAVE BEEN ABLE TO SUCTION PARMAR COLORED SECRETIONS PER ETT. PT REMAINS AFEBRILE THROUGHOUT THE NIGHT. NO S/S ADVERSE REACTIONS TO ANTIBIOTIC THERAPY. WILL CONTINUE TO MONITOR PT, AND WILL REPORT OFF TO ONCOMING RN. OF NOTE: SEDATION VACATION DONE THIS MORNING. PT WOULD OPEN EYES. WOULD NOT RESPOND TO ANY COMMANDS.
--- NOTE | 2025-01-19 07:33 | NUR ---
THIS RN ASSUMED CARE OF PT AT 0700. PT IS INTUBATED AND SEDATED, NO PURPOSEFUL MOVEMENT, WILL OPEN EYES SPONTANEOUSLY, LOCALIZES TO PAIN. PT HEART RATE IS IN THE 60s, LOOKS LIKE 1ST DEGREE HB, BLOOD PRESSURE STABLE AT 115/52, UNABLE TO ASSESS FOR CHEST PAIN DUE TO SEDATION. PT IS ON VENTILATOR 25/300/45%/8, PT SATTING >90%. PT HAS PUNCTURE WOOUNDS FROM IOs PLACED IN ED. PT HAS ROMANO CATHETER DRAINING TO GRAVITY. PT HAS QUAD LUMEN CENTRAL LINE IN RIGHT IJ, DRESSING IS CLEAN/DRY/INTACT. NO OTHER INTERVENTIONS AT THIS TIME. PLAN OF CARE CONTINUED.
[2025-01-19] MEDS ORDERED: Furosemide 10 MG / ML 2ML Vial IV ONE (12:05)
--- NOTE | 2025-01-19 12:17 | NUR ---
AT AROUND 1145, PT WAS HAVING PINK TINGED SPUTUM SUCTIONED FROM ET TUBE. RT THIS AM SAID THEY SUCTIONED BRIGHT RED BLOOD FROM ET TUBE. DR. GALLEGOS HAS BEEN NOTIFIED, PROVIDER PUT IN NEW ORDERS.
--- NOTE | 2025-01-19 18:07 | NUR ---
PT SUMMARY PT IS STILL INTUBATED AND SEDATED, FAMILY WAS AT BEDSIDE TODAY. PT HAD BRIGHT RED BLOOD FROM ET TUBE, THEN PINK TINGED SPUTUM, DR. GALLEGOS WAS NOTIFIED, NO OTHER OBJECTIVE S/S OF BLEEDING, DR. GALLEGOS PLACED NEW ORDERS. PT DID HAVE SOME VENTILATOR SYNCHRONY ISSUED LATER IN THE AFTERNOON AFTER PT WAS TURNED AND VISITED BY FAMILY. THIS HAS RESOLVED SINCE THEN. NO OTHER INTERVENTIONS AT THIS TIME. PLAN OF CARE CONTINUED.
[2025-01-20] VITALS (23 sets, daily range): BP systolic 97–131; BP diastolic 38–75
[2025-01-20 05:04] LABS: Hematocrit 26.7 % (33.0-51.0); Hemoglobin 8.5 g/dL (11.5-16.0); Mean Corpuscular HGB 29.9 pg (26.0-34.0); Mean Corpuscular HGB Conc 31.8 g/dL (31.5-36.5); Mean Corpuscular Volume 94 fL (80-100); Mean Platelet Volume 9.7 fL (9.1-12.4); NRBC ABSOLUTE 0.06 K/mm3 (0.00-0.02); NRBC Auto 0.6 /100 WBC (0.0-0.2); Platelet Count 187 K/mm3 (150-400); RDW Coefficient Variation 13.3 % (11.7-14.2); RDW Standard Deviation 45.7 fL (35.1-46.3); Red Blood Cell Count 2.84 M/mm3 (3.80-5.20); White Blood Cell Count 9.32 K/mm3 (4.00-11.30)
[2025-01-20 05:27] LABS: BAND PERCENT MAN 7 % (0-8); BASOPHILS PERCENT MAN 0 % (0-2); EOSINOPHILS ABSOLUTE MAN 0.18 K/mm3 (0.00-0.68); EOSINOPHILS PERCENT MAN 2 % (0-6); LYMPHOCYTES ABSOLUTE MAN 1.39 K/mm3 (0.84-5.20); LYMPHOCYTES PERCENT MAN 15 % (21-46); MONOCYTES ABSOLUTE MAN 0.18 K/mm3 (0.16-1.47); MONOCYTES PERCENT MAN 2 % (4-13); MYELOCYTE ABSOLUTE MAN 0.27 K/mm3 (0.00-0.00); MYELOCYTE PERCENT MAN 3 % (0-0); NEUTROPHILS ABSOLUTE MAN 7.26 K/mm3 (1.96-9.15); SEG NEUTROPHILS PERCENT MAN 71 % (41-73); TOTAL CELLS COUNTED 100
[2025-01-20 05:39] LABS: Albumin, Blood 2.3 g/dL (3.4-5.0); Albumin/Globulin Ratio 0.7 (0.8-1.8); Bilirubin, Total 0.5 mg/dL (0.1-1.0); Bun/Creatinine Ratio 49.3 (12.0-20.0); Calcium, Blood 7.4 mg/dL (8.5-10.1); Creatinine, Blood 0.75 mg/dL (0.40-1.00); Globulin, Blood 3.2 g/dL (2.2-4.0); Potassium, Blood 3.7 mmol/L (3.5-5.5); Total Protein, Blood 5.5 g/dL (6.4-8.2)
--- NOTE | 2025-01-20 06:54 | NUR ---
PT HAS HAD SOME BLOODY SECRETIONS FROM ETT. DR GALLEGOS ORDERS FOR HEPARIN DRIP TO BE DISCONTINUED WHICH THIS HAS BEEN DONE. SECRETIONS LESS RED IN NATURE. PT HAS RECEIVED FULL BED BATH THIS NIGHT WITH LINEN CHANGES. SHE DOES REACH UP TOWARDS HER ETT WHEN HANDS ARE UNRESTRAINED. HAS TOLERATED Q 2 HOUR TURNS IN BED. FENTANYL DRIP CONTINUES AT 75 MCG'S/HOUR. PROPOFOL AT 40 MCG'S/KG/MIN WILL CONTINUE TO MONITOR PT, AND WILL REPORT OFF TO ONCOMING RN.
--- NOTE | 2025-01-20 07:53 | NUR ---
THIS RN ASSUMED CARE OF PT AT 0700. PT IS STILL INTUBATED AND SEDATED, WILL OPEN EYES SPONTANEOUSLY, AND LOCALIZES TO PAIN, HAS NO PURPOSEFUL MOVEMENT. PT HEART RATE IN THE 70s, BLOOD PRESSURE STABLE AT 125/63 MAP OF 82, UNABLE TO ASSESS FOR CHEST PAIN DUE TO SEDATION BUT LOOKS LIKE PT HAS FIRST DEGREE HB. PT IS ON VENTILATOR 22/300/45%/8, NO OBJECTIVE S/S OF SHORTNESS OF BREATH OR TORUBLE VENTILATING. PT DOES HAVE ROMANO CATHETER DRAINING TO GRAVITY. PT HAS CENTRAL LINE IN RIGHT IJ, DRESSING IS CLEAN/DRY/INTACT. HEPARIN WAS STOPPED LAST NIGHT DUE TO MORE RED SPUTUM FROM ET TUBE. NO OTHER INTERVENTIONS AT THIS TIME. PLAN OF CARE CONTINUED.
[2025-01-20] MEDS ORDERED: Furosemide 10 MG / ML 2ML Vial IV ONE ×2 (09:00→17:05)
[2025-01-20 17:33] LABS: Vancomycin, Trough 17.4 ug/mL (5.0-10.0)
[2025-01-20 17:51] LABS: Bun/Creatinine Ratio 50.8 (12.0-20.0); Calcium, Blood 7.5 mg/dL (8.5-10.1); Creatinine, Blood 0.73 mg/dL (0.40-1.00); Magnesium, Blood 2.1 mg/dL (1.6-2.4); Potassium, Blood 4.5 mmol/L (3.5-5.5)
--- NOTE | 2025-01-20 18:22 | NUR ---
PT SUMMARY PT DID HAVE SOME EKG CHANGES, NOTIFIED, BMP AND MAG WAS DRAWN, LABS WERE EXACTLY WHERE ACCEPTABLE FOR , PROVIDER ORDERED ANOTHER 20MG OF IV LASIX. NO OTHER ACUTE EVENTS THROUGHOUT THE DAY. PT HAVING VERY ADEQUATE URINE OUTPUT. NO OTHER INTERVENTIONS AT THIS TIME. PLAN OF CARE CONTINUED.
[2025-01-21] VITALS (60 sets, daily range): BP systolic 86–126; BP diastolic 46–69
[2025-01-21 04:05] LABS: Hematocrit 26.7 % (33.0-51.0); Hemoglobin 8.7 g/dL (11.5-16.0); Mean Corpuscular HGB 30.1 pg (26.0-34.0); Mean Corpuscular HGB Conc 32.6 g/dL (31.5-36.5); Mean Corpuscular Volume 92 fL (80-100); Mean Platelet Volume 9.7 fL (9.1-12.4); NRBC ABSOLUTE 0.03 K/mm3 (0.00-0.02); NRBC Auto 0.3 /100 WBC (0.0-0.2); Platelet Count 214 K/mm3 (150-400); RDW Coefficient Variation 13.5 % (11.7-14.2); RDW Standard Deviation 44.7 fL (35.1-46.3); Red Blood Cell Count 2.89 M/mm3 (3.80-5.20); White Blood Cell Count 11.01 K/mm3 (4.00-11.30)
[2025-01-21 04:42] LABS: Albumin, Blood 2.3 g/dL (3.4-5.0); Albumin/Globulin Ratio 0.7 (0.8-1.8); Bilirubin, Total 0.5 mg/dL (0.1-1.0); Bun/Creatinine Ratio 47.8 (12.0-20.0); Calcium, Blood 7.7 mg/dL (8.5-10.1); Creatinine, Blood 0.75 mg/dL (0.40-1.00); Globulin, Blood 3.4 g/dL (2.2-4.0); Potassium, Blood 3.8 mmol/L (3.5-5.5); Total Protein, Blood 5.7 g/dL (6.4-8.2)
[2025-01-21 05:50] LABS: BAND PERCENT MAN 1 % (0-8); BASOPHILS PERCENT MAN 0 % (0-2); EOSINOPHILS ABSOLUTE MAN 0.66 K/mm3 (0.00-0.68); EOSINOPHILS PERCENT MAN 6 % (0-6); LYMPHOCYTES ABSOLUTE MAN 1.21 K/mm3 (0.84-5.20); LYMPHOCYTES PERCENT MAN 11 % (21-46); METAMYELOCYTE ABSOLUTE MAN 0.55 K/mm3 (0.00-0.00); METAMYELOCYTE PERCENT MAN 5 % (0-0); MONOCYTES ABSOLUTE MAN 0.55 K/mm3 (0.16-1.47); MONOCYTES PERCENT MAN 5 % (4-13); MYELOCYTE ABSOLUTE MAN 0.11 K/mm3 (0.00-0.00); MYELOCYTE PERCENT MAN 1 % (0-0); NEUTROPHILS ABSOLUTE MAN 7.92 K/mm3 (1.96-9.15); SEG NEUTROPHILS PERCENT MAN 71 % (41-73); TOTAL CELLS COUNTED 100
[2025-01-21] MEDS ORDERED: Enoxaparin 40 MG/0.4 ML SYR SC SCH ×2 (09:00)
--- NOTE | 2025-01-21 17:59 | NUR ---
DAY SHIFT SUMMARY PT BEGAN SHIFT W RASS OF -1 COUGHING FREQUENTLY ON THE VENTILATOR W SPO2 DESATURATIONS W ANY ACTIVITY OR SUCTION. PT DOUBLE STACKING HER RESPIRATIONS W PROPOFOL GTT INFUSING AT 40 MCG/KG/MIN AND FENTANYL GTT INFUSING AT 75 MCG/HR. PT WAS GIVEN 1 MG OF IV ATIVAN WHICH CALMED HER BREATHING DOWN ALLOWING MUCH BETTER VENTILATOR COMPLIANCE AND BRINGING HER RESP RATE FROM MID 30'S TO 22. PEEP TITRATED DOWN TO 5.[address] GALLEGOS WHICH SHE TOLERATED WELL. FIO2 TITRATED FROM 45% TO 40% THIS SHIFT. PT'S BP DROPPING FOR SHORT PERIOD OF TIME AFTER ATIVAN ADMINISTRATION BUT RECOVERED AND REMAINED STABLE W MAP >65. MOINTOR SHOWING SR 60'S-80'S THIS SHIFT W 1ST DEGREE AV BLOCK FOR MOST OF THE SHIFT. PT DID HAVE ONE BRIEF EPISODE OF SVT AT 150 BPM DURING ET TUBE SUCTIONING WHICH SELF RESOLVED W/O INTERVENTION. PT AFEBRILE THIS SHIFT. PT'S CBG'S STABLE W TF INFUSING AT GOAL RATE. ROMANO PATENT AND DRAINED 1300ML CLEAR YELLOW URINE THIS SHIFT. PT W MINIMAL SECRETIONS FROM THE ET TUBE BUT HAS HAD COPIOUS ORAL SECRETIONS. NO BM THIS SHIFT. WILL REPORT TO ONCOMING RN.
[2025-01-21] MEDS ORDERED: Lactobacil 2-S.Thermo-Bifido 1 1 Cap PT SCH (21:00)
--- NOTE | 2025-01-21 21:16 | NUR ---
ASSUMPTION OF CARE: ASSUMED CARE OF PT AT 1915. PT INTUBATED AND SEDATED ON 35 MCG/KG/MIN OF PROPOFOL AND 75 MCG/HR OF FENTANYL. PT OPENS EYES TO VERBAL STIMULI AND ATTEMPTS TO FOLLOW COMMANDS. PT VERY WEAK IN ALL EXTREMETIES BUT ATTEMPTS TO MOVE THEM ALL. VENT SETTINGS AC/VC 22/350/5/40%. PT DESATS WITH MOVEMENT AND COUGHS REPEATEDLY. CURRENTLY SATTING 94%. LUNGS DIM. ETCO2 36. ENERGY CONSULTANT IN PLACE, SR WITH HR 60'S. SBP 100-120'S. MAP >65. CENTRAL LINE TO RIJ PATENT. PIV TO LW PATENT AND SALINE LOCKED. TEMP ROMANO IN PLACE, DRAINING TO GRAVITY YELLOW URINE. NO BM YET. TUBE FEED AT GOAL THROUGH OGT. BED LOW AND LOCKED.
[2025-01-22] VITALS (94 sets, daily range): BP systolic 98–138; BP diastolic 41–114
[2025-01-22 04:28] LABS: Hemoglobin 8.3 g/dL (11.5-16.0); Mean Corpuscular HGB 29.6 pg (26.0-34.0); Mean Corpuscular HGB Conc 31.9 g/dL (31.5-36.5); Mean Corpuscular Volume 93 fL (80-100); Mean Platelet Volume 9.6 fL (9.1-12.4); NRBC ABSOLUTE 0.02 K/mm3 (0.00-0.02); NRBC Auto 0.2 /100 WBC (0.0-0.2); Platelet Count 218 K/mm3 (150-400); RDW Coefficient Variation 13.6 % (11.7-14.2); RDW Standard Deviation 44.7 fL (35.1-46.3); White Blood Cell Count 8.21 K/mm3 (4.00-11.30)
[2025-01-22 04:50] LABS: Albumin, Blood 2.2 g/dL (3.4-5.0); Albumin/Globulin Ratio 0.7 (0.8-1.8); Bilirubin, Total 0.6 mg/dL (0.1-1.0); Calcium, Blood 7.9 mg/dL (8.5-10.1); Creatinine, Blood 0.66 mg/dL (0.40-1.00); Globulin, Blood 3.2 g/dL (2.2-4.0); Potassium, Blood 3.8 mmol/L (3.5-5.5); Total Protein, Blood 5.4 g/dL (6.4-8.2)
[2025-01-22 05:29] LABS: BAND PERCENT MAN 2 % (0-8); BASOPHILS PERCENT MAN 0 % (0-2); EOSINOPHILS ABSOLUTE MAN 0.08 K/mm3 (0.00-0.68); EOSINOPHILS PERCENT MAN 1 % (0-6); LYMPHOCYTES ABSOLUTE MAN 1.06 K/mm3 (0.84-5.20); LYMPHOCYTES PERCENT MAN 13 % (21-46); METAMYELOCYTE ABSOLUTE MAN 0.32 K/mm3 (0.00-0.00); METAMYELOCYTE PERCENT MAN 4 % (0-0); MONOCYTES ABSOLUTE MAN 0.16 K/mm3 (0.16-1.47); MONOCYTES PERCENT MAN 2 % (4-13); NEUTROPHILS ABSOLUTE MAN 6.56 K/mm3 (1.96-9.15); SEG NEUTROPHILS PERCENT MAN 78 % (41-73); TOTAL CELLS COUNTED 100
--- NOTE | 2025-01-22 06:20 | NUR ---
SHIFT SUMMARY: PT REMAINS INTUBATED AND SEDATED ON 30 MCG/KG/MIN OF PROPOFOL WITH FENTANYL 75 MCG/HR AN ADJUNCT. PT OPENS EYES AND MOVES ALL EXTREMETIES ALTHOUGH VERY WEAK. PT HAS VERY PRODUCTIVE COUGH WITH MOVEMENT AND DESATS EASILY TO THE HIGH 70'S WITH MOVEMENT. RECOVERS AFTER TURNS AND MAINTAINS IN THE MID 90'S. VENT SETTINGS UNCHANGED THIS SHIFT. TERRESTRIAL ECOLOGIST IN PLACE, SR WITH HR 80'S. SBP SOFT AT TIMES. MAP <65 AT TIMES, PROPOFOL TURNED DOWN AND BP IMPROVED. PT HAS LARGE AMOUNT OF SECRETIONS BOTH ORAL AND FROM ET TUBE. CENTRAL LINE TO RIJ PATENT AND INFUSING. PIV TO LW PATENT AND SALINE LOCKED. ROMANO PATENT AND DRAINING TO GRAVITY. NO BM THIS SHIFT. TUBE FEED REMAINS AT GOAL THROUGH OGT. BED LOW AND LOCKED.
[2025-01-22 10:58] LABS: Phosphorus, Blood 2.7 mg/dL (2.5-4.9)
[2025-01-22] MEDS ORDERED: LORazepam 2 MG/ML 1ML Injection IV PRN ×2 (11:20→20:45)
[2025-01-22] MEDS ORDERED: Ipratropium/Albuterol SulF 2.5-0.5MG/3 ML Amp INH SCH (11:20)
[2025-01-22] MEDS ORDERED: Protein Supplement 30 ML UD PT SCH (14:00)
--- NOTE | 2025-01-22 18:11 | NUR ---
DAY SHIFT SUMMARY PT REMAINED INTUBATED AND SEDATED THIS SHIFT. PT W RASS OF -1 TO -3 THIS SHIFT MAKING EYE CONTACT W VERBAL STIMUULI BUT NOT FOLLOWING ANY COMMANDS. PT ON PROPOFOL AND FENTANYL GTT'S FOR SEDATION. PT HAVING MUCH BETTER DAY ON VENT COMPARED TO PREVIOUS DAY SHIFT SHE HAD VERY MINIMAL BREATH STACKING THIS SHIFT. VENT SETTINGS UNCHANGED W FIO2 AT 45%. PT'S BP WNL AND STABLE THIS SHIFT. PT AFEBRILE THIS SHIFT. PT HAD 3 RUNS OF WHAT APPEARED TO BE AFLUTTER THE FIRST 2 LASTING A FEW MINIUTES BEFORE SELF RESOLVING AND THE THIRD OBNE LASTING 30 MINUTES W A RATE OF 150, DR. TATUM PRESENT DURING THIRD EVENT AND IT TOO SELF RESOLVED W/O INTERVENTIONS. PICC LINE PLACED AND RIJ REMOVED THIS SHIFT. PT'S ROMANO PATENT AND DRAINING CLEAR YELLOW URINE THIS SHIFT, SEE I&O'S FOR DETAILS. TF INCREASED TO 25ML/HR THIS SHIFT. NO FAMILY CONTACT MADE THIS SHIFT. ET TUBE PULLED OUT 1CM BY RT PER DR. TATUM, ET TUBE NOW 24CM AT PT'S UPPER TEETH. WILL REPORT TO ONCOMING RN.
--- NOTE | 2025-01-22 22:42 | NUR ---
ASSUMPTION OF CARE: ASSUMED CARE OF PT AT 1900. PT INTUBATED AND SEDATED ON 20 MCG/KG/MIN OF PROPOFOL AND 75 MCG/HR OF FENTANYL. OPENS EYES TO VERBAL STIMULI, DOES NOT FOLLOW COMMANDS. MOVES EXTRMETIES ALTHOUGH VERY WEAK. PT DOUBLE STACKING THE VENT AND COUGHING CONTINUOUSLY. PROPOFOL INCREASED TO 35 MCG/KG/MIN AND GIVEN PRN ATIVAN, PT APPEARS MORE COMFORTABLE AND TOLERATING VENT. VENT SETTINGS AC/VC 22/350/5/45%. ETT 7.5 24 AT TEETH. PERSONAL DEVELOPMENT EDUCATOR IN PLACE, SB/SR WITH PVC'S AND PAC'S. HR 45-60. DR. TATUM MADE AWARE OF BRADYCARDIA. SBP SOFT. MAP OCCASIONALLY BELOW 65. DR. TATUM AWARE AND ORDER GIVEN FOR EPI DRIP IF MAP CONTINUES TO STAY BELOW 65. ROMANO PATENT AND DRAINING TO GRAVITY. NO BM YET. TUBE FEED AT 25 ML/HR THROUGH OGT. PICC TO DEMARIO PATENT AND INFUSING. BED LOW AND LOCKED.
[2025-01-23] VITALS (94 sets, daily range): BP systolic 90–162; BP diastolic 37–98
--- NOTE | 2025-01-23 00:30 | NUR ---
NURSE NOTE: THIS RN PUT IN ORDER FOR EPINEPHERINE DRIP AT REQUEST OF AJIT JACOBSEN PER DR TATUM.
[2025-01-23 05:20] LABS: Hematocrit 27.3 % (33.0-51.0); Hemoglobin 8.8 g/dL (11.5-16.0); Mean Corpuscular HGB 29.7 pg (26.0-34.0); Mean Corpuscular HGB Conc 32.2 g/dL (31.5-36.5); Mean Corpuscular Volume 92 fL (80-100); Mean Platelet Volume 9.3 fL (9.1-12.4); Platelet Count 343 K/mm3 (150-400); RDW Coefficient Variation 13.9 % (11.7-14.2); RDW Standard Deviation 45.5 fL (35.1-46.3); Red Blood Cell Count 2.96 M/mm3 (3.80-5.20); White Blood Cell Count 15.65 K/mm3 (4.00-11.30)
[2025-01-23 05:43] LABS: BAND PERCENT MAN 5 % (0-8); BASOPHILS PERCENT MAN 0 % (0-2); EOSINOPHILS ABSOLUTE MAN 0.15 K/mm3 (0.00-0.68); EOSINOPHILS PERCENT MAN 1 % (0-6); LYMPHOCYTES ABSOLUTE MAN 1.25 K/mm3 (0.84-5.20); LYMPHOCYTES PERCENT MAN 8 % (21-46); METAMYELOCYTE ABSOLUTE MAN 0.15 K/mm3 (0.00-0.00); METAMYELOCYTE PERCENT MAN 1 % (0-0); MONOCYTES ABSOLUTE MAN 0.62 K/mm3 (0.16-1.47); MONOCYTES PERCENT MAN 4 % (4-13); NEUTROPHILS ABSOLUTE MAN 13.45 K/mm3 (1.96-9.15); SEG NEUTROPHILS PERCENT MAN 81 % (41-73); TOTAL CELLS COUNTED 100
[2025-01-23 05:50] LABS: Albumin, Blood 2.3 g/dL (3.4-5.0); Albumin/Globulin Ratio 0.7 (0.8-1.8); Bilirubin, Total 0.6 mg/dL (0.1-1.0); Bun/Creatinine Ratio 57.7 (12.0-20.0); Calcium, Blood 8.3 mg/dL (8.5-10.1); Creatinine, Blood 0.69 mg/dL (0.40-1.00); Globulin, Blood 3.4 g/dL (2.2-4.0); Magnesium, Blood 2.2 mg/dL (1.6-2.4); Phosphorus, Blood 2.9 mg/dL (2.5-4.9); Potassium, Blood 4.1 mmol/L (3.5-5.5); Total Protein, Blood 5.7 g/dL (6.4-8.2)
--- NOTE | 2025-01-23 06:08 | NUR ---
SHIFT SUMMARY: PT REMAINS INTUBATED AND SEDATED. VENT SETTINGS AC/VC+ 22/385/5/65%. PROPOFOL AT 35 MCG/KG/MIN. FENTANYL AT 75 MCG/HR. SEDATION INCREASED FOR VENT TOLERANCE. PT CONTINUING TO DOUBLE STACK AND HAS A HACKING COUGH. GIVEN MUTLIPLE DOSES OF PRN ATIVAN. EPI DRIP STARTED THIS SHIFT FOR MAP <65. CURRENTLY AT 4 MCG/MIN. SEE FLOWSHEET FOR TITRATIONS. HR 40'S-50'S THIS SHIFT. PICC TO MALLY PATENT AND INFUSING. ROMANO PATENT AND DRAINING TO GRAVITY. AFEBRILE THIS SHIFT. TUBE FEED AT GOAL THROUGH OGT. PT HAVING LARGE AMOUNT OF SECRETIONS FROM MOUTH AND ET TUBE. BED LOW AND LOCKED
[2025-01-23] MEDS ORDERED: Insulin Glargine-Yfgn 100 Unit/mL 3 ML SYR SC ONE (11:00)
[2025-01-23] MEDS ORDERED: NS 250 ML IV PRN (11:05)
--- NOTE | 2025-01-23 13:31 | NUR ---
UPDATE DR. TATUM CALLED AND NOTIFIED BY THIS RN THAT THE PT HAD BECOME BRADYCARDIC W HR 49-53 W EPI GTT AT 4 MCG/MIN. DR. TATUM ALSO NOTIFIED THAT PT'S DBP WAS <40 AND SBP IN THE 130'S. DR. TATUM GIVING VERBAL INSTRUCTIONS TO TURN EPI GTT UP TO 6 MCG/MIN TO HELP W HR AND BP.
[2025-01-23] MEDS ORDERED: EPINEPHrine HCL 16 MG in NS 250 ML IV SCH (13:45)
[2025-01-23 17:49] LABS: Vancomycin, Trough 19.6 ug/mL (5.0-10.0)
--- NOTE | 2025-01-23 18:33 | NUR ---
DAY SHIFT SUMMARY PT PLACED ON SPONTANEOUS THIS SHIFT W PROPOFOL GTT ON STAND-BY WHICH SHE TOLERATED FOR ABOUT AN HR BUT SHE CONTINUED TO HAVE COUGHING FITS CAUSING HER SPO2 TO DROP <80% SO SHE WAS RESEDATED AND PLACED BACK ON AC/VC. PT'S BP INCREASING T/O THE SHIFT W EPI GTT ON. PT'S MONITOR SHOWING SB 50'S ON EPI GTT BUT WAS IN THE 80'S W PROPOFOL GTT WAS OFF SO EPI GTT WAS PLACED ON STAND-BY WHILE PROPOFOL GTT WAS OFF. PT DID HAVE ONE EPISODE OF TACHYCARDIA IN THE 130'S THAT SELF RESOLVED AFTER < 2 MINUTES. CBG'S ELEVATED W CBG 356 THIS AFTERNOON, DR. TATUM AWARE AND 15 UNITS HUMILIN R GIVEN. PT RECIEVED A SUPPOSITORY THIS SHIFT AND HAD A MODERATE SIZED BROWN BM AFTERWARDS. ROMANO PATENT AND DRAINING CLEAR YELLOW URINE. WILL REPORT TO ONCOMING RN.
[2025-01-23] MEDS ORDERED: Vancomycin HCL 1,000 MG in NS 250 ML IV SCH (19:00)
[2025-01-24] VITALS (63 sets, daily range): BP systolic 57–170; BP diastolic 29–114
[2025-01-24 03:50] LABS: BASOPHILS ABSOLUTE AUTO 0.03 K/mm3 (0.00-0.23); BASOPHILS PERCENT AUTO 0 % (0-2); EOSINOPHILS ABSOLUTE AUTO 0.41 K/mm3 (0.00-0.68); EOSINOPHILS PERCENT AUTO 4 % (0-6); Hematocrit 26.7 % (33.0-51.0); Hemoglobin 8.7 g/dL (11.5-16.0); IMMATURE GRAN ABSOLUTE AUTO 0.26 K/mm3 (0.00-0.10); IMMATURE GRAN PERCENT AUTO 2 % (0-1); LYMPHOCYTES PERCENT AUTO 12 % (21-46); MONOCYTES PERCENT AUTO 7 % (4-13); Mean Corpuscular HGB 30.1 pg (26.0-34.0); Mean Corpuscular HGB Conc 32.6 g/dL (31.5-36.5); Mean Corpuscular Volume 92 fL (80-100); Mean Platelet Volume 9.1 fL (9.1-12.4); NEUTROPHILS ABSOLUTE AUTO 8.59 K/mm3 (1.96-9.15); NEUTROPHILS PERCENT AUTO 75 % (41-73); Platelet Count 330 K/mm3 (150-400); RDW Coefficient Variation 14.1 % (11.7-14.2); RDW Standard Deviation 46.4 fL (35.1-46.3); Red Blood Cell Count 2.89 M/mm3 (3.80-5.20); White Blood Cell Count 11.49 K/mm3 (4.00-11.30)
[2025-01-24 04:17] LABS: Albumin, Blood 2.5 g/dL (3.4-5.0); Albumin/Globulin Ratio 0.7 (0.8-1.8); Bilirubin, Total 0.5 mg/dL (0.1-1.0); Bun/Creatinine Ratio 49.9 (12.0-20.0); Calcium, Blood 8.5 mg/dL (8.5-10.1); Creatinine, Blood 0.68 mg/dL (0.40-1.00); Globulin, Blood 3.5 g/dL (2.2-4.0); Potassium, Blood 3.9 mmol/L (3.5-5.5)
[2025-01-24] MEDS ORDERED: dexmedeTOMIDine 100 ML IV SCH (10:00)
[2025-01-24] MEDS ORDERED: Insulin Glargine-Yfgn 100 Unit/mL 3 ML SYR SC ONE (10:00)
--- NOTE | 2025-01-24 13:58 | NUR ---
WASTED 2.5ML OF FENTANYL WITH MATTIE JACOBSEN
--- NOTE | 2025-01-24 17:24 | NUR ---
PC NOTE: CALL PLACED TO DAUGHTER KERI WHO IS LISTED POA. PER KERI PT SVITLANA HAS AD AND HAS DIRECTED FULL TREATMENT FOR EVERYTHING. I REQUESTED SHE SEND AD SO WE HAVE ONE ON FILE. SHE EMAILED ME THE AD WHICH DOES INDEED INDICATE PT WANTS FULL TREATMENT, INCLUDING FEEDING TUBE. PLACED COPY ON CHART, SENT COPY TO MEDICAL RECORDS TO BE SCANNED IN TO PT FILE. ALSO UPDATED RN. ADDRESSED CONCERNS PT SPOUSE IS DIFFICULT TO CONTACT. SHE STATES HE WILL NOT ANSWER CALLS IF HE DOES NOT RECOGNIZE PHONE NUMBER. IF WE CALL HER SHE WILL CALL HER DAD. SHE LIVES IN [place]. SHE WILL BE DRIVING DOWN TOMORROW AND WILL BE HERE ON TUESDAY MORNING. UPDATED KERI ON MOM'S STATUS AT THIS TIME.
--- NOTE | 2025-01-24 18:42 | NUR ---
SUMMARY PT INTUBATED AND SEDATED WITH PROPOFOL, FENTANYL, AND PRECEDEX ADDED TODAY. ATTEMPTING TO TITRATE PROPOFOL OFF BUT PT GETS TACHYPNEIC, COUGHS CONTINUOUSLY, AND DESATS TO THE 70'S AT TIMES WHEN PROPOFOL IS DOWN. THIS EVENING PT'S HR IS 69-135 IRREGULAR AT TIMES. EPI TITRATED OFF. PT IS NOT FOLLOWING COMMANDS WHEN SEDATION IS DOWN. DESATS WITH ANY CARE OR WITH COUGHING. PT LASTED 2 HOURS ON SBT BUT WAS NEVER TITRATED COMPLETELY OFF SEDATION DUE TO AGITATION AND DESATTING AND THIS RN HAD TO INCREASE FIO2 TO 100% QUITE A FEW TIMES. GETTING SCANT AMT OF CLEAR TO WHITE SECRETIONS FROM ETT. FIO2 INCREADED TO 50% THIS EVENING. PT WAS TOO UNSTABLE TO GET OOB TO CHAIR TODAY. DR. TATUM UPDATED FAMILY IN PERSON TODAY.
[2025-01-24] MEDS ORDERED: Insulin Glargine-Yfgn 100 Unit/mL 3 ML SYR SC SCH (21:00)
[2025-01-24] MEDS ORDERED: Phenylephrine HCl in 0.9% NaCl 250 ML IV SCH (21:35)
[2025-01-24] MEDS ORDERED: Acetaminophen 160MG / 5ML 10.15 UDC PT PRN (21:40)
[2025-01-24] MEDS ORDERED: Enoxaparin 100 MG/ML 1ML SYR SC ONE (23:20)
[2025-01-25] VITALS (122 sets, daily range): BP systolic 57–185; BP diastolic 26–157
[2025-01-25 05:48] LABS: BASOPHILS ABSOLUTE AUTO 0.02 K/mm3 (0.00-0.23); BASOPHILS PERCENT AUTO 0 % (0-2); EOSINOPHILS ABSOLUTE AUTO 0.45 K/mm3 (0.00-0.68); EOSINOPHILS PERCENT AUTO 3 % (0-6); Hematocrit 28.7 % (33.0-51.0); Hemoglobin 9.3 g/dL (11.5-16.0); IMMATURE GRAN ABSOLUTE AUTO 0.14 K/mm3 (0.00-0.10); IMMATURE GRAN PERCENT AUTO 1 % (0-1); LYMPHOCYTES ABSOLUTE AUTO 1.64 K/mm3 (0.84-5.20); LYMPHOCYTES PERCENT AUTO 10 % (21-46); MONOCYTES ABSOLUTE AUTO 0.96 K/mm3 (0.16-1.47); MONOCYTES PERCENT AUTO 6 % (4-13); Mean Corpuscular HGB 30.3 pg (26.0-34.0); Mean Corpuscular HGB Conc 32.4 g/dL (31.5-36.5); Mean Corpuscular Volume 94 fL (80-100); Mean Platelet Volume 9.7 fL (9.1-12.4); NEUTROPHILS ABSOLUTE AUTO 12.65 K/mm3 (1.96-9.15); NEUTROPHILS PERCENT AUTO 80 % (41-73); Platelet Count 339 K/mm3 (150-400); RDW Coefficient Variation 14.1 % (11.7-14.2); RDW Standard Deviation 46.5 fL (35.1-46.3); Red Blood Cell Count 3.07 M/mm3 (3.80-5.20); White Blood Cell Count 15.86 K/mm3 (4.00-11.30)
[2025-01-25 06:04] LABS: Bun/Creatinine Ratio 44.1 (12.0-20.0); Calcium, Blood 8.6 mg/dL (8.5-10.1); Creatinine, Blood 0.82 mg/dL (0.40-1.00); Potassium, Blood 3.9 mmol/L (3.5-5.5)
[2025-01-25] MEDS ORDERED: Enoxaparin 100 MG/ML 1ML SYR SC SCH (09:00)
[2025-01-25] MEDS ORDERED: Furosemide 10 MG / ML 2ML Vial IV ONE (10:45)
--- NOTE | 2025-01-25 16:26 | NUR ---
Notified Dr. Hendrickson that patient is sustaining in SVT in the high 160s. No further orders at this time. Will continue to monitor.
[2025-01-25] MEDS ORDERED: Digoxin 0.25 MG/ML 2ML Amp IV SCH (17:00)
[2025-01-25 17:53] LABS: Vancomycin, Trough 18.8 ug/mL (5.0-10.0)
--- NOTE | 2025-01-25 18:30 | NUR ---
SUMMARY PT INTUBATED AND SEDATED WITH PROPOFOL AND FENTANYL. DURING SEDATION VACATION PT HAS EYE'S OPEN SPONT BUT DOES NOT FOLLOW ANY COMMANDS OR SEEM TO TRACK. PT COUGHS FREQUENTLY DURING SBT TRIAL AND NEEDS 100% FIO2 SEVERAL TIMES. DID NOT LAST LONG YESTERDAY. STILL COUGHING FREQUENTLY T/O THE DAY. HAS STRONG COUGH AND WILL DESAT INTO THE LOW 80'S WITH COUGHING FITS. HR HAD BEEN 60'S TO 150'S ALL DAY BUT NOT SUSTAINING 150'S UNTIL THIS EVENING. AROUND 1600 PT WENT INTO SVT 170'S AND WAS SUSTAINING WITH DROP IN BP WELL. PT DID NOT LOOK IN DISTRESS WITH SVT. TEMP WAS STARTING TO CLIMB, TYLENOL GIVEN, ICE PACKS PLACED, AND FAN ON PT. DR. SIMS NOTIFIED AND DOSE OF DIGOXIN GIVEN. PT IS NOW SR 70'S-80'S. DID NOT GET PT OOB AGAIN TODAY SHE WAS NOT STABLE ENOUGH. TOLERATING TUBE FEEDS.
--- NOTE | 2025-01-25 22:33 | NUR ---
ASSUMPTION OF CARE/ASSESSMENT: ASSUMED CARE OF PT AT 1900, REPORT RECIEVED FROM EDDI JACOBSEN. PT REMAINS INTUBATED AND SEDATED WITH VENT SETTINGS AC/VC 22/350/7/80%. PT RAAS -1, PROPOFOL GTT @ 20 MCG, FENTANYL GTT @ 25 MCG. PT EYES OPEN TO VERBAL STIMULI BUT ARE NOT TRACKING IN ROOM; PT DOES NOT FOLLOW COMMANDS AT THIS TIME, + PAIN RESPONSE. PT COARSE T/O WITH DIM BASES, SPO2 90<; SMALL AMOUNT OF CLEAR, THIN SECRETIONS. PT SR ON MONITOR WITH HR 70'S; OCCASIONALLY GOING INTO SVT IN THE 140'S AFTER COUGHING EPISODES. OGT PATENT AND VHP @ 50 MLS/HR. ROMANO PATENT AND DRAINING TO GRAVITY. SWAPNIL @ MCG/MIN. PICC TO DEMARIO.
--- NOTE | 2025-01-25 23:58 | NUR ---
PT UPDATE: PT SUSTAINING SVT WITH RATE 170-180'S FOR 45 MINUTES; DR SIMS CALLED AND UPDATED. NO NEW ORDERS AT THIS TIME.
[2025-01-26] VITALS (94 sets, daily range): BP systolic 72–176; BP diastolic 35–134
[2025-01-26] MEDS ORDERED: Furosemide 10 MG / ML 2ML Vial IV ONE (00:15)
--- NOTE | 2025-01-26 01:06 | NUR ---
PT UPDATE: SPOKE WITH DR. SIMS AGAIN AT 0013 REGARDING SUSTAINED SVT; ORDERS RECIEVED FOR 20 MG OF IV LASIX TO BE GIVEN NOW. STANDING ORDERS FOR CXR IF RESPIRATORY STATUS CONTINUES TO DETERIORATE AND TO HAVE HOSPITALIST REVIEW. AT THS TIME PT VENT SETTINGS AC/VC 22/380/10/100%. PT COUGHING CONTINUOUS, PROPOFOL GTT TITRATED UP TO 35 MCG. TMAX @ 102.5, PRN TYLENOL GIVEN. SBP 160'S, SWAPNIL ON SB. PT LUNG SOUNDS UNCHANGED SINCE START OF SHIFT. WILL CONTINUE TO MONITOR.
--- NOTE | 2025-01-26 02:11 | NUR ---
PT UPDATE: AT 0130 PT BECAME INCREASINGLY HYPOTENSIVE WITH MAP'S IN THE 50'S; SWAPNIL TITRATED UP TO 90 MCG/MIN, AT THIS TIME MAP AT 67. PROPOFOL GTT TITRATED DOWN TO 30 MCG. WILL CONTINUE TO MONITOR.
[2025-01-26 04:19] LABS: BASOPHILS ABSOLUTE AUTO 0.04 K/mm3 (0.00-0.23); BASOPHILS PERCENT AUTO 0 % (0-2); EOSINOPHILS ABSOLUTE AUTO 0.35 K/mm3 (0.00-0.68); EOSINOPHILS PERCENT AUTO 3 % (0-6); Hematocrit 28.5 % (33.0-51.0); Hemoglobin 8.9 g/dL (11.5-16.0); IMMATURE GRAN PERCENT AUTO 1 % (0-1); LYMPHOCYTES ABSOLUTE AUTO 1.06 K/mm3 (0.84-5.20); LYMPHOCYTES PERCENT AUTO 8 % (21-46); MONOCYTES ABSOLUTE AUTO 0.74 K/mm3 (0.16-1.47); MONOCYTES PERCENT AUTO 6 % (4-13); Mean Corpuscular HGB Conc 31.2 g/dL (31.5-36.5); Mean Corpuscular Volume 96 fL (80-100); Mean Platelet Volume 9.6 fL (9.1-12.4); NEUTROPHILS PERCENT AUTO 83 % (41-73); Platelet Count 402 K/mm3 (150-400); RDW Coefficient Variation 14.2 % (11.7-14.2); RDW Standard Deviation 48.5 fL (35.1-46.3); Red Blood Cell Count 2.97 M/mm3 (3.80-5.20); White Blood Cell Count 13.39 K/mm3 (4.00-11.30)
[2025-01-26 04:33] LABS: Bun/Creatinine Ratio 43.3 (12.0-20.0); Calcium, Blood 8.7 mg/dL (8.5-10.1); Creatinine, Blood 0.99 mg/dL (0.40-1.00); Potassium, Blood 3.6 mmol/L (3.5-5.5)
--- NOTE | 2025-01-26 06:47 | NUR ---
SHIFT SUMMARY: NO CHANGES SINCE PREVIOUS NOTE. VENT SETTINGS REMAINS AC/VC 22/350/10/100%; PT TRIALED DOWN TO FIO2 90% AND DESATTED DOWN TO 83. PT CONVERTED TO SR AROUND 0530 WITH HR 60-70'S; PT WAS SVT FOR MAJORITY OF THE NIGHT WITH RATE 140-170. DR. SIMS UPDATED THIS MORNING. URINE OUTPUT SLOWING DOWN DESPITE LASIX GIVEN EARLIER IN THE SHIFT. SWAPNIL @ 10 MCG, PROPOFOL @ 25 MCG AND FENTANYL @ 50 MCG. WILL REPORT OFF TO ONCOMING RN.
[2025-01-26] MEDS ORDERED: Digoxin 0.25 MG/ML 2ML Amp IV SCH (09:00)
[2025-01-26] MEDS ORDERED: CefTRIAXone Sodium 1,000 MG in NS 100 ML IV SCH (10:00)
[2025-01-26] MEDS ORDERED: Albumin Human 50 ML IV ONE (10:55)
--- NOTE | 2025-01-26 15:29 | NUR ---
PT'S DAUGHTER KERI ARRIVED TO ROOM TODAY, ALONG WITH 2 OTHER FEMALE RELATIVES IDENTIFIED COUSINS. KERI HAD PREVIOUSLY SENT IN PT'S ADVANCE DIRECTIVE WHICH INSTRUCTED FAMILY THAT PT IS A FULL CODE, AND SHE WOULD WANT ALL MEASURES OF LIFE SUPPORT. THE PATIENT REMAINS ON VENTILATOR SUPPORT WITH PLAN FOR TRACH AT 14 DAY EVARISTO. WE ALSO DISCUSSED THE POSSIBILITY THAT THE PATIENT MAY NOT AWAKE PROPERLY AND MAY REMAIN INCAPACITATED, GIVEN THE POOR RESPONSE TO SEDATION VACATIONS THIS WEEK. HER DAUGHTER STATES SHE HAD NOT THOUGHT THIS THROUGH, NOR DID SHE THINK THROUGH WHAT FULL CODE COULD LOOK LIKE IF PT HEART STOPPED WHILE SHE WAS ON A VENT. SHE STATES SHE WILL TALK WITH HER TONIGHT AND WE'LL STOP IN TOMORROW.
--- NOTE | 2025-01-26 18:00 | NUR ---
SUMMARY PT INTUBATED AND SEDATED WITH PROPOFOL AND FENTANYL. WHEN SEDATION IS DOWN PT WILL OPEN EYE'S, BUT NOT TRACKING AND DOES NOT FOLLOW COMMANDS. FIO2 DOWN TO 75% FROM 100% AT START OF SHIFT. NO SBT TODAY DUE TO INCREASED PEEP AND FIO2. STARTED ON AMIODORONE GTT TODAY HR WAS SUSTAINING 140'S-150'S THIS AM. LEVOPHED ADDED THIS EVENING AND TITRATING SWAPNIL DOWN PER DR. SIMS. FAMILY IN TODAY AND MET WITH DR. SIMS AND PALLIATIVE CARE.
--- NOTE | 2025-01-26 21:25 | NUR ---
ASSUMPTION OF CARE/ASSESSMENT: ASSUMED CARE OF PT AT 1900; REPORT RECIEVED FROM EDDI JACOBSEN. PT REMAINS INTUBATED AND SEDATED WITH VENT SETTINGS AC/VC 22/350/10/75%. PT RESPONSIVE TO PAIN WITH GRIMACING AND EYE OPENNING, BUT DOES NOT TRACK IN ROOM OR FOLLOW COMMANDS. LUNG CLEAR THROUGHOUT WITH LEFT SIDE MORE DIMINISHED THAN RIGHT; SMALL AMOUNTS OF SECRETIONS FROM ETT. PT SR ON MONITOR WITH HR 70'S; WENT INTO SVT @ 140'S FOR A FEW MINUTES BUT CONVERTED BACK TO SR. LEVO @ 5 MCG, SWAPNIL ON SB, FENTANYL GTT @ 50 MCG AND PROPOFOL @ 25 MCG. ROMANO PATENT AND DRAINING TO GRAVITY; TMAX 101.0, PRN TYLENOL GIVEN, FAN ON. OGT PATENT W/ VHP @ 50 MLS/HR.
[2025-01-27] VITALS (82 sets, daily range): BP systolic 92–149; BP diastolic 43–78
[2025-01-27 04:00] LABS: CORONAVIRUS COVID-19 AG Negative (NEGATIVE); INFLUENZA A AG Negative (NEGATIVE); INFLUENZA B AG Negative (NEGATIVE)
--- NOTE | 2025-01-27 06:41 | NUR ---
SHIFT SUMMARY: NO ACUTE CHANGES OVERNIGHT. PT IN SR ON MONITOR WITH RATE IN THE 70'S FOR THE MAJORITY OF THE NIGHT, MAP 60<, LEVO @ 4 MCG, SWAPNIL ON SB AND FENTANYL @ 50 MCG. PT NEURO STATUS REMAINS UNCHANGED. PT SWTICHED TO AC/PC WITH RATE 22, 16/10 ANF FIO2 70%. URINE OUTPUT SLOWING DOWN, ABOUT 600 ML URINE OUT THIS SHIFT. WILL REPORT OFF TO ONCOMING RN.
--- NOTE | 2025-01-27 09:18 | NUR ---
SHIFT ASSESSMENT ASSUMED CARE OF PT @ 0700, REPORT RECEIVED FROM MERI JACOBSEN. PT INTUBATED AND SEDATED WITH PROPOFOL AND FENTANYL, SEE FLOWSHEET FOR RATES. RASS OF -3/-4. VENT SETTINGS-PC /// 70% c SATS >90%. PT COUGHING BUT OVERALL TOLERATING VENT. PT TURNING HEAD SIDE TO SIDE, NOT FOLLOWING COMMANDS, NOT MOVING EXTREMITIES, MINIMAL WITHDRAW TO NOXIOUS STIMULI. WILL PERFORM SEDATION VACATION THIS AM. OGT WITH TF @ GOAL. TEMP PROBE ROMANO DRAINING YELLOW URINE, T-100.2.
[2025-01-27 15:46] LABS: Hematocrit 23.7 % (33.0-51.0); Hemoglobin 7.5 g/dL (11.5-16.0); Mean Corpuscular HGB 30.1 pg (26.0-34.0); Mean Corpuscular HGB Conc 31.6 g/dL (31.5-36.5); Mean Corpuscular Volume 95 fL (80-100); Mean Platelet Volume 9.7 fL (9.1-12.4); Platelet Count 261 K/mm3 (150-400); RDW Coefficient Variation 13.6 % (11.7-14.2); RDW Standard Deviation 47.5 fL (35.1-46.3); Red Blood Cell Count 2.49 M/mm3 (3.80-5.20); White Blood Cell Count 4.42 K/mm3 (4.00-11.30)
[2025-01-27 16:04] LABS: Alanine Aminotransfer (ALT/SGP 23 U/L (12-78); Albumin, Blood 2.1 g/dL (3.4-5.0); Albumin/Globulin Ratio 0.5 (0.8-1.8); Alk Phos 76 U/L (50-136); Anion Gap 9 mmol/L (3-11); Aspartate Aminotrans (AST/SGOT 22 U/L (12-37); Bilirubin, Total 0.4 mg/dL (0.1-1.0); Blood Urea Nitrogen 43 mg/dL (8-24); Bun/Creatinine Ratio 36.8 (12.0-20.0); CO2, Blood 25 mmol/L (21-32); Chloride, Blood 109 mmol/L (98-108); Creatinine, Blood 1.17 mg/dL (0.40-1.00); Globulin, Blood 3.9 g/dL (2.2-4.0); Glomerular Filtration Rate 48 (60-); Glucose, Blood 227 mg/dL (70-99); Magnesium, Blood 2.2 mg/dL (1.6-2.4); Phosphorus, Blood 2.9 mg/dL (2.5-4.9); Potassium, Blood 3.9 mmol/L (3.5-5.5); Sodium, Blood 139 mmol/L (136-145); Triglycerides 129 mg/dL (30-160)
[2025-01-27 16:10] LABS: BAND PERCENT MAN 7 % (0-8); BASOPHILS ABSOLUTE MAN 0.04 K/mm3 (0.00-0.23); BASOPHILS PERCENT MAN 1 % (0-2); EOSINOPHILS ABSOLUTE MAN 0.08 K/mm3 (0.00-0.68); EOSINOPHILS PERCENT MAN 2 % (0-6); LYMPHOCYTES ABSOLUTE MAN 0.83 K/mm3 (0.84-5.20); LYMPHOCYTES PERCENT MAN 19 % (21-46); MONOCYTES ABSOLUTE MAN 0.26 K/mm3 (0.16-1.47); MONOCYTES PERCENT MAN 6 % (4-13); NEUTROPHILS ABSOLUTE MAN 3.18 K/mm3 (1.96-9.15); SEG NEUTROPHILS PERCENT MAN 65 % (41-73); TOTAL CELLS COUNTED 100
--- NOTE | 2025-01-27 18:41 | NUR ---
SHIFT SUMMARY PT REMAINS INTUBATED AND SEDATED. GIVEN BRIEF BREAK FROM SEDATION BUT RR INCREASED TO THE 40'S & PT DESATS QUICKLY. PT OPENING EYES AND TURNING HEAD DURING THAT TIME BUT NOT FOLLOWING COMMANDS OR TRACKING NURSE. VENT SETTINGS REMAIN THE SAME OTHER THAN FIO2 DOWN TO 60%. SMALL AMNT OF THICK WHITE SECRETIONS VIA ETT. OGT c TF @ GOAL, PLAN TO STOP TF @ 0000 TONIGHT FOR POSSIBLE PROCEDURE TOMORROW. ROMANO CATH DRAINING YELLOW URINE, T- 100.3, ICE PACKS TO AXILLA AND GROIN, FAN FACING PT AT BEDSIDE. MULTIPLE FAMILY MEMBERS UPDATED T/O THE DAY AT BEDSIDE.
--- NOTE | 2025-01-27 19:46 | NUR ---
ASSUMPTION OF CARE: ASSUMED CARE OF PT AT 1900. PT INTUBATED AND SEDATED. RESPONDS TO PAINFUL STIMULI, DOES NOT FOLLOW COMMANDS. ATTEMPTED TO TITRATE DOWN PROPOFOL FOR NEURO ASSESSMENT. PT DESATTED TO LOW 80'S, RR INCREASED TO 30'S AND PT UNCONTROLLABLY COUGHING. PROPOFOL AT 40 MCG/KG/MIN WITH FENTANYL AT 50 MCG/HR. PT TOLERATING VENT CURRENTLY. LEVOPHED AT 2 MCG/MIN FOR MAP >65. SEE FLOWSHEET FOR TITRATIONS. BIOLOGY LABORATORY ASSISTANT IN PLACE, SR WITH HR 70'S. VENT SETTINGS AC/PC PEEP 10, FIO2 50%. SPO2 LOW 90'S. SMALL AMOUNT OF SECRETIONS SUCTIONED FROM ETT. TEMP ROMANO IN PLACE, PATENT AND DRAINING TO GRAVITY. TUBE FEED AT GOAL THROUGH OGT. PICC TO DMEARIO, PATENT AND INFUSING. TEMP NANCYY 99.9. BED LOW AND LOCKED.
[2025-01-27] MEDS ORDERED: Amiodarone HCl 200 MG Tab PO SCH (21:00)
[2025-01-28] VITALS (102 sets, daily range): BP systolic 86–191; BP diastolic 35–114
[2025-01-28 05:08] LABS: BASOPHILS ABSOLUTE AUTO 0.01 K/mm3 (0.00-0.23); BASOPHILS PERCENT AUTO 0 % (0-2); EOSINOPHILS ABSOLUTE AUTO 0.26 K/mm3 (0.00-0.68); EOSINOPHILS PERCENT AUTO 6 % (0-6); Hematocrit 22.1 % (33.0-51.0); IMMATURE GRAN ABSOLUTE AUTO 0.04 K/mm3 (0.00-0.10); IMMATURE GRAN PERCENT AUTO 1 % (0-1); LYMPHOCYTES ABSOLUTE AUTO 0.51 K/mm3 (0.84-5.20); LYMPHOCYTES PERCENT AUTO 11 % (21-46); MONOCYTES ABSOLUTE AUTO 0.34 K/mm3 (0.16-1.47); MONOCYTES PERCENT AUTO 7 % (4-13); Mean Corpuscular HGB 29.5 pg (26.0-34.0); Mean Corpuscular HGB Conc 31.7 g/dL (31.5-36.5); Mean Corpuscular Volume 93 fL (80-100); Mean Platelet Volume 9.9 fL (9.1-12.4); NEUTROPHILS PERCENT AUTO 75 % (41-73); Platelet Count 283 K/mm3 (150-400); RDW Coefficient Variation 13.7 % (11.7-14.2); RDW Standard Deviation 46.7 fL (35.1-46.3); Red Blood Cell Count 2.37 M/mm3 (3.80-5.20); White Blood Cell Count 4.66 K/mm3 (4.00-11.30)
[2025-01-28 05:41] LABS: Albumin/Globulin Ratio 0.5 (0.8-1.8); Bilirubin, Total 0.4 mg/dL (0.1-1.0); Bun/Creatinine Ratio 40.7 (12.0-20.0); Calcium, Blood 7.9 mg/dL (8.5-10.1); Creatinine, Blood 1.08 mg/dL (0.40-1.00); Globulin, Blood 3.8 g/dL (2.2-4.0); Magnesium, Blood 2.3 mg/dL (1.6-2.4); Phosphorus, Blood 2.3 mg/dL (2.5-4.9); Potassium, Blood 3.9 mmol/L (3.5-5.5); Total Protein, Blood 5.8 g/dL (6.4-8.2)
--- NOTE | 2025-01-28 06:19 | NUR ---
SHIFT SUMMARY: PT REMAINS INTUBATED AND SEDATED ON 40 MCG/KG/MIN OF PROPOFOL AND 50 MCG/HR OF FENTANYL. RESPONDS TO PAIN, NO COMMANDS. VENT SETTINGS AC/PC PEEP OF 10, FIO2 60%. SPO2 LOW 90'S. REMAINS IN SR WITH HR 70-80'S. LEVOPHED AT 1 MCG/MIN, ATTEMPTED TO TITRATE TO OFF, WAS NOT SUCCESSFUL. SEE FLOWSHEET FOR TITRATIONS. ROMANO PATENT AND DRAINING TO GRAVITY. TEMP 99.9-101.9. GIVEN TYLENOL PER TUBE, ICE PACKS IN PLACE. PICC TO DEMARIO PATENT AND INFUSING. TUBE FEED OFF SINCE MIDNIGHT FOR PROCEDURE TODAY. BED LOW AND LOCKED.
[2025-01-28] MEDS ORDERED: Potassium Phos/Sodium Phos 250 MG PACK PT ONE (06:40)
[2025-01-28] MEDS ORDERED: Furosemide 10 MG/ML 4ML Vial IV ONE (10:05)
[2025-01-28] MEDS ORDERED: FentaNYL Citrate 50 MCG/ML 2 ML Injection ONE (14:44)
--- NOTE | 2025-01-28 15:01 | NUR ---
BRONCH AND TRACH 1500: LEVI IN ROOM SETTING FOR BRONCH WITH RT AND RN'S AT BEDSIDE. 1513: ROCURONIUM 100MG GIVEN WITH FLUSH. VS: PULSE 84 BP 140/72 SAO2 100%, AT 100% FIO2 ON VENT. RR 29. 1515: DR SIMS DOING A BRONCH AT BEDSIDE. 1522: DR RODRIGUEZ AT BEDSIDE DOING A TRACH CONCURRENTLY WITH DR SIMS DOING A BRONCH. VS: 155/73 PULSE 94, 100% SA02 FIO2 100. 1525: RN PUT FENTANYL UP TO 100MCG /HR. 1527: SA02 98% ON 100 FIO2, PULSE 90, BP 191/[address] RODRIGUEZ INTO TRACHEA, GUIDE WIRE ACCESSED INTO TRACHEA, 1528 PROPOFOL AT 60MCG, ETT OUT, OG OUT [address], OXYGENATING THROUGH TRACH VIA VENTILATOR. 1531: FENTANYL PUSH 50MCG IV. 1534: DR RODRIGUEZ SUTURING TRACHEA IN PLACE. VS: PULSE 93, BP 153/55 SAO2 AT 100% FIO2 100 ON VENT. END OF PROCEDURE TIME 1535.
[2025-01-28] MEDS ORDERED: Furosemide 10 MG/ML 4ML Vial IV STA ×2 (16:06→16:34)
--- NOTE | 2025-01-28 16:35 | NUR ---
SPOKE WITH PT'S AND DAUGHTER KERI THIS AFTERNOON. KERI V/U THAT PT WILL ONLY BE ACCEPTED TO [facility] IF SHE'S ABLE TO PARTICIPATE. KERI STATES IF THE PATIENT IS UNABLE TO HAVE ANY QUALITY OF LIFE AND HAVE AWARENESS OF HER SURROUNDINGS, THEY WILL CHANGE COURSE TO COMFORT CARE. KERI ALSO STATES SHE WANTS TO KEEP FULL CODE IN PLACE, BUT WOULD ONLY WANT 5-10 MINUTES MAXIMUM CPR DONE IF THE PATIENT'S HEART WERE TO STOP. BEDSIDE RN AND STUDENT OUTREACH COORDINATOR NOTIFIED.
[2025-01-28] MEDS ORDERED: Rocuronium Bromide 10 MG/ML 5ML Injection IV ONE (18:05)
[2025-01-28 18:22] LABS: Vancomycin, Trough 20.6 ug/mL (5.0-10.0)
--- NOTE | 2025-01-28 18:23 | NUR ---
SHIFT SUMMARY PT REMAINS VENTILATED AND SEDATED. EXTUBATED THIS AFTERNOON, VENTILATED VIA 6 SHILEY PERC, SEE RT CHARTING FOR VENT SETTINGS. OGT REMOVED DURING EXTUBATION, WILL REASSESS NEED FOR NG TOMORROW. PT DIFFICULT TO VENTILATE POST TRACH DUE TO ANATOMY. SHE VENTILATES BETTER WITH BED <30 DEGREE ANGLE. STAT CHEST X-RAY ORDERED TO RULE OUT OTHER CONDITIONS. PROPOFOL AND FENTANYL CONTINUE FOR VENT TOLERANCE/ SEDATION. LEVOPHED CURRENTLY BACK ON TO MAINTAIN MAP >65. TEMP PROBE ROMANO DRAINING LIGHT YELLOW URINE. SPOUSE AND SON UPDATED AT BEDSIDE AFTER PROCEDURE. DAUGHTER KERI UPDATED VIA PHONE.
[2025-01-28 20:51] LABS: Base Excess Venous -1.8 mmol/L; Bicarbonate Venous 22.3 mmol/L (24.0-30.0); PCO2 Venous 54.3 mmHg (38-42); pH Blood Venous 7.27 (7.34-7.37)
[2025-01-28] MEDS ORDERED: Meropenem 1,000 MG in NS 100 ML IV SCH (21:00)
[2025-01-28 21:21] LABS: Adenovirus Not Detected (NOT DETECT); Coronavirus 229E Not Detected (NOT DETECT); Coronavirus HKU1 Not Detected (NOT DETECT); Coronavirus NL63 Not Detected (NOT DETECT)
[2025-01-28 21:22] LABS: Bordetella pertussis Not Detected (NOT DETECT); Chlamydophila pneumoniae Not Detected (NOT DETECT); Coronavirus OC43 Not Detected (NOT DETECT); Human Metapneumovirus Not Detected (NOT DETECT); Human Rhinovirus/Enterovirus Not Detected (NOT DETECT); Influenza A/2009-H1 Not Detected (NOT DETECT); Influenza A/H1 Not Detected (NOT DETECT); Influenza A/H3 Not Detected (NOT DETECT); Influenza B Not Detected (NOT DETECT); Mycoplasma pneumoniae Not Detected (NOT DETECT); Parainfluenza Virus 1 Not Detected (NOT DETECT); Parainfluenza Virus 2 Not Detected (NOT DETECT); Parainfluenza Virus 3 Not Detected (NOT DETECT); Parainfluenza Virus 4 Not Detected (NOT DETECT); Respiratory Syncytial Virus Not Detected (NOT DETECT); SARS-Cov-2 (COVID-19), BioFire Detected (NOT DETECT)
--- NOTE | 2025-01-28 21:35 | NUR ---
ASSUMPTION OF CARE: ASSUMED CARE OF PT AT 1915. PT ON VENT VIA TRACH PLACED TODAY. VENT SETTINGS CHANGED BY RT PER DR. SIMS. AC/VC+, 24/380/10/60%. SPO2 MID 90'S. PROPOFOL INCREASED TO 35 MCG/KG/MIN FOR VENT COMPLIANCE. FENTANYL AT 50 MCG/HR. LEVOPHED INFUSING TO MAINTAIN MAP >65. SEE FLOWSHEET FOR TITRATIONS. PICC TO DEMARIO PATENT. PT IN SR WITH HR 70'S. ETCO2 30'S. ROMANO PATENT AND DRAINING TO GRAVITY. TEMP 100.2. NO BM YET. GRIMACES TO PAIN, NOT FOLLOWING DIRECTION. OPENS EYES SPONTANEOUSLY. PUPILS EQUAL AND REACTIVE ALTHOUGH SLUGGISH. BED LOW AND LOCKED.
[2025-01-28 21:44] LABS: Bun/Creatinine Ratio 32.3 (12.0-20.0); Calcium, Blood 7.8 mg/dL (8.5-10.1); Creatinine, Blood 1.33 mg/dL (0.40-1.00); Potassium, Blood 4.9 mmol/L (3.5-5.5)
[2025-01-28 22:18] LABS: Base Excess Venous -2.1 mmol/L; Bicarbonate Venous 23.2 mmol/L (24.0-30.0); PCO2 Venous 28.4 mmHg (38-42); pH Blood Venous 7.48 (7.34-7.37)
[2025-01-29] VITALS (86 sets, daily range): BP systolic 95–154; BP diastolic 41–69
[2025-01-29] MEDS ORDERED: Vancomycin HCL 750 MG in NS 250 ML IV SCH
[2025-01-29 03:39] LABS: BASOPHILS ABSOLUTE AUTO 0.03 K/mm3 (0.00-0.23); BASOPHILS PERCENT AUTO 1 % (0-2); EOSINOPHILS ABSOLUTE AUTO 0.31 K/mm3 (0.00-0.68); EOSINOPHILS PERCENT AUTO 5 % (0-6); Hematocrit 25.4 % (33.0-51.0); Hemoglobin 8.2 g/dL (11.5-16.0); IMMATURE GRAN ABSOLUTE AUTO 0.09 K/mm3 (0.00-0.10); IMMATURE GRAN PERCENT AUTO 1 % (0-1); LYMPHOCYTES ABSOLUTE AUTO 0.51 K/mm3 (0.84-5.20); LYMPHOCYTES PERCENT AUTO 8 % (21-46); MONOCYTES ABSOLUTE AUTO 0.53 K/mm3 (0.16-1.47); MONOCYTES PERCENT AUTO 8 % (4-13); Mean Corpuscular HGB 29.4 pg (26.0-34.0); Mean Corpuscular HGB Conc 32.3 g/dL (31.5-36.5); Mean Corpuscular Volume 91 fL (80-100); Mean Platelet Volume 9.7 fL (9.1-12.4); NEUTROPHILS ABSOLUTE AUTO 4.99 K/mm3 (1.96-9.15); NEUTROPHILS PERCENT AUTO 77 % (41-73); Platelet Count 350 K/mm3 (150-400); RDW Coefficient Variation 14.9 % (11.7-14.2); RDW Standard Deviation 49.3 fL (35.1-46.3); Red Blood Cell Count 2.79 M/mm3 (3.80-5.20); White Blood Cell Count 6.46 K/mm3 (4.00-11.30)
[2025-01-29 03:55] LABS: Albumin, Blood 1.9 g/dL (3.4-5.0); Anion Gap 9 mmol/L (3-11); Blood Urea Nitrogen 40 mg/dL (8-24); CO2, Blood 27 mmol/L (21-32); Calcium, Blood 7.8 mg/dL (8.5-10.1); Chloride, Blood 105 mmol/L (98-108); Creatinine, Blood 1.25 mg/dL (0.40-1.00); Glomerular Filtration Rate 45 (60-); Glucose, Blood 317 mg/dL (70-99); Phosphorus, Blood 3.1 mg/dL (2.5-4.9); Potassium, Blood 3.8 mmol/L (3.5-5.5); Sodium, Blood 137 mmol/L (136-145)
--- NOTE | 2025-01-29 05:28 | NUR ---
SHIFT SUMMARY: NO ACUTE CHANGES OVERNIGHT. REMAINS VENTILATED WITH TRACH, SPO2 MID 90'S. SEE RT ASSESSMENT FOR SETTINGS. REMAINS IN SR WITH HR 60'S. LEVO AT 6 MCG/MIN, SEE FLOWSHEET FOR TITRATIONS. MAP >65. RESPONDING TO PAIN, GRIMACES WITH ORAL CARE AND FURROWS BROWS. PICC REMAINS PATENT. PROPOFOL AT 35 MCG/KG/MIN, FENTANYL 50 MCG/HR. ROMANO DRAINING TO GRAVITY. AFEBRILE THIS AM. BED LOW AND LOCKED.
[2025-01-29] MEDS ORDERED: FentaNYL Citrate 50 MCG/ML 2 ML Injection IV SCH (08:00)
--- NOTE | 2025-01-29 08:02 | NUR ---
ASSUMED CARE OF PATIENT AT APPROXIMATELY 0700. BEDSIDE REPORT RECEIVED FROM ANN-MARIE FONG. PT VENTILATED WITH TRACH, SEDATED WITH PROPOFOL INFUSING AT 35 MCG/KG/HR, FENTANYL INFUSING AT MCG/HR. VENT SETTINGS A/C VC+ 18/380/10/50%. O2 SATURATIONS LOW 90'S. CONTINUOUS CARDIAC MONITORING IN PLACE SHOWS SR, BP STABLE c MAP > 65. LEVOPHED INFUSING AT 6 MCG/MIN. ROMANO PATENT. SEE SHIFT ASSESSMENT FOR FULL DETAILS.
[2025-01-29] MEDS ORDERED: Rocuronium Bromide 10 MG/ML 5ML Injection IV ONE ×2 (11:10→15:56)
[2025-01-29 11:55] LABS: PCO2 Arterial 67.6 mmHg (35-45); PO2 Arterial 75.6 mmHg (80-100)
[2025-01-29 11:56] LABS: pH Blood Arterial 7.19 (7.35-7.45)
[2025-01-29] MEDS ORDERED: LORazepam 2 MG/ML 1ML Injection IV ONE ×2 (12:45→13:25)
[2025-01-29] MEDS ORDERED: LORazepam 2 MG/ML 1ML Injection IV PRN (13:25)
[2025-01-29] MEDS ORDERED: Ipratropium/Albuterol SulF 2.5-0.5MG/3 ML Amp INH SCH (13:40)
--- NOTE | 2025-01-29 15:52 | NUR ---
SPOKE WITH KERI, PT'S DAUGHTER. GAVE HER AN UPDATE ON PT'S SBT TODAY, AND SHE STATES SHE ISN'T RECEIVING THE SAME MESSAGE FROM THE PHYSICIANS. GENTLY EXPLAINED THAT I'M NOT SUGGESTING HER MOM CAN'T IMPROVE, BUT IT'S CONCERNING THAT AFTER 15 DAYS ON LIFE SUPPORT, THERE HAS NOT BEEN A CHANGE IN PT'S MENTATION OR ABILITY TO BREATH ON HER OWN. ALSO, GIVEN PT'S ADVANCE DIRECTIVE, THE PHYSICIANS WILL CONTINUE TO FOLLOW THE PATIENT'S WISHES, SHE HAD INDICATED SHE WOULD WANT TO BE KEPT ALIVE BY ANY MEANS NECESSARY. FIELD SERVICES MANAGER UPDATED, AND WILL CONSULT ETHICS.
--- NOTE | 2025-01-29 18:11 | NUR ---
SHIFT SUMMARY PT REMAINS TRACHED AND SEDATED ON PROPOFOL INFUSING AT 50 MCG/KG/MIN, FENTANYL AT 50 MCG/HR. NOT FOLLOWING COMMANDS OR MAKING PURPOSEFUL MOVEMENTS. CONTINUOUS CARDIAC MONITORING IN PLACE SHOWS SR, BP STABLE c MAP > 65. LEVOPHED REMAINS INFUSING AT 6 MCG/MIN. VENT SETTINGS A/C VC 28/350/10/60%. SEE NOTE REGARDING SPONTANEOUS BREATHING TRIAL. O2 SATURATIONS > 92%. DOBHOFF PLACED THIS SHIFT, VHP RESTARTED AT GOAL OF 50 mL/HR c 30 mL Q4H FLUSHES. NO BM THIS SHIFT. TEMP ROMANO PATENT AND DRAINING TO GRAVITY. WILL CONTINUE TO MONITOR AND REPORT TO ONCOMING RN.
--- NOTE | 2025-01-29 21:09 | NUR ---
ASSUMPTION OF CARE/ASSESSMENT: ASSUMED CARE OF PT AT 1900, REPORT RECIEVED FROM GIDEON JACOBSEN. PT REMAINS INTUBATED VIA TRACH AND SEDATED WITH VENT SETTINGS AC/VC + 28/325/10/60%. PT OBSERVED STACKING BREATHS, SEDATIONS TITRATED UP; PROPOFOL GTT @ 55 MCG/KG/HR AND FENTANYL GTT @ 250 MCG/HR. PT UNRESPONSIVE, COUGH OBSERVED, NO GAG OR SWALLOW. PUPILS 1, SLUGGISH TO LIGHT, AND NO PURPOSEFUL MOVEMENTS OBSERVED. PT SR ON MONITOR WITH HR 80'S, SBP 100-110'S, MAP 65< AND LEVO GTT @ 8 MCG/MIN. DOBHOFF PATENT, INFUSING VHP @ 55 MLS/HR. TEMP ROMANO PATENT AND DRAINING TO GRAVITY; TMAX 100.5 AT START OF SHIFT BUT IS TRENDING DOWN AFTER TYLENOL. PT'S SON AT BEDSIDE AT START OF SHIFT AND UPDATED ON CARE PLAN.
[2025-01-30] VITALS (94 sets, daily range): BP systolic 76–177; BP diastolic 39–104
[2025-01-30 05:05] LABS: Hematocrit 25.7 % (33.0-51.0); Hemoglobin 8.2 g/dL (11.5-16.0); Mean Corpuscular HGB 29.9 pg (26.0-34.0); Mean Corpuscular HGB Conc 31.9 g/dL (31.5-36.5); Mean Corpuscular Volume 94 fL (80-100); Mean Platelet Volume 9.5 fL (9.1-12.4); Platelet Count 318 K/mm3 (150-400); RDW Coefficient Variation 14.8 % (11.7-14.2); RDW Standard Deviation 50.7 fL (35.1-46.3); Red Blood Cell Count 2.74 M/mm3 (3.80-5.20); White Blood Cell Count 6.17 K/mm3 (4.00-11.30)
[2025-01-30 05:34] LABS: Albumin, Blood 1.9 g/dL (3.4-5.0); Anion Gap 10 mmol/L (3-11); Blood Urea Nitrogen 41 mg/dL (8-24); Bun/Creatinine Ratio 29.3 (12.0-20.0); CO2, Blood 25 mmol/L (21-32); Calcium, Blood 7.5 mg/dL (8.5-10.1); Chloride, Blood 109 mmol/L (98-108); Glomerular Filtration Rate 39 (60-); Glucose, Blood 227 mg/dL (70-99); Phosphorus, Blood 3.6 mg/dL (2.5-4.9); Potassium, Blood 3.7 mmol/L (3.5-5.5); Sodium, Blood 140 mmol/L (136-145)
[2025-01-30 05:36] LABS: BAND PERCENT MAN 34 % (0-8); BASOPHILS PERCENT MAN 0 % (0-2); EOSINOPHILS ABSOLUTE MAN 0.49 K/mm3 (0.00-0.68); EOSINOPHILS PERCENT MAN 8 % (0-6); LYMPHOCYTES PERCENT MAN 5 % (21-46); METAMYELOCYTE ABSOLUTE MAN 0.06 K/mm3 (0.00-0.00); METAMYELOCYTE PERCENT MAN 1 % (0-0); MONOCYTES ABSOLUTE MAN 0.24 K/mm3 (0.16-1.47); MONOCYTES PERCENT MAN 4 % (4-13); MYELOCYTE ABSOLUTE MAN 0.06 K/mm3 (0.00-0.00); MYELOCYTE PERCENT MAN 1 % (0-0); NEUTROPHILS ABSOLUTE MAN 4.99 K/mm3 (1.96-9.15); SEG NEUTROPHILS PERCENT MAN 47 % (41-73); TOTAL CELLS COUNTED 100
--- NOTE | 2025-01-30 06:08 | NUR ---
SHIFT SUMMARY: NO ACUTE CHANGES OVERNIGHT; VSS THROUGHOUT THE SHIFT. PT REMAINS INTUBATED VIA TRACH WITH SETTINGS AC/VC+ 28/325/10/60%. LEVO GTT @ 8 MCG/MIN AND FENTANYL @ 50 MCG. PT NEURO STATUS REMAINS UNCHANGED. PT RECIEVED BED BATH THIS SHIFT. URINE OUTPUT DECREASING THROUGHOUT THE SHIFT AND CREATINE TRENDING UP ON AM LABS; APPROX. 25-35 MLS/HR. TEMP CAME DOWN TO 98.8. WILL REPORT OFF TO ONCOMING RN.
[2025-01-30] MEDS ORDERED: Ipratropium/Albuterol SulF 2.5-0.5MG/3 ML Amp INH SCH (11:20)
--- NOTE | 2025-01-30 11:22 | NUR ---
ASSUMED CARE OF PATIENT AT APPROXIMATELY 0700. BEDSIDE REPORT RECEIVED FROM ANN-MARIE JEREZ. PT TRACHED/SEDATED. PROPOFOL INFUSING AT 55MCG/KG/HR, FENTANYL INFUSING AT 50 MCG/HR. CONTINUOUS CARDIAC MONITORING IN PLACE SHOWS SR, BP STABLE c MAP > 65. VENT SETTINGS A/C VC+ 18/325/10/60%. O2 SATURATION > 92%. TEMP ROMANO IN PLACE. SEE SHIFT ASSESSMENT FOR FULL DETAILS.
[2025-01-30 12:33] LABS: Anti-Xa UFH, PHA Monitoring <0.10 IU/mL; International Normalized Ratio 0.98; Prothrombin Time Results 10.5 Sec (9.7-11.5)
[2025-01-30] MEDS ORDERED: Dose Adjust by Pharmacy XX STA ×2 (12:46→21:08)
[2025-01-30] MEDS ORDERED: Heparin Sodium,Porcine/0.5 NS 500 ML IV SCH (12:50)
--- NOTE | 2025-01-30 15:39 | NUR ---
1ST YEAR COMPUTED TOMOGRAPHY SCANNER OPERATOR LENARD HART WITH THIS RN TODAY. INTERVENTIONS THAT WERE CHARTED UNDER HER NAME WERE UNDER THIS RN'S DIRECTION AND SUPERVISION.
[2025-01-30] MEDS ORDERED: Insulin Glargine-Yfgn 100 Unit/mL 3 ML SYR SC SCH ×2 (16:05→17:00)
--- NOTE | 2025-01-30 18:03 | NUR ---
SHIFT SUMMARY PT VENT SETTINGS REMAINS ON SPONTANEOUS, 07/02 AND FiO2 80%. O2 SATURATIONS > 92%. PROPOFOL AND FENTANYL REMAIN ON SB. PER DR. TATUM, PT TO REMAIN ON SPONTANEOUS VENT SETTINGS AND OFF OF SEDATION LONG VITAL SIGNS ARE STABLE. NURSE NOTIFY IN CHART. PT STILL DOES NOT MAKE PURPOSEFUL MOVEMENTS, OR FOLLOW COMMANDS. TMAX 103.0, TYLENOL GIVEN, ICE PACKS APPLIED, AND FAN UTILIZED. CONTINUOUS CARDIAC MONITORING IN PLACE SHOWS SR, BP STABLE c MAP > 65. LEVOPHED ON SB SINCE 142. VITAL HP INFUSING AT GOAL RATE OF 50mL/HR, FLUSH INCREASED TO 120 mL/HR PER DIETARY/OK PER DR. TATUM. LONG ACTING INSULIN DOSE INCREASED TO [address] TATUM, WITH TODAY'S DOSE GIVEN NOW, RESUME DAILY DOSING 01/31/25 AT 0900, OKAY PER JAMES IN PHARMACY. HEPARIN RESTARTED THIS SHIFT, INFUSING AT 15 U/KG/HR. WILL CONTINUE TO MONITOR AND REPORT TO ONCOMING RN. SON UPDATED AT BEDSIDE, DAUGHTER UPDATED VIA PHONE CALL.
--- NOTE | 2025-01-30 19:19 | NUR ---
PT UPDATE: DURING BEDSIDE SHIFT REPORT. PT ETCO2 60-65, PT STACKING BREATHS AND PULLING TV 250-300; SPO2 90-92. TONE RT CALED TO BEDSIDE PT SUCTIONED WITH MINIMAL RETURN. PT SHOWING IRREGULAR BREATHING PATTERN AND PLACED BACK ON SEDATION WITH PROPOFOL @ 25 MCG AND FENTANYL @ 25 MCG. VENT SETTINGS AC/BC 20/12 FIO2 80%, TV 250-350.
[2025-01-30 21:20] LABS: PCO2 Arterial 71.6 mmHg (35-45); pH Blood Arterial 7.13 (7.35-7.45)
[2025-01-30 21:41] LABS: Albumin, Blood 1.8 g/dL (3.4-5.0); Albumin/Globulin Ratio 0.4 (0.8-1.8); Bilirubin, Direct 0.2 mg/dL (0.0-0.3); Bilirubin, Indirect 0.2 mg/dL (0.1-0.7); Bilirubin, Total 0.4 mg/dL (0.1-1.0); Bun/Creatinine Ratio 27.9 (12.0-20.0); Calcium, Blood 7.9 mg/dL (8.5-10.1); Creatinine, Blood 1.65 mg/dL (0.40-1.00); Globulin, Blood 4.3 g/dL (2.2-4.0); Potassium, Blood 4.2 mmol/L (3.5-5.5); Total Protein, Blood 6.1 g/dL (6.4-8.2)
[2025-01-30] MEDS ORDERED: Lactated Ringer's 1,000 ML IV ONE (21:50)
--- NOTE | 2025-01-30 22:07 | NUR ---
ASSUMPTION OF CARE/ASSESSMENT: PT REMAINS INTUBATED AND RE-SEDATED AT START OF SHIFT. PT VENT SETTINGS AC/PC 20/12, FIO2 80%, AND SPO2 90<. LEVO REMAINS ON SB; SR ON MONITOR WITH HR 70-80'S, MAP 65<, SBP 90-110. PT REMAINS UNRESPONSIVE, FLACID, NO REFLEXES NOTED TO EXTREMITIES AND PROTECTIVE REFLEX OF THE EYES NEGATIVE. DOBHOFF IN PLACE WITH VHP @ 50 MLS/HR. TEMP ROMANO PATENT AND DRAINING TO GRAVITY; TMAX 103.5. CURRENTLY TEMP AT 98.7. DR. TATUM NOTIIFIED OF RE-SEDATION AND NEW VENT SETTINGS, WELL ELEVATED ETCO2; NEW ORDERS RECIEVED. NEW BLOOD CX DRAWN PER RC. WILL CONTINUE TO MONITOR.
--- NOTE | 2025-01-30 23:15 | NUR ---
SPOKE TO DR TATUM ABOUT PT CONTINUING DECLINE W/DECREASING HEART RATE AND BP, ASYNCHRONOUS TO VENT AND HIGH ETCO2. ORDERS GIVEN
[2025-01-30 23:34] LABS: Vancomycin, Trough 19.5 ug/mL (5.0-10.0)
[2025-01-31] VITALS (91 sets, daily range): BP systolic 78–153; BP diastolic 23–68
[2025-01-31 04:17] LABS: Hematocrit 26.5 % (33.0-51.0); Hemoglobin 8.3 g/dL (11.5-16.0); Mean Platelet Volume 9.7 fL (9.1-12.4); Platelet Count 315 K/mm3 (150-400)
[2025-01-31] MEDS ORDERED: Dose Adjust by Pharmacy XX STA ×3 (05:16→21:09)
[2025-01-31] MEDS ORDERED: Heparin Sodium 5000 Units/ML 1ML MDV IV ONE ×3 (05:20→21:10)
--- NOTE | 2025-01-31 06:03 | NUR ---
SHIFT SUMMARY: AT 0045 ALL SEDATATIVE MEDS PLACED BACK ON STAND-BY. AT THIS TIME PT RESPONSIVE TO PAIN AND WITHDRAWING FROM STIMULI. PT REMAINED INTUBATED VIA TRACH WITH SETTINGS AC/PC 20/12, FIO2 70%, ETCO2 30-35 AND TV 300-400. PT BREATHING PATTERN MORE SYNCHRONOUS WITH VENT AND NO MORE STACKING BREATHS OBSERVED. PT TEMP DOWN TO 98.6 AT THIS TIME. PT OLIGURIA, PROVIDER AWARE. PT RECIEVED 1L LR BOLUS AT START OF SHIFT. PT REMAINS OFF LEVO FOR ENTIRE SHIFT, MAPS 65<, SBP 100-110. BED BATH COMPLETE. HEPARIN @ 16 UN/HR. AT 0400 PT OBSERVED MOVING R. FOOT. AT THIS TIME PT DOES NOT FOLLOW COMMANDS OR OPEN EYES SPONTANEOUSLY. BED LOWERED, WILL REPORT OFF TO ONCOMING RN.
--- NOTE | 2025-01-31 08:50 | NUR ---
[place] of care: Sedation off since 00:45. She will not open her eyes to verbal or painful stimuli. Pupils 4/brisk. No movement in any extremities except mild withdrawal to LLE. Moving head back & forth. In NSR in the 80s. Blood pressures low normal. On ACPC 20/12/28/75% with mildly coarse breath sounds. She is breathing over the vent anywhere from 33-38 times per minute. Dobhoff with VHP infusing at goal at 50cc/hr. Barrientos catheter in place draining cloudy yellow urine -- minimal output. PICC line to RUE. Scattered bruising. Will continue to monitor.
--- NOTE | 2025-01-31 11:23 | NUR ---
ETHICS CONSULT REQUESTED. DISCUSSED PT'S ADVANCE DIRECTIVE WITH ETHICIST, SPECIFICALLY SURROUNDING THE PATIENT'S WISHES FOR FULL TREATMENT INCLUDING TUBE FEEDING AND LIFE SUPPORT. THE PATIENT NAMED HER PRIMARY DECISION-MAKER, BUT HE HAS REFERRED TO DAUGHTER KERI WHO IS ALTERNATE DECISION-MAKER. KERI HAS STATED SHE WOULD NOT AGREE TO LONG-TERM LIFE SUPPORT IF THE PATIENT IS NOT NEUROLOGICALLY INTACT, AND UNABLE TO MEANINGFULLY PARTICIPATE. GIVEN THE LANGUAGE OF THE ADVANCE DIRECTIVE, THE POA IS BOUND TO FOLLOW THE PATIENT'S INSTRUCTIONS "TO THE EXTENT APPROPRIATE."
--- NOTE | 2025-01-31 11:33 | NUR ---
Advisory / interpretative guidance requested pertaining to the principals advance care planning instrument i.e. [place] Advance Directive. Documentation analyzed and discussed with the palliative care office. The following clarification was provided: the AD allows for the assigned secondary proxy to forgo or withdrawal prolonging interventions. The nomencalture contained in line one stipultates that the proxy is obliged to adhere to the principals expressed wishes, "to the extent appropriate." This implies that extenuating clinical or ethical considerations would allow the proxy to legitimately deviate from the broader AD instruction without infraction e.g. in the event that ongoing measures of care would be regarded as medically contraindicated or clinically inappropriate. Thank you for this consult. Nadeem Denson, PhD, AGATA
[2025-01-31] MEDS ORDERED: Metolazone 5 MG Tab PT ONE (12:00)
[2025-01-31] MEDS ORDERED: Bumetanide 0.25 MG/ML 4ML ViaL IV SCH (12:00)
[2025-01-31] MEDS ORDERED: Lactulose 20 GM/30 ML UDC PO SCH (13:00)
--- NOTE | 2025-01-31 17:36 | NUR ---
Shift summary: Will intermittently open eyes with repositioning & painful stimuli. Will also intermittently move extremities to pain except for LUE. Pupils remain equal/brisk. Tmax 100.3. Has been in NSR 80-90s (PVCs this morning), norepi restarted due to low MAPs & is currently infusing at 10 mcgs/min. Placed on PSV 12/5, 65% at around 10:15, did have to increase FiO2 to 75% due to de-saturations with turns, O2 sat has been 90-92%. She has thick, hatch/red secretions & coarse to clear breath sounds. RR as high as 42 -- Dr. Quintero aware. TF infusing at goal, frequent loose BM so fecal management system placed. 200cc urine output through Barrientos catheter. PICC in place. Heparin gtt infusing at 18 units/kg/hr. Will continue to monitor.
--- NOTE | 2025-01-31 21:12 | NUR ---
NOTIFIED DR TATUM THAT PT HAD AN INCREASE IN OXYGEN REQUIREMENTS AND HER ETCO2 IS 71. INFORMED HIM OF PT BREATHING PATTERNS.
[2025-01-31] MEDS ORDERED: Cisatracurium Besylate 100 MG in NS 50 ML IV SCH (23:20)
[2025-02-01] VITALS (80 sets, daily range): BP systolic 89–143; BP diastolic 37–94
[2025-02-01 04:03] LABS: Hematocrit 31.4 % (33.0-51.0); Hemoglobin 9.5 g/dL (11.5-16.0); Mean Corpuscular HGB 29.1 pg (26.0-34.0); Mean Corpuscular HGB Conc 30.3 g/dL (31.5-36.5); Mean Corpuscular Volume 96 fL (80-100); Mean Platelet Volume 9.5 fL (9.1-12.4); NRBC ABSOLUTE 0.11 K/mm3 (0.00-0.02); NRBC Auto 0.5 /100 WBC (0.0-0.2); Platelet Count 627 K/mm3 (150-400); RDW Coefficient Variation 14.8 % (11.7-14.2); RDW Standard Deviation 52.1 fL (35.1-46.3); Red Blood Cell Count 3.26 M/mm3 (3.80-5.20); White Blood Cell Count 22.08 K/mm3 (4.00-11.30)
[2025-02-01 04:27] LABS: BAND PERCENT MAN 10 % (0-8); BASOPHILS PERCENT MAN 0 % (0-2); EOSINOPHILS ABSOLUTE MAN 0.44 K/mm3 (0.00-0.68); EOSINOPHILS PERCENT MAN 2 % (0-6); LYMPHOCYTES PERCENT MAN 5 % (21-46); MONOCYTES PERCENT MAN 5 % (4-13); MYELOCYTE ABSOLUTE MAN 0.44 K/mm3 (0.00-0.00); MYELOCYTE PERCENT MAN 2 % (0-0); NEUTROPHILS ABSOLUTE MAN 18.98 K/mm3 (1.96-9.15); SEG NEUTROPHILS PERCENT MAN 76 % (41-73); TOTAL CELLS COUNTED 100
[2025-02-01 04:33] LABS: Magnesium, Blood 3.2 mg/dL (1.6-2.4)
[2025-02-01 04:35] LABS: Albumin, Blood 1.9 g/dL (3.4-5.0); Anion Gap 12 mmol/L (3-11); Blood Urea Nitrogen 68 mg/dL (8-24); Bun/Creatinine Ratio 24.2 (12.0-20.0); CO2, Blood 24 mmol/L (21-32); Calcium, Blood 7.7 mg/dL (8.5-10.1); Chloride, Blood 102 mmol/L (98-108); Creatinine, Blood 2.81 mg/dL (0.40-1.00); Glomerular Filtration Rate 17 (60-); Glucose, Blood 355 mg/dL (70-99); Phosphorus, Blood 8.4 mg/dL (2.5-4.9); Potassium, Blood 5.1 mmol/L (3.5-5.5); Sodium, Blood 133 mmol/L (136-145)
--- NOTE | 2025-02-01 06:08 | NUR ---
SHIFT SUMMERY PT BECAME INCREASINGLY UNSTABLE HEMODYNAMICALLY LAST NIGHT AND ALSO HAD DIFFICULTY W/OXYGENATION. HER VENT SETTINGS WERE CHANGED, SEE RT NOTES. SHE WAS ALSO RESTARTED ON PROPOFOL W/NIMBEX ADDED PER MD ORDER. PT HAS REQUIRED INCREASING LEVO AND EPI WAS ADDED PER DR TATUM WELL. SEE [facility] FOR RATES. LOW URINE OUTPUT AND 100ML FOR THE ENTIRE SHIFT. CRITICAL PHOS LEVEL, DR MELVIN NOTIFIED. FEBRILE W/IMPROVEMENT SHIFT PROGRESSED. VARYING RHYTHMS ON THE MEAT CUTTING TEACHER W/INCREASING BRADYCARDIA UNTIL EPI ADDED. TRACH IS INTACT AND PATENT TO THE VENT. SEE [facility] FOR TOF.
--- NOTE | 2025-02-01 08:00 | NUR ---
[place] of care: Nimbex at 3 mcgs/kg/min, propofol at 20 mcgs/kg/min. Pupils 3/sluggish. TOF 0/4. In controlled Afib/NSR with PACs on monitor. Norepi gtt at 16 mcgs/min & epi at 10 mcgs/min. Trach site secure. ACPC 100%/19/11/26. Clear lung sounds. Heparin gtt at 20 units/kg/hr. PICC, ramirez, dobhoff in place. TF infusing at goal. Discussed plan of care with Dr. Smith. Awaiting family arrival. Will continue to monitor.
[2025-02-01 08:13] LABS: Base Excess Venous -12.6 mmol/L; Bicarbonate Venous 14.1 mmol/L (24.0-30.0); PCO2 Venous 95.9 mmHg (38-42); PO2 Venous 57.7 mmHg (38-42)
[2025-02-01 08:14] LABS: pH Blood Venous 6.93 (7.34-7.37)
[2025-02-01] MEDS ORDERED: Sevelamer Carbonate 800 MG Tab PO SCH (08:30)
[2025-02-01] MEDS ORDERED: Sodium Bicarb 8.4% Inj 150 MEQ in Dextrose 5% 1,000 ML IV SCH (08:40)
[2025-02-01] MEDS ORDERED: Dose Adjust by Pharmacy XX STA ×2 (10:39→16:59)
[2025-02-01] MEDS ORDERED: Insulin Human Regular 100 UNIT in NS 100 ML IV SCH (11:45)
[2025-02-01 14:18] LABS: Base Excess Venous -11.8 mmol/L; Bicarbonate Venous 14.4 mmol/L (24.0-30.0)
[2025-02-01 14:19] LABS: pH Blood Venous 6.93 (7.34-7.37)
[2025-02-01] MEDS ORDERED: Sodium Bicarb 8.4% Inj 100 MEQ in Sodium Chloride 0.45% 1,000 ML IV SCH (14:25)
[2025-02-01] MEDS ORDERED: Vasopressin 20 UNITS in NS 100 ML IV SCH (15:10)
[2025-02-01 15:38] LABS: Bun/Creatinine Ratio 22.7 (12.0-20.0); Calcium, Blood 7.6 mg/dL (8.5-10.1); Creatinine, Blood 3.17 mg/dL (0.40-1.00); Phosphorus, Blood 8.8 mg/dL (2.5-4.9); Potassium, Blood 4.9 mmol/L (3.5-5.5)
--- NOTE | 2025-02-01 17:55 | NUR ---
Spiritual Care | Family Comfort Care Request Pt. has been placed on comfort care. The family had requested that a Licensed Acupuncturist come to do the "annoining of the sick" (last rights). Father Juice confirms that he has already done that sacrament and that he would not be avilable to do it again. This e commerce developer confirred with Dr. Oakley and the charge nurse. The family understands and agrees with the announcment of Father Juice.
--- NOTE | 2025-02-01 18:24 | NUR ---
End of shift summary: Remains on 20 mcgs/kg/min of propofol. Nimbex stopped at 1800 in anticipation of transitioning to comfort care when rest of family arrives. In sinus mohit in the 50s. Blood pressures maintaining with 0.04 units/min of vasopressin, 15 mcgs/min of epi, & 16 mcgs/min of norepi. On ACVC 35/230/12/80%. TF infusing at goal through dobhoff. Barrientos cath secure & patent. Fecal management system in place. PICC line in RUE. Heparin gtt at 17 units/kg/hr & insulin gtt at 20 units/hr. Family at bedside & after discussion with Dr. Smith they have made the patient a DNR with plans for comfort care once son arrives. DNR arm band placed on patient. Comfort care food tray ordered. Plan of care discussed with family at bedside & Dr. Smith. Will continue to monitor.
[2025-02-01] MEDS ORDERED: Meropenem 500 MG in NS 100 ML IV SCH (21:00)
--- NOTE | 2025-02-01 21:30 | NUR ---
FAMILY WAS GATHERED BEDSIDE WITH PT. AGREEMENT WITH FAMILY WAS MADE TO WITHDRAW CARE. RESPIRATORY THERAPY TO ROOM. PT REMOVED FROM VENT. DISCONTINUED PRESSORS. DID MAINTAIN SEDATION WITH PROPOFOL FOR COMFORT DURING BEING REMOVED FROM VENT. PROPOFOL THEN WAS DISCONTINUED. 2109 WAS TIME OFF VENT. TIME OF 2112. VERIFIED BY GIDEON MÁRQUEZ,ANN-MARIE AND THIS RN. CALL MADE TO DR BISHOP AND TO DR GALLEGOS, AND DR RODRIGUEZ TO INFORM OF PT'S .
[2025-02-02] MEDS ORDERED: Insulin Glargine-Yfgn 100 Unit/mL 3 ML SYR SC SCH (09:00)
[2025-02-02] MEDS ORDERED: Protein Supplement 30 ML UD PT SCH (09:00)
== END 2025-02-01 21:13 | DRG 4 ==
LOC: ER 18:09 → ERHOLD 21:29 → ICUE 21:29
PROVIDERS: Family Medicine; Internal Medicine; Internal Medicine Critical Care Medicine; Nurse Practitioner Acute Care; Student in an Organized Health Care Education/Training Program; ADMIT Internal Medicine
PROC: 5A09357 Assistance with Respiratory Ventilation, Less than 24 Consecutive Hours, Continuous Positive Airway Pressure (ICD-10-PCS; 2025-01-14)
PROC: 5A1955Z Respiratory Ventilation, Greater than 96 Consecutive Hours (ICD-10-PCS; principal; 2025-01-15)
PROC: 0BH17EZ Insertion of Endotracheal Airway into Trachea, Via Natural or Artificial Opening (ICD-10-PCS; 2025-01-15)
PROC: XW033E5 Introduction of Remdesivir Anti-infective into Peripheral Vein, Percutaneous Approach, New Technology Group 5 (ICD-10-PCS; 2025-01-15)
PROC: XW0DXM6 Introduction of Baricitinib into Mouth and Pharynx, External Approach, New Technology Group 6 (ICD-10-PCS; 2025-01-15)
PROC: 3E033XZ Introduction of Vasopressor into Peripheral Vein, Percutaneous Approach (ICD-10-PCS; 2025-01-15)
PROC: 05HM33Z Insertion of Infusion Device into Right Internal Jugular Vein, Percutaneous Approach (ICD-10-PCS; 2025-01-15)
PROC: 0DH67UZ Insertion of Feeding Device into Stomach, Via Natural or Artificial Opening (ICD-10-PCS; 2025-01-20)
PROC: 02HV33Z Insertion of Infusion Device into Superior Vena Cava, Percutaneous Approach (ICD-10-PCS; 2025-01-22)
PROC: 3E03329 Introduction of Other Anti-infective into Peripheral Vein, Percutaneous Approach (ICD-10-PCS; 2025-01-26)
PROC: 0B113Z4 Bypass Trachea to Cutaneous, Percutaneous Approach (ICD-10-PCS; 2025-01-28)
PROC: 0B9D8ZX Drainage of Right Middle Lung Lobe, Via Natural or Artificial Opening Endoscopic, Diagnostic (ICD-10-PCS; 2025-01-28)
PROC: 30233J1 Transfusion of Nonautologous Serum Albumin into Peripheral Vein, Percutaneous Approach (ICD-10-PCS; 2025-01-28)
DX: A41.89 Other specified sepsis (principal); U07.1 COVID-19; R65.21 Severe sepsis with septic shock; J80 Acute respiratory distress syndrome; J15.9 Unspecified bacterial pneumonia; I21.A1 Myocardial infarction type 2; J12.82 Pneumonia due to coronavirus disease 2019; E87.21 Acute metabolic acidosis; N17.9 Acute kidney failure, unspecified; J44.1 Chronic obstructive pulmonary disease with (acute) exacerbation; E87.0 Hyperosmolality and hypernatremia; J44.0 Chronic obstructive pulmonary disease with (acute) lower respiratory infection; I13.0 Hypertensive heart and chronic kidney disease with heart failure and stage 1 through stage 4 chronic kidney disease, or unspecified chronic kidney disease; I50.32 Chronic diastolic (congestive) heart failure; R04.2 Hemoptysis; I47.10 Supraventricular tachycardia, unspecified; E87.4 Mixed disorder of acid-base balance; Z68.42 Body mass index [BMI] 45.0-49.9, adult; Z51.5 Encounter for palliative care; Z66 Do not resuscitate; E66.9 Obesity, unspecified; H26.9 Unspecified cataract; N18.30 Chronic kidney disease, stage 3 unspecified; K21.9 Gastro-esophageal reflux disease without esophagitis; D63.1 Anemia in chronic kidney disease; I25.2 Old myocardial infarction; I48.0 Paroxysmal atrial fibrillation; E83.39 Other disorders of phosphorus metabolism; I27.20 Pulmonary hypertension, unspecified; G47.33 Obstructive sleep apnea (adult) (pediatric); F41.9 Anxiety disorder, unspecified; E11.65 Type 2 diabetes mellitus with hyperglycemia; E11.22 Type 2 diabetes mellitus with diabetic chronic kidney disease; R45.1 Restlessness and agitation; I25.10 Atherosclerotic heart disease of native coronary artery without angina pectoris; Z88.8 Allergy status to other drugs, medicaments and biological substances; Z79.82 Long term (current) use of aspirin; Z79.4 Long term (current) use of insulin; Z79.899 Other long term (current) drug therapy; Z95.1 Presence of aortocoronary bypass graft; Z90.49 Acquired absence of other specified parts of digestive tract; Z98.890 Other specified postprocedural states; I08.2 Rheumatic disorders of both aortic and tricuspid valves; Z90.11 Acquired absence of right breast and nipple; Z98.42 Cataract extraction status, left eye; Z98.41 Cataract extraction status, right eye
CPT/HCPCS: 0202U; 0241U; 31500; 31720; 36415; 36430; 36556; 36569; 36600; 51702; 70450; 71045; 74177; 80047; 80048; 80053; 80069; 80076; 80202; 80320; 81001; 82140; 82550; 82803; 82947; 83605; 83735; 83880; 84100; 84132; 84145; 84443; 84478; 84484; 85014; 85018; 85025; 85049; 85520; 85610; 85730; 86140; 86850; 86900; 86901; 86923; 87040; 87070; 87077; 87086; 87102; 87106; 87186; 87205; 87428-QW; 87493; 93005; 93010; 93306; 94002; 94003; 94640; 94644; 94660; 94664; 94667; 94668; 94760; 94762; 96374-59; 96375-59; 99285-25; A9270; C1751; C9399; G0480; J0171; J0248; J0282; J0456; J0696; J1100; J1160; J1200; J1644; J1650; J1815; J1940; J2060; J2185; J2250; J2371; J2470; J2704; J2919; J3010; J3370; J3475; J7030; J7040; J7050; J7060; J7070; J7120; P9016; P9047; Q9967